=== PATIENT | male | born 1950 | race Caucasian/White ===

== ENCOUNTER 2020-08-23 09:02 | Emergency (ER) | payer OTHER, SELFPAY ==
--- NOTE | ~2020-08-23 | XR_ITS ---
EXAMINATION: XR shoulder RT min 2V EXAM DATE: 08/23/2020 09:39 INDICATION: Fell down steps 08/22/2020 with limited range of motion, persistent right shoulder pain. In itial encounter. TECHNIQUE: The following right shoulder projections obtained: frontal projection with internal rotati on, frontal projection with external rotation, Grashey, and scapular Y view (4+ views). There is no prior study for comparison. FINDINGS: No evidence of right shoulder rotator cuff calcific tendinosis. There is mild glenohumer al, moderate acromioclavicular joint primary osteoarthritis. There are no acute fractures or dislocat ions identified. There is no subcutaneous gas. The soft tissue is unremarkable. There are no radi opaque foreign bodies. IMPRESSION: No acute osseous findings. Reviewed, dictated and finalized at location B. IMPRESSION: No acute osseous findings.
[2020-08-23 09:16] VITALS: BP 107/66; PULSE 68; RESP 18; TEMP 36.7; O2SAT 100
--- NOTE | 2020-08-23 09:18 | ED.UPPEXIN ---
HPI - Extremity Injury (Upper) General Chief Complaint: Extremity Injury, Upper Stated Complaint: right shoulder injury Time Seen by Provider: 08/23/20 09:18 Source: patient and RN notes reviewed History of Present Illness HPI narrative: Patient is a 70-year-old male who presents the urgent care with complaints of right shoulder pain after fall yesterday. Patient states that he missed a step going down and fell onto his right shoulder. Patient states that he has been having a lot of difficulty in pain lifting the shoulder/arm. Patient denies hitting his head or any loss of consciousness. Patient states he has been taking Advil and Tylenol for the pain without much improvement. No other acute complaints. Some parts of this dictation were generated by voice recognition software and may contain typographical and/or grammatical inaccuracies. Related Data Home Medications Medication Instructions Recorded Confirmed atorvastatin 04/14/19 finasteride mg 04/14/19 lisinopril-hydrochlorothiazide tablet 04/14/19 omeprazole 04/14/19 terazosin mg 04/14/19 Allergies Allergy/AdvReac Type Severity Reaction Status Date / Time tramadol Allergy Mild ITCHING Verified 08/23/20 09:44 Review of Systems Review of Systems: Narrative: CONSTITUTIONAL: Denies fever, chills, or sweats. EYES: Denies visual changes, redness, or discharge. ENT: Denies rhinorrhea, congestion, sore throat, or otalgia. CARDIOVASCULAR: Denies chest pain, palpitations, or edema. RESPIRATORY: Denies cough or dyspnea. GASTROINTESTINAL: Denies abdominal pain, nausea, vomiting, or diarrhea. GENITOURINARY: Denies dysuria or hematuria. SKIN: Denies rash or itching. MUSCULOSKELETAL: Reports of right shoulder pain NEUROLOGIC: Denies headache, numbness, or weakness. All other systems reviewed are negative, except as documented in HPI. [facility] Past Medical History Medical History (Updated 08/23/20 @ 10:00 by BEBO Hoffmann) GERD (gastroesophageal reflux disease) Hyperlipidemia Hypertension Surgical History Surgical History (Updated 04/14/19 @ 10:20 by Mackenzie Dillon NP) History of total right knee replacement Previous back surgery Social History Social History (Updated 04/14/19 @ 10:21 by Mackenzie Dillon NP) Smoking packs per day: 0.5 Smoking cigarettes per day: 10.0 Years smoked: 25 Smoking pack-years: 12.50 Smoking status: Current every day smoker Comments At the time of my signature, I reviewed and agree with the nursing past medical, surgical, social, and family history. There is no relevant family history pertinent to the patient complaint. Exam Narrative: Exam Narrative: GENERAL: This is a well-nourished, well-developed patient, in no apparent distress. HEAD: normocephalic, atraumatic. EYES: PERRL. Sclera clear/white. Vision is grossly intact. EARS: External ears normal NOSE: External nose normal with no obvious nasal discharge, nares without redness, no rhinorrhea. THROAT: Mucous membranes moist NECK: Neck supple CARDIOVASCULAR: Regular rate and rhythm without murmurs, gallops, or rubs. RESPIRATORY: Clear to auscultation. Breath sounds equal bilaterally. No wheezes, rales, or rhonchi. SKIN: warm, intact with no suspicious lesions or rash, good texture and turgor. NEURO: awake, alert, and oriented to person, place and time. There were no obvious focal neurologic abnormalities. EXTREMITIES: No obvious deformity/dislocation/edema or ecchymosis noted to the right upper extremity/shoulder. Positive strong right radial pulse with capillary refill less than 2 seconds. Pain exacerbated with abduction/abduction of the right upper extremity. No clavicle crepitus. Range of motion limited due to pain. Course Vital Signs Vital signs: Vital Signs Temperature 98.1 F 08/23/20 09:16 Pulse Rate 68 08/23/20 09:16 Respiratory Rate 18 08/23/20 09:16 Blood Pressure 107/66 08/23/20 09:16 Pulse Oximetry 100 08/23/20 09
== END 2020-08-23 10:05 | disposition home or self-care (01) ==
PROVIDERS: Emergency Provider Nurse Practitioner Family
DX: M19.011 Primary osteoarthritis, right shoulder (principal); K21.9 Gastro-esophageal reflux disease without esophagitis; E78.5 Hyperlipidemia, unspecified; I10 Essential (primary) hypertension; Z96.651 Presence of right artificial knee joint; F17.210 Nicotine dependence, cigarettes, uncomplicated
CPT/HCPCS: 73030; 99213; G0463

== ENCOUNTER 2020-10-05 07:58 | Outpatient (CLI) | payer OTHER, SELFPAY ==
--- NOTE | ~2020-10-05 | XR_ITS ---
XR cervical spine 4-5V 10/05/2020 08:16 Indication: Neck pain and radiculopathy. Procedure: 4 view cervical spine Comparison: No prior studies for comparison. Findings: There is disc narrowing and marginal osteophytes at C4-5, C5-6 and C6-7. There is moderate multilevel uncinate and facet hypertrophy. Lung apices are normal. Odontoid process within normal steiner its. No fracture or traumatic malalignment. Impression: 1: Moderate-severe cervical spondylosis. Reviewed, dictated and finalized at location A. Impression: 1: Moderate-severe cervical spondylosis.
== END 2020-10-05 07:59 | disposition home or self-care (01) ==
LOC: ANHIMG 08:01
PROVIDERS: PCP Family Medicine; Visit Provider Family Medicine
DX: M47.22 Other spondylosis with radiculopathy, cervical region (principal); M48.02 Spinal stenosis, cervical region
CPT/HCPCS: 72050

== ENCOUNTER 2020-10-21 14:56 | Outpatient (CLI) | payer OTHER, SELFPAY ==
--- NOTE | ~2020-10-21 | US_ITS ---
EXAMINATION: US carotid duplex BI DATE: 10/21/2020 15:29 INDICATION: Carotid atherosclerosis and numbness on the left side of the neck TECHNIQUE: Grayscale, color Doppler, and pulsed Doppler images of the cervical carotid arteries were obtained. The degree of vessel stenosis is placed in one of the following categories: normal, <50%, 5 0-69%, >=70% but less than near-occlusion, near-occlusion, or total occlusion. Note that percent sten osis relative to normal distal artery lumen diameter is indirectly measured from velocity measurement s as described by Tigre, et al. Radiology 2003; [id number]. COMPARISON: None. FINDINGS: RIGHT: The right common carotid artery (CCA) peak systolic velocity (PSV) is 76 cm/s. The right internal car otid artery (ICA) PSV is 78 cm/s. The right ICA end-diastolic velocity (EDV) is 19 cm/s. The right IC A/CCA PSV ratio is 1.0. Grayscale and color Doppler images yield an estimate of <50% diameter reducti on from plaque in the ICA. The external carotid artery (ECA) PSV is 144 cm/s. There is antegrade flow in the right vertebral artery. LEFT: The left CCA PSV is 72 cm/s. The left ICA PSV is 95 cm/s. The left ICA EDV is 32 cm/s. The left ICA/C CA PSV ratio is 1.3. Grayscale and color Doppler images yield an estimate of <50% diameter reduction from plaque in the ICA. The ECA PSV is 334 cm/s. There is antegrade flow in the left vertebral artery . IMPRESSION: 1. <50% stenosis in the right internal carotid artery. 2. <50% stenosis in the left internal carotid artery. 3. Cardiac arrhythmia is present. Correlate with EKG. Reviewed, dictated and finalized at location A.
== END 2020-10-21 14:57 | disposition home or self-care (01) ==
PROVIDERS: PCP Family Medicine; Visit Provider Family Medicine
DX: I65.23 Occlusion and stenosis of bilateral carotid arteries (principal)
CPT/HCPCS: 93880

== ENCOUNTER 2021-01-16 10:51 | Emergency (ER) | payer OTHER, SELFPAY ==
--- NOTE | ~2021-01-16 | XR_ITS ---
EXAMINATION: XR hip LT min 2V EXAM DATE: 01/16/2021 12:01 INDICATION: No known recent injury provided at this time. Pain of the left hip. TECHNIQUE: Left hip frontal, 'frog leg' projections for interpretation. There is no prior study for comparison. FINDINGS: Smooth left hip femoral head contour, no radiographic evidence of avascular necrosis. Ther e is moderate left hip primary osteoarthritis. There are no acute fractures or dislocations identifie d. There is no subcutaneous gas. Mild superficial femoral arterial calcifications. There are no ra diopaque foreign bodies. IMPRESSION: Moderate left hip osteoarthritis. Reviewed, dictated and finalized at location A.
[2021-01-16 11:00] VITALS: BP 104/62; PULSE 72; RESP 18; TEMP 36.8; O2SAT 99
--- NOTE | 2021-01-16 11:44 | ED.GENADULT ---
HPI - General Adult General Chief complaint: Extremity Injury, Lower Stated complaint: lt hip pain Source: patient Mode of arrival: ambulatory Limitations: no limitations History of Present Illness HPI narrative: Patient presents for evaluation of left hip pain for the last week. He will identify any precipitating cause or injury. Pain is constant, sharp rated 10 out of 10 in severity, with radiation to left thigh. No paresthesias. He has alternated Tylenol and Aleve with some improvement. He also had some leftover Percocet which he took. He states the medication was effective for a short period of time. Weightbearing and walking cause worsening pain. As of late he has been ambulating with a cane 2/2 pain. No additional complaints or concerns. Related Data Home Medications Medication Instructions Recorded Confirmed famotidine 20 mg tablet 20 mg PO DAILY 08/24/20 01/16/21 montelukast 10 mg tablet 10 mg PO DAILY 08/24/20 01/16/21 zinc 50 mg tablet 50 mg PO DAILY 08/24/20 01/16/21 Allergies Allergy/AdvReac Type Severity Reaction Status Date / Time tramadol Allergy Mild ITCHING Verified 01/16/21 11:15 Review of Systems Review of Systems: CONSTITUTIONAL: Denies fever, chills, or sweats. EYES: Denies visual changes, redness, or discharge. ENT: Denies rhinorrhea, congestion, sore throat, or otalgia. CARDIOVASCULAR: Denies chest pain, palpitations, or edema. RESPIRATORY: Denies cough or dyspnea. GASTROINTESTINAL: Denies abdominal pain, nausea, vomiting, or diarrhea. GENITOURINARY: Denies dysuria or hematuria. SKIN: Denies rash or itching. MUSCULOSKELETAL: Reports left hip pain. Denies back pain or myalgia. NEUROLOGIC: Denies headache, numbness, dizziness, or weakness. PSYCHIATRIC: Denies anxiety or depression. [facility] Past Medical History Medical History Benign essential HTN BPH loc w urin obs/LUTS CAD (coronary artery disease) Drug abuse in remission JUAN DAVID (generalized anxiety disorder) GERD (gastroesophageal reflux disease) Hepatitis C Herniated lumbar intervertebral disc Hx of transfusion of packed red blood cells Hyperlipidemia Hyperlipidemia Hypertension Tinnitus Tobacco abuse Surgical History Surgical History History of total right knee replacement Hx laparoscopic cholecystectomy Previous back surgery Family History Family History Other Throat cancer Social History Social History Social History: Smoking packs per day: 0.5 Smoking cigarettes per day: 10.0 Years smoked: 25 Smoking pack-years: 12.50 Smoking status: Current every day smoker Tobacco type: cigarettes Second hand tobacco smoke exposure: Yes Alcohol intake: former Substance use: former Substance use type: unknown 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 HEAD: Normocephalic, atraumatic. EYES: PERRLA and EOMI. ENT: Nares clear, no rhinorrhea or epistaxis. Mucous membranes moist. Oropharynx without tonsillar hypertrophy exudate or other lesions. Bilateral TMs pearly goins nonbulging NECK: Supple. No adenopathy or masses. No carotid bruits or JVD CHEST: Clear to auscultation. No respiratory distress. No wheezes rales or rhonchi HEART: Regular rate and rhythm. No murmur heard. Normal peripheral pulses. ABDOMEN: Soft, nontender, nondistended, normal active bowel sounds. EXTREMITIES:Tenderness over left lateral hip and proximal left thigh. Normal range of motion. No edema. Pain is reproducible in left hip with
[2021-01-16] MEDS: KETOROLAC (*BKC) 60 MG/2 ML VIAL 30 MG IM (12:28)
== END 2021-01-16 12:50 | disposition home or self-care (01) ==
PROVIDERS: Emergency Provider Nurse Practitioner; PCP Family Medicine
DX: M16.12 Unilateral primary osteoarthritis, left hip (principal); F17.210 Nicotine dependence, cigarettes, uncomplicated; Z96.651 Presence of right artificial knee joint; I10 Essential (primary) hypertension; N40.1 Benign prostatic hyperplasia with lower urinary tract symptoms; I25.10 Atherosclerotic heart disease of native coronary artery without angina pectoris; K21.9 Gastro-esophageal reflux disease without esophagitis; Z86.19 Personal history of other infectious and parasitic diseases; E78.5 Hyperlipidemia, unspecified
CPT/HCPCS: 73502; 96372; 99213; G0463; J1885

== ENCOUNTER 2021-01-31 10:01 | Outpatient (CLI) | payer OTHER, SELFPAY ==
--- NOTE | ~2021-01-31 | CT_ITS ---
EXAMINATION:CT lung screening DATE: 01/31/2021 10:26 INDICATION: Personal history of tobacco dependence. Current smoker with 30 pack year history. TECHNIQUE: Computed tomography (CT) of the chest was performed without intravenous contrast. Automate d exposure control and iterative reconstruction technique were employed. The dose-length product (DLP ) was 110.22 mGy-cm. COMPARISON: None. FINDINGS: There is mild emphysema. There is mild atelectasis bilaterally. A calcified right lung nodu le and calcified subcarinal lymph nodes are consistent with old granulomatous disease. No pleural eff usion. The heart size is normal. There are coronary artery calcifications. Calcifications of aortic v alve. No pericardial effusion. There is severe cervical and thoracic spondylosis. There is mild chron ic anterior wedging of multiple vertebral bodies at thoracolumbar junction. IMPRESSION: 1. Lung-RADS category 1: Negative. Continue annual screening with noncontrast low-dose chest CT in 12 months. Reviewed, dictated and finalized at location A. IMPRESSION: 1. Lung-RADS category 1: Negative. Continue annual screening with noncontrast l ow-dose chest CT in 12 months.
== END 2021-01-31 10:02 | disposition home or self-care (01) ==
LOC: ANHIMG 10:11
PROVIDERS: PCP Family Medicine; Visit Provider Family Medicine
DX: Z12.2 Encounter for screening for malignant neoplasm of respiratory organs (principal); Z87.891 Personal history of nicotine dependence
CPT/HCPCS: 71271

== ENCOUNTER 2021-08-25 15:13 | Emergency (ER) | payer OTHER, SELFPAY ==
[2021-08-25 15:22] VITALS: BP 141/71; PULSE 53; RESP 16; TEMP 36.7; O2SAT 100
[2021-08-25 15:39] VITALS: BP 141/71; PULSE 53; RESP 16; TEMP 36.7; O2SAT 100
--- NOTE | 2021-08-25 15:44 | ED.URI ---
HPI - URI/Sore Throat General Chief Complaint: Ear Stated Complaint: Ear Pain Time Seen by Provider: 08/25/21 15:44 Source: patient Mode of arrival: ambulatory Limitations: no limitations History of Present Illness HPI Narrative: 71-year-old male presented for complaint of right ear feeling full. He states he has a history of earwax impaction and this feels similar. He denies associated sinus pressure congestion, runny nose, dizziness. He endorses a history of tinnitus which is unchanged at this time. Related Data Home Medications Medication Instructions Recorded Confirmed famotidine 20 mg tablet 20 mg PO DAILY 08/24/20 08/25/21 montelukast 10 mg tablet 10 mg PO DAILY 08/24/20 08/25/21 zinc 50 mg tablet 50 mg PO DAILY 08/24/20 08/25/21 Allergies Allergy/AdvReac Type Severity Reaction Status Date / Time tramadol Allergy Mild ITCHING Verified 08/25/21 15:34 Review of Systems Review of Systems: CONSTITUTIONAL: Denies malaise, chills, or fever. EYES: Denies visual changes, redness, or discharge. ENT: Denies rhinorrhea, congestion, sinus pain, and sore throat. Reports ear pressure CARDIOVASCULAR: Denies chest pain, palpitations, or edema. RESPIRATORY: Denies cough or dyspnea. GASTROINTESTINAL: Denies abdominal pain, nausea, vomiting, diarrhea SKIN: Denies rash or itching. MUSCULOSKELETAL: Denies myalgia. NEUROLOGIC: Denies headache. All systems reviewed & are unremarkable except as noted in HPI and below PMFSH Past Medical History Medical History Abnormality of gait Benign essential HTN Bilateral carotid bruits BPH loc w urin obs/LUTS Brachial (cervical) neuritis CAD (coronary artery disease) Cardiac murmur Carotid artery bruit Cervical spondylosis with radiculopathy Chronic pain Degenerative joint disease of left hip Drug abuse in remission JUAN DAVID (generalized anxiety disorder) GERD (gastroesophageal reflux disease) Hepatitis C Herniated lumbar intervertebral disc Hx of hepatitis C Hx of transfusion of packed red blood cells Hyperlipidemia Hyperlipidemia Hypertension Low vitamin D level Osteoarthritis of left hip Shoulder tendinitis Tinnitus Tobacco abuse Trochanteric bursitis Unsteady gait Surgical History Surgical History History of total right knee replacement Previous back surgery x2 Family History Family History Sibling Tuberculosis Father Tuberculosis Mother Hypertension Other Throat cancer Social History Social History Social History: Years smoked: 50 Smoking status: Current every day smoker Tobacco type: cigarettes Second hand tobacco smoke exposure: Yes Alcohol intake: former Substance use: former Substance use type: unknown Gender identity (if verbalized by the patient): Male Sexual Orientation (if Verbalized by the Patient): Straight or Heterosexual Spiritual care concerns: No Comments At time of signature, agree with nursing past medical, surgical, social and family history. There is no relevant family history pertinent to the presenting complaint Exam Narrative: GENERAL: Well-appearing HEAD: Normocephalic EYES: conjunctivae clear ENT: Nares clear. Mucous membranes moist. TM obstructed bilaterally due to cerumen impaction; no tragal tenderness. Oropharynx not erythematous without lesions. NECK: Supple. No lymphadenopathy CHEST: Clear to auscultation, breath sounds equal. HEART: Regular rate and rhythm. No murmur heard. SKIN: Warm, dry, no rash. NEURO: Alert and oriented x3. PSYCH: Normal mood and affect Course Course Emergency Course: Patient is aware of diagnosis, understands and agrees to treatment plan. Anticipatory guidance given. Patient agrees to follow-up as directed and is aware of reasons to seek ca
== END 2021-08-25 16:15 | disposition home or self-care (01) ==
PROVIDERS: Emergency Provider Nurse Practitioner Family; PCP Family Medicine
DX: H61.23 Impacted cerumen, bilateral (principal); I25.10 Atherosclerotic heart disease of native coronary artery without angina pectoris; I10 Essential (primary) hypertension; E78.5 Hyperlipidemia, unspecified; F17.210 Nicotine dependence, cigarettes, uncomplicated
CPT/HCPCS: 69210; 99212; G0463

== ENCOUNTER 2021-12-20 00:32 | Day surgery (SDC) | payer OTHER, SELFPAY ==
[2021-12-07 14:01] VITALS: BMI 26.2
[2021-12-20 07:15] VITALS: BP 131/70; PULSE 52; RESP 16; TEMP 36.1; O2SAT 99; BMI 25.8
[2021-12-20] MEDS: LACTATED RINGERS 1,000 ML 150 ML IV CONT (07:26)
--- NOTE | 2021-12-20 08:03 | WPDANESEPPF ---
Anes - Initial Pre Proc Eval Procedure: Operation Date: 12/20/21 08:30 Proposed Procedures p Screening Colonoscopy - Nick Varela MD Date/Time: 12/20/21 08:03 Surgeon: Nick Varela MD Pre Op Diagnosis: neoplasm screening Patient Data Age: 71 Gender: M Height: 1.85 m Weight: 88.8 kg Last Vital Signs Temp 97 F L 12/20/21 07:15 Pulse 52 L 12/20/21 07:15 Resp 16 12/20/21 07:15 BP 131/70 12/20/21 07:15 Pulse Ox 99 12/20/21 07:15 O2 Del Method Room Air 12/20/21 07:15 Allergies Allergy/AdvReac Type Severity Reaction Status Date / Time tramadol Allergy Mild ITCHING Verified 12/20/21 07:12 Home Medications Medication Instructions Recorded Confirmed Type montelukast 10 mg tablet 10 mg PO DAILY 08/24/20 12/20/21 History omeprazole 40 mg capsule,delayed 40 mg PO DAILY #90 caps 08/24/20 12/20/21 Rx release zinc 50 mg tablet 50 mg PO DAILY 08/24/20 12/20/21 History diclofenac sodium 1 % topical gel 4 g topical QID #100 grams 01/16/21 12/20/21 Rx (Voltaren Arthritis Pain) terazosin 5 mg capsule See Rx Instructions .Route 06/14/21 12/20/21 Rx .COMPLEX #90 caps atorvastatin 40 mg tablet See Rx Instructions .Route 07/04/21 12/20/21 Rx .COMPLEX #90 tabs isosorbide mononitrate 30 mg See Rx Instructions .Route 09/02/21 12/20/21 Rx tablet,extended release 24 hr .COMPLEX #90 tabs lisinopril 10 See Rx Instructions .Route 10/14/21 12/20/21 Rx mg-hydrochlorothiazide 12.5 mg .COMPLEX #90 tabs tablet celecoxib 200 mg capsule See Rx Instructions .Route 11/14/21 12/20/21 Rx .COMPLEX #60 caps finasteride 5 mg tablet See Rx Instructions .Route 11/14/21 12/20/21 Rx .COMPLEX #90 tabs escitalopram oxalate 5 mg tablet See Rx Instructions .Route 12/06/21 12/20/21 Rx .COMPLEX #90 tabs tizanidine 2 mg tablet See Rx Instructions .Route 12/06/21 12/20/21 Rx .COMPLEX #90 tabs Patient hx anesthesia problems: none Family hx anesthesia problems: none Results Review: All pre-operative results and documents have been reviewed as part of the pre-operative evaluation. [facility] Past Medical History Medical History Abnormality of gait Benign essential HTN Bilateral carotid bruits BPH loc w urin obs/LUTS Brachial (cervical) neuritis CAD (coronary artery disease) Cardiac murmur Carotid artery bruit Cervical spondylosis with radiculopathy Chronic pain Degenerative joint disease of left hip Drug abuse in remission JUAN DAVID (generalized anxiety disorder) GERD (gastroesophageal reflux disease) Hepatitis C Herniated lumbar intervertebral disc Hx of hepatitis C Hx of transfusion of packed red blood cells Hyperlipidemia Hyperlipidemia Hypertension Low vitamin D level Osteoarthritis of left hip Shoulder tendinitis Tinnitus Tobacco abuse Trochanteric bursitis Unsteady gait Surgical History Surgical History History of total right knee replacement Previous back surgery x2 Family History Family History Sibling Tuberculosis Father Tuberculosis Mother Hypertension Other Throat cancer Social History Social History (Updated 12/08/21 @ 14:40 by Dannielle Rehman) Social History: Smoking packs per day: 0.5 Smoking cigarettes per day: 10.0 Years smoked: 50 Smoking pack-years: 25.00 Smoking status: Current every day smoker Tobacco type: cigarettes Second hand tobacco smoke exposure: Yes Alcohol intake: never Substance use: former Substance use type: does not use Living arrangements: with family Gender identity (if verbalized by the patient): Male Sexual Orientation (if Verbalized by the Patient): Straight or Heterosexual Spiritual care concerns: No Anes - Eval Final PreProcedure Day of Procedure 12/20/21 08:03 Patient weight: normal Heart: re
--- NOTE | 2021-12-20 08:10 | PM.HPGS ---
History of Present Illness History of Present Illness Consent: Risks, benefits, and alternatives have been discussed and questions answered. Patient agrees to proceed with procedure. Chief complaint: neoplasm screening Narrative: David Castro is a 71 year old male here for screening colonoscopy, last one over 10 years ago Review of Systems Constitutional: Constitutional: Denies headache(s) and Denies weakness Eyes: Eyes: Denies blurry vision ENT: Reports Normal hearing present, Denies headache(s) and Denies neck pain Cardiovascular: Cardiovascular: Denies chest pain and Denies dyspnea Respiratory: Respiratory: Denies dyspnea Gastrointestinal: Gastrointestinal: Reports no additional gastrointestinal complaints Genitourinary: Genitourinary: Denies dysuria Musculoskeletal: Musculoskeletal: Denies neck pain Integumentary/Breasts: Skin/Breast: Denies dry skin Neurologic: Reports Normal hearing present, Denies headache(s) and Denies weakness Psychiatric: Psychiatric: Denies anxiety Endocrine: Endocrine: Denies change in body appearance Hematologic/Lymphatic: Hematologic/Lymphatic: Denies easy bleeding Allergic/Immunologic: Allergic/Immunologic: Denies urticaria PMFSH Past Medical History Medical History Abnormality of gait Benign essential HTN Bilateral carotid bruits BPH loc w urin obs/LUTS Brachial (cervical) neuritis CAD (coronary artery disease) Cardiac murmur Carotid artery bruit Cervical spondylosis with radiculopathy Chronic pain Degenerative joint disease of left hip Drug abuse in remission JUAN DAVID (generalized anxiety disorder) GERD (gastroesophageal reflux disease) Hepatitis C Herniated lumbar intervertebral disc Hx of hepatitis C Hx of transfusion of packed red blood cells Hyperlipidemia Hyperlipidemia Hypertension Low vitamin D level Osteoarthritis of left hip Shoulder tendinitis Tinnitus Tobacco abuse Trochanteric bursitis Unsteady gait Surgical History Surgical History History of total right knee replacement Previous back surgery x2 Family History Family History Sibling Tuberculosis Father Tuberculosis Mother Hypertension Other Throat cancer Social History Social History (Updated 12/08/21 @ 14:40 by Dannielle Rehman) Social History: Smoking packs per day: 0.5 Smoking cigarettes per day: 10.0 Years smoked: 50 Smoking pack-years: 25.00 Smoking status: Current every day smoker Tobacco type: cigarettes Second hand tobacco smoke exposure: Yes Alcohol intake: never Substance use: former Substance use type: does not use Living arrangements: with family Gender identity (if verbalized by the patient): Male Sexual Orientation (if Verbalized by the Patient): Straight or Heterosexual Spiritual care concerns: No Meds Home Medications and Allergies Home Medications Medication Instructions Recorded Confirmed Type montelukast 10 mg tablet 10 mg PO DAILY 08/24/20 12/20/21 History omeprazole 40 mg capsule,delayed 40 mg PO DAILY #90 caps 08/24/20 12/20/21 Rx release zinc 50 mg tablet 50 mg PO DAILY 08/24/20 12/20/21 History diclofenac sodium 1 % topical gel 4 g topical QID #100 grams 01/16/21 12/20/21 Rx (Voltaren Arthritis Pain) terazosin 5 mg capsule See Rx Instructions .Route 06/14/21 12/20/21 Rx .COMPLEX #90 caps atorvastatin 40 mg tablet See Rx Instructions .Route 07/04/21 12/20/21 Rx .COMPLEX #90 tabs isosorbide mononitrate 30 mg See Rx Instructions .Route 09/02/21 12/20/21 Rx tablet,extended release 24 hr .COMPLEX #90 tabs lisinopril 10 See Rx Instructions .Route 10/14/21 12/20/21 Rx mg-hydrochlorothiazide 12.5 mg .COMPLEX #90 tabs tablet celecoxib 200 mg capsule See Rx Instructions .Route 11/14/21 12/20/21 Rx .COMPLEX #60 caps finasteride 5
[2021-12-20 08:33] VITALS: BP 114/72; PULSE 53; RESP 21; O2SAT 97
[2021-12-20 08:43] VITALS: BP 144/80; PULSE 48; RESP 16; O2SAT 97
[2021-12-20 08:53] VITALS: BP 134/82; PULSE 55; RESP 16; O2SAT 98
== END 2021-12-20 09:03 | disposition home or self-care (01) ==
PROVIDERS: PCP Family Medicine; Visit Provider Internal Medicine Gastroenterology
PROC: 0DJD8ZZ Inspection of Lower Intestinal Tract, Via Natural or Artificial Opening Endoscopic (ICD-10-PCS; CPT 45378; principal; 2021-12-20 08:30)
DX: Z12.11 Encounter for screening for malignant neoplasm of colon (principal); N40.1 Benign prostatic hyperplasia with lower urinary tract symptoms; I10 Essential (primary) hypertension; I25.10 Atherosclerotic heart disease of native coronary artery without angina pectoris; M47.22 Other spondylosis with radiculopathy, cervical region; M16.12 Unilateral primary osteoarthritis, left hip; K21.9 Gastro-esophageal reflux disease without esophagitis; F41.1 Generalized anxiety disorder; B19.20 Unspecified viral hepatitis C without hepatic coma; E78.5 Hyperlipidemia, unspecified; E55.9 Vitamin D deficiency, unspecified; H93.19 Tinnitus, unspecified ear; F17.210 Nicotine dependence, cigarettes, uncomplicated
CPT/HCPCS: G0121; J2704; J7120

== ENCOUNTER 2021-12-28 09:38 | Emergency (ER) | payer OTHER, SELFPAY ==
--- NOTE | ~2021-12-28 | XR_ITS ---
EXAMINATION: XR knee LT min 4V DATE: 12/28/2021 10:13 INDICATION: Left knee lump. TECHNIQUE: 5 views of left knee were obtained. COMPARISON: None. FINDINGS: Bone alignment is normal. No fracture. There is moderate osteoarthritis of medial compartme nt and mild osteoarthritis of lateral and patellofemoral compartments. There is chondrocalcinosis of the menisci. No knee joint effusion. There is soft tissue swelling medial to the knee joint. IMPRESSION: 1. Moderate left knee osteoarthritis. 2. Soft tissue swelling medial to the knee joint. Reviewed, dictated and finalized at location A.
[2021-12-28 09:40] VITALS: BP 119/58; PULSE 52; RESP 14; TEMP 36.5; O2SAT 98
--- NOTE | 2021-12-28 09:43 | ED.EXTPRO ---
HPI - Extremity Problem General Chief complaint: Extremity Problem,Nontraumatic Stated complaint: lump on left knee Time Seen by Provider: 12/28/21 10:17 Source: patient and RN notes reviewed Mode of arrival: ambulatory Limitations: no limitations History of Present Illness HPI Narrative: 71-year-old male presents with concern for swelling and pain to the left knee, he also reports a nodule to the left knee. He reports symptoms have been present for approximately 1 month. He denies any injury or trauma. He reports using Tylenol without pain relief. He reports pain is worse at night. He denies warmth, redness, open skin MD Complaint: extremity pain and extremity swelling Related Data Home Medications Medication Instructions Recorded Confirmed montelukast 10 mg tablet 10 mg PO DAILY 08/24/20 12/20/21 zinc 50 mg tablet 50 mg PO DAILY 08/24/20 12/20/21 Allergies Allergy/AdvReac Type Severity Reaction Status Date / Time tramadol Allergy Mild ITCHING Verified 12/28/21 10:02 Review of Systems Review of Systems: CONSTITUTIONAL: Denies malaise, chills, sweats, or fever. CARDIOVASCULAR: Denies chest pain, palpitations, or edema. RESPIRATORY: Denies cough or dyspnea. SKIN: Denies rash or itching, bruising, redness, swelling. MUSCULOSKELETAL: Reports left knee pain, swelling, nodule NEUROLOGIC: Denies numbness, weakness All systems reviewed & are unremarkable except as noted in HPI and below PMFSH Past Medical History Medical History Abnormality of gait Benign essential HTN Bilateral carotid bruits BPH loc w urin obs/LUTS Brachial (cervical) neuritis CAD (coronary artery disease) Cardiac murmur Carotid artery bruit Cervical spondylosis with radiculopathy Chronic pain Degenerative joint disease of left hip Drug abuse in remission JUAN DAVID (generalized anxiety disorder) GERD (gastroesophageal reflux disease) Hepatitis C Herniated lumbar intervertebral disc Hx of hepatitis C Hx of transfusion of packed red blood cells Hyperlipidemia Hyperlipidemia Hypertension Low vitamin D level Osteoarthritis of left hip Shoulder tendinitis Tinnitus Tobacco abuse Trochanteric bursitis Unsteady gait Surgical History Surgical History History of total right knee replacement Previous back surgery x2 Family History Family History Sibling Tuberculosis Father Tuberculosis Mother Hypertension Other Throat cancer Social History Social History (Updated 12/08/21 @ 14:40 by Dannielle Rehman) Social History: Smoking packs per day: 0.5 Smoking cigarettes per day: 10.0 Years smoked: 50 Smoking pack-years: 25.00 Smoking status: Current every day smoker Tobacco type: cigarettes Second hand tobacco smoke exposure: Yes Alcohol intake: never Substance use: former Substance use type: does not use Gender identity (if verbalized by the patient): Male Sexual Orientation (if Verbalized by the Patient): Straight or Heterosexual Spiritual care concerns: No Comments At time of signature, agree with nursing past medical, surgical, social and family history. There is no relevant family history pertinent to the presenting complaint Exam Narrative: GENERAL: Well-appearing, well-nourished, and in no acute distress. HEAD: Normocephalic, atraumatic. EYES: PERRLA, conjunctivae clear NECK: Supple. CHEST: Speaks in full sentences. No respiratory distress. HEART: Regular rate and rhythm. Normal and equal peripheral pulses. EXTREMITIES: Left knee has normal grossly strength and sensation, grossly normal range of motion. Mild nonpitting edema without erythema, warmth or ecchymosis. Nontender. Firm nontender nodule approximately 3 cm in diameter noted to the left medial knee. No open wounds, no skin tenting, no devitalized tissue or atrophy, no trophic ch
== END 2021-12-28 10:30 | disposition home or self-care (01) ==
PROVIDERS: Emergency Provider Nurse Practitioner; PCP Family Medicine
DX: M25.562 Pain in left knee (principal); M25.462 Effusion, left knee; F17.210 Nicotine dependence, cigarettes, uncomplicated; I10 Essential (primary) hypertension; I25.10 Atherosclerotic heart disease of native coronary artery without angina pectoris; R01.1 Cardiac murmur, unspecified; M16.12 Unilateral primary osteoarthritis, left hip; E78.5 Hyperlipidemia, unspecified; Z96.651 Presence of right artificial knee joint; N40.1 Benign prostatic hyperplasia with lower urinary tract symptoms
CPT/HCPCS: 73564; 99213; G0463

== ENCOUNTER 2022-01-23 12:07 | Outpatient (CLI) | payer OTHER, SELFPAY ==
--- NOTE | ~2022-01-23 | MR_ITS ---
EXAMINATION: MR knee LT wo con DATE: 01/23/2022 13:28 INDICATION: Left knee pain TECHNIQUE: Magnetic resonance imaging (MRI) of the left knee was performed without intravenous contra st. Sequences included coronal PD-weighted FSE, coronal PD-weighted FS FSE, sagittal T2-weighted FSE , sagittal PD-weighted FS FSE and axial PD weighted fat saturated FSE. COMPARISON: Radiographs dated 01/07/2022 FINDINGS: Medial compartment: Complex tear of the body and posterior horn of the medial meniscus. There is a macerated appearance t o the body which appears thickened with large amount of central increased signal occupying a signific ant portion of the volume of the meniscal body. There is a large para meniscal cyst extending periphe rally from the medial meniscal body. The cyst which remains deep to the medial patellofemoral retinac ulum and medial collateral ligament measures 4.4 cm craniocaudally and 4.2 x 1.7 cm in maximal transa xial dimensions. Deep chondral ulceration with along the anterior to central weightbearing medial fem oral condyle and medial half of the medial tibial plateau, in places likely full/near full-thickness with a few scattered foci of subarticular edema-like signal change. Lateral compartment: Subtle small longitudinal horizontal tear at the junction of the body and posterior horn of the later al meniscus. Articular cartilage is normal. Patellofemoral compartment: Partial-thickness chondral fissuring without live extending transversely across the central aspect of the medial and lateral patellar facets and intervening apical ridge. Subtle chondral surface regular date at the inferior aspect of the trochlear groove and inferomedial aspect of the lateral trochlea. Ligaments and tendons: Anterior and posterior cruciate ligaments are normal. The medial collateral ligament and fibular mirta ateral ligament complex are normal. The extensor mechanism is normal. The visualized medial and later al hamstring tendons as well as the iliotibial band are normal. Fluid: Physiologic amount of fluid in the joint space. No loose osteochondral bodies identified. Osseous/other: Bone alignment is normal. No fracture or pathologic marrow replacing process. IMPRESSION: 1. Complex medial meniscal tear with large and medial sided 4.4 x 4.2 x 1.7 cm parameniscal cyst kaushal ing from the meniscal body. 2. Moderate osteoarthritis in the medial compartment with extensive moderate and high-grade chondroma lacia. 2. Mild patellofemoral osteoarthritis with smaller regions of moderate grade chondromalacia. Reviewed, dictated and finalized at location A. IMPRESSION: 1. Complex medial meniscal tear with large and medial sided 4.4 x 4.2 x 1.7 cm parameniscal cyst arising from the meniscal body. 2. Moderate osteoarthritis in the medial compartment with extensive moderate an d high-grade chondromalacia. 2. Mild patellofemoral osteoarthritis with smaller regions of moderate grade ch ondromalacia.
== END 2022-01-23 12:08 | disposition home or self-care (01) ==
PROVIDERS: PCP Family Medicine; Visit Provider Nurse Practitioner
DX: M17.12 Unilateral primary osteoarthritis, left knee (principal); S83.232D Complex tear of medial meniscus, current injury, left knee, subsequent encounter; X58.XXXD Exposure to other specified factors, subsequent encounter
CPT/HCPCS: 73721

== ENCOUNTER 2022-04-01 09:52 | Emergency (ER) | payer OTHER, SELFPAY ==
[2022-04-01 10:06] VITALS: BP 134/61; PULSE 68; RESP 16; TEMP 36.2; O2SAT 100
--- NOTE | 2022-04-01 11:04 | ED.SKABFB ---
HPI - Skin/Abscess/Foreign Bdy General Chief complaint: Burn/Smoke Inhalation Stated complaint: Finger Injury/Burn Time Seen by Provider: 04/01/22 11:04 Source: patient, RN notes reviewed and old records reviewed Mode of arrival: ambulatory Limitations: no limitations History of Present Illness HPI narrative: 72-year-old male who presents to [facility] with complaints of burn to his finger 5th finger right when he was making fudge yesterday. he states that the sugar and mild boiled over burning his 5th right finger with large blisters noted to ferreira aspect of finger, Patient is able to move finger well, denies any pain to area. Patient reports that he has been using Neosporin to his right 5th finger. MD complaint: other (Burn second-degree) Onset (ago): day(s) (1) Tetanus up to date: yes Treatments prior to arrival: other (Neosporin on right 5th finger) Related Data Home Medications Medication Instructions Recorded Confirmed montelukast 10 mg tablet 10 mg PO DAILY 08/24/20 04/04/22 zinc 50 mg tablet 50 mg PO DAILY 08/24/20 04/04/22 bupropion HCl 150 mg tablet,12 hr 150 mg PO DAILY 04/01/22 04/04/22 sustained-release celecoxib 200 mg capsule 200 mg PO DAILY 04/01/22 04/04/22 escitalopram oxalate 5 mg tablet 5 mg PO DAILY 04/01/22 04/04/22 finasteride 5 mg tablet 5 mg PO DAILY 04/01/22 04/04/22 isosorbide mononitrate 30 mg 30 mg PO DAILY 04/01/22 04/04/22 tablet,extended release 24 hr terazosin 5 mg capsule 5 mg PO DAILY 04/01/22 04/04/22 Allergies Allergy/AdvReac Type Severity Reaction Status Date / Time tramadol Allergy Mild ITCHING Verified 04/04/22 14:19 Review of Systems Review of Systems: CONSTITUTIONAL: Denies fever, chills, or sweats. CARDIOVASCULAR: Denies chest pain, palpitations, or edema. RESPIRATORY: Denies cough or dyspnea. GASTROINTESTINAL: Denies abdominal pain, nausea, vomiting SKIN: Reports redness and swelling with blister formation on ferreira aspect of right 5th finger with no acute pain verbalized or any drainage. MUSCULOSKELETAL: Denies myalgia. NEUROLOGIC: Denies headache, numbness All systems reviewed & are unremarkable except as noted in HPI and below PMFSH Past Medical History Medical History Abnormality of gait Aortic calcification Benign essential HTN Bilateral carotid bruits BPH loc w urin obs/LUTS Brachial (cervical) neuritis CAD (coronary artery disease) Cardiac murmur Carotid artery bruit Cervical spondylosis with radiculopathy Chronic pain Degenerative joint disease of left hip Drug abuse in remission Emphysema of lung JUAN DAVID (generalized anxiety disorder) GERD (gastroesophageal reflux disease) Hepatitis Hepatitis C Herniated lumbar intervertebral disc Hx of hepatitis C Hx of transfusion of packed red blood cells Hyperlipidemia Hyperlipidemia Hypertension Low vitamin D level Osteoarthritis of left hip Shoulder tendinitis Tinnitus Tobacco abuse Trochanteric bursitis Unsteady gait Surgical History Surgical History History of carpal tunnel release History of total right knee replacement Previous back surgery x2 Family History Family History Sibling Tuberculosis Hypertension Cancer Father Tuberculosis Cancer Mother Hypertension Cerebrovascular accident Other Throat cancer Social History Social History Social History: Smoking packs per day: 0.5 Smoking cigarettes per day: 10.0 Years smoked: 50 Smoking pack-years: 25.00 Smoking status: Current every day smoker Tobacco type: cigarettes Second hand tobacco smoke exposure: Yes Alcohol intake: never Substance use: former Substance use type: does not use Lack of Transportation: No Lack of Food: Never True Current Housing: I Have Housing Concerned
== END 2022-04-01 12:02 | disposition home or self-care (01) ==
PROVIDERS: Emergency Provider Registered Nurse; PCP Family Medicine
DX: T23.221A Burn of second degree of single right finger (nail) except thumb, initial encounter (principal); X08.8XXA Exposure to other specified smoke, fire and flames, initial encounter; Y93.G3 Activity, cooking and baking; I10 Essential (primary) hypertension; R09.89 Other specified symptoms and signs involving the circulatory and respiratory systems; N40.1 Benign prostatic hyperplasia with lower urinary tract symptoms; I25.10 Atherosclerotic heart disease of native coronary artery without angina pectoris; R01.1 Cardiac murmur, unspecified; M16.12 Unilateral primary osteoarthritis, left hip; K21.9 Gastro-esophageal reflux disease without esophagitis; E78.5 Hyperlipidemia, unspecified; J43.9 Emphysema, unspecified; Z96.651 Presence of right artificial knee joint; F17.210 Nicotine dependence, cigarettes, uncomplicated
CPT/HCPCS: 99213; G0463

== ENCOUNTER 2022-04-28 09:02 | Outpatient (CLI) | payer OTHER, SELFPAY ==
--- NOTE | ~2022-04-28 | NM_ITS ---
EXAMINATION: NM jona stress w perfusion DATE: 04/28/2022 11:51 INDICATION: Abnormal electrocardiogram. Other forms of dyspnea. TECHNIQUE: Rest images were obtained following intravenous administration of 10.5 mCi Tc99m tetrofosm in (Myoview). The patient was infused intravenously with Lexiscan (regadenoson). Then, 32.6 mCi Tc99m tetrofosmin (Myoview) was administered intravenously, and supine and prone stress images were obtain ed. Data was reconstructed into short axis and horizontal and vertical long axis SPECT images. Gated SPECT images were also obtained. COMPARISON: Chest CT 01/31/2021 FINDINGS: There is no definite reversible or fixed perfusion abnormality to suggest ischemia or infar ction. There is no segmental wall motion abnormality. Left ventricular ejection fraction measures 6 6%. IMPRESSION: 1. No definite ischemia or infarct. 2. Normal left ventricular ejection fraction measuring 66%. Reviewed, dictated and finalized at location A. ONNEL ARBITRATOR
--- NOTE | 2022-04-28 09:34 | EST_ITS ---
Patient Info Name: David Castro Age: 72 years : 1950 Gender: Male Ht: 73 in Wt: 20 lbs BSA: 0.63 m2 HR: 51 bpm BP: 138 / 84 mmHg Heart Rhythm: Sinus Rhythm Exam Date: 04/28/2022 10:33 AM Exam Location: [facility] Stress Patient Status: Outpatient Admit Date: 04/28/2022 Staff Ordering Physician: Palmer Calvin DO Attending Provider: DR. CALVIN Exercise Technologist: Hollie Lawler CT Exercise Physician: Palmer Calvin DO Exam Type: CA stress jona w NM Study Info Indications R06.09 - Other forms of dyspnea A regadenoson stress test was performed. Summary 1. 1. Negative lexiscan stress test for ischemic ST changes by ECG criteria. 2. 2. Stable hemodynamics throughout the test. 3. 3. Nuclear scan to follow and will be reported separately. Please correlate with it. 4. 4. Patient informed of the above results. Protocol: Lexiscan Stress ECG Details Stage: REST Duration (min): 0 min : 48 sec HR (bpm): 51 SBP (mmHg): 138 DBP (mmHg): 84 Stage: REST Duration (min): 4 min : 52 sec HR (bpm): 56 SBP (mmHg): 138 DBP (mmHg): 84 Stage: STAGE 1 Duration (min): 1 min : 0 sec HR (bpm): 61 SBP (mmHg): 149 DBP (mmHg): 88 Stage: RECOVERY Duration (min): 1 min : 0 sec HR (bpm): 67 SBP (mmHg): 149 DBP (mmHg): 88 Stage: RECOVERY Duration (min): 2 min : 0 sec HR (bpm): 65 SBP (mmHg): 149 DBP (mmHg): 88 Stage: RECOVERY Duration (min): 3 min : 0 sec HR (bpm): 64 SBP (mmHg): 144 DBP (mmHg): 79 Stage: RECOVERY Duration (min): 3 min : 4 sec HR (bpm): 64 SBP (mmHg): 144 DBP (mmHg): 79 Rest HR: 56 bpm Peak HR: 68 bpm Rest Sys BP: 138 mmHg Peak Sys BP: 149 mmHg Max Pred HR: 147 bpm % Max Pred HR: 46 % Target HR: 125 bpm Max RPP: 10,132 bpm*mmHg Termination Reason: Completed protocol Cardiac Symptoms: Shortness of breath Total Time: 1 min : 0 sec Rest Chan BP: 84 mmHg Peak Chan BP: 88 mmHg Total Dose: 0.4 mg Resting ECG Sinus rhythm, cannot r/o septal infarct, age indeterminate. Stress ECG No ST changes. Arrhythmias None. Report Signatures
== END 2022-04-28 09:03 | disposition home or self-care (01) ==
PROVIDERS: PCP Family Medicine; Visit Provider Internal Medicine Cardiovascular Disease
DX: R06.09 Other forms of dyspnea (principal)
CPT/HCPCS: 78452; 93017; A9502; J2785

== ENCOUNTER 2022-08-08 10:20 | Outpatient (CLI) | payer OTHER, SELFPAY ==
[2022-08-08 10:38] LABS: Basophils Percent Auto 0.3 % (0.2-1.2); Eosinophils Absolute Auto 0.2 K/mm3 (0-0.3); Eosinophils Percent Auto 3.3 % (0-4.4); Hemoglobin 12.4 g/dL (14.0-18.0); Immature Granulocyte Absolute 0.03 K/mm3 (0.00-0.031); Immature Granulocyte Percent A 0.4 % (0-0.5); Lymphocytes Percent Auto 19.2 % (18.3-44.2); Mean Corpuscular HGB Conc 31.8 g/dl (32-36); Mean Corpuscular Hemoglobin 32.5 pg (26-34); Mean Corpuscular Volume 102.1 fl (80-100); Monocytes Absolute Auto 0.5 K/mm3 (0.1-0.6); Monocytes Percent Auto 7.4 % (2.6-8.5); Neutrophils Absolute Auto 5.1 K/mm3 (1.3-6.7); Neutrophils Percent Auto 69.4 % (45.5-73.1); Platelet Count Result 151 k/mm3 (150-375); Red Blood Count 3.82 M/mm3 (4.6-6.20); White Blood Count 7.3 K/mm3 (4.5-10.0)
[2022-08-08 12:17] LABS: Iron 68 ug/dL (49-181)
[2022-08-08 12:21] LABS: Alanine Aminotransferase 17 U/L (6-50); Albumin Level 4.2 g/dL (3.5-5.1); Alkaline Phosphatase 92 U/L (38-126); Anion Gap 4 mmol/L (8-16); Aspartate Amino Transferase 23 U/L (17-59); Bilirubin,Total 0.8 mg/dL (0.2-1.3); Blood Urea Nitrogen 15 mg/dL (9-20); Calcium 9.6 mg/dL (8.4-10.2); Carbon Dioxide 30 mmol/L (22-30); Chloride 105 mmol/L (98-107); Estimated Glomerular Filt Rate > 60; Glucose 118 mg/dL (65-110); Potassium 4.5 mmol/L (3.4-5.0); Sodium 139 mmol/L (137-145)
[2022-08-08 12:28] LABS: Percent Iron Saturation 25 % (20-50)
[2022-08-08 13:26] LABS: Folic Acid > 20.0 ng/mL (2.76->20)
[2022-08-11 09:40] LABS: Methylmalonic Acid 291 nmol/L (87-318)
[2022-08-12 22:11] LABS: Platelet Antibody, Direct IgG NEGATIVE (NEGATIVE)
== END 2022-08-08 10:21 | disposition home or self-care (01) ==
LOC: ANHLAB 10:22
PROVIDERS: PCP Family Medicine; Visit Provider Internal Medicine Hematology & Oncology
DX: D75.838 Other thrombocytosis (principal); E78.5 Hyperlipidemia, unspecified; D64.9 Anemia, unspecified
CPT/HCPCS: 36415; 80053; 82607; 82728; 82746; 83540; 83550; 83921; 85025; 86023

== ENCOUNTER 2022-11-08 14:15 | Outpatient (CLI) | payer OTHER, SELFPAY ==
--- NOTE | 2022-11-08 14:26 | ECHO_ITS ---
Patient Info Name: aDvid Castro Age: 72 years : 1950 Gender: Male Ht: 73 in Wt: 195 lbs BSA: 2.14 m2 HR: 68 bpm BP: 126 / 72 mmHg Technical Quality: Fair Exam Date: 11/08/2022 2:49 PM Exam Location: [facility] Patient Status: Outpatient Admit Date: 11/08/2022 Staff Ordering Physician: Palmer Ochoa DO Radio Equipment Installer: Felipa Green RDCS Attending Provider: Palmer Ochoa DO Referring Physician: Don DE JESUS; Exam Type: CA echo doppler color flow Study Info Indications I35.0 - Nonrheumatic aortic (valve) stenosis Complete two-dimensional, color flow and Doppler transthoracic echocardiogram is performed. Summary 1. Complete two-dimensional, color flow and Doppler transthoracic echocardiogram is performed. 2. Left ventricular chamber dimension is normal. 3. Left ventricular systolic function is normal, estimated at 60-65%. 4. There is mild concentric increased left ventricular wall thickness. 5. The left ventricular diastolic function is grade II diastolic dysfunction. 6. E/e' 10 is mildly elevated. 7. Right atrial chamber dimension is mildly enlarged. 8. There is moderate aortic valve sclerosis. 9. There is mild aortic valve stenosis with a peak velocity of 227 cm/s, mean gradient of 11 mmHg, and aortic valve area of 1.6 cm2. 10. The mitral valve has mildly calcified annulus. 11. There is trace tricuspid valve regurgitation. 12. Mild pulmonary hypertension, estimated pulmonary arterial systolic pressure is 41 mmHg. Left Ventricle E/e' 10 is mildly elevated. Left ventricular chamber dimension is normal. Left ventricular systolic function is normal, estimated at 60-65%. There is mild concentric increased left ventricular wall thickness. The left ventricular diastolic function is grade II diastolic dysfunction. Right Ventricle Right ventricular chamber dimension is normal. Right ventricular systolic function is normal. Left Atria Left atrial chamber dimension is normal. Right Atria Right atrial chamber dimension is mildly enlarged. Aortic Valve The aortic valve is trileaflet. There is moderate aortic valve sclerosis. There is mild aortic valve stenosis with a peak velocity of 227 cm/s, mean gradient of 11 mmHg, and aortic valve area of 1.6 cm2. There is no aortic valve regurgitation. Pulmonic Valve There is no pulmonic regurgitation. Mitral Valve The mitral valve has mildly calcified annulus. There is no mitral valve stenosis. There is no mitral valve regurgitation. Tricuspid Valve There is trace tricuspid valve regurgitation. Mild pulmonary hypertension, estimated pulmonary arterial systolic pressure is 41 mmHg. Pericardium/Pleural There is no pericardial effusion. Inferior Vena Cava Normal inferior vena cava with >50% collapse upon inspiration consistent with normal right atrial pressure, 5 mmHg. Aorta The aortic root size at the sinus of Valsalva is normal. Left Ventricular Outflow Tract Name Value Normal LVOT 2D LVOT Diameter 2.1 cm LVOT Doppler LVOT Peak Gradient 5 mmHg LVOT Mean Gradient 3 mmHg LVOT VTI 27 cm LVOT VTI/AV VTI Ratio 0.5
== END 2022-11-08 14:16 | disposition home or self-care (01) ==
PROVIDERS: PCP Family Medicine; Visit Provider Internal Medicine Cardiovascular Disease
DX: I35.0 Nonrheumatic aortic (valve) stenosis (principal); I27.20 Pulmonary hypertension, unspecified
CPT/HCPCS: 93306

== ENCOUNTER 2022-12-07 18:38 | Emergency (ER) | payer OTHER, SELFPAY ==
[2022-12-07 18:52] VITALS: BP 139/67; PULSE 69; RESP 16; TEMP 36.8; O2SAT 100
--- NOTE | 2022-12-07 19:01 | ED.URI ---
HPI - URI/Sore Throat General Chief Complaint: Upper Respiratory Infection Stated Complaint: COVID Test Time Seen by Provider: 12/07/22 19:00 Source: patient Mode of arrival: ambulatory Limitations: no limitations History of Present Illness HPI Narrative: 72 year old male presents to [facility] with complaints of cough and runny nose for the past 4-5 days. Patient reports after watching the TV tonight he has come to clinic to get COVID test. Patient reports that he has been FLU and COVID vaccinated. Patient reports that he has not taken any medications for his symptoms. Reports the highest temp he has noted is 99.2F. Patient denies any know exposure to anyone ill. Patient reports that he takes medication and nasal spray daily for sinus allergies MD elicited complaint: cough, rhinorrhea and nasal congestion Pertinent past history: other (tobacco abuse, sinus allergies) Onset (ago): day(s) (4-5 days) Able to tolerate fluids by mouth: Yes Treatments prior to arrival: other (takes Claritin Montelukast and nasal spray daily) Related Data Home Medications Medication Instructions Recorded Confirmed zinc 50 mg tablet 50 mg PO DAILY 08/24/20 11/06/22 Allergies Allergy/AdvReac Type Severity Reaction Status Date / Time tramadol Allergy Mild ITCHING Verified 11/06/22 09:57 Review of Systems Review of Systems: CONSTITUTIONAL: Denies malaise, chills, sweats, or fever. EYES: Denies visual changes, redness, or discharge. ENT: Reports rhinorrhea, congestion, sinus pain, no otalgia and no sore throat. CARDIOVASCULAR: Denies chest pain, palpitations, or edema. RESPIRATORY: Reports cough.? Denies dyspnea. GASTROINTESTINAL: Denies abdominal pain, nausea, vomiting, diarrhea SKIN: Denies rash or itching. MUSCULOSKELETAL: Denies myalgia. NEUROLOGIC: Denies headache. All systems reviewed & are unremarkable except as noted in HPI and below [facility] Past Medical History Medical History (Updated 12/07/22 @ 19:08 by Mackenzie Dillon NP) Abnormality of gait Aortic calcification Bilateral carotid bruits BPH loc w urin obs/LUTS Brachial (cervical) neuritis CAD (coronary artery disease) Cardiac murmur Carotid artery bruit Cervical spondylosis with radiculopathy Chronic pain Degenerative joint disease of left hip Drug abuse in remission Emphysema of lung JUAN DAVID (generalized anxiety disorder) GERD (gastroesophageal reflux disease) Hepatitis Hepatitis C Herniated lumbar intervertebral disc Hx of hepatitis C Hx of transfusion of packed red blood cells Hyperlipidemia Hyperlipidemia Hypertension Low vitamin D level Osteoarthritis of left hip Shoulder tendinitis Tinnitus Tobacco abuse Trochanteric bursitis Unsteady gait Surgical History Surgical History History of carpal tunnel release History of total right knee replacement Previous back surgery x2 Family History Family History Sibling Tuberculosis Hypertension Cancer Father Tuberculosis Cancer Mother Hypertension Cerebrovascular accident Other Throat cancer Social History Social History Social History: Smoking packs per day: 0.5 Smoking cigarettes per day: 10.0 Years smoked: 50 Smoking pack-years: 25.00 Smoking status: Current every day smoker Tobacco type: cigarettes Second hand tobacco smoke exposure: Yes Alcohol intake: never Substance use: former Substance use type: does not use Lack of Transportation: No Lack of Food: Never True Current Housing: I Have Housing Concerned About Future Housing: No Difficulty Paying Gas/Electric Bills: No Difficulty Paying for Meds: No Currently Unemployed: No Education: Master's Degree or Higher Difficulty w/ Childcare or Family Care: No Living arrangements: with family Occupation/Education:
== END 2022-12-07 19:14 | disposition home or self-care (01) ==
PROVIDERS: Emergency Provider Registered Nurse; PCP Family Medicine
DX: U07.1 COVID-19 (principal); I25.10 Atherosclerotic heart disease of native coronary artery without angina pectoris; M16.12 Unilateral primary osteoarthritis, left hip; K21.9 Gastro-esophageal reflux disease without esophagitis; E78.5 Hyperlipidemia, unspecified; I10 Essential (primary) hypertension; N40.1 Benign prostatic hyperplasia with lower urinary tract symptoms
CPT/HCPCS: 87426; 99213; C9803; G0463

== ENCOUNTER 2023-10-27 15:04 | Emergency (ER) | payer OTHER, SELFPAY ==
--- NOTE | ~2023-10-27 | CT_ITS ---
EXAMINATION: CT thoracic spine wo con DATE: 10/27/2023 16:53 INDICATION: T11 compression fracture . TECHNIQUE: Computed tomography (CT) of the thoracic spine was performed without intravenous contrast. Automated exposure control and iterative reconstruction technique were employed. The dose-length pro duct was 700.91 mGy-cm. COMPARISON: X-ray chest, same date; CT lung screening 01/31/2021 FINDINGS: Decreased mineralization. Multilevel mild-moderate degenerative disc disease. Multilevel mi ld facet arthropathy. No severe central canal or neural foraminal narrowing. Mild scoliosis. Vertebra l bodies are aligned. Mild anterior wedge deformity at T10-T12, stable. IMPRESSION: No acute fracture or traumatic malalignment in the thoracic spine. The prior chest radiograph findin gs are likely related to artifact. Reviewed, dictated and finalized at location K. IMPRESSION: No acute fracture or traumatic malalignment in the thoracic spine. The prior c hest radiograph findings are likely related to artifact.
--- NOTE | ~2023-10-27 | XR_ITS ---
EXAMINATION: XR chest 2V Exam Date/Time: 10/27/2023 15:23 CDT HISTORY: cp, pt states he has COPD, smoker Comparison: 06/07/2010; CT lung screening 01/31/2021. RESULT: Lines, tubes, and devices: None. Lungs and pleura: Senescent/uncinate change, otherwise clear. Cardiomediastinal silhouette: Stable. Other: No acute upper abdominal finding. Moderate anterior wedge deformity at T11. Mild stable anter ior wedge deformity at T12 IMPRESSION: No acute cardiopulmonary process. Acute versus chronic moderate wedge compression fracture at T11, ne w since the most recent comparison from 2020. Correlate for history of trauma, pain/tenderness. Reviewed, dictated and finalized at location K. IMPRESSION: No acute cardiopulmonary process. Acute versus chronic moderate wedge compressi on fracture at T11, new since the most recent comparison from 2020. Correlate f or history of trauma, pain/tenderness.
[2023-10-27 15:08] VITALS: BP 150/74; PULSE 74; RESP 19; TEMP 36.5; O2SAT 98
--- NOTE | 2023-10-27 15:08 | ECG_ITS ---
Test Date: 2023-10-27 15:16:04 Measurements Intervals [facility] Rate: 60 P: 65 GA: 185 QRS: -4 QRSD: 97 T: 52 QT: 407 QTc: 409 Interpretive Statements SINUS RHYTHM CANNOT R/O SEPTAL INFARCT, AGE INDETERMINATE BORDERLINE ST-T WAVE ABNORMALITY- LAT/HIGH LAT LEADS BASELINE ARTIFACT- I, II, III, AVR, AVL, AVF ABNORMAL ECG No previous ECG available for comparison Electronically Signed On 10-27-2023 18:17:18 CDT by Palmer Ochoa D.O.
[2023-10-27 15:13] VITALS: PULSE 60; O2SAT 98
--- NOTE | 2023-10-27 15:24 | ED.GENADULT ---
HPI - General Adult General Chief complaint: Chest Pain Stated complaint: chest pain Time Seen by Provider: 10/27/23 15:11 History of Present Illness HPI narrative: Patient 73-year-old gentleman who presents emergency department with chief complaint of chest pain patient reports that since this morning he has been having discomfort in his chest the patient describes it as heaviness feeling patient denies shortness of breath denies diaphoresis reports that he does have history of aortic stenosis but no poke her history of cardiac disease. The patient reports he has had stress test in the past and has had a recent echo Related Data Home Medications Medication Instructions Recorded Confirmed zinc 50 mg tablet 50 mg PO DAILY 08/24/20 08/26/23 Allergies Allergy/AdvReac Type Severity Reaction Status Date / Time tramadol Allergy Mild ITCHING Verified 10/27/23 16:03 Review of Systems Review of Systems: A 10 system review of systems was completed on the patient and is negative except for what is stated in the HPI. Nursing and ancillary documentation was reviewed. [facility] Past Medical History Medical History Abnormality of gait Aortic calcification Bilateral carotid bruits BPH loc w urin obs/LUTS Brachial (cervical) neuritis CAD (coronary artery disease) Cardiac murmur Carotid artery bruit Cervical spondylosis with radiculopathy Chronic pain Degenerative joint disease of left hip Drug abuse in remission Emphysema of lung JUAN DAVID (generalized anxiety disorder) GERD (gastroesophageal reflux disease) Hepatitis Hepatitis C Herniated lumbar intervertebral disc Hx of hepatitis C Hx of transfusion of packed red blood cells Hyperlipidemia Hyperlipidemia Hypertension Low vitamin D level Osteoarthritis of left hip Shoulder tendinitis Tinnitus Tobacco abuse Trochanteric bursitis Unsteady gait Surgical History Surgical History History of carpal tunnel release History of total right knee replacement Previous back surgery x2 Family History Family History Sibling Tuberculosis Hypertension Cancer Father Tuberculosis Cancer Mother Hypertension Cerebrovascular accident Other Throat cancer Social History Social History Social History: Smoking packs per day: 0.5 Smoking cigarettes per day: 10.0 Years smoked: 50 Smoking pack-years: 25.00 Smoking status: Current every day smoker Tobacco type: cigarettes Second hand tobacco smoke exposure: Yes Alcohol intake: never Substance use: former Substance use type: does not use Lack of Transportation: No Lack of Food: Never True Current Housing: I Have Housing Concerned About Future Housing: No Difficulty Paying Gas/Electric Bills: No Difficulty Paying for Meds: No Currently Unemployed: No Education: Master's Degree or Higher Difficulty w/ Childcare or Family Care: No Living arrangements: with family Occupation/Education: retired Gender identity (if verbalized by the patient): Male Sexual Orientation (if Verbalized by the Patient): Straight or Heterosexual Spiritual care concerns: No Exam Narrative: GENERAL: Well-appearing, well-nourished, and in no acute distress. HEAD: Normocephalic, atraumatic. EYES: PERRLA and EOMI. ENT: Nares clear, no rhinorrhea or epistaxis. Mucous membranes moist. NECK: Supple. CHEST: Clear to auscultation. No respiratory distress. HEART: Regular rate and rhythm. No murmur heard. Normal peripheral pulses. ABDOMEN: Soft, nontender, nondistended, normal active bowel sounds. EXTREMITIES: Normal range of motion. No edema. SKIN: Warm, dry, no rash. NEURO: No focal deficits. Alert and oriented x3. PSYCH: Normal mood and affect.
[2023-10-27 15:25] LABS: Basophils Percent Auto 0.5 % (0.2-1.2); Eosinophils Absolute Auto 0.3 K/mm3 (0-0.3); Eosinophils Percent Auto 3.7 % (0-4.4); Hemoglobin 12.8 g/dL (14.0-18.0); Immature Granulocyte Absolute 0.02 K/mm3 (0.00-0.031); Immature Granulocyte Percent A 0.3 % (0-0.5); Immature Platelet Fraction Pct 7.7 % (0.9-11.2); Lymphocytes Absolute Auto 1.62 K/mm3 (0.9-3.2); Lymphocytes Percent Auto 22.1 % (18.3-44.2); Mean Corpuscular HGB Conc 33.7 g/dl (32-36); Mean Corpuscular Hemoglobin 33.7 pg (26-34); Monocytes Absolute Auto 0.6 K/mm3 (0.1-0.6); Monocytes Percent Auto 7.5 % (2.6-8.5); Neutrophils Absolute Auto 4.8 K/mm3 (1.3-6.7); Neutrophils Percent Auto 65.9 % (45.5-73.1); Platelet Count Result 111 k/mm3 (150-375); Red Cell Distribution Width 11.7 % (11.5-14.5); White Blood Count 7.3 K/mm3 (4.5-10.0)
[2023-10-27 15:34] LABS: Prothrombin Time 13.3 Seconds (11.1-14.7)
[2023-10-27 15:35] LABS: Partial Thromboplastin Time 36.9 Seconds (22.3-36.8)
[2023-10-27 15:42] LABS: Alanine Aminotransferase 19 U/L (6-50); Albumin Level 4.3 g/dL (3.5-5.1); Alkaline Phosphatase 82 U/L (38-126); Anion Gap 5 mmol/L (4-12); Aspartate Amino Transferase 27 U/L (17-59); Bilirubin,Total 0.7 mg/dL (0.2-1.3); Blood Urea Nitrogen 15 mg/dL (9-20); Calcium 9.6 mg/dL (8.4-10.2); Carbon Dioxide 29 mmol/L (22-30); Chloride 106 mmol/L (98-107); Estimated CRCL calculation 53 ml/min; Estimated Glomerular Filt Rate 59; Glucose 86 mg/dL (65-110); Lipase 51 U/L (23-300); Potassium 4.1 mmol/L (3.4-5.0); Sodium 140 mmol/L (137-145)
[2023-10-27 15:54] LABS: Troponin I < 0.012 ng/mL (0.000-0.034)
[2023-10-27] MEDS: NITROGLYCERIN SL 0.4 MG TABLET SUBLINGUAL (16:00)
[2023-10-27] MEDS: ASPIRIN 81 MG CHEWABLE TABLET 324 MG PO (16:01)
[2023-10-27 16:04] VITALS: BP 126/70; PULSE 61; RESP 14; O2SAT 99
[2023-10-27 17:11] VITALS: BP 125/89; PULSE 56; RESP 14; O2SAT 97
--- NOTE | 2023-10-27 18:05 | ECG_ITS ---
Test Date: 2023-10-27 18:05:21 Measurements Intervals [place] Rate: 52 P: 62 MO: 186 QRS: -1 QRSD: 104 T: 51 QT: 431 QTc: 402 Interpretive Statements SINUS BRADYCARDIA CANNOT R/O SEPTAL INFARCT, AGE INDETERMINATE ABNORMAL ECG Compared to ECG 10/27/2023 15:16:04 HEART RATE HAS DECREASED Electronically Signed On 10-28-2023 07:32:15 CDT by Palmer Ochoa D.O.
[2023-10-27 18:39] LABS: Troponin I < 0.012 ng/mL (0.000-0.034)
[2023-10-27 18:48] VITALS: BP 142/76; PULSE 52; RESP 15; O2SAT 100
[2023-10-27 19:03] VITALS: BP 130/87; PULSE 80; RESP 19; O2SAT 97
== END 2023-10-27 19:03 | disposition home or self-care (01) ==
PROVIDERS: Emergency Medicine; Emergency Provider Emergency Medicine; PCP Family Medicine
DX: R07.89 Other chest pain (principal); I70.0 Atherosclerosis of aorta; I25.10 Atherosclerotic heart disease of native coronary artery without angina pectoris; I10 Essential (primary) hypertension; J43.9 Emphysema, unspecified; E78.5 Hyperlipidemia, unspecified; N40.1 Benign prostatic hyperplasia with lower urinary tract symptoms; N13.8 Other obstructive and reflux uropathy; K21.9 Gastro-esophageal reflux disease without esophagitis; M16.12 Unilateral primary osteoarthritis, left hip; F41.1 Generalized anxiety disorder; F17.210 Nicotine dependence, cigarettes, uncomplicated; Z96.651 Presence of right artificial knee joint; Z86.19 Personal history of other infectious and parasitic diseases; Z79.899 Other long term (current) drug therapy; R00.1 Bradycardia, unspecified; R94.31 Abnormal electrocardiogram [ECG] [EKG]
CPT/HCPCS: 36415; 71046; 72128; 80053; 83690; 84484; 85025; 85055; 85610; 85730; 93005; 99284; A9270

== ENCOUNTER 2024-07-17 13:10 | Emergency (ER) | payer OTHER, SELFPAY ==
[2024-07-17 13:16] VITALS: BP 107/66; PULSE 62; RESP 20; TEMP 36.4; O2SAT 97
--- OUTSIDE RECORDS SUMMARY | 2024-07-17 14:03 | XMS_ITS | Clinical Summary ---
Author Organization [facility] Address [address] [place] [address] Care Team Providers Care Pr Intern Name Role Phone Hetal Melgoza MD Primary Care Provider [phone] Allergies Active Allergy Reactions Criticality Noted Date Comments Tramadol Itching Low 08/07/2022 Medications atorvastatin (LIPITOR) 40 mg tablet Take 40 mg by mouth daily at bedtime. 0 Active celecoxib (CeleBREX) 200 mg capsule TAKE 1 CAPSULE BY MOUTH TWICE A DAY NEEDED FOR PAIN 2 Active escitalopram oxalate (LEXAPRO) 5 mg tablet Take 5 mg by mouth daily. 1 Active finasteride (PROSCAR) 5 mg tablet Take 5 mg by mouth daily. 1 Active isosorbide mononitrate (IMDUR) 30 mg Extended Release 24 hour tablet Take 30 mg by mouth daily. 1 Active montelukast (SINGULAIR) 10 mg tablet Take 1 Tablet by mouth daily. 1 Active omeprazole (PriLOSEC) 40 mg Capsule, Delayed Release(E.C.) Take 40 mg by mouth. 1 Active terazosin (HYTRIN) 5 mg capsule TAKE 1 CAPSULE BY MOUTH EVERYDAY AT BEDTIME 1 Active tiZANidine (ZANAFLEX) 2 mg Tablet TAKE 1 TABLET BY MOUTH THREE TIMES A DAY NEEDED FOR MUSCLE SPASTICITY 2 Active buPROPion HCL (WELLBUTRIN SR) 150 mg Sustained Release 12 hour tablet Take 150 mg by mouth 2 times daily. Active zinc gluconate 50 mg Tablet Take by mouth. 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 Gender Identity Not on file Sexual Orientation Not on file Last Filed Vital Signs Vital Sign Reading Time Taken Comments Blood Pressure 143/76 08/07/2022 2:55 PM CDT Pulse 62 08/07/2022 2:52 PM CDT Temperature 36.1 C (97 F) 08/07/2022 2:52 PM CDT Respiratory Rate 10 08/07/2022 2:52 PM CDT Oxygen Saturation 100% 08/07/2022 2:52 PM CDT Inhaled Oxygen Concentration - - Weight 88.3 kg (194 lb 9.6 oz) 08/07/2022 2:52 P M CDT Height 185.4 cm (6' 1 ) 08/07/2022 2:52 PM CDT Body Mass Index 25.67 08/07/2022 2:52 PM CDT Plan of Treatment Health Maintenance Due Date Last Done Comments COLORECTAL SCREENING 1994 Colorectal Cancer Screening 1994 FIT-DNA Q 3 years 1994 FIT/FOBT Q 1 year 1994 Flex Sig/CT Colonography Q 5 years 1994 ZOSTER VACCINE (2 of 3) 07/27/2014 06/01/2014 INFLUENZA VACCINE (#1) 2023 0, 01/28/2019, 01/14/2015, Additional history exists RSV VACCINE (60+ or ) (1 - 1-dose 75+ series) 02/17/2024 DTAP/TDAP/TD VACCINES (2 - T d or Tdap) 02/22/2030 02/23/2020 PNEUMOCOCCAL VACCINE 50+ YEARS Completed 1 06/21/2015, 03/22/2015, 04/23/1997 Insurance [facility] Care Teams Pr Intern Relationship Specialty Start Date End Date Hetal Melgoza MD PCP - General Family Practice 08/07/22
--- OUTSIDE RECORDS SUMMARY | 2024-07-17 14:03 | XMS_ITS | Encounter Summary ---
Author Organization [facility] Address [facility] [place] [address] Care Team Providers Care Paver Installer Name Role Phone Ana Luisa Lewis MD Primary Care Provider Unavailabl e Encounter Details Date Type Department Care Team (Late st Contact Info) Description 11/12/2019 Prep for Procedure [facility] [address] [place], [place] [id number] Theo Del Angel MD [address] [facility] [place] [address] [place] [address] Social History Tobacco Use Types Packs/Day Years Used Date Smoking Tobacco: Every Day Cigarettes Smokeless Tobacco: Never Alcohol Use Standard Drinks/Week Comments Not Currently 0 (1 standard drink = 0.6 oz pur e alcohol) Sex and Gender Information Value Date Recorded Sex Assigned at Not on file 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 Comment: A Not Detected (negative) test result for this test means that SARS- CoV-2 RNA was not present in the specimen above the limit of detection. A negative result does not rule out the possibility of COVID-19 and should not be used as the sole basis for treatment or patient management decisions. If COVID-19 is still suspected, based on exposure history together with other clinical findings, re-testing should be considered in consultation with public health authorities. Laboratory test results should always be considered in the context of clinical observations and epidemiological data in making a final diagnosis and patient management decisions. Please review the Fact Sheets and FDA authorized labeling available for health care providers and patients using the following websites: [email or web address]://[email or web address]/home/Covid-19/HCP/NAAT/fact-sheet2 https://www.[employer]/home/Covid-19/Patients/NAAT/ fact-sheet2 This test has been authorized by the FDA under an Emergency Use Authorization (EUA) for use by authorized laboratories. Due to the current public health emergency, [facility] is receiving a high volume of samples from a wide variety of swabs and media for COVID-19 testing. In order to serve patients during this public health crisis, samples from appropriate clinical sources are being tested. Negative test results derived from specimens received in non-commercially manufactured viral collection and transport media, or in media and sample collection kits not yet authorized by FDA for COVID-19 testing should be cautiously evaluated and the patient potentially subjected to extra precautions such as additional clinical monitoring, including collection of an additional specimen. Methodology: Nucleic Acid Amplification Test (NAAT) includes PCR or TMA Additional information about COVID-19 can be found at the [facility] website: www.[employer]/Covid19. Test performed at [facility] [place] [address] [place] [address] Director: ZAHRAA PEREA DO,MPH NASOPHARYNGEAL SWAB / Unknown 11/14/2019 7:13 AM CDT us Theo Del Angel MD MICROBIOLOGY - GENERAL ORDERA BLES Final Result [facility] [id number] [place] [id number] [place] [address] documented in this encounter Visit Diagnoses Diagnosis Preop testing- Primary Preoperative examination, unspecified documented in this encounter Additional Health Concerns Infection Onset Date Last Indicated Resolved Time COVID-19 Rule Out 11/14/2019 11/14/2019 11/16/2019 5:48 AM CDT documented as of this encounter Care Teams Paver Installer Relationship Specialty Start Date End Date Ana Luisa Lewis MD PCP - General FAMILY PRACTICE 08/09/18 documented as of this encounter
--- OUTSIDE RECORDS SUMMARY | 2024-07-17 14:03 | XMS_ITS | Clinical Summary ---
Author Organization [facility] Address [address] [place] [address] Care Team Providers Care Enterprise Account Executive Name Role Phone Hetal Melgoza MD Primary Care Provider Allergies Active Allergy Reactions Criticality Noted Date Comments Tramadol Itching Low 11/10/2020 Medications atorvastatin (LIPITOR) 40 mg tablet Take 40 mg by mouth nightly 0 Active celecoxib (CeleBREX) 200 mg capsule TAKE 1 CAPSULE BY MOUTH TWICE A DAY NEEDED FOR PAIN 2 Active cholecalciferol (VITAMIN D-3) 2000 unit tablet Take 2,000 Units by mouth daily 4 Active escitalopram (LEXAPRO) 5 mg tablet Take 5 mg by mouth daily 1 Active finasteride (PROSCAR) 5 mg tablet Take 5 mg by mouth daily 2 Active isosorbide mononitrate ER (IMDUR) 30 mg 24 hr tablet Take 30 mg by mouth daily 2 Active lisinopril-hydro CHLOROthiazide (ZESTORETIC) 10-12.5 mg per tablet Take 1 tablet by mouth daily 8 Active Sutab 1.479-0.188- 0.225 gram tablet TAKE 12 TABLETS BY MOUTH TWICE A DAY DIRECTED 2 Active tiZANidine (ZANAFLEX) 2 mg tablet TAKE 1 TABLET BY MOUTH THREE TIMES A DAY NEEDED FOR MUSCLE SPASTICITY 2 Active Active Problems No known active problems Social History Tobacco Use Types Packs/Day Years Used Date Smoking Tobacco: Never Assessed Sex and Gender Information Value Date Recorded Sex Assigned at Not on file 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 Gender Identity Not on file Sexual Orientation Not on file Obstetrics History Last Filed Vital Signs Vital Sign Reading Time Taken Comments Blood Pressure 116/74 02/21/2022 10:16 AM CDT Pulse 61 02/21/2022 10:16 AM CDT Temperature 37 C (98.6 F) 02/21/2022 10:16 AM CDT Respiratory Rate 16 02/21/2022 10:16 AM CDT Oxygen Saturation 99% 02/21/2022 10:16 AM CDT Inhaled Oxygen Concentration - - Weight 92.5 kg (204 lb) 02/21/2022 10:16 AM CDT Height 185.4 cm (6' 1 ) 02/21/2022 10:16 AM CDT Body Mass Index 26.91 02/21/2022 10:16 AM CDT Plan of Treatment Health Maintenance Due Date Last Done Comments Colon Cancer Screening-Colonoscopy 1949 Depression Screening 1949 Fall Risk Assessment 1950 Hepatitis C Screening 1949 Hepatitis B Screening 1967 Abdominal Aortic Aneurysm (A AA) Screen 2014 Well Visit 65+ 2014 Zoster Vaccine (2 of 3) 07/26/2014 05/31/2014 Influenza Vaccine (#1) 2023 0, 01/28/2019, 02/04/2018, Additional history exists DTaP/Tdap/Td Vaccine (3 - Td or Tdap) 02/22/2030 02/23/2020, 04/23/2007 Pneumococcal vaccine 65+ Completed 016, 03/22/2015, 02/22/2015, Additional history exists Insurance [facility] Care Teams Enterprise Account Executive Relationship Specialty Start Date End Date Hetal Melgoza MD [address] [place] [address] PCP - General Family Medicine 10/19/20
--- OUTSIDE RECORDS SUMMARY | 2024-07-17 14:03 | XMS_ITS | Clinical Summary ---
Author Organization [facility] Address [address] [place] [address] Care Team Providers Care Kiln Loader Name Role Phone Paul Wisdom MD Unavailable Scotty Tellez MD Unavailable [phone] [facility],non-owned Affiliates and Associated Physician Practices is amultiple site organization consisting of ambulatory clinics and hospital sitesin [place], [place], [place] and [place]. This disclosure is being madepursuant to the Care Everywhere program and may not contain all information available regarding this patient. Last updated 18.[facility] Allergies Active Allergy Reactions Criticality Noted Date Comments Tramadol Hcl Itching 05/29/2008 Medications * Be aware that medications may not be up to date on this document. Alwaysverify current medications with the patient. Medication Sig Dispensed Refills Start Date End Date Status vitamin D, cholecalciferol, 2000 UNITS tablet Take 1 Tab by mouth once daily. 05/02/2013 Active multivitamin daily (THERAGRAN) tablet Take 1 Tab by mouth daily with food. Active aspirin 81 MG chew tablet Take 1 Tab by mouth once daily. 07/07/2013 Active valACYclovir (VALTREX) 500 MG tablet Take 1 tablet by mouth 2 times daily 6 tablet 3 11/28/2017 Active Zinc 50 MG tablet Take 50 mg by mouth once daily Active terbinafine (LAMISIL) 250 MG tablet Take 1 tablet by mouth once daily 14 tablet 12/11/2019 Active atorvastatin (LIPITOR) 40 MG tablet Take 1 tablet by mouth at bedtime 90 tablet 3 12/12/2019 Active lisinopril-hydroCHL OROthiazide (PRINZIDE; ZESTORETIC) 10-12.5 MG tablet Take 1 tablet by mouth once daily 90 tablet 3 02/12/2020 Active escitalopram (LEXAPRO) 5 MG tablet Take 1 tablet by mouth once daily 90 tablet 4 04/30/2020 Active finasteride (PROSCAR) 5 MG tablet Take 1 (one) tablet by mouth once daily 90 tablet 1 06/22/2020 Active isosorbide mononitrate CR 24hr (IMDUR) 30 MG tablet TAKE 1 TABLET BY MOUTH EVERY DAY 90 tablet 1 07/05/2020 Active terazosin (HYTRIN) 5 MG capsule TAKE 1 CAPSULE BY MOUTH EVERYDAY AT BEDTIME 90 capsule 4 07/06/2020 Active famotidine (PEPCID) 20 MG tablet TAKE 1 TABLET BY MOUTH 2 TIMES DAILY NEEDED WITH FOOD FOR HEARTBURN 180 tablet 4 07/16/2020 Active montelukast (SINGULAIR) 10 MG tablet TAKE 1 TABLET BY MOUTH EVERY DAY 90 tablet 3 12/07/2020 Active omeprazole (PRILOSEC) 40 MG capsule TAKE 1 CAPSULE BY MOUTH 2 TIMES DAILY, BEFORE BREAKFAST AND SUPPER 180 capsule 3 03/07/2021 Active Active Problems Problem Noted Date Diagnosed Date Stress and adjustment reaction 05/11/2020 Flow murmur 05/11/2020 Other emphysema 11/01/2018 Overview (11/01/2018): 10/09 PFT Tortuosity of artery 10/11/2016 Overview (10/11/2016): The right external iliac artery was severely significantly tortuous-cardiac cath 06/27/13 Benign non-nodular prostatic hyperplasia with lower urinary tract symptoms 04/20/2016 Gastroesophageal reflux disease without esophagi tis 11/04/2014 Overview (11/04/2014): Rare. Probable LPR based on erythema on laryngoscope at ENT 06/2014. Tinnitus, bilateral 05/02/2013 PAD (peripheral artery disease) 01/30/2013 Overview (03/22/2015): SFA revascularization 06/2013- Dr. Sarmiento Knee pain 01/31/2012 Overview (02/05/2014): Meniscus, s/p arthoscopy Hypertension 09/12/2011 Overview (07/31/2012): EKG and stress 2010 Coronary artery disease, non-occlusive 2 Overview (01/31/2012): Cath 06/2010 Routine general medical exam ination at a health care facility 02/23/2020 05/20/2010 Vitamin D deficiency 05/20/2010 Nicotine dependence 05/27/2008 Overview (11/04/2014): Quit while on Chantix for few months. Currently 1/4 ppd. Quit x 1 month and then resumed with stress and varenicline not as effective after 2 months. Past wellbutrin ineffective History of hepatitis C-treat ed with ribavarin and interferon 199905/27/2008 Overview (07/31/2012): No viral load 2011 Resolved Problems Problem Noted Date Diagnosed Date Resolved Date Macrocytosis without anemia 10/2019- resolved 0 02/23/2020 DNR (do not resuscitate) 10/05/201705/2019 Cough resolves with singulair 04/20/2016 05/18/2016 Chest pain 06/13/2010 01/31/2012 Advance directives, has 05/20/201012/23 GERD (gastroesophageal reflux disease) 05/27/2008 02/05/2014 Immunizations Name Administration Dates Next Due [employer] primary monoval ent 12+ yr 0.3mL Purple cap 04/21/2020 DT 04/23/2007 INFLUENZA VACCINE 02/04/2018,01/23/2017,01/22/20 16 INFLUENZA VACCINE, CELL CULT URE, QUADR. (FLUCELVAX QUADRIVALENT; 6MO+) (CCIIV4) 02/02/2020 INFLUENZA VACCINE, QUADR. (A FLURIA, FLUZONE QUADRIVALENT; 6MO+) (IIV4) 02/05/2014 INFLUENZA VACCINE, QUADR. (F LUZONE; FLULAVAL; FLUARIX; AFLURIA QUADRIVALENT; 6MO+), 0.5 ML (IIV4) 01/14/2015 PNEUMOCOCCAL PPSV23 04/20/2016,04/23/1997 Pneumococcal Pcv13 Conj 03/22/2015 TDAP (7yrs+) 02/23/2020 ZOSTER VACCINE, LIVE 06/01/2014 iNFLUENZA VACCINE, RECOM-OVIEDO, QUADR. (FLUBLOCK QUADRIVALENT; 18Y+) (RIV4) 01/28/2019 Family History Medical History Relation Name Comments Hypertension Brother 1 Cancer - Other Brother 2 Aurelia throat Hypertension Brother 2 Aurelia COPD - Chronic Obstructive Pulmonary Disease Father Hypertension Mother Stroke Mother Brain Tumor Sister 3 Felipa Relation Name Status Comments Brother 1 Brother 2 Aurelia Father (Age 76) COPD, hx T B Mother (Age 85) aneurysm, brain Sister 1 (Age 85) Sister 2 Gena Alive Sister 3 Felipa Alive Social History Tobacco Use Types Packs/Day Years Used Date Smoking Tobacco: Every Day Cigarettes 0.5 62.2 Started: [birth year]/23/1962 Smokeless Tobacco: Never Tobacco Cessation:Ready to Q uit: No; Counseling Given: Yes Alcohol Use Standard Drinks/Week Comments No 0 (1 standard drink = 0.6 oz pur e alcohol) Sex and Gender Information Value Date Recorded Sex Assigned at Male 05/11/2020 11:42 AM POWERHOUSE MECHANIC APPRENTICE Gender Identity Male 05/11/2020 11:42 AM POWERHOUSE MECHANIC APPRENTICE Sexual Orientation Straight 05/11/2020 11 :42 AM POWERHOUSE MECHANIC APPRENTICE Last Filed Vital Signs Vital Sign Reading Time Taken Comments Blood Pressure 120/72 04/14/2020 3:52 PM POWERHOUSE MECHANIC APPRENTICE Pulse 50 04/14/2020 3:52 PM POWERHOUSE MECHANIC APPRENTICE Temperature 36.7 C (98.1 F) 04/14/2020 3:52 PM POWERHOUSE MECHANIC APPRENTICE Respiratory Rate 22 07/07/2013 5:15 PM CDT Oxygen Saturation 98% 04/08/2020 1:04 PM POWERHOUSE MECHANIC APPRENTICE Inhaled Oxygen Concentration - - Weight 100 kg (220 lb 6.4 oz) 04/14/2020 3:52 PM POWERHOUSE MECHANIC APPRENTICE Height 185.4 cm (6' 1 ) 04/08/2020 1:04 PM POWERHOUSE MECHANIC APPRENTICE Body Mass Index 29.08 04/08/2020 1:04 PM POWERHOUSE MECHANIC APPRENTICE Plan of Treatment Health Maintenance Due Date Last Done Comments COLON MONITORING 1950 CT COLONOGRAPHY - COLON CA SCREENING 1950 FIT - COLON CA SCREENING 1950 FLEX SIG - COLON CA SCREENING 1950 ZOSTER VACCINE (2 of 3) 07/27/2014 06/01/2014 MEDICARE AWV 12 MONTHS 07/24/2019 07/23/2018, 10/05/2017 COLOGUARD (AGES 45-75) - COLON CA SCREENING 12/18/2020 12/18/2017 SCREENING FOR DIABETES 11/03/2022 0, 07/23/2018, 09/28/2017, Additional history exists COVID-19 VACCINE (2 - season) 2023 04/21/2020 INFLUENZA VACCINE (#1) 2023 0, 01/28/2019, 02/04/2018, Additional history exists Respiratory Syncytial Virus (RSV) Vaccine Pt: or over 60 yrs (1 - 1-dose 75+ series) 02/17/2024 DEPRESSION SCREENING 04/23/2024 MEDICARE AWV CALENDAR YEAR 2024 COLONOSCOPY - COLON CA SCREENING 12/19/2027 12/18/2017 (Done Outside Per Report), 05/20/2005 (Previously completed) Colorectal Cancer Screening 12/19/2027 DTAP/TDAP/TD VACCINES (3 - Td or Tdap) 02/22/2030 02/23/2020, 04/23/2007 PNEUMOCOCCAL VACCINE 50+ Completed 016, 03/22/2015, 04/23/1997 HEPATITIS C SCREENING Completed 07/23/2018 , 07/23/2018, 01/31/2012, Additional history exists HEPATITIS B VACCINE Aged Out No longe r eligible based on patient's age to complete this topic HIB VACCINE Aged Out No longer eligi ble based on patient's age to complete this topic HPV VACCINE Aged Out No longer eligi ble based on patient's age to complete this topic MENINGOCOCCAL (Group B) VACCINE SHARED DECISION-MAKING Aged Out No longer eligible based on patient's age to complete this topic MENINGOCOCCAL GROUPS A/C/Y/W VACCINE Aged Out No longer eligible based on patient's age to complete this topic Goals Goal Patient Goal Type Associated Problems Recent Progress Patient-Stated? Author Blood Pressure < 140/90 Blood Pressure 120/72( 020 3:52 PM POWERHOUSE MECHANIC APPRENTICE) aKtelynn Irene MA Procedures Procedure Name Priority Date/Time Associated Diagnosis Comments COMPREHENSIVE METABOLIC PANEL Routine 11/04/2019 1:37 PM CDT Essential hypertension HEPATITIS C RNA QUANTITATIVE Routine 07/23/2018 9:32 AM CDT History of hepatitis C-treated with ribavarin and interferon 2000 COLOGUARD (EXTERNAL RESULT ENTRY) Routine 12/18/2017 from Last 3 Months or Most Recently Relevant to Health Maintenance Results * COMPREHENSIVE METABOLIC PANEL (11/04/2019 1:37 PM CDT) Pathologist [facility] Glucose 93 70 - 105 mg/dL [facility] ACCOUNT BILL BUN 16 8.4 - 25.7 mg/dL [facility] ACCOUNT BILL Creatinine 1.15 0.72 - 1.25 mg/dL [facility] ACCOUNT BILL eGFR by MDRD >60 mL/min/1.7 3m2 [facility] ACCOUNT BILL eGFR by MDRD >60 mL/min/1.7 3m2 [facility] ACCOUNT BILL Sodium 139 136 - 145 mmol/L [facility] ACCOUNT BILL Potassium 4.4 3.5 - 5.1 mmol/L [facility] ACCOUNT BILL Chloride 104 98 - 107 mmol/L [facility] ACCOUNT BILL CO2 28 23 - 31 mmol/L [facility] ACCOUNT BILL Calcium 9.8 8.4 - 10.4 mg/dL [facility] ACCOUNT BILL Protein Total 7.2 6.4 - 8.3 gm/dL [facility] ACCOUNT BILL Albumin 4.4 3.2 - 4.6 gm/dL [facility] ACCOUNT BILL Bilirubin Total 0.8 0.2 - 1.2 mg/dL [facility] ACCOUNT BILL Alkaline Phosphatase 86 40 - 150 U/L [facility] ACCOUNT BILL AST 19 5 - 34 U/L [facility] ACCOUNT BILL ALT 17 0 - 61 U/L [facility] ACCOUNT BILL Blood BLOOD SPECIMEN / Unknown 11/04/2019 1:37 PM CDT 11/04/2019 Narrative Resulting Agency Comment Lab Testing performed at: [facility] [address] [id number] Ana Luisa Lewis MD LAB - CHEMISTRY [facility] ACCOUNT BILL [address] [place] [address] * HEPATITIS C RNA QUANTITATIVE (07/23/2018 9:32 AM CDT) Hepatitis C Virus Quantitation HCV Not Detected IU/mL [facility] INSURANCE BILL Hepatitis C Virus Log 10 NOT NEEDED [facility] INSURANCE BILL Comment:Ancillary determined the test is not needed Test Information [facility] INSURANCE BILL Comment:The quantitative ran ge of this assay is 15 IU/mL to 100 million IU/mL. Blood BLOOD SPECIMEN / Unknown 07/23/2018 9:32 AM CDT 07/23/2018 Narrative Resulting Agency Comment [facility] [address] [id number] Ana Luisa Lewis MD LAB - CHEMISTRY [place] INSURANCE BILL [address] [place] [address] * COLOGUARD (EXTERNAL RESULT ENTRY) (12/18/2017) Stool STOOL SPECIMEN / Unknown Scanned Document LAB - CHEMISTRY [facility] from Last 3 Months or Most Recently Relevant to Health Maintenance Advance Directives * DNR (Latest Code Status on File) Date Activated Date Inactivated Comments 02/23/2020 8:40 AM * Full Code Date Activated Date Inactivated Comments 06/23/2010 4:16 PM 06/24/2010 12:12 PM * Full Code Date Activated Date Inactivated Comments 06/13/2010 1:14 PM 06/14/2010 2:44 PM Care Teams Kiln Loader Relationship Specialty Start Date End Date Paul Wisdom MD [address] [address] Orthopedic Surgery 05/20/10 Scotty Tellez MD [address] [address] Community Health Nursing Director Cardiology 04/14/20
--- OUTSIDE RECORDS SUMMARY | 2024-07-17 14:03 | XMS_ITS | Clinical Summary ---
Author Organization [facility] Address [address] [place] [address] Care Team Providers Care Jacker Feeder Name Role Phone Ana Luisa Lewis MD Primary Care Provider Unavailabl e Allergies Active Allergy Reactions Criticality Noted Date Comments Tramadol Itching 11/12/2019 Medications lisinopril-hydr oCHLOROthiazide 10-12.5 MG tablet Take 1 tablet by mouth daily. 02/25/2018 Active aspirin 81 MG chewable tablet Chew 81 mg by mouth daily. 07/07/2013 Active atorvastatin 40 MG tablet Take 1 tablet by mouth daily. 12/20/2017 Active Cholecalciferol (VITAMIN D) 50 MCG (2000 UT) Tab Take 2,000 Units by mouth daily. 05/02/2013 Active finasteride 5 MG tablet Take 5 mg by mouth daily. 07/23/2018 Active montelukast 10 MG tablet Take 1 tablet by mouth daily. 12/20/2017 Active multi vitamin/mineral s (VITAMINS/DISTRIBUTION COLLECTION OPERATOR ALS) tablet Take 1 tablet by mouth daily. Active omeprazole 40 MG capsule Take 1 capsule by mouth daily. 12/20/2017 Active terazosin 5 MG capsule Take 1 capsule by mouth daily. 08/21/2018 Active Social History Tobacco Use Types Packs/Day Years Used Date Smoking Tobacco: Every Day Cigarettes Smokeless Tobacco: Never Alcohol Use Standard Drinks/Week Comments Not Currently 0 (1 standard drink = 0.6 oz pur e alcohol) Sex and Gender Information Value Date Recorded Sex Assigned at Not on file Legal Sex Male 10:23 PM STABLE HAND Gender Identity Not on file Sexual Orientation Not on file Last Filed Vital Signs Vital Sign Reading Time Taken Comments Blood Pressure 115/51 11/17/2019 9:16 AM CDT Pulse 57 11/17/2019 6:53 AM CDT Temperature 36.6 C (97.8 F) 11/17/2019 9:19 AM CDT Respiratory Rate 18 11/17/2019 6:53 AM CDT Oxygen Saturation 96% 11/17/2019 9:16 AM CDT Inhaled Oxygen Concentration - - Weight 93 kg (205 lb) 11/12/2019 10:19 AM CDT Height 185.4 cm (6' 1 ) 11/12/2019 10:19 AM CDT Body Mass Index 27.05 11/12/2019 10:19 AM CDT Plan of Treatment Health Maintenance Due Date Last Done Comments Colorectal Cancer Screening Colonoscopy (10 Years) 1950 Hepatitis C 1967 DTaP, Tdap and Td Vaccines (1 - Tdap) 02/17/1968 Annual Medicare Wellness Visit 2014 Zoster Vaccines (2 of 3) 07/26/2014 05/31/2014 COVID-19 Vaccine (1 - season) 2023 Influenza Adult (#1) 2024 01/28/2019, 02/04/2018, 01/23/2017, Additional history exists RSV Immunization or 60+ Years (1 - 1-dose 75+ series) 02/17/2024 Pneumococcal Vaccine: 65+ Years Completed 04/20/2016, 03/22/2015, 04/23/1997 Meningococcal B Vaccine Aged Out No l onger eligible based on patient's age to complete this topic Meningococcal Vaccine Aged Out No rob latrice eligible based on patient's age to complete this topic RSV Immunizations Under 20 Months Aged Out No longer eligible based on patient's age to complete this topic Medical Devices Implanted Type Area Release And Technical Records Clerk Device Identifier Shelf Expiration Date Model / Serial / Lot Knee Components Knee Components Iol [employer] - [id number] Implanted:Qty: 1 on 11/17/2019 by Theo Del Angel MD at [facility] Lens Left: Eye [employer] 11/27/2022 [id number] / [id number] / Insurance [facility] Member Subscriber Plan / Payer (Ef fective 2016-Present) Name:David Castro Relation to Subscriber:Self Name:David Castro Payer ID:Not on file Group ID:[id number] Type:Not on file Address: [address] [place] [id number] MEDICARE MEDICARE [facility] Care Teams Jacker Feeder Relationship Specialty Start Date End Date Ana Luisa Lewis MD PCP - General FAMILY PRACTICE 08/09/18
--- OUTSIDE RECORDS SUMMARY | 2024-07-17 14:03 | XMS_ITS | Encounter Summary ---
Author Organization [facility] Address [address] [place] [address] Care Team Providers Care Station Repairer Name Role Phone Paul Wisdom MD Unavailable [phone] Ana Luisa Lewis MD Primary Care Provider UnavailZay Ayon MD Unavailable [phone] Ana Luisa Lewis MD Unavailable Unavailable Scotty Tellez MD Unavailable [phone] Chel[address] Thompson RETAIL PERSONAL BANKER-[facility] Unavailable Encounter Details Date Type Department Care Team (Late st Contact Info) Description 02/05/2014 [facility] [place] [address] [facility] [address] [place] [address] Social History Tobacco Use Types Packs/Day Years Used Date Smoking Tobacco: Former Cigarettes Smokeless Tobacco: Never Alcohol Use Standard Drinks/Week Comments No 0 (1 standard drink = 0.6 oz pur e alcohol) Sex and Gender Information Value Date Recorded Sex Assigned at Male 05/11/2020 11:42 AM SCIENTIST IMMUNOLOGY Gender Identity Male 05/11/2020 11:42 AM SCIENTIST IMMUNOLOGY Sexual Orientation Straight 05/11/2020 11 :42 AM SCIENTIST IMMUNOLOGY documented as of this encounter Plan of Treatment Not on file documented as of this encounter Goals Goal Patient Goal Type Associated Problems Recent Progress Patient-Stated? Author Blood Pressure < 140/90 Blood Pressure 120/72( 020 3:52 PM SCIENTIST IMMUNOLOGY) No Katelynn Guy MA documented as of this encounter Visit Diagnoses Not on filedocumented in this encounter Care Teams Station Repairer Relationship Specialty Start Date End Date Ana Luisa Lewis MD [address] [address] PCP - General Family Medicine 10/03/12 08/30/21 Ana Luisa Lewis MD Need updated address PCP - Attributed-MSSP 06/21/1804/22 Chelly Thompson, RETAIL PERSONAL BANKER-BEAD WORKER [employer]WING [address] [facility] [place] [place] [id number] PCP - Attributed-MSSP 04/23/20 01/09/21 Paul Wisdom MD [address] [place] [address] Orthopedic Surgery 05/20/10 Zay Sarmiento MD [address] [place] [address] Cardiology 02/24/14 02/22/20 Scotty Tellez MD [address] [place] [address] [address] [place] [address] Post Doc Fellowship Cardiology 04/14/20 documented as of this encounter
--- OUTSIDE RECORDS SUMMARY | 2024-07-17 14:03 | XMS_ITS | Referral Summary ---
Author Organization [facility] Address [address] [place] [id number] Care Team Providers Care Health And Wellness Director Name Role Phone Hetal Melgoza MD Primary [...] on file Legal Sex Male 2:38 AM REPAIR COIL WINDER Gender Identity Not on file Sexual Orientation [...] 02/21/2022 10:16 AM CDT Plan of Treatment Not on file Insurance [facility] Care Teams Health And Wellness Director Relationship Specialty Start Date End Date Hetal Melgoza MD [address] [place] [address] PCP - General Family Medicine 10/19/20
--- OUTSIDE RECORDS SUMMARY | 2024-07-17 14:03 | XMS_ITS | Encounter Summary ---
Author Organization [facility] Address [address] [place] [address] Care Team Providers Care Nailhead Puncher Name Role Phone Paul Wisdom MD Unavailable [phone] Ana Luisa Lewis MD Primary Care Provider UnavailZay Ayon MD Unavailable [phone] Ana Luisa Lewis MD Unavailable Unavailable Scotty Tellez MD Unavailable [phone] Chelly Thompson PATHOLOGY TECHNOLOGIST-[facility] Unavailable [phone] Encounter Details Date Type Department Care Team (Late st Contact Info) Description 02/12/2015 Therapy Visit EXTERNAL NON-[facility] DEPT Ana Luisa Lewis MD Need updated address Social History Tobacco Use Types Packs/Day Years Used Date Smoking Tobacco: Former Cigarettes Smokeless Tobacco: Never Alcohol Use Standard Drinks/Week Comments No 0 (1 standard drink = 0.6 oz pur e alcohol) Sex and Gender Information Value Date Recorded Sex Assigned at Male 05/11/2020 11:42 AM TAPE RECORDING MACHINE OPERATOR Gender Identity Male 05/11/2020 11:42 AM TAPE RECORDING MACHINE OPERATOR Sexual Orientation Straight 05/11/2020 11 :42 AM TAPE RECORDING MACHINE OPERATOR documented as of this encounter Plan of Treatment Not on file documented as of this encounter Goals Goal Patient Goal Type Associated Problems Recent Progress Patient-Stated? Author Blood Pressure < 140/90 Blood Pressure 120/72( 020 3:52 PM TAPE RECORDING MACHINE OPERATOR) No Katelynn Guy MA documented as of this encounter Visit Diagnoses Not on filedocumented in this encounter Care Teams Nailhead Puncher Relationship Specialty Start Date End Date Ana Luisa Lewis MD [address] [address] PCP - General Family Medicine 10/03/12 08/30/21 Ana Luisa Lewis MD Need updated address PCP - Attributed-MSSP 06/21/1804/22 Chelly Thompson, PATHOLOGY TECHNOLOGIST-ALL AROUND PATTERNMAKER [address] [facility] [place] [address] PCP - Attributed-MSSP 04/23/20 01/09/21 Paul Wisdom MD [address] [place] [address] Orthopedic Surgery 05/20/10 Zay Sarmiento MD [address] [place] [address] Cardiology 02/24/14 02/22/20 Scotty Tellez MD [address] [place] [address] [address] [place] [address] Tube Cleaning Operator Cardiology 04/14/20 documented as of this encounter
--- NOTE | 2024-07-17 14:06 | ED.DENTAL ---
HPI - Dental/Oral General Chief complaint: Dental/Oral Stated complaint: something on lip inside Time Seen by Provider: 07/17/24 14:07 Source: patient, RN notes reviewed and old records reviewed Mode of arrival: ambulatory Limitations: no limitations History of Present Illness HPI Narrative: 74 year old male who presents to [facility] care with complaints of sore on lower outer gum line for the past few days. Patient reports pain to area and increased discomfort with eating. Patient has small ulcerated area to the lower outer anterior gum, no drainage noted. Patient is daily tobacco smoker. MD Complaint: tooth pain (sore to lower outer gum line) Onset (ago): day(s) (few days) Severity scale (1-10): 2 Treatment prior to arrival: none Related Data Home Medications ?Medication ?Instructions ?Recorded ?Confirmed ?Last Taken ?Type zinc 50 mg tablet 50 mg PO DAILY 08/24/20 07/18/24 12/19/21 History aspirin 81 mg tablet,delayed 81 mg PO DAILY 12/21/23 07/18/24 Unknown History release venlafaxine 75 mg capsule,extended 75 mg PO DAILY 05/28/24 07/18/24 Unknown History release 24 hr Allergies Allergy/AdvReac Type Severity Reaction Status Date / Time tramadol Allergy Mild ITCHING Verified 07/18/24 14:01 Review of Systems Review of Systems: CONSTITUTIONAL: Denies fever, chills, or sweats. ENT: Denies rhinorrhea, congestion, sore throat, or otalgia. reports soreness to the outer lower gum line with small ulceration noted CARDIOVASCULAR: Denies chest pain, palpitations, or edema. RESPIRATORY: Denies cough or dyspnea. SKIN: Denies rash or itching. MUSCULOSKELETAL: Denies myalgia. NEUROLOGIC: Denies headache All systems reviewed & are unremarkable except as noted in HPI and below PMFSH Past Medical History Medical History COVID-19 Carotid artery disease Second degree burn of finger of right hand Burn of finger of right hand, second degree Left knee pain Hepatitis Emphysema of lung Swelling of knee joint, left Colon cancer screening Pulmonary HTN Coronary atherosclerosis due to calcified coronary lesion of [place] artery Lesion of nose Degenerative joint disease of left hip Chronic pain Cervical spondylosis with radiculopathy Brachial (cervical) neuritis Abnormality of gait Trochanteric bursitis Shoulder tendinitis Hx of hepatitis C Hyperlipidemia CAD (coronary artery disease) Tinnitus JUAN DAVID (generalized anxiety disorder) Tobacco abuse BPH loc w urin obs/LUTS Hx of transfusion of packed red blood cells Drug abuse in remission Hepatitis C Herniated lumbar intervertebral disc GERD (gastroesophageal reflux disease) Hyperlipidemia Hypertension Surgical History Surgical History History of carpal tunnel release Previous back surgery x2 History of total right knee replacement Family History Family History Sibling Tuberculosis Hypertension Cancer Father Tuberculosis Cancer Mother Hypertension Cerebrovascular accident Other Throat cancer Social History Social History Social History: Smoking packs per day: 0.5 Smoking cigarettes per day: 10.0 Years smoked: 50 Smoking pack-years: 25.00 Smoking status: Current every day smoker Tobacco type: cigarettes Second hand tobacco smoke exposure: Yes Alcohol intake: never Substance use: former Substance use type: does not use Do You Feel Safe in your Home?: Yes Lack of Transportation: No Lack of Food: Never True Current Housing: I Have Housing Concerned About Future Housing: No Difficulty Paying Gas/Electric Bills: No Difficulty Paying for Meds: No Currently Unemployed: No Education: Master's Degree or Higher Difficulty w/ Childcare or Family Care: No Living arrangements: with family Occupation/Education: retired Gender identity (if verbalized by the patient): Male Sexual Orientation (if Verbalized by the Patient): Straight or Heterosexual Spiritual care concerns: No Comments At time of signature, agree with nursing past medical, surgical, social and family history. There is no relevant family history pertinent to the presenting complaint Exam Narrative: GENERAL: Well-appearing, well-nourished, and in no acute distress. HEAD: Normocephalic, atraumatic. EYES: PERRLA and EOMI. ENT: Nares clear, no rhinorrhea or epistaxis. Mucous membranes moist. No missing teeth, broken teeth, caries noted small ulceration to the outer lower front gum line with no drainage noted. NECK: Supple.no lymphadenopathy CHEST: Clear to auscultation. No respiratory distress. HEART: Regular rate and rhythm. No murmur heard. Normal peripheral pulses. SKIN: Warm, dry, no rash. NEURO: No focal deficits. Alert and oriented x3. Course Course Emergency Course: Patient is aware of diagnosis, understands and agrees to treatment plan. Anticipatory guidance given. Patient agrees to follow-up as directed and is aware of reasons to seek care at the emergency department. Portions of this record may have been created with voice recognition software Level of Care: Express Care Visit Vital Signs Vital signs: Vital Signs Temperature 36.4 C L 07/17/24 13:16 Pulse Rate 62 07/17/24 13:16 Respiratory Rate 20 07/17/24 13:16 Blood Pressure 107/66 07/17/24 13:16 Pulse Oximetry 97 07/17/24 13:16 Oxygen Delivery Room Air 07/17/24 13:16 Temperature 36.4 C L 07/17/24 13:16 Pulse Rate 62 07/17/24 13:16 Respiratory Rate 20 07/17/24 13:16 Blood Pressure 107/66 07/17/24 13:16 Pulse Oximetry 97 07/17/24 13:16 Oxygen Delivery Room Air 07/17/24 13:16 Reviewed MDM - Dental/Oral MDM Narrative Medical decision making narrative: Patients pain and complaint coupled with physical findings are consistent with dentalgia. There are no focal signs of space occupying lesions that are compromising to the airway; no dysphagia, odynophagia, dysphonia, or dyspnea. No uvular deviation or soft palate edema. Patient is non-toxic appearing. The floor of the mouth is soft with no signs of Bud's Angina; no induration below mandible, no neck pain.? Patient is without trismus or drooling and able to swallow secretions.? Patient is felt appropriate for discharge home with dental follow up. Differential Diagnosis Differential diagnosis: Likely gingival abscess and other (ginival ulceration, dentalgia) Medical Records Attestation: I reviewed the patient's medical records. Critical Care Time Critical Care Time Critical Care Time: No Discharge Plan Discharge Clinical Impression: Gingival ulcer Patient Disposition: Home, Self-Care Condition: Stable Instructions: Antibiotic Form, Dental Abscess (ED) Additional Instructions: Penicillin VK 2 times daily as prescribed watch for increasing infection--redness, swelling, drainage Tylenol or ibuprofen for any fever pain follow up with PCP in 7-10 days for a wound check recheck if develop fever, chills, increasing symptom Go to the ER if your symptoms become worse of if ANY new symptoms develop Peridex mouthwash If your symptoms persist, change or worsen significantly before you can contact your personal physician then please, without delay, go to the emergency department for further evaluation. Follow-up with PCP in 7-10 days or sooner if needed Patient Language: Azeri Prescriptions: New chlorhexidine gluconate [Peridex] 0.12 % mouthwash 15 ml mucous membrane BID Qty: 473 0RF penicillin V potassium 500 mg tablet 500 mg PO Q12H 10 Days Qty: 20 0RF No Action zinc 50 mg tablet 50 mg PO DAILY aspirin 81 mg tablet,delayed release (DR/EC) 81 mg PO DAILY lisinopril-hydrochlorothiazide 10-12.5 mg tablet See Rx Instructions .ROUTE .COMPLEX Qty: 90 2RF Dose Instruction: TAKE 1 TABLET BY MOUTH EVERY DAY Rx Instructions: TAKE 1 TABLET BY MOUTH EVERY DAY venlafaxine 75 mg capsule,extended release 24hr 75 mg PO DAILY fluticasone propionate 50 mcg/actuation spray,suspension See Rx Instructions .ROUTE .COMPLEX Qty: 16 0RF Dose Instruction: USE 1 SPRAY INTRANASALLY DAILY ADMINISTER INTO EACH NOSTRIL Rx Instructions: USE 1 SPRAY INTRANASALLY DAILY ADMINISTER INTO EACH NOSTRIL azelastine 137 mcg (0.1 %) aerosol,spray See Rx Instructions .ROUTE .COMPLEX Qty: 30 0RF Dose Instruction: SPARY ONCE INTRANASALLY EVERY 12 HOURS ADMINISTER INTO EACH NOSTRIL Rx Instructions: SPARY ONCE INTRANASALLY EVERY 12 HOURS ADMINISTER INTO EACH NOSTRIL montelukast 10 mg tablet See Rx Instructions .ROUTE .COMPLEX Qty: 90 3RF Dose Instruction: TAKE 1 TABLET BY MOUTH EVERY DAY Rx Instructions: TAKE 1 TABLET BY MOUTH EVERY DAY terazosin 5 mg capsule See Rx Instructions .ROUTE .COMPLEX Qty: 90 2RF Dose Instruction: TAKE 1 CAPSULE BY MOUTH EVERY DAY Rx Instructions: TAKE 1 CAPSULE BY MOUTH EVERY DAY finasteride 5 mg tablet See Rx Instructions .ROUTE .COMPLEX Qty: 90 1RF Dose Instruction: TAKE 1 TABLET BY MOUTH EVERY DAY Rx Instructions: TAKE 1 TABLET BY MOUTH EVERY DAY tizanidine 2 mg tablet See Rx Instructions .ROUTE .COMPLEX Qty: 270 0RF Dose Instruction: TAKE 1 TABLET BY MOUTH THREE TIMES A DAY NEEDED FOR MUSCLE SPASTICITY Rx Instructions: TAKE 1 TABLET BY MOUTH THREE TIMES A DAY NEEDED FOR MUSCLE SPASTICITY omeprazole 40 mg capsule,delayed release(DR/EC) See Rx Instructions .ROUTE .COMPLEX Qty: 90 2RF Dose Instruction: TAKE 1 CAPSULE BY MOUTH EVERY DAY Rx Instructions: TAKE 1 CAPSULE BY MOUTH EVERY DAY isosorbide mononitrate 30 mg tablet extended release 24 hr See Rx Instructions .ROUTE .COMPLEX Qty: 90 1RF Dose Instruction: TAKE 1 TABLET BY MOUTH EVERY DAY Rx Instructions: TAKE 1 TABLET BY MOUTH EVERY DAY atorvastatin 40 mg tablet See Rx Instructions .ROUTE .COMPLEX Qty: 90 2RF Dose Instruction: TAKE 1 TABLET BY MOUTH EVERY DAY Rx Instructions: TAKE 1 TABLET BY MOUTH EVERY DAY bupropion HCl 150 mg tablet sustained-release 12 hr See Rx Instructions .ROUTE .COMPLEX Qty: 180 1RF Dose Instruction: TAKE 1 TABLET BY MOUTH TWICE A DAY Rx Instructions: TAKE 1 TABLET BY MOUTH TWICE A DAY celecoxib 200 mg capsule See Rx Instructions .ROUTE .COMPLEX Qty: 60 1RF Dose Instruction: TAKE 1 CAPSULE TWICE A DAY NEEDED FOR PAIN Rx Instructions: TAKE 1 CAPSULE TWICE A DAY NEEDED FOR PAIN Follow-up/Referrals: PHYSICIAN NOT ON STAFF,NONSTAFF [Primary Care Provider] - Stand Alone Forms: Work/School Release IP Time of Disposition: 14:19 Quality [place] Coma Scale Eyes: Open Verbal: Oriented and Alert Motor: Follows Commands Jana Coma Total Score: 15
== END 2024-07-17 14:20 | disposition home or self-care (01) ==
PROVIDERS: Emergency Provider Registered Nurse
DX: K06.8 Other specified disorders of gingiva and edentulous alveolar ridge (principal); F17.210 Nicotine dependence, cigarettes, uncomplicated; I27.20 Pulmonary hypertension, unspecified; I25.10 Atherosclerotic heart disease of native coronary artery without angina pectoris; I25.84 Coronary atherosclerosis due to calcified coronary lesion; I10 Essential (primary) hypertension; N40.1 Benign prostatic hyperplasia with lower urinary tract symptoms; I77.9 Disorder of arteries and arterioles, unspecified; J43.9 Emphysema, unspecified; K21.9 Gastro-esophageal reflux disease without esophagitis; M17.12 Unilateral primary osteoarthritis, left knee; M47.22 Other spondylosis with radiculopathy, cervical region; E78.5 Hyperlipidemia, unspecified; Z86.16 Personal history of COVID-19; F41.1 Generalized anxiety disorder; Z96.651 Presence of right artificial knee joint
CPT/HCPCS: 99213; G0463

== ENCOUNTER 2024-09-03 16:53 | Emergency (ER) | payer OTHER, SELFPAY ==
--- NOTE | 2024-09-03 16:55 | ED_ITS ---
HPI - Extremity Problem General Chief complaint: Extremity Problem,Nontraumatic Stated complaint: swollen toe Time Seen by Provider: 09/03/24 17:03 Source: patient and RN notes reviewed Mode of arrival: ambulatory Limitations: dementia History of Present Illness HPI Narrative: 74-year-old male presents concern for swollen, painful, red 1st digit of his left foot. He reports he noticed it when he accidentally bumped it and noticed it was tender. He denies any injury. He denies drainage or fluctuation. Denies history of gout. Denies joint pain MD Complaint: extremity swelling Related Data Home Medications Medication Instructions Recorded Confirmed Last Taken Type zinc 50 mg tablet 50 mg PO DAILY 08/24/20 07/18/24 12/19/21 History aspirin 81 mg tablet,delayed 81 mg PO DAILY 12/21/23 07/18/24 Unknown History release venlafaxine 75 mg capsule,extended 75 mg PO DAILY 05/28/24 07/18/24 Unknown Hi story release 24 hr escitalopram oxalate 10 mg tablet mg 09/03/24 Unknown History Allergies Allergy/AdvReac Type Severity Reaction Status Date / Time tramadol Allergy Mild ITCHING Verified 09/03/24 16:56 Review of Systems Review of Systems: CONSTITUTIONAL: Denies malaise, chills, sweats, or fever. EYES: Denies redness, or discharge. ENT: Denies rhinorrhea, congestion, swollen lips, swollen tongue CARDIOVASCULAR: Denies chest pain, palpitations, or edema. RESPIRATORY: Denies cough or dyspnea. GASTROINTESTINAL: Denies abdominal pain, nausea, vomiting SKIN: Reports redness, swelling, tenderness to the distal 1st digit of the left foot. Denies purulent drainage, vesicles, bullae, numbness, pain beyond proportion MUSCULOSKELETAL: Denies joint pain or myalgia. NEUROLOGIC: Denies headache. All systems reviewed & are unremarkable except as noted in HPI and below PMFSH Past Medical History Medical History COVID-19 Carotid artery disease Second degree burn of finger of right hand Burn of finger of right hand, second degree Left knee pain Hepatitis Emphysema of lung Swelling of knee joint, left Colon cancer screening Pulmonary HTN Coronary atherosclerosis due to calcified coronary lesion of [place] artery Lesion of nose Degenerative joint disease of left hip Chronic pain Cervical spondylosis with radiculopathy Brachial (cervical) neuritis Abnormality of gait Trochanteric bursitis Shoulder tendinitis Hx of hepatitis C Hyperlipidemia CAD (coronary artery disease) Tinnitus JUAN DAVID (generalized anxiety disorder) Tobacco abuse BPH loc w urin obs/LUTS Hx of transfusion of packed red blood cells Drug abuse in remission Hepatitis C Herniated lumbar intervertebral disc GERD (gastroesophageal reflux disease) Hyperlipidemia Hypertension Surgical History Surgical History History of carpal tunnel release Previous back surgery x2 History of total right knee replacement Family History Family History Sibling Tuberculosis Hypertension Cancer Father Tuberculosis Cancer Mother Hypertension Cerebrovascular accident Other Throat cancer Social History Social History Social History: Smoking packs per day: 0.5 Smoking cigarettes per day: 10.0 Years smoked: 50 Smoking pack-years: 25.00 Smoking status: Current every day smoker Tobacco type: cigarettes Second hand tobacco smoke exposure: Yes Alcohol intake: never Substance use: former Substance use type: does not use Do You Feel Safe in your Home?: Yes Lack of Transportation: No Lack of Food: Never True Current Housing: I Have Housing Concerned About Future Housing: No Difficulty Paying Gas/Electric Bills: No Difficulty Paying for Meds: No Currently Unemployed: No Education: Master's Degree or Higher Difficulty w/ Childcare or Family Care: No Living arrangements: with family Occupation/Education: retired Gender identity (if verbalized by the patient): Male Sexual Orientation (if Verbalized by the Patient): Straight or Heterosexual Spiritual care concerns: No Comments At time of signature, agree with nursing past medical, surgical, social and family history. There is no relevant family history pertinent to the presenting complaint Exam Narrative: GENERAL: Well-appearing, well-nourished, and in no acute distress. HEAD: Normocephalic, atraumatic. EYES: PERRLA, conjunctivae clear ENT: Mucous membranes moist. NECK: Supple. No lymphadenopathy CHEST: Clear to auscultation. No respiratory distress. HEART: Regular rate and rhythm. SKIN: Warm, dry. Erythema, induration, tenderness, warmth with sharp margins noted distal 1st digit of the left foot. No vesicles, bullae, necrosis, ecchymosis, crepitus noted. NEURO: Alert and oriented x3. PSYCH: Normal mood and affect Course Course Emergency Course: Patient is aware of diagnosis, understands and agrees to treatment plan. Anticipatory guidance given. Patient agrees to follow-up as directed and is aware of reasons to seek care at the emergency department. Portions of this record may have been created with voice recognition software Level of Care: Express Care Visit Vital Signs Vital signs: Reviewed. Critical Care Time Critical Care Time Critical Care Time: No Discharge Plan Discharge Clinical Impression: Cellulitis Patient Disposition: Home Condition: Stable Instructions: Antibiotic Form, Cellulitis (ED) Additional Instructions: Soak your toe: Soak your total in a mixture of equal parts vinegar and water 3 or 4 times each day. This will help decrease inflammation. Apply a warm compress: Soak a washcloth in warm water and place it on your toe. This will help decrease inflammation. Elevate: Raise your toe above the level of your heart as often as you can. This will help decrease swelling and pain. Prop your toe on pillows or blankets to keep it elevated comfortably. Use lotion: Apply lotion after you wash your feet. This will prevent your skin from becoming too dry. Please follow-up with your primary care doctor in the next 1-2 days. If you cannot follow-up with your primary care doctor please go to the ED for any urgent issues. 2) If you have any worsening of symptoms or any other concerns please go to the ED immediately. 3) Please take medications as prescribed andcontinue taking your home medications as usual. Patient Language: Ukrainian Prescriptions: New doxycycline monohydrate 100 mg tablet 100 mg PO BID 7 Days Qty: 14 0RF No Action escitalopram oxalate 10 mg tablet zinc 50 mg tablet 50 mg PO DAILY aspirin 81 mg tablet,delayed release (DR/EC) 81 mg PO DAILY lisinopril-hydrochlorothiazide 10-12.5 mg tablet See Rx Instructions .ROUTE .COMPLEX Qty: 90 2RF Dose Instruction: TAKE 1 TABLET BY MOUTH EVERY DAY Rx Instructions: TAKE 1 TABLET BY MOUTH EVERY DAY venlafaxine 75 mg capsule,extended release 24hr 75 mg PO DAILY fluticasone propionate 50 mcg/actuation spray,suspension See Rx Instructions .ROUTE .COMPLEX Qty: 16 0RF Dose Instruction: USE 1 SPRAY INTRANASALLY DAILY ADMINISTER INTO EACH NOSTRIL Rx Instructions: USE 1 SPRAY INTRANASALLY DAILY ADMINISTER INTO EACH NOSTRIL azelastine 137 mcg (0.1 %) aerosol,spray See Rx Instructions .ROUTE .COMPLEX Qty: 30 0RF Dose Instruction: SPARY ONCE INTRANASALLY EVERY 12 HOURS ADMINISTER INTO EACH NOSTRIL Rx Instructions: SPARY ONCE INTRANASALLY EVERY 12 HOURS ADMINISTER INTO EACH NOSTRIL montelukast 10 mg tablet See Rx Instructions .ROUTE .COMPLEX Qty: 90 3RF Dose Instruction: TAKE 1 TABLET BY MOUTH EVERY DAY Rx Instructions: TAKE 1 TABLET BY MOUTH EVERY DAY finasteride 5 mg tablet See Rx Instructions .ROUTE .COMPLEX Qty: 90 1RF Dose Instruction: TAKE 1 TABLET BY MOUTH EVERY DAY Rx Instructions: TAKE 1 TABLET BY MOUTH EVERY DAY omeprazole 40 mg capsule,delayed release(DR/EC) See Rx Instructions .ROUTE .COMPLEX Qty: 90 2RF Dose Instruction: TAKE 1 CAPSULE BY MOUTH EVERY DAY Rx Instructions: TAKE 1 CAPSULE BY MOUTH EVERY DAY isosorbide mononitrate 30 mg tablet extended release 24 hr See Rx Instructions .ROUTE .COMPLEX Qty: 90 1RF Dose Instruction: TAKE 1 TABLET BY MOUTH EVERY DAY Rx Instructions: TAKE 1 TABLET BY MOUTH EVERY DAY atorvastatin 40 mg tablet See Rx Instructions .ROUTE .COMPLEX Qty: 90 2RF Dose Instruction: TAKE 1 TABLET BY MOUTH EVERY DAY Rx Instructions: TAKE 1 TABLET BY MOUTH EVERY DAY bupropion HCl 150 mg tablet sustained-release 12 hr See Rx Instructions .ROUTE .COMPLEX Qty: 180 1RF Dose Instruction: TAKE 1 TABLET BY MOUTH TWICE A DAY Rx Instructions: TAKE 1 TABLET BY MOUTH TWICE A DAY celecoxib 200 mg capsule See Rx Instructions .ROUTE .COMPLEX Qty: 60 5RF Dose Instruction: TAKE 1 CAPSULE TWICE A DAY NEEDED FOR PAIN Rx Instructions: TAKE 1 CAPSULE TWICE A DAY NEEDED FOR PAIN tizanidine 2 mg tablet See Rx Instructions .ROUTE .COMPLEX Qty: 270 0RF Dose Instruction: TAKE 1 TABLET BY MOUTH THREE TIMES A DAY NEEDED FOR MUSCLE SPASTICITY Rx Instructions: TAKE 1 TABLET BY MOUTH THREE TIMES A DAY NEEDED FOR MUSCLE SPASTICITY terazosin 5 mg capsule See Rx Instructions .ROUTE .COMPLEX Qty: 90 2RF Dose Instruction: TAKE 1 CAPSULE BY MOUTH EVERY DAY Rx Instructions: TAKE 1 CAPSULE BY MOUTH EVERY DAY Follow-up/Referrals: UNKNOWN,DOCTOR [Primary Care Provider] - Time of Disposition: 17:10
--- OUTSIDE RECORDS SUMMARY | 2024-09-03 16:55 | XMS_ITS | Encounter Summary ---
Author Name [facility] [facility] [place] [facility] [place] [facility] [place] Address [address] [place] [address] Care Team Providers Care Accounting System Expert Name Role Phone FLORENCE CLEMENTS Primary Care Provider Unavailabl e Insurance Providers: All historical and current Section Date Range: From patient's date of to the date document was created. This section includes the names of all active insurance providers for the patient. Insurance Provider Type of Coverage Plan Name Start of Policy Coverage End of Policy Coverage Group Number Member ID Insurance Provider's Telephone Number Policy Caban's Name Patient's Relationship to Policy Caban ActX [facility] (WNR) MEDICARE ADVANTAGE [facility] ([facility]) August 21, 2020 [id number] [phone] SCHAFER,KODI HARD PATIENT MEDICARE (WNR) MEDICARE (M) PART A Jan 21, 2014 PART A [id number] SCHAFER,KODI HARD PATIENT MEDICARE (WNR) MEDICARE (M) PART B Jan 21, 2014 PART B [id number] SCHAFER,KODI HARD PATIENT Selected Encounter This section includes the information on record at [place] for the Encounter. Date/Time Encounter Type Encounter Description Reason Provider Source Apr 01, 2024 09:00 AM OFFICE O/P EST MOD 30 MIN PRIMARY CARE/MEDICINE ICD-10-CM F43.12 Post-traumatic stress disorder, chronic CLEMENTS,FLORENCE A [facility] Encounter Template Text not used by [place] Assessments - Encounter Diagnoses This section includes the primary and secondary diagnoses documented for the Encounter. Date/Time Primary/Secondary Diagnosis Diagnosis Name Provider Source Apr 01, 2024 04:26 PM PRIMARY Post-traumatic stress disorder, chronic CLEMENTS,FLORENCE A [facility] Plan of Treatment: Future Appointments (+ 6 months) and Future Tests (+/- 45 days) The Plan of Treatment section includes future care activities for the patient from all [place] treatmentfacilities. This section includes future appointments and future orders which are active, pending or scheduled. Future Appointments This section includes appointments that were scheduled to occur 6 months from the date of the Encounter, up to a maximum of 20 appointments. The data comes from all [place] treatment facilities. Appointment Date/Time Appointment Type Appointme nt Facility Name May 19, 2024 11:00 AM AMBULATORY - NONE [facility] May 21, 2024 10:00 AM AMBULATORY - PSYCHIATRY [facility] Jun 18, 2024 12:30 PM AMBULATORY - NONE . [facility] Jul 09, 2024 02:30 PM AMBULATORY - PSYCHIATRY [facility] Jul 30, 2024 02:00 PM AMBULATORY - MEDICINE [facility] Aug 13, 2024 08:00 AM AMBULATORY - NONE [facility] Aug 13, 2024 11:00 AM AMBULATORY - NONE . [facility] R [facility] August 21, 2024 10:00 AM AMBULATORY - MEDICINE [facility] Sep 24, 2024 01:00 PM AMBULATORY - PSYCHIATRY [facility] Social History: Smoking Status (Most current) and Tobacco Use (All prior to encounter date) This section includes the most current, and the historical, smoking and tobacco- related health factors from the [place] facility where the Encounter took place. Current Smoking Status This section includes the most current smoking, or tobacco-related health factor, from the [place] facility where the Encounter took place. Date/Time Current Smoking Status Comment Facil ity Apr 01, 2024 09:00 AM VA-TOBACCO NEVER U SED OTHER TYPE [facility] Tobacco Use History This section includes a history of the smoking, or tobacco-related health factors, that were collected on or before the date of the Encounter. The data comes from the [place] facility where the Encounter took place. Date/Time Smoking Status/Tobacco Use Comment F acility Apr 01, 2024 09:00 AM VA-TOBACCO USE LINDSAY E DAYS CIGARETTES [facility] Apr 04, 2023 01:30 PM VA-TOBACCO DOESNT USE WI 30 MIN WAKEUP [facility] Apr 04, 2023 01:30 PM VA-TOBACCO USE 5 TO 15 YEARS [facility] Apr 04, 2023 01:30 PM VA-TOBACCO USE ADVICE [facility] Apr 04, 2023 01:30 PM VA-TOBACCO USE COMMUNITY SERVICE DIRECTOR NO [facility] Apr 04, 2023 01:30 PM VA-TOBACCO USE MED NO [facility] Apr 04, 2023 01:30 PM VA-TOBACCO USER SOME DAYS [facility] Feb 23, 2021 11:30 AM VA-TOBACCO USE 30 YEARS OR MORE [facility] Feb 23, 2021 11:30 AM VA-TOBACCO USE ADVICE [facility] Feb 23, 2021 11:30 AM VA-TOBACCO USE COMMUNITY SERVICE DIRECTOR NO [facility] Feb 23, 2021 11:30 AM VA-TOBACCO USE MED NO [facility] Feb 23, 2021 11:30 AM VA-TOBACCO USE WI 30 MIN OF WAKEUP [facility] Feb 23, 2021 11:30 AM VA-TOBACCO USER EVERY DAY [facility] Radiology Reports: +/- 30 days of the encounter Radiology Reports For cases when an order for radiology services may have been completed prior to the date of the Encounter, the report list includes the Radiology Reports that were completed up to 30 days before dateof the Encounter. For cases when an order for radiology services may have been completed after the date of the Encounter, the report list also includes the Radiology Reports that were completed up to30 days after date of the Encounter. The data comes from all [place] treatment facilities. Date/Time Radiology Report Provider Source Mar 05, 2024 09:02 AM LDCT LUNG CANCER SCREENING: CRISTOPHER SCHAFER AMANUEL [id number] -[id number] M Exm Date: MAR 05, 2024@09:02 Req Phys: KEN PEREZ Pat Loc: [facility] DELBERT BOTTLE PACKER (Req'g L Img Loc: -CT IMAGING Service: Unknown [facility], [address] [place] [address] (Case [id number] COMPLETE) LDCT LUNG CANCER SCREENING (CT Detailed) CPT:78192 Reason for Study: Initial LDCT for LCS Clinical History: Responsible Attending: Latasha Perez NP Attending Contact Number: [phone] Resident Contact Number: [place] has another appt scheduled at 02/19. Please try and schedule same day, as he has far drive. TY. Patient is age 50-80? True Patient has 20+ pack-year smoking history? True Patient is current smoker? True Patient has quit within the past 15 years. False Patient does not have a health problem the substantially limits life expectancy, or the ability or willingness to have curative treatment. True Shared decision-making has occurred regarding the benefits and risks of a screening program. True Report Status: Verified Date Reported: MAR 05, 2024 Date Verified: MAR 05, 2024 Dam Operator E-Sig:/ES/GERDA MCCLELLAN MD Report: EXAM: LDCT LUNG CANCER SCREENING COMPARISON: None PROTOCOL: Screening protocol, low dose, non-contrast CT chest was performed at the local [place] facility in accordance with Lung-Rads 2021. Additional coronal and sagittal reconstructions. MIP reconstructions were reviewed. Secondary computer-aided detection post-processing used. INDEX NODULE: OTHER NODULES: None. LUNG/AIRWAY/PLEURA FINDINGS: Minor lingular atelectasis/scarring MEDIASTINUM: No significant mediastinal adenopathy VISUAL CORONARY ARTERY CALCIFICATIONS: No UPPER ABDOMEN: No significant pathology requiring further workup or follow-up. This examination has been performed using a low-dose technique which limits the ability to detect nonpulmonary pathology BONES, SOFT TISSUES, AND ADDITIONAL FINDINGS: Unremarkable. (The term unremarkable may include spondylotic changes typical for patient age) Impression: LUNG-RADS: 1: Negative. RECOMMENDATION: One year Low-dose lung cancer screening CT recommended if patient meets criteria LUNG-RADS MODIFIER: N/A. Primary Interpreting Staff: GERDA MCCLELLAN MD, Radiologist (Dam Operator) /GERDA MARCUM [facility] Encounter Notes: All associated encounter notes This section contains the clinical notes associated to the Encounter. Date/Time Encounter Note(s) Provider Source Apr 01, 2024 04:25 PM TELEHEALTH NOTE: LOCAL TITLE: PRIMARY CARE VIDEO CONNECT STL STANDARD TITLE: TELEHEALTH NOTE DATE OF NOTE: APR 01, 2024@16:25 ENTRY DATE: APR 01, 2024@16:25:56 AUTHOR: FLORENCE CLEMENTS COSIGNER: URGENCY: STATUS: COMPLETED Medicine Provider Note Modality of Care: Clinical Video Telehealth Visit conducted by Clinical Video Telehealth. Patient/surrogate provided verbal consent for video telehealth. Patient location confirmed. Emergency number confirmed. Patient Contact Details: Best contact number for backup communication with patient: Patient ESTABLISHED PATIENT IBWS-RO-KOSA: REASON FOR VISIT/CHIEF COMPLAINT: depressed mood HPI:pt with [place] PTSD , reports depression mainly due to sadness as his older sis has worsening ALzhemier's and is having a tough time transitioning into memory care living facility.he is already on on bupropion and lexapro ordered by his NON [place] PCP , taking for at least 2 month, vet feels it is not really helping his mood. I recommend cousneling with [facility] . he declines. he would liek to seek eval aofr medications. NonVA Providers: Dr Tavares SOURCE(S) OF HISTORY: Patient PAST MEDICAL HISTORY: 1) Essential hypertension 2) Mixed hyperlipidemia 3) Peripheral vascular disease 4) Benign prostatic hyperplasia 5) CAD - Coronary Artery Disease ([facility] [id number]) 6) Hepatitis C comment: treated in 1999, NEG since 7) Anxiety ([facility] [id number]) 8) Osteoarthritis of left knee joint 9) History of arthroplasty of right knee 10) History of arthroplasty of left knee 11) Chronic Post-Traumatic Stress Disorder ([facility] [id number]) 12) Exposure to potentially hazardous substance ([facility] [id number]) comment: Entered automatically through RAE Problem List documentation prog 13) Carotid Artery Stenosis ([facility] [id number]) 14) Aortic Stenosis, Non-Rheumatic ([facility] [id number]) 15) COPD - Chronic Obstructive Pulmonary Disease ([facility] [id number]) FAMILY HISTORY: No new updates. SOCIAL HISTORY: NICOTINE: Nicotine User: Yes ILLICIT DRUGS: No ETOH: 1-2 drinks per wk ALLERGIES: TRAMADOL ALLERGY REVIEW: Allergy list reviewed and remains current. MEDICATION RECONCILIATION: I have reviewed the patient's medication list with the patient and/or his/her care-home health caregiver. Handwritten corrections, additions and/or deletions were made to the list. Corrected Outpatient Medication List was provided to the patient/caregiver. Active Outpatient Medications (including Supplies): Active Outpatient Medications Status 1) ALBUTEROL 90MCG (CFC-F) 200D ORAL INHL INHALE 2 PUFFS ACTIVE BY ORAL INHALATION FOUR TIMES A DAY NEEDED SHAKE WELL. RINSE MOUTHPIECE FREQUENTLY TO PREVENT CLOGGING. 2) NICOTINE 2MG GUM CHEW 1 PIECE OF GUM BY MOUTH EVERY 4 ACTIVE (S) HOURS NEEDED CHEW GUM UNTIL TINGLING SENSATION, THEN PARK THE GUM BETWEEN CHEEK AND GUM AREA. REPEAT (RE-CHEW) WHEN TINGLING STOPS. 3) NORTRIPTYLINE HCL 10MG CAP TAKE ONE CAPSULE BY MOUTH ACTIVE AT BEDTIME INSOMNIA 4) OLODATEROL 2.5MCG/ACTUAT 60D ORAL INHL INHALE 2 ACTIVE INHALATIONS BY ORAL INHALATION ONCE A DAY FOR COPD (ADMINISTER AT THE SAME TIME EVERY DAY) Active Non-VA Medications Status 1) Non-VA ASPIRIN 81MG EC TAB 81MG BY MOUTH ONCE A DAY ACTIVE 2) Non-VA ATORVASTATIN CALCIUM 80MG TAB 40MG BY MOUTH ACTIVE EVERY EVENING 3) Non-VA BUPROPION HCL 150MG 12HR SA TAB 150MG BY MOUTH ACTIVE TWICE A DAY 4) Non-VA CELECOXIB 200MG CAP 200MG BY MOUTH TWICE A DAY ACTIVE 5) Non-VA CHOLECALCIF 50MCG (D3-2,000UNIT) TAB 2000UNIT ACTIVE BY MOUTH ONCE A DAY 6) Non-VA ESCITALOPRAM OXALATE 10MG TAB 5MG BY MOUTH ACTIVE ONCE A DAY 7) Non-VA ESCITALOPRAM OXALATE 20MG TAB 10MG BY MOUTH ACTIVE ONCE A DAY 8) Non-VA FAMOTIDINE 20MG TAB 20MG BY MOUTH TWICE A DAY ACTIVE 9) Non-VA FINASTERIDE 5MG TAB 5MG BY MOUTH ONCE A DAY ACTIVE 10) Non-VA HCTZ 12.5/LISINOPRIL 10MG TAB 1 TABLET BY ACTIVE MOUTH EVERY MORNING 11) Non-VA MONTELUKAST NA (SINGULAIR) 10MG TAB 10MG BY ACTIVE MOUTH ONCE A DAY 12) Non-VA MULTIVITAMIN/MINERALS CAP/TAB 1 CAP/TAB BY ACTIVE MOUTH ONCE A DAY 13) Non-VA OMEPRAZOLE 40MG EC CAP 40MG BY MOUTH EVERY ACTIVE MORNING BEFORE A MEAL 14) Non-VA TERAZOSIN HCL 10MG CAP 10MG BY MOUTH AT ACTIVE BEDTIME 15) Non-VA TIZANIDINE HCL 4MG TAB 2MG BY MOUTH THREE ACTIVE TIMES A DAY NEEDED 16) Non-VA VALACYCLOVIR HCL 500MG TAB 500MG BY MOUTH ACTIVE TWICE DAILY NEEDED 20 Total Medications REVIEW OF SYSTEMS: General: Normal No Fevers, Chills, Weight Loss, Weight Gain, Recent Illness. Ears, Nose, Mouth, Throat: Normal No new loss of hearing or tinnitus, no Dental issue, Difficulty swallowing, Vertigo. Eye: Normal No Trauma, Cataracts, Glaucoma, Blurred vision Cardiovascular: Normal No Chest pain, Dizziness, Palpitations. Respiratory: Normal No Cough, SOB, Hemoptysis, Epistaxis, Influenza symptoms, +PDD. PHYSICAL EXAMINATION: General: pleasant, cooperative, well-developed, well-nourished, appropriately dressed and groomed [place]; in no acute distress. Respirations even and non-labored Psych:Affect appropriate. Neuro: Oriented x3. . DATA REVIEW: ==== = TRIGLYCERIDE 48 mg/dL 09/27/2023 09:35 CHOLESTEROL 129 mg/dL 09/27/2023 09:35 HDL(New) 50 mg/dL 09/27/2023 09:35 CALCULATED LDL 69 mg/dL 09/27/2023 09:35 = SODIUM 137 mEq/L 09/27/2023 09:35 POTASSIUM 4.3 mEq/L 09/27/2023 09:35 CHLORIDE 104 mEq/L 09/27/2023 09:35 UREA NITROGEN 20.5 mg/dL 09/27/2023 09:35 CREATININE 1.32 H mg/dL 09/27/2023 09:35 CALCIUM 9.9 mg/dL 09/27/2023 09:35 PROTEIN 7.1 g/dL 09/27/2023 09:35 ALBUMIN 4.2 g/dL 09/27/2023 09:35 ALKALINE PHOSPHATASE 72 U/L 09/27/2023 09:35 ALT/SGPT 15 U/L 09/27/2023 09:35 AST/SGOT 21 U/L 09/27/2023 09:35 TOTAL BILIRUBIN 0.9 mg/dL 09/27/2023 09:35 CARBON DIOXIDE 26 mEq/L 09/27/2023 09:35 GLUCOSE 116 H mg/dL 09/27/2023 09:35 EGFR (CKD-EPI 2020) 56.6 09/27/2023 09:35 = WBC 6.8 10*3/uL 09/27/2023 09:35 RBC 4.16 10*6/uL 09/27/2023 09:35 HGB 13.7 g/dL 09/27/2023 09:35 HCT 41.5 % 09/27/2023 09:35 MCV 99.8 fL 09/27/2023 09:35 MCH 32.9 pg 09/27/2023 09:35 MCHC 33.0 g/dL 09/27/2023 09:35 RDW 11.5 L % 09/27/2023 09:35 PLT 118 L 10*3/uL 09/27/2023 09:35 MPV 12.2 H fL 09/27/2023 09:35 NEUTROPHILS, AUTO % 67 % 09/27/2023 09:35 LYMPHOCYTES, AUTO % 22 % 09/27/2023 09:35 MONOCYTES, AUTO % 8 % 09/27/2023 09:35 EOSINOPHILS, AUTO % 3 % 09/27/2023 09:35 BASOPHILS, AUTO % 0 % 09/27/2023 09:35 NEUTROPHILS, ABSOLUTE 4.52 10*3/uL 09/27/2023 09:35 LYMPHOCYTES, ABSOLUTE 1.47 10*3/uL 09/27/2023 09:35 MONOCYTES, ABSOLUTE 0.53 10*3/uL 09/27/2023 09:35 EOSINOPHILS, ABSOLUTE 0.20 10*3/uL 09/27/2023 09:35 BASOPHILS, ABSOLUTE 0.03 10*3/uL 09/27/2023 09:35 IMM[address]T FRACTION 7.1 H % 09/27/2023 09:35 = PROST. SPECIFIC AG.(PB-STL) 0.195 ng/mL 09/27/2023 09:35 PROST. SPECIFIC AG.(PB-STL) 0.588 ng/mL 09/16/2020 08:28 = TSH 1.722 uIU/mL 09/27/2023 09:35 EK09/27/2023 15:46 Local Title: EKG CONSULT STL Standard Title: CARDIOLOGY DIAGNOSTIC STUDY CONSULT AUTHOR: CLINICAL,DEVICE PROXY SERVICE DOCUMENT IN VISTA IMAGING SEE FULL REPORT IN VISTA IMAGING SIGNATURE NOT REQUIRED SEE SIGNATURE IN VISTA IMAGING ([place] EKG) AUTO-INSTRUMENT DIAGNOSIS Procedure: 77351 12 Lead ECG Release Status: Released Off-Line Verified Date Verified: Sep 27, 2023@15:45:59 14922.2 Ventricular Rate: 57 BPM 22609.3 Atrial Rate: 57 BPM 86185.4 P-R Interval: 180 ms 60135.5 QRS Duration: 86 ms 23248.6 Q-T Interval: 416 ms 50107 QTC Calculation(Bazett)404 ms 76661.12 Calculated P [place]: 69 degrees 21262.13 Calculated R [place]: 71 degrees 52526.14 Calculated T [place]: 36 degrees Sinus bradycardia with occasional Premature ventricular complexes Anteroseptal infarct (cited on or before 23-NOV-2020) Abnormal ECG When compared with ECG of 26-APR-2022 11:13, Premature ventricular complexes are now Present Questionable change in The axis Administrative Closure: 09/27/2023 by: CLINICAL,DEVICE PROXY SERVICE < THE ABOVE NOTE IS UNSIGNED > - DRAFT COPY * DRAFT COPY * DRAFT COPY * DRAFT COPY * DRAFT COPY * DRAFT COPY - Result: Acceptable Follow-up Action: Data results reviewed with patient ASSESSMENT/PLAN: PTSD with depression, situational. recommend counseling. declined by pt.denies SI/HI. already on ssri and bupropion ordered by NON [place] PCP, no improvement with mood. will request MH eval for med management. RETURN TO CLINIC:as previously scheduled Return to Clinic order placed SUMMARY STATEMENT: Plan of care has been discussed with including expected therapeutic benefits and potential side effects of prescribed medication and treatments. verbalizes understanding and is in agreement with the plan of care. Patient was instructed to keep all scheduled appointments and contact property utilization manager for any additional problems. PREVENTION & SCREENING: ALCOHOL: Clinical Reminder not due now or within a month BLOOD PRESSURE: Clinical Reminder not due now or within a month HEMOGLOBIN A1C: Clinical Reminder not due now or within a month /es/ FLORENCE CLEMENTS MD Signed: 04/09/2024 13:03 FLORENCE CLEMENTS [facility] Apr 01, 2024 09:22 AM TELEHEALTH NOTE: LOCAL TITLE: PCS PACT [place] VIDEO CONNECT STL STANDARD TITLE: TELEHEALTH NOTE DATE OF NOTE: APR 01, 2024@09:22 ENTRY DATE: APR 01, 2024@09:22:47 AUTHOR: TERRENCE MONTAGUE COSIGNER: URGENCY: STATUS: COMPLETED Patient Identifiers : Full Name Date of Visit conducted by Clinical Video Telehealth. V15 [facility] Video Connect/Video to Home [facility] Video Connect (VVC)/Video to home template v1.5 Visit conducted by synchronous telehealth. [place] Location/emergency number confirmed. Environment surveyed and all participants identified. Virtual conference room locked. VVC/Video to home appointment information: The following items were reviewed: - The nature of telehealth, its benefits, and risks. - Confidentiality and its limits. - The importance of having a confidential location for the service. - The emergency plan. - The appointment should be treated like an in person appointment (no smoking or driving during session, showing up fully dressed, etc.) *The Virtual Medical Room was locked for this encounter. *A survey of the environment was conducted and it is appropriate to conduct a VVC appointment. *Confirmed [place]'s Non-VA location for this appointment: 's Home [address] [place] [id number] Address and phone number verified with [place]. Address: Phone: does not have an emergency contact. * was notified of right to decline Telehealth services and eligibility for other options. consented to be seen via VVC. EMERGENCY PLAN In the event of an emergency, the or family will call emergency services, if capable. The Teleprovider will remain in the virtual medical room until emergency response arrives and handoff to emergency services is complete. If is unable to make emergency call, the Teleprovider is to call the national E911 service at [phone] and ask to be connected to emergency services for the 's location. [facility] Crisis Line: Dial 988 then press 1, or text [phone] Office of Connected Care Helpdesk ([facility]): [phone] or [phone] Verified Provider's location and contact information for this appointment: [address] [phone] Provider Visit: Reason for Visit: Established Follow-Up: Allergy Review: TRAMADOL Allergy list reviewed and remains current. Recent Vital Signs: Temperature: 98.1 F [36.7 C] (03/31/2024 09:48) Pulse: 63 (03/31/2024 09:48) Respiration: 16 (03/31/2024 09:48) B/P: 110/65 (03/31/2024 09:48) Pain: 0 (03/31/2024 09:48) Wt: 217.7 lb [98.75 kg] (03/31/2024 09:48) Ht: 73 in [185.4 cm] (01/04/2024 10:35) BMI: 28.8 POX: 98% (03/31/2024 09:48) Would you like to discuss any personal problem, family problem, alcohol use, drug use, or a mental or emotional illness? No [facility]), please select appointment type: [place] Video Connect (VVC) - Are you registered for [facility]? Yes - done Sexual Orientation - CP,L,N,P,PH,PS,S,U: The patient thinks of their sexual orientation as: Straight or Heterosexual Tobacco Use Screening - AT,DE,L,M,N,P,PH,PS,RT,S,U: The patient smokes cigarettes some days. The patient has never used other types of tobacco. Alcohol Use Screen (AUDIT-C) - V: Alcohol Screen: SCREEN FOR ALCOHOL (AUDIT-C) An alcohol screening test (AUDIT-C) was negative (score=1). 1. How often did you have a drink containing alcohol in the past year? Consider a drink to be a 12 ounce can or bottle of regular beer, 8 ounces of malt liquor, a 5 ounce glass of table wine, or a 1.5 ounce shot of liquor (like scotch, gin, or vodka). Monthly or less 2. How many drinks containing alcohol did you have on a typical day when you were drinking in the past year? One or two drinks 3. How often did you have six or more drinks on one occasion in the past year? Never Depression Screening - V: Perform PHQ-2 A PHQ-2 screen was performed. The score was 2 which is a negative screen for depression. Over the past two weeks, how often have you been bothered by the following problems? 1. Little interest or pleasure in doing things Several days 2. Feeling down, depressed, or hopeless Several days /es/ TERRENCE MONTAGUE LPN LICENSED PRACTICAL NURSE Signed: 04/01/2024 09:30 TERRENCE MONTAGUE [facility]
--- OUTSIDE RECORDS SUMMARY | 2024-09-03 16:55 | XMS_ITS | Encounter Summary ---
Author Name [facility] [place] Organization [facility] ([place] Address [address] [place] [address] Care Team Providers Care Cemetery Vault Installer Name Role Phone FLORENCE CLEMENTS Primary Care [...] Caban's Name Patient's Relationship to Policy Caban [facility] (WNR) MEDICARE ADVANTAGE [facility] ([place]) August 21, 2020 [id number] [phone] SCHAFER,KODI HARD PATIENT MEDICARE (WNR) MEDICARE (M) PART A Jan 21, 2014 PART A [id number] SCHAFER,KODI HARD PATIENT MEDICARE (WNR) MEDICARE (M) PART B Jan 21, 2014 PART B [id number] SCHAFER,KODI HARD PATIENT Selected Encounter This section includes the information on record at [place] for the Encounter. Date/Time Encounter Type Encounter Description Reason Provider Source Feb 20, 2024 11:00 AM OFFICE O/P EST LOW 20 MIN DERMATOLOGY ICD-10-CM L57.0 Actinic keratosis ROBIN MONTAGUE IHE Encounter Template Text not used by [facility] Assessments - Encounter Diagnoses This section includes the primary and secondary diagnoses documented for the Encounter. Date/Time Primary/Secondary Diagnosis Diagnosis Name Provider Source Feb 20, 2024 11:19 AM PRIMARY Actinic keratosis ZAHRAA HERBERT [facility] Feb 20, 2024 11:19 AM SECONDARY Melanocytic nevi of trunk ZAHRAA HERBERT [facility] Feb 20, 2024 11:19 AM SECONDARY Other seborrheic keratosis ZAHRAA HERBERT [facility] Feb 20, 2024 11:19 AM SECONDARY Personal history of other malignant neoplasm of skin [facility] Plan of Treatment: Future Appointments (+ 6 months) and Future Tests (+/- 45 days) The Plan of Treatment section includes future care activities for the patient from all [place] [facility]. This section includes future appointments and future orders which are active, pending or scheduled. Future Appointments This section includes appointments that were scheduled to occur 6 months from the date of the Encounter, up to a maximum of 20 appointments. The data comes from all [facility]. Appointment Date/Time Appointment Type Appointme nt Facility Name Mar 05, 2024 09:30 AM AMBULATORY - NONE [facility] Mar 31, 2024 10:00 AM AMBULATORY - MEDICINE [facility] Apr 01, 2024 09:00 AM AMBULATORY - MEDICINE [facility] May 19, 2024 11:00 AM AMBULATORY - NONE [facility] May 21, 2024 10:00 AM AMBULATORY - PSYCHIATRY [facility] Jun 18, 2024 12:30 PM AMBULATORY - NONE [facility] Jul 09, 2024 02:30 PM AMBULATORY - PSYCHIATRY [facility] Jul 30, 2024 02:00 PM AMBULATORY - MEDICINE [facility] Aug 13, 2024 08:00 AM AMBULATORY - NONE [facility] Aug 13, 2024 11:00 AM AMBULATORY - NONE [facility] Active, Pending, and Scheduled Orders This section includes a listing of several types of active, pending, and scheduled orders, including clinic medications orders, diagnostic test orders, procedure orders and consult orders; where the start date of the order is 45 days before the date of the Encounter or 45 days after the date of theEncounter. The data comes from all [facility]. Test Date/Time Test Type Test Details Facility Name Jan 14, 2024 12:00 AM Laboratory - Chemi stry Order OCCULT BLOOD FIT X1 SCREEN (MFP ONLY) STOOL FECES SP [facility] Radiology Reports: +/- 30 days of the [...] the Encounter. The data comes from all [facility]. Date/Time Radiology Report Provider Source Mar 05, 2024 09:02 AM LDCT LUNG CANCER SCREENING: CRISTOPHER SCHAFER AMANUEL [id number] -[id number] M Exm Date: MAR 05, 2024@09:02 Req Phys: KEN PEREZ Pat Loc: [facility] DELBERT COMMUNICATIONS CONSULTANT (Req'g L Img Loc: [facility] IMAGING Service: Unknown [address] [address] (Case [id number] COMPLETE) LDCT LUNG CANCER SCREENING (CT Detailed) CPT:29228 Reason for Study: Initial LDCT for LCS Clinical History: Responsible Attending: Latasha Perez NP Attending Contact Number: [phone] Resident Contact Number: has another appt scheduled at 02/19. Please [...] 05, 2024 Date Verified: MAR 05, 2024 Craft Center Director E-Sig:/ES/GERDA MCCLELLAN MD Report: EXAM: LDCT LUNG CANCER SCREENING COMPARISON: None PROTOCOL: Screening protocol, low dose, non-contrast CT chest was performed at the local [place] facility in accordance with Lung-Rads 2021. Additional [...] Primary Interpreting Staff: GERDA MCCLELLAN MD, Radiologist (Craft Center Director) /CPG GERDA MCCLELLAN [facility] Encounter Notes: All associated encounter notes This section contains the clinical notes associated to the Encounter. Date/Time Encounter Note(s) Provider Source Feb 20, 2024 11:13 AM DERMATOLOGY NOTE: LOCAL TITLE: DERMATOLOGY NOTE STANDARD TITLE: DERMATOLOGY NOTE DATE OF NOTE: FEB 20, 2024@11:13 ENTRY DATE: FEB 20, 2024@11:13:35 AUTHOR: ZAHRAA HERBERT EXP COSIGNER: ROBIN MONTAGUE URGENCY: STATUS: COMPLETED DERMATOLOGY NOTE Has ADDENDA CRISTOPHER SCHAFER is a 73 year old WHITE MALE w/ h/o SCC R cheek s/p Efudex x 6 weeks, presenting for TBSE NELIDA 11/20/23:Patient here after using 5fu cream on a spot on his upper right cheek. several AKs frozen TOday: No new or concerning spots. Area on right cheek has resolved. Allergies: TRAMADOL ROS: per hpi PE: [place] rough scaly papules on right voodoo, left cheek x 4 Stuck on appearing brown papules on trunk and extremities Regular brown macules and papules across trunk and extremities Remainder of exam not clinically significant General Appearance: Well-appearing, NAD Face: ncs Ears: ncs Scalp, Hair: ncs Neck: ncs Chest: ncs Abd: ncs Back: ncs Upper Extremities: ncs Lower Extremities: ncs Nails: ncs Mood/Affect: ncs A/P: #Actinic keratoses - Reviewed diagnosis, risk factors (sun exposure), premalignant nature, and treatment - PROCEDURE: With verbal informed consent, 4 lesion(s) on bilateral cheeks treated with LN2 x6-8 seconds today; blister care instructions provided #History of non-melanoma skin cancer - lesion on right malar cheek without recurrence (SCC s/p Efudex x 6 weeks, 2023) - as per HPI - No evidence of recurrence or new primaries today - Reviewed sun protection strategies and skin cancer warning signs - Continue regular self-skin exams and dermatology follow-up #Seborrheic Keratosis - Benign, Reassured Multiple benign nevi - Patient reassured. Photoprotection was reviewed. Recommend monthly self-skin checks and regular MD skin checks. RTC 6 months /ivy/ ZAHRAA HERBERT DERMATOLOGY RESIDENT Signed: 02/20/2024 11:20 /ivy/ ROBIN MONTAGUE MD Dermatology Attending Physician Cosigned: 02/20/2024 11:23 02/20/2024 ADDENDUM STATUS: COMPLETED Reviewed documented history and physical examination and agree with assessment and plan. I was immediately available during entire visit and procedures. /ivy/ ROBIN MONTAGUE MD Dermatology Attending Physician Signed: 02/20/2024 11:[address] [facility]
--- OUTSIDE RECORDS SUMMARY | 2024-09-03 16:55 | XMS_ITS | Encounter Summary ---
Author Organization [facility] Address [address] [place] [address] Care Team Providers Care Sheet Finisher Name Role Phone Paul Wisdom MD Unavailable Ana Luisa Lewis MD Primary Care Provider UnavailZay Ayon MD Unavailable [phone] Ana Luisa Lewis MD Unavailable Unavailable Scotty Tellez MD Unavailable [phone] Chelly Thompson TRUCK RENTAL CLERK-FACE WORKER Unavailable [phone] Marcia Pace Unavailable Unavailable Marcia Pace Unavailable Unavailable Marcia Pace Unavailable Unavailable Encounter Details Date Type Department Care Team (Late st Contact Info) Description 02/05/2014 [facility] [place] [place] [address] [facility] [address] [place] [phone] Social History Tobacco Use Types Packs/Day Years Used Date Smoking Tobacco: Former Cigarettes Smokeless Tobacco: Never Alcohol Use Standard Drinks/Week Comments No 0 (1 standard drink = 0.6 oz pur e alcohol) Sex and Gender Information Value Date Recorded Sex Assigned at Male 05/11/2020 11:42 AM ARCHEOLOGIST Legal Sex Male 6:12 AM ARCHEOLOGIST Gender Identity Male 05/11/2020 11:42 AM ARCHEOLOGIST Sexual Orientation Straight 05/11/2020 11 :42 AM ARCHEOLOGIST 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 Author Blood Pressure < 140/90 Blood Pressure 120/72( 020 3:52 PM ARCHEOLOGIST) No Katelynn Guy MA documented as of this encounter Visit Diagnoses Not on filedocumented in this encounter Care Teams Sheet Finisher Relationship Specialty Start Date End Date Ana Luisa Lewis MD [address] [place] [id number] PCP - General Family Medicine 10/03/12 08/30/21 Ana Luisa Lewis MD Need updated address PCP - Attributed-MSSP 06/21/1804/22 Chelly Thompson APRN-FACE WORKER [address] [facility] [place] [phone] PCP - Attributed-MSSP 04/23/20 01/09/21 Paul Wisdom MD [address] [place] [id number] Orthopedic Surgery 05/20/10 Zay Sarmiento MD [address] [place] [phone] Cardiology 02/24/14 02/22/20 Scotty Tellez MD [address] [facility] [address] [place] [address] Foreign Exchange Services Manager Cardiology 04/14/20 Marcia Pace Care Coordination Specialist Care Management 08/21/24 08/21/24 Marcia Pace Care Coordination Specialist Care Management 08/25/24 08/25/24 Marcia Pace Care Coordination Specialist Care Management 08/26/24 08/26/24 documented as of this encounter
--- OUTSIDE RECORDS SUMMARY | 2024-09-03 16:55 | XMS_ITS | Encounter Summary ---
Author Name [facility] Organization [facility] [place] Address [address] [place] [address] Care Team Providers Care Photovoltaic Technician Name Role Phone FLORENCE CLEMENTS Primary Care [...] Caban's Name Patient's Relationship to Policy Caban [employer] [facility] (WNR) MEDICARE ADVANTAGE [facility] (WNR) August 21, 2020 [id number] [phone] SCHAFER,KODI HARD PATIENT MEDICARE (WNR) MEDICARE (M) PART A Jan 21, 2014 PART A [id number] [phone] SCHAFER,KODI HARD PATIENT MEDICARE (WNR) MEDICARE (M) PART B Jan 21, 2014 PART B [id number] SCHAFER,KODI HARD PATIENT Selected Encounter This section includes the information on record at [place] for the Encounter. Date/Time Encounter Type Encounter Description Reason Provider Source August 21, 2024 10:00 AM OFFICE O/P [place] 60 MIN NEUROLOGY ICD-10-CM R90.89 Oth abnormal findings on diagnostic imaging of cnsl MIKKI SANDOVAL Encounter Template Text not used by [place] Assessments - Encounter Diagnoses This section includes the primary and secondary diagnoses documented for the Encounter. Date/Time Primary/Secondary Diagnosis Diagnosis Name Provider Source August 21, 2024 01:57 PM PRIMARY Oth abnormal findings on diagnostic imaging of cnsl MIKKI SANDOVAL [facility] August 21, 2024 01:57 PM SECONDARY Anxiety disorder, unspecified MIKKI SANDOVAL [facility] Plan of Treatment: Future Appointments (+ 6 months) and Future Tests (+/- 45 days) The Plan of Treatment section includes future care activities for the patient [facility] [place] [facility] This section includes future appointments and future orders which are active, pending or scheduled. Future Appointments This section includes appointments that were scheduled to occur 6 months from the date of the Encounter, up to a maximum of 20 appointments. The data comes from all [facility]. Appointment Date/Time Appointment Type Appointme nt Facility Name Sep 24, 2024 01:00 PM AMBULATORY - PSYCHIATRY [facility] Oct 08, 2024 08:30 AM AMBULATORY - PSYCHIATRY [facility] Oct 10, 2024 03:30 PM [facility] Nov 12, 2024 11:00 AM AMBULATORY - MEDICINE [facility] Dec 03, 2024 11:00 AM AM[facility]ULATORY - NONE [facility] Feb 11, 2025 11:00 AM AMBULATORY - NONE [facility] Active, Pending, and Scheduled Orders This section includes a listing of several types of active, pending, and scheduled orders, including clinic medications orders, diagnostic test orders, procedure orders and consult orders; where the start date of the order is 45 days before the date of the Encounter or 45 days after the date of theEncounter. The data comes from all [facility]. Test Date/Time Test Type Test Details Facility Name Jul 09, 2024 12:00 AM Laboratory - Chemi stry Order TSH W/ REFLEX FT4 (STL) GREEN LI-HEP PLASMA SP [facility] Jul 09, 2024 12:00 AM Laboratory - Chemi stry Order B12 GOLD/RED SST SERUM SP [facility] Jul 09, 2024 12:00 AM Laboratory - Chemi stry Order FOLATE (STL-MA) GOLD/RED SST SERUM SP [facility] Jul 09, 2024 12:00 AM Laboratory - Chemi stry Order RAPID PLASMA REAGIN (RPR) GOLD/RED SST SERUM SP [facility] Jul 09, 2024 12:00 AM Laboratory - Chemi stry Order VITAMIN D, 25-HYDROXY GOLD/RED SST SERUM SP [facility] Jul 30, 2024 12:00 AM Laboratory - Chemi stry Order HEPATIC FUNTION PANEL (STL) GREEN LI/HEP BLD/PLAS PLASMA SP [facility] Jul 30, 2024 12:00 AM Laboratory - Chemi stry Order LIPID PANEL (STL) GREEN LI/HEP BLD/PLAS PLASMA SP ONCE [facility] Jul 30, 2024 12:00 AM Laboratory - Chemi stry Order HGA1C BLOOD SP [facility] Jul 30, 2024 12:00 AM Laboratory - Chemi stry Order BASIC METABOLIC PANEL GREEN LI/HEP BLD/PLAS PLASMA SP [facility] August 21, 2024 01:37 PM Consult Order POLYTRAUMA TBI NEUROPSYCHOL OUTPT STL Cons Accounts Officer's Choice [facility] Social History: Smoking Status (Most current) and Tobacco Use (All prior to encounter date) This section includes the most current, and the historical, smoking and tobacco- related health factors from the [place] facility where the Encounter took place. Current Smoking Status This section includes the most current smoking, or tobacco-related health factor, from the [place] facility where the Encounter took place. Date/Time Current Smoking Status Comment Facil ity Jun 23, 2022 07:12 PM [place]-VAAES TOBACCO U SE CURRENT NRT DECLINE [facility] Tobacco Use History This section includes a history of the smoking, or tobacco-related health factors, that were collected on or before the date of the Encounter. The data comes from the [place] facility where the Encounter took place. Date/Time Smoking Status/Tobacco Use Comment F acility Mar 30, 2022 03:42 PM VA-TOBACCO DOESNT USE WI 30 MIN WAKEUP [facility] Mar 30, 2022 03:42 PM VA-TOBACCO USE 30 YEARS OR MORE [facility] Mar 30, 2022 03:42 PM VA-TOBACCO USE ADVICE [facility] Mar 30, 2022 03:42 PM VA-TOBACCO USE COMMUTER PILOT NO [facility] Mar 30, 2022 03:42 PM VA-TOBACCO USE MED NO [facility] Mar 30, 2022 03:42 PM VA-TOBACCO USER EVERY DAY [facility] Mar 05, 2019 02:55 PM VA-TOBACCO USE 30 YEARS OR MORE [facility] Mar 05, 2019 02:55 PM VA-TOBACCO USE ADVICE [facility] Mar 05, 2019 02:55 PM VA-TOBACCO USE COMMUTER PILOT NO [facility] Mar 05, 2019 02:55 PM VA-TOBACCO USE MED NO [facility] Mar 05, 2019 02:55 PM VA-TOBACCO USE WI 30 MIN OF WAKEUP [facility] Mar 05, 2019 02:55 PM VA-TOBACCO USER EVERY DAY [facility] Mar 26, 2015 11:28 AM CURRENT TOBACCO USER [facility] Mar 26, 2015 11:28 AM TOBACCO MEDS OFFER ED BUT DECLINED [facility] Radiology Reports: +/- 30 days of [...] the Encounter. The data comes from all [place] treatment facilities. Date/Time Radiology Report Provider Source Aug 13, 2024 07:49 AM US ABDOMEN LIMITED W/BLOOD FLOW DOPPLER: CRISTOPHER SCHAFER [id number] M Exm Date: AUG 13, 2024@07:49 Req Phys: FLORENCE CLEMENTS Pat Loc: [facility] PACT 6 PCP (Req'g Lo Img Loc: [facility] Service: Unknown [facility] [address] [place] [address] (Case [id number] COMPLETE) US ABDOMEN LTD, SINGLE ORG OR ISIS(US Detailed) CPT:85365 Reason for Study: surveillance liver cirrhosis (Case [id number] COMPLETE) US BLOOD FLOW ABD/RENAL (LTD) (US Detailed) CPT:31436 Clinical History: Organ to Image: Liver Reason for exam: surveillance of liver cirrhosis. h/o Hep C SVR Report Status: Verified Date Reported: AUG 13, 2024 Date Verified: AUG 13, 2024 Viscose Cellar Charge Hand E-Sig:/ES/LIA HERNANDEZ Report: Report number: [id number], [id number] EXAMINATION:US ABDOMEN LTD, SINGLE ORG OR QUADRANT, US BLOOD FLOW ABD/RENAL (LTD) HISTORY: surveillance liver cirrhosis COMPARISON: 05/01/2023 LI-RADS FINDINGS: The echogenicity of the liver is normal. The echotexture is is coarsened with anterior hepatic surface nodularity. No focal solid hepatic lesions are seen. No intrahepatic bile duct dilatation is seen. The common duct is normal, measuring 4.8 mm. The liver length measures 18 cm. The gallbladder is normal in size. There are gallstones. Limited views of the body of the pancreas demonstrate echotexture within normal limits. Limited views of the right kidney demonstrate normal echogenicity without evidence of hydronephrosis. Impression: 1. Hepatic cirrhosis with hepatomegaly. No suspicious hepatic observations. 2. Cholelithiasis without evidence of cholecystitis. Ultrasound visualization score: A Ultrasound category: 1 US-1 negative: No evidence of HCC US-2 subthreshold: Observation(s) detected that may warrant short-interval US surveillance; observation <10 mm in diameter, not definitely benign. US-3 positive: Observation(s) detected that may warrant multiphase contrast-enhanced imaging; observation ? 10 mm in diameter or new thrombus in vein. Visualization Score: A: No or minimal limitations; limitations, if any, are unlikely to meaningfully affect sensitivity B: Moderate limitations; limitations my obscure small masses C: Severe limitations; limitations significantly lower sensitivity for focal liver lesions Dictated by KELSIE DUEÑAS M.D. I, Kevin Shady, have reviewed the images and report and concur with these findings. Primary Interpreting Staff: LIA HERNANDEZ, RADIOLOGIST (Viscose Cellar Charge Hand) Primary Interpreting Resident: KELSIE DUEÑAS, Vascular & Interventional Motor Vehicle Light Assembler /LIA COTTRELL [facility] Encounter Notes: All associated encounter notes This section contains the clinical notes associated to the Encounter. Date/Time Encounter Note(s) Provider Source August 21, 2024 09:49 AM NEUROLOGY CONSULT: LOCAL TITLE: NEUROLOGY OUTPATIENT CONSULT STL STANDARD TITLE: NEUROLOGY CONSULT DATE OF NOTE: AUGUST 21, 2024@09:49 ENTRY DATE: AUGUST 21, 2024@09:49:27 AUTHOR: MICKY TSE COSIGNER: MIKKI SANDOVAL URGENCY: STATUS: COMPLETED NEUROLOGY OUTPATIENT CONSULT STL Has ADDENDA NEUROLOGY CLINIC NOTE: > (FIRST VISIT) > For: Abnormal movement, speech changes. > CHIEF COMPLAIN: stuttering speech and abnormal brain imaging my brain is shrinking > HPI: Mr. Schafer is a 74 year old gentleman who has medical history of HTN who is presenting to the neurology clinic as referral due to abnormal CT head findings of frontal lobes atrophy. Patient also was having Stuttering speech and anormal repetitive movements (blinking and hand movements). He presented to the clinic with his , his main concern was the imaging findings, he did not voluntarily report any complains initially, however with taking more history his mentioned that blinking, patient aggress mention increase blinking since almost a year, this never happened before, he was told its dry eye and was using eye drops but did not seem to improve, he is unable to suppress this, no clear premonitory symptoms or urge to blink, if he tries to suppress this he will blink more, no relief sensation and no frustration if he stope blinking. this started at time where he was going through stress caring for his sister who was in fpc. He was feeling guilty if he did not go daily and this caused him stress, his sister 06/17. Other reported movement are stereotype movements in his thumbs, started around the same time (one year earlier). His described this movement as being disturbing while taking to him. Of note, none of these movements were pointed out by someone else, no impact on his life. Does not report any other abnormal movements, such as tremor. Other complain is stuttering speech, from talking to him in the clinic he had some times where there is word finding difficulty, not stuttering. He thinks this started also year ago and remain the same, reports improvements. 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 Memory intact, he does not forget important events/appointments/birthdays. Mood is intact. No Autonomic dysfunction, no anosmia, no dizziness, one mechanical fall recently , no abnormal bowel habits. Sleep about 7-8 hours daily, interrupted due to urinary frequency (no incontinent), no nightmare or vivid dream, no snoring. No reported behavioral changes or impulsive behavioral. > PATIENT PAST HISTORY: O Social: Lives with . O Medical: As above HTN O Surgical: not asked. O Family: history of dementia in sister (diagnosed as AD). O Allergies: not asked. O Medications: Active Outpatient Medications (including Supplies): Active Outpatient Medications Status 1) ALBUTEROL 90MCG (CFC-F) 200D ORAL INHL INHALE 2 PUFFS BY ACTIVE ORAL INHALATION FOUR TIMES A DAY NEEDED SHAKE WELL. RINSE MOUTHPIECE FREQUENTLY TO PREVENT CLOGGING. Indication: FOR DYSPNEA 2) OLODATEROL 2.5MCG/ACTUAT 60D ORAL INHL INHALE 2 INHALATIONS ACTIVE BY ORAL INHALATION ONCE A DAY (ADMINISTER AT THE SAME TIME EVERY DAY) Indication: FOR COPD 3) VARENICLINE TAB STARTER PACK,53 TAKE 1 TABLET BY MOUTH ACTIVE DIRECTED START TAKING 1 WEEK BEFORE YOUR QUIT DATE. YOU MAY CONTACT FOR ADDITIONAL SUPPORT. CALL YOUR PROVIDER 14 DAYS AFTER BEGINNING THERAPY TO REPORT PROGRESS AND TO REQUEST YOUR NEXT FILL. Indication: FOR TOBACCO CESSATION 4) VENLAFAXINE HCL 75MG 24HR SA CAP TAKE THREE CAPSULES BY ACTIVE MOUTH ONCE A DAY WITH FOOD. DO NOT ABRUPTLY DISCONTINUE MEDICATION. Indication: FOR DEPRESSION Active Non-VA Medications Status 1) Non-VA ASPIRIN 81MG EC TAB 81MG BY MOUTH ONCE A DAY ACTIVE 2) Non-VA ATORVASTATIN CALCIUM 80MG TAB 40MG BY MOUTH EVERY ACTIVE EVENING 3) Non-VA BUPROPION HCL 150MG 12HR SA TAB 150MG BY MOUTH TWICE ACTIVE A DAY 4) Non-VA BUPROPION HCL 150MG 12HR SA TAB 150MG BY MOUTH TWICE ACTIVE A DAY 5) Non-VA CELECOXIB 200MG CAP 200MG BY MOUTH TWICE A DAY ACTIVE 6) Non-VA CHOLECALCIF 50MCG (D3-2,000UNIT) TAB 2000UNIT BY ACTIVE MOUTH ONCE A DAY 7) Non-VA FAMOTIDINE 20MG TAB 20MG BY MOUTH TWICE A DAY ACTIVE 8) Non-VA FINASTERIDE 5MG TAB 5MG BY MOUTH ONCE A DAY ACTIVE 9) Non-VA HCTZ 12.5/LISINOPRIL 10MG TAB 1 TABLET BY MOUTH EVERY ACTIVE MORNING 10) Non-VA MONTELUKAST NA (SINGULAIR) 10MG TAB 10MG BY MOUTH ACTIVE ONCE A DAY 11) Non-VA MULTIVITAMIN/MINERALS CAP/TAB 1 CAP/TAB BY MOUTH ONCE ACTIVE A DAY 12) Non-VA OMEPRAZOLE 40MG EC CAP 40MG BY MOUTH EVERY MORNING ACTIVE BEFORE A MEAL 13) Non-VA TERAZOSIN HCL 10MG CAP 10MG BY MOUTH AT BEDTIME ACTIVE 14) Non-VA TIZANIDINE HCL 4MG TAB 2MG BY MOUTH THREE TIMES A DAY ACTIVE NEEDED 15) Non-VA VALACYCLOVIR HCL 500MG TAB 500MG BY MOUTH TWICE DAILY ACTIVE NEEDED 19 Total Medications O Objectives: Vitals: Pulse: 54 (07/30/2024 14:09) BP: 134/76 (07/30/2024 14:13) RESP: 20 (07/30/2024 14:09) TEMP: 97.6 F [36.4 C] (07/30/2024 14:09) SaO2: 94% (07/30/2024 14:09) Weight: 209 lb [94.80 kg] (07/30/2024 14:09) Height: 73 in [185.4 cm] (07/30/2024 14:09) PHYSICAL EXAM: General: No acute distress HEENT: normocephalic, atraumatic Neck: supple, trachea midline CV: regular rate rhythm, no murmurs Lung: clear to auscultation bilaterally, no crackles, no wheezes Abdomen: soft, non-tender, non-distended bowel sounds present Ext: No deformity, no edema Psych: Appropriate mood and affect NEUROLOGICAL EXAM: Mental Status: Alert and oriented x 3, answers questions appropriately Speech clear, fluent and coherent, follows complex commands Cranial Nerves: VFFTC, no RAPD Pupils 4 mm -> 2 mm ERL, EOMI, no ptosis, nystagmus or diplopia Facial sensation intact in all three divisions bilaterally Face symmetric, hearing intact bilaterally, palate symmetric Uvula and tongue midline, shoulder shrug intact bilaterally Motor: Abnormal movements: frequent eyes blinking, able to suppress for < 10 seconds. Abnormal bilateral thumbs rolling movements (repetitive). Noticed some enhance physiological tremor L>R when he is doing math. Tone: normal Bulk: normal Power: Delt Tri Bi FDS/FDP Interossei APB RUE 5/5 5/5 5/5 5/5 5/5 5/5 LUE 5/5 5/5 5/5 5/5 5/5 5/5 IP Hip Abd/Add Quad TA Ham EHL RLE 5/5 5/5; 5/5 5/5 5/5 5/5 5/5 LLE 5/5 5/5; 5/5 5/5 5/5 5/5 5/5 DTR: Bi Tri BR Pat Ach Toes R 2 2 2 2 2 Down L 2 2 2 2 2 Down Sensory: Intact LT, PP, temperature, vibration, and proprioception Coordination: FNF, HKS, CAL intact bilaterally Gait/Balance: Romberg negative, normal gait, tandem walk stable MOCA: 25/30, scored 0 in [place] making test, Language test : was only able to mention 7 words starts with letter F. Intact delayed recall, short recall 4/5, counting backward from seven 1/3. O INVESTIGATION: > RECENT LABS: No recent Labs September 2023, Cr 1.3, EGFR 56.6, normal ALT/AST. > NEUROIMAGING: CT head: 06/18/24 FINDINGS: No intracranial hemorrhage, mass, acute regional cortical infarction nor obstructive hydrocephalus are observed. The brain density remains appropriate for the patient's age. Predominant frontal central volume loss exists. O ASSESSMENT/IMPRESSION: Mr. Schafer is a 74 year old gentleman with medical history of HTN who is referred for neurology clinic due to abnormal CT head findings of frontal lobes atrophy. Patient is having repetitive stereotype movements characterized as blinking, hand movements since 1 year. No reported memory impairment, no impact of ADLs, no underlying psychiatric issue. On Exam, other than the stereotypes movements in eyes and hands, he has word findings difficulty rarely and does not impact his conversational skills. His MOCA 25/30, with main deficit in language component and trail making test, counting. 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 O PLAN: - MRI brain wo. - Neuropsychiatric evaluation. - No medications prescribed for the repetitive movements now, until further workup is made and considering it is not bothersome for the patient and no impact of ADLs. - Will cc PCP and referring physician for reference. - Follow up in clinic (please ensure he is returned to resident A clinic Micky Tse) if his follow up falls under different clinic. Patient seen and plan discussed with attending physician Dr. Delilah Tse MD. Neurology resident PGY2. [facility] /ivy/ Micky Tse M.D. Neurology Resident [facility] Signed: 08/21/2024 13:42 /ivy/ MIKKI SANDOVAL MD NEUROLOGY STAFF PHYSICIAN Cosigned: 08/21/2024 13:57 Receipt Acknowledged By: 08/21/2024 15:14 /ivy/ KIM GUZMAN MD Staff Physician, Psychiatry * AWAITING SIGNATURE * FLORENCE CLEMENTS 08/21/2024 ADDENDUM STATUS: COMPLETED Patient seen and examined with resident physician Dr. Tse. Case discussed and chart reviewed. I agree with the assessment and recommendations as noted. Summary: Briefly, patient is a 74 y.o. gentleman with history noted. 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 Will process with evaluation of possible fronto-temporal dementia. Treatment plan: As outlined by Dr. Tse Follow-up care: 3 months Patient to go to ER if new symptoms develop. Patient call if any questions arise or if patient experiences side effects to any prescribed medication. Total time spent: 70 min /es/ MIKKI SANDOVAL MD NEUROLOGY STAFF PHYSICIAN Signed: 08/21/2024 14:01 MICKY TSE [facility]
--- OUTSIDE RECORDS SUMMARY | 2024-09-03 16:55 | XMS_ITS | Encounter Summary ---
Author Name [facility] [place] Organization [facility] [place] Address [address] [place] [address] Care Team Providers Care Assistant Professor Of Biology Name Role Phone FLORENCE CLEMENTS Primary Care [...] Caban's Name Patient's Relationship to Policy Caban [employer] [facility] (WNR) MEDICARE ADVANTAGE [facility] (R) August 21, 2020 [id number] [phone] SCHAFER,KODI HARD PATIENT MEDICARE (WNR) MEDICARE (M) PART B Jan 21, 2014 PART B [id number] [phone] SCHAFER,KODI HARD PATIENT MEDICARE (WNR) MEDICARE (M) PART A Jan 21, 2014 PART A [id number] SCHAFER,KODI HARD PATIENT Selected Encounter This section includes the information on record at [place] for the Encounter. Date/Time Encounter Type Encounter Description Reason Provider Source Feb 15, 2024 11:00 AM OFFICE O/P EST LOW 20 MIN ORTHO/JOINT SURG ICD-10-CM Z96.652 Presence of left artificial knee joint ALEXANDER MCCRACKEN Encounter Template Text not used by [facility] Assessments - Encounter Diagnoses This section includes the primary and secondary diagnoses documented for the Encounter. Date/Time Primary/Secondary Diagnosis Diagnosis Name Provider Source Feb 15, 2024 12:18 PM PRIMARY Presence of left artificial knee joint ALEXANDER MCCRACKEN [facility] Feb 15, 2024 12:18 PM SECONDARY Presence of right artificial knee joint ALEXANDER MCCRACKEN [facility] Plan of Treatment: Future Appointments (+ 6 months) and Future Tests (+/- 45 days) The Plan of Treatment section includes future care activities for the patient from all [place] [facility]. This section includes future appointments and future orders which are active, pending or scheduled. Future Appointments This section includes appointments that were scheduled to occur 6 months from the date of the Encounter, up to a maximum of 20 appointments. The data comes from all [facility]. Appointment Date/Time Appointment Type Appointme nt Facility Name Feb 20, 2024 11:00 AM AMBULATORY - MEDICINE [facility] Mar 05, 2024 09:30 AM AMBULATORY - NONE [facility] Mar 31, 2024 10:00 AM AMBULATORY - MEDICINE [facility] Apr 01, 2024 09:00 AM AMBULATORY - MEDICINE [facility] May 19, 2024 11:00 AM AMBULATORY - NONE [facility] May 21, 2024 10:00 AM AMBULATORY - PSYCHIATRY [facility] Jun 18, 2024 12:30 PM AMBULATORY - NONE [facility] Jul 09, 2024 02:30 PM AMBULATORY - PSYCHIATRY [facility] Jul 30, 2024 02:00 PM AMBULATORY - MEDICINE [facility] Aug 13, 2024 08:00 AM AMBULATORY - NONE [facility] Aug 13, 2024 11:00 AM AMBULATORY - NONE [facility] [address] Active, Pending, and Scheduled Orders This section [...] comes from all [facility]. Test Date/Time Test Type Test Details Facility Name Jan 14, 2024 12:00 AM Laboratory - Chemi stry Order OCCULT BLOOD FIT X1 SCREEN (MFP ONLY) STOOL FECES SP [facility] Radiology Reports: +/- 30 days of the [...] comes from all [facility]. Date/Time Radiology Report Provider Source Mar 05, 2024 09:02 AM LDCT LUNG CANCER SCREENING: CRISTOPHER SCHAFER [id number] -1950 M Exm Date: MAR 05, 2024@09:02 Req Phys: KEN PEREZ Pat Loc: [facility] DELBERT FOUNDRY SUPERINTENDANT (Req'g L Img Loc: -CT IMAGING Service: Unknown [address] [address] (Case [id number] COMPLETE) LDCT LUNG CANCER SCREENING (CT Detailed) CPT:15166 Reason for Study: Initial LDCT for LCS Clinical History: Responsible Attending: Latasha Perez NP Attending Contact Number: [phone] Resident Contact Number: [place] has another appt scheduled at 02/19. Please [...] 05, 2024 Date Verified: MAR 05, 2024 Photographic Equipment Mechanic E-Sig:/ES/GERDA MCCLELLAN MD Report: EXAM: LDCT LUNG CANCER SCREENING COMPARISON: None PROTOCOL: Screening protocol, low dose, non-contrast CT chest was performed at the local [place] facility in accordance with Lung-[facility] 2021. Additional [...] Primary Interpreting Staff: GERDA MCCLELLAN MD, Radiologist (Photographic Equipment Mechanic) /GERDA MARCUM [facility] Encounter Notes: All associated encounter notes This section contains the clinical notes associated to the Encounter. Date/Time Encounter Note(s) Provider Source Feb 15, 2024 11:22 AM ORTHOPEDIC SURGERY NOTE: LOCAL TITLE: ORTHOPEDIC ST STANDARD TITLE: ORTHOPEDIC SURGERY NOTE DATE OF NOTE: FEB 15, 2024@11:22 ENTRY DATE: FEB 15, 2024@11:22:29 AUTHOR: ALEXANDER MCCRACKEN EXP COSIGNER: URGENCY: STATUS: COMPLETED INTERIM HISTORY: CRISTOPHER SCHAFER is 1.5 years s/p L TKA. He continues to have some difficulty with stairs related to a defect in the arthrotomy repair but otherwise isn't held back by it. He is able to preform activities of daily living with minimal pain and is not taking any pain medications. ==== VITAL SIGNS: Temp: 98.4 F [36.9 C] (01/29/2024 07:39) Pulse: 66 (01/29/2024 07:39) BP: 100/58 (01/29/2024 07:39) RESP: 16 (01/29/2024 07:39) Pain: 0 (01/29/2024 07:39) Height: 73 in [185.4 cm] (01/04/2024 10:35) Weight: 215.2 lb [97.61 kg] (01/29/2024 07:39) BMI:28.5 ==== CONSTITUTIONAL: A&O X 3, well-developed, well-nourished and in no acute distress. mood is pleasant and appropriate ambulation: smooth gait without assistive device respirations: even and unlabored hearing: intact skin intact MUSCULOSKELETAL EXAMINATION: Left knee with well healed surgical incision. No effusion. No warmth or erythema. There is a 3-4 cm palpable defect of his arthrotomy proximally. Range of motion is 0-120 with no instability. No extensor lag. No focal motor deficits. Sensation intact to light touch. ==== RADIOGRAPH: None new. ==== ASSESSMENT: 1.5 years s/p L TKA ==== PLAN: He is doing well with his bilateral TKAs. His function is adequate enough to defer surgical intervention of the arthrotomy defect on the left. Continue with activities as tolerated and HEP. He knows to take antibiotics prior to any dental cleaning/procedure. Follow-up as needed. ==== /es/ ALEXANDER MCCRACKEN MD Staff Physician, Orthopedics Signed: 02/15/2024 12:18 ALEXANDER MCCRACKEN [facility]
--- OUTSIDE RECORDS SUMMARY | 2024-09-03 16:56 | XMS_ITS | Clinical Summary ---
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 Care Teams Driving Teacher Relationship Specialty Start Date End Date Hetal Melgoza MD PCP - General Family Practice 08/07/22
--- OUTSIDE RECORDS SUMMARY | 2024-09-03 16:56 | XMS_ITS | Clinical Summary ---
Author Organization [facility] Address [address] [place] [address] Care Team Providers Care Objects Conservator Name Role Phone Paul Wisdom MD Unavailable [phone] Scotty Tellez MD Unavailable [phone] Source Comments [facility],non-owned Affiliates and Associated Physician Practices is amultiple site organization consisting of ambulatory clinics and hospital sitesin [place], [place], [place] and [place]. This disclosure is being madepursuant to the Care Everywhere program and may not contain all information available regarding this patient. Last updated 18.[facility] Allergies Active Allergy Reactions Criticality Noted Date Comments Tramadol Hcl Itching 05/29/2008 Medications * Be aware that medications may not be up to date on this document. Alwaysverify current medications with the patient. vitamin D, cholecalciferol, 2000 UNITS tablet Take 1 Tab by mouth once daily. 4 Active multivitamin daily (THERAGRAN) tablet Take 1 Tab by mouth daily with food. Active aspirin 81 MG chew tablet Take 1 Tab by mouth once daily. 4 Active valACYclovir (VALTREX) 500 MG tablet Take 1 tablet by mouth 2 times daily 6 tablet 3 8 Active Zinc 50 MG tablet Take 50 mg by mouth once daily Active terbinafine (LAMISIL) 250 MG tablet Take 1 tablet by mouth once daily 14 tablet 0 Active atorvastatin (LIPITOR) 40 MG tablet Take 1 tablet by mouth at bedtime 90 tablet 3 0 Active lisinopril-hydro CHLOROthiazide (PRINZIDE; ZESTORETIC) 10-12.5 MG tablet Take 1 tablet by mouth once daily 90 tablet 3 0 Active escitalopram (LEXAPRO) 5 MG tablet Take 1 tablet by mouth once daily 90 tablet 4 1 Active finasteride (PROSCAR) 5 MG tablet Take 1 (one) tablet by mouth once daily 90 tablet 1 1 Active isosorbide mononitrate CR 24hr (IMDUR) 30 MG tablet TAKE 1 TABLET BY MOUTH EVERY DAY 90 tablet 1 1 Active terazosin (HYTRIN) 5 MG capsule TAKE 1 CAPSULE BY MOUTH EVERYDAY AT BEDTIME 90 capsule 4 1 Active famotidine (PEPCID) 20 MG tablet TAKE 1 TABLET BY MOUTH 2 TIMES DAILY NEEDED WITH FOOD FOR HEARTBURN 180 tablet 4 1 Active montelukast (SINGULAIR) 10 MG tablet TAKE 1 TABLET BY MOUTH EVERY DAY 90 tablet 3 1 Active omeprazole (PRILOSEC) 40 MG capsule TAKE 1 CAPSULE BY MOUTH 2 TIMES DAILY, BEFORE BREAKFAST AND SUPPER 180 capsule 3 1 Active Active Problems Problem Noted Date Diagnosed [...] 05/20/201012/23 GERD (gastroesophageal reflux disease) 05/27/2008 02/05/2014 Encounters Date Type Department Care Team Description 08/26/2024 Patient Outreach [facility] - Care Coordination [address] [place] [address] Marcia Pace Outreach Preventive Care 08/25/2024 Patient Outreach [facility] - Care Coordination [address] [place] [address] Marcia Pace Opened In Error 08/21/2024 Patient Outreach [facility] - Care Coordination [address] [place] [address] Marcia Pace Outreach Preventive Care from Last 3 Months Immunizations Immunization Administration Dates Next Due INFLUENZA VACCINE, TRIV. (AF LURIA, FLUZONE TRIVALENT; 6MO+) (IIV3) 11/23/2014 BCG VACCINE CUSTODIAL 02/04/2018 COVID - 19, HISTORIC VACCINE 01/02/2024,02/09/20 23 COVID PFIZER BIVALENT 12Y+ 30mcg/0.3ML 01/02/2024,01/24/2022 Covid Pfizer primary Monoval ent 12+ yr 0.3ml 09/20/2021 Covid Pfizer primary monoval ent 12+ yr 0.3mL Purple cap 02/05/2021,05/22/2020,05/13/2020,2019 DT 04/23/2007 INFLUENZA VACCINE 01/02/2024,,01/24/2022,2020,02/02/2020,02/04/2018,01/23/2017,1 04/23/2015,01/22/2016 INFLUENZA VACCINE, CELL CULT URE, QUADR. (FLUCELVAX QUADRIVALENT; 6MO+) (CCIIV4) 02/02/2020 INFLUENZA VACCINE, HIGH-DOSE , QUADR. (FLUZONE HIGH-DOSE QUADRIVALENT; 65Y+), 0.7 ML (HD-IIV4) 01/02/2024 INFLUENZA VACCINE, QUADR. (A FLURIA, FLUZONE QUADRIVALENT; 6MO+) (IIV4) 02/05/2014 INFLUENZA VACCINE, QUADR. (F LUZONE; FLULAVAL; FLUARIX; AFLURIA QUADRIVALENT; 6MO+), 0.5 ML (IIV4) 02/26/2018,01/24/2017,01/14/2015 PNEUMOCOCCAL PPSV23 04/20/2016,02/22/2015,1997 Pneumococcal Pcv13 Conj 03/22/2015 RSV AREXVY 60YR+ 0.5ML 02/15/2023 TDAP (7yrs+) 02/23/2020,04/23/2014 ZOSTER VACCINE, LIVE 06/01/2014,05/31/2014 Zoster Hzv Vacc Recombinant Inj Im 06/23/2021, iNFLUENZA VACCINE, RECOM-OVIEDO, QUADR. (FLUBLOCK QUADRIVALENT; 18Y+) [...] Date Smoking Tobacco: Every Day Cigarettes 0.5 62.4 Started: 04/23/1962 Smokeless Tobacco: Never Tobacco Cessation:Ready to Q uit: No; Counseling Given: Yes Alcohol Use Standard Drinks/Week Comments No 0 (1 standard drink = 0.6 oz pur e alcohol) Sex and Gender Information Value Date Recorded Sex Assigned at Male 05/11/2020 11:42 AM REGISTERED RESPIRATORY THERAPIST Legal Sex Male 6:12 AM REGISTERED RESPIRATORY THERAPIST Gender Identity Male 05/11/2020 11:42 AM REGISTERED RESPIRATORY THERAPIST Sexual Orientation Straight 05/11/2020 11 :42 AM REGISTERED RESPIRATORY THERAPIST 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 Not on file Not on file Last Filed Vital Signs Vital Sign Reading Time Taken Comments Blood Pressure 120/72 04/14/2020 3:52 PM REGISTERED RESPIRATORY THERAPIST Pulse 50 04/14/2020 3:52 PM REGISTERED RESPIRATORY THERAPIST Temperature 36.7 C (98.1 F) 04/14/2020 3:52 PM REGISTERED RESPIRATORY THERAPIST Respiratory Rate 22 07/07/2013 5:15 PM CDT Oxygen Saturation 98% 04/08/2020 1:04 PM REGISTERED RESPIRATORY THERAPIST Inhaled Oxygen Concentration - - Weight 100 kg (220 lb 6.4 oz) 04/14/2020 3:52 PM REGISTERED RESPIRATORY THERAPIST Height 185.4 cm (6' 1 ) 04/08/2020 1:04 PM REGISTERED RESPIRATORY THERAPIST Body Mass Index 29.08 04/08/2020 1:04 PM REGISTERED RESPIRATORY THERAPIST Plan of Treatment Health Maintenance Due Date Last Done Comments COLON MONITORING 1950 CT COLONOGRAPHY - COLON CA SCREENING 1950 FIT - COLON CA SCREENING 1950 FLEX SIG - COLON CA SCREENING 1950 MEDICARE AWV 12 MONTHS 07/24/2019 07/23/2018, 10/05/2017 COLOGUARD (AGES 45-75) - COLON CA SCREENING 12/18/2020 12/18/2017 SCREENING FOR DIABETES 11/03/2022 0, 07/23/2018, 09/28/2017, Additional history exists COVID-19 VACCINE ( season) 2024 01/02/2024, 01/24/2022, 09/20/2021, Additional history exists DEPRESSION SCREENING 04/23/2024 COLONOSCOPY - COLON CA SCREENING 12/19/2027 12/18/2017 (Done Outside Per Report), 05/20/2005 (Previously completed) Colorectal Cancer Screening 12/19/2027 DTAP/TDAP/TD VACCINES (4 - Td or Tdap) 02/22/2030 02/23/2020, 04/23/2014, 04/23/2007 PNEUMOCOCCAL VACCINE 50+ Completed 016, 03/22/2015, 02/22/2015, Additional history exists HEPATITIS C SCREENING Completed 07/23/2018 , 07/23/2018, 01/31/2012, Additional history exists ZOSTER VACCINE Completed 06/23/2021, 06/2020, 06/01/2014, Additional history exists Respiratory Syncytial Virus (RSV) Vaccine Pt: or over 60 yrs Completed 02/15/2023 INFLUENZA VACCINE Completed 01/02/2024, , 02/15/2023, Additional history exists HEPATITIS B VACCINE Aged [...] 140/90 Blood Pressure 120/72( 020 3:52 PM REGISTERED RESPIRATORY THERAPIST) No Katelynn Guy MA Procedures Procedure Name Priority Date/Time Associated Diagnosis Comments COMPREHENSIVE METABOLIC PANEL Routine 11/04/2019 1:37 PM CDT Essential hypertension HEPATITIS C RNA QUANTITATIVE Routine 07/23/2018 9:32 AM CDT History of hepatitis C-treated with ribavarin and interferon 2000 COLOGUARD (EXTERNAL RESULT ENTRY) Routine 12/18/2017 from Last 3 Months or Most Recently Relevant to Health Maintenance Results * COMPREHENSIVE METABOLIC PANEL (11/04/2019 1:37 PM CDT) Glucose 93 70 - 105 mg/dL [facility] [...] Resulting Agency Comment Lab Testing performed at: [facility] [address] [place] [address] [phone] us Ana Luisa Lewis MD LAB - CHEMISTRY ORDERABLES Final Result [facility] ACCOUNT BILL [address] [place] [address] * HEPATITIS C RNA QUANTITATIVE (07/23/2018 9:32 [...] CDT 07/23/2018 Narrative Resulting Agency Comment [facility] [address] [phone] us Ana Luisa Lewis MD LAB - CHEMISTRY ORDERABLES Final Result [facility] INSURANCE BILL [address] [place] [address] * COLOGUARD (EXTERNAL RESULT ENTRY) (12/18/2017) Stool STOOL SPECIMEN / Unknown us Scanned Document LAB - CHEMISTRY ORDERABLES [facility] Result from Last 3 Months or Most Recently Relevant to Health Maintenance Insurance [facility] MEDICARE Advance Directives * DNR (Latest Code Status on File) Date Activated Date Inactivated Comments 02/23/2020 8:40 AM * Full Code Date Activated Date Inactivated Comments 06/23/2010 4:16 PM 06/24/2010 12:12 PM * Full Code Date Activated Date Inactivated Comments 06/13/2010 1:14 PM 06/14/2010 2:44 PM Care Teams Objects Conservator Relationship Specialty Start Date End Date Palu Wisdom MD [address] [address] Orthopedic Surgery 05/20/10 [place] [address] [place] [id number] Commercial Driver Cardiology 04/14/20
--- OUTSIDE RECORDS SUMMARY | 2024-09-03 16:56 | XMS_ITS | Encounter Summary ---
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 Date/Time Encounter Type Encounter Description Reason Provider Source Jul 09, 2024 02:30 PM OFFICE O/P EST MOD 30 MIN PSYCHOGERIATRIC - INDIVIDUAL ICD-10-CM F32.A Depression, unspecified KIM GUZMAN [place] Encounter Template Text not used by [facility] Assessments - Encounter Diagnoses This section includes the primary and secondary diagnoses documented for the Encounter. Date/Time Primary/Secondary Diagnosis Diagnosis Name Provider Source Jul 09, 2024 05:56 PM PRIMARY Depression, unspecified Lalita GUZMAN [facility] Plan of Treatment: Future Appointments (+ 6 months) and Future Tests (+/- 45 days) The Plan of Treatment section includes future care activities for the patient [facility] [place] [facility] This section includes future appointments and future orders which are active, pending or scheduled. Future Appointments This section includes appointments that were scheduled to occur 6 months from the date of the Encounter, up to a maximum of 20 appointments. The data comes from all [facility]. Appointment Date/Time Appointment Type Appointme nt Facility Name Jul 30, 2024 02:00 PM AMBULATORY - MEDICINE [facility] Aug 13, 2024 08:00 AM AMBULATORY - NONE [facility] Aug 13, 2024 11:00 AM AMBULATORY NONE [facility] August 21, 2024 10:00 AM AMBULATORY - MEDICINE [facility] Sep 24, 2024 01:00 PM AMBULATORY - PSYCHIATRY [facility] Oct 08, 2024 08:30 AM AMBULATORY - PSYCHIATRY [facility] Oct 10, 2024 03:30 PM AMBULATORY - NONE [facility] Nov 12, 2024 11:00 AM AMBULATORY - MEDICINE [facility] Dec 03, 2024 11:00 AM AMBULATORY - NONE [facility] Active, Pending, and Scheduled Orders This section includes a listing of several types of active, pending, and scheduled orders, including clinic medications orders, diagnostic test orders, procedure orders and consult orders; where the start date of the order is 45 days before the date of the Encounter or 45 days after the date of theEncounter. The data comes from all [facility]. Test Date/Time Test Type Test Details Facility Name Jul 09, 2024 12:00 AM Laboratory - Chemi stry Order B12 GOLD/RED SST SERUM SP [facility] Jul 09, 2024 12:00 AM Laboratory - Chemi stry Order TSH W/ REFLEX FT4 (STL) GREEN LI-HEP PLASMA SP [facility] Jul 09, 2024 12:00 AM Laboratory - Chemi stry Order FOLATE (STL-MA) GOLD/RED SST SERUM SP [facility] Jul 09, 2024 12:00 AM Laboratory - Chemi stry Order VITAMIN D, 25-HYDROXY GOLD/RED SST SERUM SP [facility] Jul 09, 2024 12:00 AM Laboratory - Chemi stry Order RAPID PLASMA REAGIN (RPR) GOLD/RED SST SERUM SP [facility] Jul 30, 2024 12:00 AM Laboratory - Chemi stry Order HEPATIC FUNTION PANEL (STL) GREEN LI/HEP BLD/PLAS PLASMA SP [facility] Jul 30, 2024 12:00 AM Laboratory - Chemi stry Order LIPID PANEL (STL) GREEN LI/HEP BLD/PLAS PLASMA SP ONCE [facility] Jul 30, 2024 12:00 AM Laboratory - Chemi stry Order BASIC METABOLIC PANEL GREEN LI/HEP BLD/PLAS PLASMA SP [facility] Jul 30, 2024 12:00 AM Laboratory - Chemi stry Order HGA1C BLOOD SP [facility] August 21, 2024 01:37 PM Consult Order POLYTRAUMA TBI NEUROPSYCHOL OUTPT STL Cons [address] Marker's Choice [facility] Vital Signs: All taken on the encounter date This section contains inpatient and outpatient Vital Signs collected on the date of the Encounter. Date/Time Temperature Pulse Blood Pressure Respiratory Rate SP02 Pain Height Weight Body Mass Index Source Jul 09, 2024 02:37 PM 98/60 [facility] Jul 09, 2024 02:34 PM 97.4 68 93/59 18 97 0 [facility] Social History: Smoking Status (Most current) and Tobacco Use (All prior to encounter date) This section includes the most current, and the historical, smoking and tobacco- related health factors from the [facility] where the Encounter took place. Current Smoking Status This section includes the most current smoking, or tobacco-related health factor, from the [place] facility where the Encounter took place. Date/Time Current Smoking Status Comment Facil ity May 21, 2024 10:00 AM VA-TOBACCO SCREEN FOLLOW-UP [facility] Tobacco Use History This section includes a history of the smoking, or tobacco-related health factors, that were collected on or before the date of the Encounter. The data comes from the [place] facility where the Encounter took place. 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 The data comes from all [place] treatment facilities. Date/Time Radiology Report Provider Source Jun 18, 2024 12:[address] HEAD W/O CONT: CRISTOPHER SCHAFER AMANUEL [id number] -[id number] M Exm Date: JUN 18, 2024@12:15 Req Phys: KIM GUZMAN Pat Loc: [facility] (Req'g Img Loc: [facility]-CT IMAGING [facility] Service: [address] [address] (Case [id number] COMPLETE) CT HEAD W/O CONT (CT Detailed) CPT:39762 Reason for Study: NCD Clinical History: Responsible Attending: Carmel Guzman Attending Contact Number: [id number] Resident Contact Number: [place] with h/o depression,mild NCD, past h/o polysubstance abuse. Allergies listed in CPRS chart: TRAMADOL Creatinine: CREATININE 1.32 H mg/dL 09/27/2023 09:35 /eGFR: STL EGFR (within one year). CREATININE 1.32 mg/dL H (09/27/23 09:35) Wt: 217.7 lb [98.75 kg] (03/31/2024 09:48) History of: Renal failure, chronic or acute renal disease: NO Report Status: Verified Date Reported: JUN 18, 2024 Date Verified: JUN 18, 2024 Christine E-Sig:/ES/TANNER WALTERS Report: CT HEAD W/O CONT [id number] DATE: 06/18/2024 4:09 PM HISTORY: NCD COMPARISON: None. TECHNIQUE: Helical multidetector axial slices through the brain without intravenous contrast according to center protocol. From the original axial data, sagittal and coronal reconstructions were performed. FINDINGS: No intracranial hemorrhage, mass, acute regional cortical infarction nor obstructive hydrocephalus are observed. The brain density remains appropriate for the patient's age. Predominant frontal central volume loss exists. The craniovertebral junction is normal. The bony calvarium is intact. The visualized paranasal sinuses and mastoid regions are clear. The orbits are unremarkable. Impression: Frontal-predominant cerebral volume loss. No visible acute intracranial pathology. Primary Interpreting Staff: TANNER WALTERS, Diagnostic Radiologist (Christine) /TANNER CHAUHAN [facility] Encounter Notes: All associated encounter notes This section contains the clinical notes associated to the Encounter. Date/Time Encounter Note(s) Provider Source Jul 09, 2024 05:34 PM PSYCHIATRY OUTPATI ENT NOTE: LOCAL TITLE: MENTAL HEALTH [facility]ING RESOURCES TEAM [facility] STANDARD TITLE: PSYCHIATRY OUTPATIENT NOTE DATE OF NOTE: JUL 09, 2024@17:34 ENTRY DATE: JUL 09, 2024@17:34:52 AUTHOR: CHADWICK GUZMAN EXP COSIGNER: URGENCY: STATUS: COMPLETED [facility] - MEDICATION MANAGEMENT Name..................CRISTOPHER LANCASTER Age...................74 Sex...................MALE SSN...................[id number] Today's Date..........JUL 09, 2024 Service Connection....Service Connected: Yes (70%) ALLERGIES: TRAMADOL OUTPATIENT MEDICATIONS: Active Outpatient Medications (excluding Supplies): Issue Date Status Last Fill Active Outpatient Medications Refills Expiration 1) ALBUTEROL 90MCG (CFC-F) 200D ORAL INHL Qty: ACTIVE Issue: 01/04/24 1 for 30 days Sig: INHALE 2 PUFFS BY ORAL Refills: 2 Last : 03/20/24 INHALATION FOUR TIMES A DAY NEEDED SHAKE Expr : 01/04/25 WELL. RINSE MOUTHPIECE FREQUENTLY TO PREVENT CLOGGING. Indication: FOR DYSPNEA 2) OLODATEROL 2.5MCG/ACTUAT 60D ORAL INHL Qty: ACTIVE Issue: 01/29/24 1 for 30 days Sig: INHALE 2 INHALATIONS BY Refills: 7 Last : 07/06/24 ORAL INHALATION ONCE A DAY (ADMINISTER AT Expr : 01/29/25 THE SAME TIME EVERY DAY) Indication: FOR COPD 3) VENLAFAXINE HCL 75MG 24HR SA CAP Qty: 270 ACTIVE (S) Issue: 07/09/24 for 90 days Sig: TAKE THREE CAPSULES BY Refills: 0 Last : 07/09/24 MOUTH ONCE A DAY WITH FOOD. DO NOT ABRUPTLY Expr : 10/07/24 DISCONTINUE MEDICATION. Indication: FOR DEPRESSION Start Date Active Non-VA Medications Status Stop Date 1) Non-VA ASPIRIN 81MG EC TAB SiMG BY ACTIVE MOUTH ONCE A DAY 2) Non-VA ATORVASTATIN CALCIUM 80MG TAB Sig: ACTIVE 40MG BY MOUTH EVERY EVENING 3) Non-VA BUPROPION HCL 150MG 12HR SA TAB Sig: ACTIVE 150MG BY MOUTH TWICE A DAY 4) Non-VA BUPROPION HCL 150MG 12HR SA TAB Sig: ACTIVE 150MG BY MOUTH TWICE A DAY 5) Non-VA CELECOXIB 200MG CAP SiMG BY ACTIVE MOUTH TWICE A DAY 6) Non-VA CHOLECALCIF 50MCG (D3-2,000UNIT) TAB ACTIVE SiUNIT BY MOUTH ONCE A DAY 7) Non-VA FAMOTIDINE 20MG TAB SiMG BY ACTIVE MOUTH TWICE A DAY 8) Non-VA FINASTERIDE 5MG TAB SiMG BY MOUTH ACTIVE ONCE A DAY 9) Non-VA HCTZ 12.5/LISINOPRIL 10MG TAB Si ACTIVE TABLET BY MOUTH EVERY MORNING 10) Non-VA MONTELUKAST NA (SINGULAIR) 10MG TAB ACTIVE SiMG BY MOUTH ONCE A DAY 11) Non-VA MULTIVITAMIN/MINERALS CAP/TAB Si ACTIVE CAP/TAB BY MOUTH ONCE A DAY 12) Non-VA OMEPRAZOLE 40MG EC CAP SiMG BY ACTIVE MOUTH EVERY MORNING BEFORE A MEAL 13) Non-VA TERAZOSIN HCL 10MG CAP SiMG BY ACTIVE MOUTH AT BEDTIME 14) Non-VA TIZANIDINE HCL 4MG TAB SiMG BY ACTIVE MOUTH THREE TIMES A DAY NEEDED 15) Non-VA VALACYCLOVIR HCL 500MG TAB SiMG ACTIVE BY MOUTH TWICE DAILY NEEDED 18 Total Medications PROBLEM LIST: 1) Essential hypertension 2) Mixed hyperlipidemia 3) Peripheral vascular disease 4) Benign prostatic hyperplasia 5) CAD - Coronary Artery Disease ([facility] [id number]) 6) Hepatitis C 7) Anxiety ([facility] [id number]) 8) Osteoarthritis of left knee joint 9) History of arthroplasty of right knee 10) History of arthroplasty of left knee 11) Chronic Post-Traumatic Stress Disorder ([facility] [id number]) 12) Exposure to potentially hazardous substance ([facility] [id number]) 13) Carotid Artery Stenosis ([facility] [id number]) 14) Aortic Stenosis, Non-Rheumatic ([facility] [id number]) 15) COPD - Chronic Obstructive Pulmonary Disease ([facility] [id number]) VITAL SIGNS: Pulse.................68 (07/09/2024 14:34) Temperature...........97.4 F [36.3 C] (07/09/2024 14:34) Blood Pressure........98/60 (07/09/2024 14:37) Pain..................0 (07/09/2024 14:34) Weight................217. 7 lb [98.75 kg] (03/31/2024 09:48) Patient Weight History - Last Four 1. 217.7 lbs. / 98.8 kg. on MAR 31, 2024@09:48:44 2. 215.2 lbs. / 97.6 kg. on JAN 29, 2024@07:39:53 3. 215.0 lbs. / 97.5 kg. on JAN 04, 2024@10:35:03 4. 213.5 lbs. / 96.8 kg. on DEC 19, 2023@10:16:44 LAB VALUES: CBC WBC 6.8 10*3/uL 09/27/2023 09:35 RBC 4.16 [...] PLT FRACTION 7.1 H % 09/27/2023 09:35 CHEM 7 SODIUM 137 mEq/L 09/27/2023 09:35 POTASSIUM 4.3 mEq/L 09/27/2023 09:35 CHLORIDE 104 mEq/L 09/27/2023 09:35 UREA NITROGEN 20.5 mg/dL 09/27/2023 09:35 CREATININE 1.32 H mg/dL 09/27/2023 09:35 CALCIUM 9.9 mg/dL 09/27/2023 09:35 CARBON DIOXIDE 26 mEq/L 09/27/2023 09:35 GLUCOSE 116 H mg/dL 09/27/2023 09:35 EGFR (CKD-EPI 2020) 56.6 09/27/2023 09:35 HEPATIC PANEL No data available TRIGLYCERIDES...48 mg/dL (09/27/23 09:35) CHOLESTEROL.....CHOLESTERO L 129 mg/dL 09/27/2023 09:35 TSH.............TSH 1.722 uIU/mL 09/27/2023 09:35 LITHIUM.........____ VALPROIC ACID...____ DIAGNOSIS BEING TREATED THIS VISIT: Depression/ptsd, ANY COMPLAINTS/PROBLEMS....... No 74yrs old white male with past h/o depression and polysubstance dependence including IVDA heroin and cocaine use with hepatitis C (treated) alcohol dependence with h/o 2 drug rehab, 1 dui and treatment for pTSD over the years. Denies any family h/o psychiatirc illness other than dementia in 1 sister. [place] has no past or present h/o aggression towards self or others. [place] is low suicide risk at present and appropriate for outpatient level of care. [place] seen for f/u today with and he reports that he had been under a lot of emotional stress with siter being sick and he had to visit her everyday. But she on Jun 10 and there is some relief of that stress. Reports that he is still feels his mood is not good. its up and down . Reports his mood is now 4-5/10 but used to be 7-8/10 before sister . sleeping 6-7hrs and eating fair. continues to smoke 15 ciga/day and is on bupropion, but does not want nicotine replacement as he is not ready to quit smoking. denies any other substance abuse. reports that the was under a lot of stress with his sister for past 6months. Sister was reportedly depressed and she did not want to live and did not want to see anyone but the . and had to visit her everyday at the assisted living and this had caused stress/depression for . She also reports that the has bursts of temper for silly things now and he sometime stutters or has difficulty verbalizing some words. She also reports that he is somewhat fidgety with his hands and fingers lately. no seizures [place] is on bupropion and venlafaxine and tolerating them without side effects. ANY MEDICATION SIDE EFFECT....No APPETITE.................. ....Good SLEEP..................... ....Good MENTAL STATUS: MOOD/AFFECT............... ..Normal mood- less depressed affect- congruent DELUSIONS/HALLUCINATIONS.. ..Absent denies SUICIDAL/AGGRESSIVE....... ..Absent denies ALERT & ORIENTED X3 WITH GOOD CONCENTRATION........Yes oriented x3. COMMENTS: None MEDICATION CHANGE.............No SUPPORTIVE PSYCHOTHERAPY......Yes GAF:No previous GAF entered. Current Gaf: na TREATMENT PLAN: COMMENTS: Depression/-discussed about increasing effexor to 225mg po daily and to call back if any side effects or new problems. Discussed with and about the Brain CT scan report Impression: Frontal-predominant cerebral volume loss. No visible acute intracranial pathology. will request neurology consult for their input. agrees to this. getting blood work done today. Support empathic listening and psychoeducation provided. f/u in 2months INSTRUCTIONS GIVEN TO PATIENT/FAMILY: Report medication side effects promptly No alcohol/illicit drug use with medication Needs to be cautious with driving/use of machinery Avoid night-time driving Follow up with Primary Care Provider If symptoms get worse, call clinic or Emergency Room as appropriate seen to total of 35min with 20min of supportive therapy. /ivy/ KIM GUZMAN MD Staff Physician, Psychiatry Signed: 07/09/2024 18:05 CHADWICK GUZMAN [facility] Jul 09, 2024 02:39 PM MENTAL HEALTH NOTE : LOCAL TITLE: [facility] CC NEEDS ASSESSMENT AND INTERVENTION PLAN STANDARD TITLE: MENTAL HEALTH NOTE DATE OF NOTE: JUL 09, 2024@14:39 ENTRY DATE: JUL 09, 2024@14:39:04 AUTHOR: TOMAS SINHA EXP COSIGNER: URGENCY: STATUS: COMPLETED Follow-up [facility] Care Coordination Intervention Plan Assessment and review of interventions in progress: SIGNIFICANT CHANGES TO CARE COORDINATION NEEDS: Current assessed care coordination needs: Follow-up as clinically indicated: 5 minutes /ivy/ TOMAS SINHA RN Registered Nurse Signed: 07/09/2024 14:41 TOMAS SINHA [facility]
--- OUTSIDE RECORDS SUMMARY | 2024-09-03 16:56 | XMS_ITS | Encounter Summary ---
Author Name [facility] Organization [facility] [place] Address [address] [place] [address] Care Team Providers Care Emergency Dept Tech Name Role Phone FLORENCE CLEMENTS Primary Care [...] Caban's Name Patient's Relationship to Policy Caban [facility] (WNR) MEDICARE ADVANTAGE [facility] (WNR) August 21, 2020 [id number] [phone] SCHAFER,KODI HARD PATIENT MEDICARE (WNR) MEDICARE (M) PART A Jan 21, 2014 PART A [id number] SCHAFER,KODI HARD PATIENT MEDICARE (WNR) MEDICARE (M) PART B Jan 21, 2014 PART B [id number] SCHAFER,KODI HARD PATIENT Selected Encounter This section includes the information on record at [place] for the Encounter. Date/Time Encounter Type Encounter Description Reason Provider Source Jan 29, 2024 09:00 AM OFF/OP CNSLTJ NEW/EST MOD 40 PULMONARY/CHEST ICD-10-CM Z12.2 Encntr screen for malignant neoplasm of respiratory organs KEN MANDUJANO [place] Encounter Template Text not used by [place] Assessments - Encounter Diagnoses This section includes the primary and secondary diagnoses documented for the Encounter. Date/Time Primary/Secondary Diagnosis Diagnosis Name Provider Source Jan 29, 2024 09:21 AM PRIMARY Encntr screen for malignant neoplasm of respiratory organs DELBERT,KEN N [facility] Jan 29, 2024 09:21 AM SECONDARY Chronic cough DELBERT,[facility] Jan 29, 2024 09:21 AM SECONDARY Nicotine dependence, cigarettes, uncomplicated DELBERT,[facility] Jan 29, 2024 09:21 AM SECONDARY Shortness of breath DELBERT,[facility] Plan of Treatment: Future Appointments (+ 6 months) and Future Tests (+/- 45 days) The Plan of Treatment section includes future care activities for the patient from all [place] treatmentfacilities. This section includes future appointments and future orders which are active, pending or scheduled. Future Appointments This section includes appointments that were scheduled to occur 6 months from the date of the Encounter, up to a maximum of 20 appointments. The data comes from all [place] treatment facilities. Appointment Date/Time Appointment Type Appointme nt Facility Name Feb 15, 2024 11:00 AM AMBULATORY - SURGERY [facility] Feb 20, 2024 11:00 AM AMBULATORY - MEDICINE [facility] Mar 05, 2024 09:30 AM AMBULATORY - NONE [facility] Mar 31, 2024 10:00 AM AMBULATORY - MEDICINE [facility] Apr 01, 2024 09:00 AM AMBULATORY - MEDICINE [facility] May 19, 2024 11:00 AM AMBULATORY - NONE [facility] May 21, 2024 10:00 AM AMBULATORY - PSYCHIATRY [facility] Jun 18, 2024 12:30 PM AMBULATORY - NONE [facility] Jul 09, 2024 02:30 PM AMBULATORY - PSYCHIATRY [facility] Active, Pending, and Scheduled Orders This section includes a listing of several types of active, pending, and scheduled orders, including clinic medications orders, diagnostic test orders, procedure orders and consult orders; where the start date of the order is 45 days before the date of the Encounter or 45 days after the date of theEncounter. The data comes from all [place] treatment facilities. Test Date/Time Test Type Test Details Facility Name Jan 14, 2024 12:00 AM Laboratory - Chemi shery Order OCCULT BLOOD FIT X1 SCREEN (MFP ONLY) STOOL FECES SP [facility] Vital Signs: All taken on the encounter date This section contains inpatient and outpatient Vital Signs collected on the date of the Encounter. Date/Time Temperature Pulse Blood Pressure Respiratory Rate SP02 Pain Height Weight Body Mass Index Source Jan 29, 2024 07:39 AM 98.4 66 100/58 16 98 0 215.2 28 [facility] Social History: Smoking Status (Most current) [...] took place. Date/Time Current Smoking Status Comment Torres ity Jun 23, 2022 07:12 PM VA-VAAES TOBACCO U SE CURRENT NRT DECLINE [facility] Tobacco Use History This section includes a history of the smoking, or tobacco-related health factors, that were collected on or before the date of the Encounter. The data comes from the [place] facility where the Encounter took place. Date/Time Smoking Status/Tobacco Use Comment F acility Mar 30, 2022 03:42 PM VA-TOBACCO DOESNT USE WI 30 MIN WAKEUP [facility] Mar 30, 2022 03:42 PM VA-TOBACCO USE 30 YEARS OR MORE [facility] Mar 30, 2022 03:42 PM VA-TOBACCO USE ADVICE [facility] Mar 30, 2022 03:42 PM VA-TOBACCO USE INPATIENT SERVICES RN NO [facility] Mar 30, 2022 03:42 PM VA-TOBACCO USE MED NO [facility] Mar 30, 2022 03:42 PM VA-TOBACCO USER EVERY DAY [facility] Mar 05, 2019 02:55 PM VA-TOBACCO USE 30 YEARS OR MORE [facility] Mar 05, 2019 02:55 PM VA-TOBACCO USE ADVICE [facility] Mar 05, 2019 02:55 PM VA-TOBACCO USE INPATIENT SERVICES RN NO [facility] Mar 05, 2019 02:55 PM VA-TOBACCO USE MED NO [facility] Mar 05, 2019 02:55 PM VA-TOBACCO USE WI 30 MIN OF WAKEUP [facility] Mar 05, 2019 02:55 PM VA-TOBACCO USER EVERY DAY [facility] Mar 26, 2015 11:28 AM CURRENT TOBACCO USER [facility] Mar 26, 2015 11:28 AM TOBACCO MEDS OFFER ED BUT DECLINED [facility] Encounter Notes: All associated encounter notes This section contains the clinical notes associated to the Encounter. Date/Time Encounter Note(s) Provider Source Feb 12, 2024 11:26 AM PHYSICIAN LETTERS: LOCAL TITLE: TEST RESULT GENERAL LETTER ST STANDARD TITLE: PHYSICIAN LETTERS DATE OF NOTE: FEB 12, 2024@11:26 ENTRY DATE: FEB 12, 2024@11:26:24 AUTHOR: FLORENCE CLEMENTS COSIGNER: URGENCY: STATUS: COMPLETED [facility] [address] [place] [address] FEB 12, 2024 CRISTOPHER SCHAFER [address] [place], [place] [address] Dear Cristopher Schafer, I would like to update you on your recent test results. PULMONARY FUNCTION TEST There is moderate obstructive abnormality that did not improve after inhaled bronchodilator. There is impairment of diffusing capacity but not oxygenation at rest. PLAN Please continue your treatment of COPD as we discussed during your visit. If you have any questions please call your pillowcase cutter.I strongly recommend that we start quitting smoking, pls call my clinic if you would like to try medications or nicotine replacement product to help you quit. I look forward to seeing you at your next clinic appointment. Thank you for choosing the [facility] for your healthcare. FUTURE APPOINTMENTS: 02/15/2024 11:00 SANGITA-ORTHO MD [facility] 02/20/2024 11:00 [facility] 03/05/2024 09:30 DENISA-CT FLASH AM 03/31/2024 10:00 DENISA-CARDIOLOGY F6 A 07/30/2024 14:00 DENISA-ST CLR PACT 6 PCP Sincerely, FLORENCE SCHAFER,FLORENCE [facility]ONTELONGO [facility] Jan 29, 2024 08:36 AM CONSULT: LOCAL TITLE: LUNG CANCER SCREENING CONSULT STL STANDARD TITLE: CONSULT DATE OF NOTE: JAN 29, 2024@08:36 ENTRY DATE: JAN 29, 2024@08:36:12 AUTHOR: KEN MANDUJANO EXP COSIGNER: URGENCY: STATUS: COMPLETED LUNG CANCER SCREENING CONSULT STL Has ADDENDA LUNG CANCER SCREENING OUTPATIENT CLINIC NOTE JAN 29, 2024 Reason for visit/CC: LCS Consult; LCS Shared Decision Making HPI: This is a 73 year old MALE with history of HTN, HLP, PVD, BPH, hx of hep C, anxiety, tobacco use. Veterans PCP placed Lung Cancer Screening consult to enroll him in program. No chest CT on file. being seen in clinic to discuss LCS program, shared decision making, tobacco status. Today, Mr. Schafer denies recent fever/illness, new/changing cough, hemoptysis, unintentional weight loss. He is prescribed albuterol inhaler which he reports he does not use often. He completed PFT today which demonstrates a mild obstructive abnormality; air trapping; significant improvement after inhaled bronchodilator; moderate reduction in diffusing capacity. He endorses a daily/chronic cough with no sputum production. He endorses low activity and SOB; he is able to completed housework/yardkwork with minimal difficulty; he does grocery shopping. He has 14 steps to the basement of his house and 14 steps to the second floor. He can go up each flight but has to stop and rest at the top. He endorses SOB with streneous activity such as going up his stairs. reports continued tobacco use, 0.5ppd. Afton states he is not interested in quitting at this time. I discussed with Afton that quitting smoking is one of the best ways to improve/maintain his health. We discussed 's smoking history including quit attempts in the past. He started smoking around age 15, 0.5-1ppd (57 years); approx 50 py hx. I educated on the different modalities of treatment to aide smoking cessation. Encouraged Afton to consider cutting back. Afton states he will think about it. I encouraged him to contact myself or their PCP with any questions related to smoking cessation and/or interest in smoking cessation. Afton is eligible and agrees to continue lung cancer screening after shared decision making discussion with Lung Cancer Screening Coordinator. Lung Cancer Screening Risk Calculator estimates his/her risk: 4.88% * Low dose CT Chest will be ordered. * Discussed potential benefits of lung cancer screening: - Reduce mortality from lung cancer - Screening looks for disease before you have symptoms. It can help find lung cancer in an earlier, more treatable stage. * Discussed potential harms of lung cancer screening: - Anxiety and stress from false-positive results - Complications from invasive procedures if an abnormality is found - The low-dose radiation from lung cancer screening increases your risk of developing cancer years later by a small amount. * Discussed possibility of overdiagnosis: - Potentially finding a lung cancer that would have never been a clinical problem * Discussed other issues: - Impact of comorbidities on screening: The benefit is reduced in patients in poor health - Patients' willingness and/or ability to undergo invasive diagnostic procedures/treatments should results warrant further follow-up. - Quitting smoking is the most important thing you can do to lower your chance of dying from a variety of disease, not just lung cancer. 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; worked at [employer] for 4 years; retired Past Medical History: 1) Essential hypertension 2) Mixed hyperlipidemia 3) Peripheral vascular disease 4) Benign prostatic hyperplasia 5) CAD - Coronary Artery Disease ([facility] [id number]) 6) Hepatitis C comment: treated in 1999, NEG since 7) Anxiety ([facility] [id number]) 8) Osteoarthritis of left knee joint 9) History of arthroplasty of right knee 10) History of arthroplasty of left knee 11) Chronic Post-Traumatic Stress Disorder ([facility] [id number]) 12) Exposure to potentially hazardous substance ([facility] [id number]) comment: Entered automatically through [facility] Problem List documentation prog 13) Carotid Artery Stenosis ([facility] [id number]) 14) Aortic Stenosis, Non-Rheumatic ([facility] [id number]) ALLERGY REVIEW: Allergy list reviewed and remains current. Current Medications: Active Outpatient Medications (including Supplies): ALBUTEROL 90MCG (CFC-F) 200D ORAL INHL INHALE 2 PUFFS BY ACTIVE ORAL INHALATION FOUR TIMES A DAY NEEDED SHAKE WELL. RINSE MOUTHPIECE FREQUENTLY TO PREVENT CLOGGING. NORTRIPTYLINE HCL 10MG CAP TAKE ONE CAPSULE BY MOUTH AT ACTIVE BEDTIME INSOMNIA Non-VA ASPIRIN 81MG EC TAB 81MG BY MOUTH ONCE A DAY ACTIVE Non-VA ATORVASTATIN CALCIUM 80MG TAB 40MG BY MOUTH EVERY ACTIVE EVENING Non-VA BUPROPION HCL 150MG 12HR SA TAB 150MG BY MOUTH ACTIVE TWICE A DAY Non-VA CELECOXIB 200MG CAP 200MG BY MOUTH TWICE A DAY ACTIVE Non-VA CHOLECALCIF 50MCG (D3-2,000UNIT) TAB 2000UNIT BY ACTIVE MOUTH ONCE A DAY Non-VA ESCITALOPRAM OXALATE 10MG TAB 5MG BY MOUTH ONCE A ACTIVE DAY Non-VA FAMOTIDINE 20MG TAB 20MG BY MOUTH TWICE A DAY ACTIVE Non-VA FINASTERIDE 5MG TAB 5MG BY MOUTH ONCE A DAY ACTIVE Non-VA HCTZ 12.5/LISINOPRIL 10MG TAB 1 TABLET BY MOUTH ACTIVE EVERY MORNING Non-VA ISOSORBIDE MONONITRATE 30MG SA TAB 30MG BY MOUTH ACTIVE ONCE A DAY Non-VA MONTELUKAST NA (SINGULAIR) 10MG TAB 10MG BY MOUTH ACTIVE ONCE A DAY Non-VA MULTIVITAMIN/MINERALS CAP/TAB 1 CAP/TAB BY MOUTH ACTIVE ONCE A DAY Non-VA OMEPRAZOLE 40MG EC CAP 40MG BY MOUTH EVERY MORNING ACTIVE BEFORE A MEAL Non-VA TERAZOSIN HCL 10MG CAP 10MG BY MOUTH AT BEDTIME ACTIVE Non-VA TIZANIDINE HCL 4MG TAB 2MG BY MOUTH THREE TIMES A ACTIVE DAY NEEDED Non-VA VALACYCLOVIR HCL 500MG TAB 500MG BY MOUTH TWICE ACTIVE DAILY NEEDED All meds were reviewed/reconciled with patient. Patient verbalizes taking medications as prescribed. Inhaler use per patient: albuterol MDI seldom use REVIEW OF SYSTEMS: Constitutional: Denies weight loss/weight gain; Denies fevers, night sweats HEENT: Denies frequent headaches; Denies blurred vision, diplopia; Denies difficulty hearing; Denies epistaxis, rhinorrhea, dysphagia Neuro: Denies seizures; Denies numbness/tingling in extremities; Denies decreased muscle strength/muscle tone Respiratory: +chronic cough; +dyspnea on exertion, +SOB CV: Denies chest pain, palpitations, dizziness ABD/GI: Denies constipation, diarrhea; Denies frequent nausea/vomiting; Denies blood in stool : Denies incontinence; Denies hematuria MSK: Denies pain; Denies trauma, injury; Gait: Ambulates without assistive device; Steady gait Physical Exam: Vitals: Temperature: 98.4 F [36.9 C] (01/29/2024 07:39) Pulse: 66 (01/29/2024 07:39) BP:100/58 (01/29/2024 07:39) Resp: 16 (01/29/2024 07:39) O2 Saturation: Measurement DT POx (L/MIN)(%) 01/29/2024 07:39 98 01/04/2024 10:35 98 12/19/2023 10:16 97 10/01/2023 08:08 98 Weight: Patient Weight History - Last Four 1. 215.2 lbs. / 97.6 kg. on JAN 29, 2024@07:39:53 2. 215.0 lbs. / 97.5 kg. on JAN 04, 2024@10:35:03 3. 213.5 lbs. / 96.8 kg. on DEC 19, 2023@10:16:44 4. 214.0 lbs. / 97.1 kg. on OCT 01, 2023@08:08:34 GENERAL APPEARANCE: Pleasant and cooperative, normal mood and affect. HEENT: Exam grossly normal, conjunctivae clear, oropharynx showed moist mucosa without cyanosis LUNGS: CTA bilaterally with no rales or wheezes. Good respiratory effort and excursion. CARDIOVASCULAR: S1, S2 without pathologic murmur, neck veins were not visibly elevated at 45 degrees. ABDOMEN: soft and nontender EXTREMITIES AND MUSCULOSKELETAL: no lower extremity edema NEUROLOGICAL: Alert and oriented x 3, non-focal Diagnostic data: Most recent PFT DATA: 01/29/24 --SPIROMETRY-- ACTUAL (%PRED) FVC (L) : 3.13 (65%) FEV1 (L): 2.10 (60%) FEV1/FVC: 67 (92%) --LUNG VOLUMES--(%PRED) RV(L) : 297% TLC(L): 147% DLCO: 43% Bronchodilator Response: +11% 6MW: NO DATA REPORTED Labs: No BRAIN NATRIURETIC PEPTIDE data found SODIUM 137 mEq/L 09/27/2023 09:35 POTASSIUM 4.3 [...] 09:35 EGFR (CKD-EPI 2020) 56.6 09/27/2023 09:35 WBC 6.8 10*3/uL 09/27/2023 09:35 RBC 4.16 [...] PLT FRACTION 7.1 H % 09/27/2023 09:35 PROST. SPECIFIC AG.(PB-STL) 0.195 ng/mL 09/27/2023 09:35 11.8 sec (06/08/22 11:24) No PTT EO data found INR VALUE 1.1 INR 06/08/2022 11:24 PROTIME 11.8 sec 06/08/2022 11:24 Imaging: CXR: Impression for CHEST X-RAY, 2 VIEWS, 09/27/23, case [id number] No active pulmonary disease. No data available for: LDCT LCS 1, 3 OR 6 MONTH FOLLOW UP ZZLDCT LUNG CANCER SCREENING LDCT LUNG CANCER SCREENING Assessment and Plan: #Lung Cancer Screening -SDM completed -CPY hx completed/up to date -Afton enrolled in LCS -Initial LDCT for LCS ordered #SOB #chronic cough -PFT demonstrates improvement (+11%) with inhaled bronchodilator -encouraged continued use of albuterol inhaler PRN -start olodaterol 2 puffs daily #Personal History of Tobacco Use, current smoker- - is not interested in quitting at this time -Informed that quitting smoking is one of the best things to improve and maintain health -Encouraged Afton to consider cutting back/quitting -Education provided regarding tobacco use, specifically multifactorial health risks, including but limited to Lung Cancer, Stroke, ID, Poor Wound Healing -Education provided on available smoking cessation treatments including OTC and/or prescription medications, and/or counseling -Self-referring resources provided to : *[facility] SMOKING CESSATION PROGRAM: [phone] *[id number] ( ) RTC: phone visit in 2 months then PRN All patients are counseled on the risks of smoking at every visit including patients with no history of smoking in order to dissuade them from starting the use of tobacco products; former smokers to minimize recidivism of nicotine dependence; and current smokers in an effort to help them cease the use of nicotine products. HEALTH PROMOTION/HEALTH MAINTENANCE & EDUCATION DISEASE: Discussed treatment options & counseled on exacerbating factors. DIAGNOSTIC TESTING AND LABORATORY DATA: Pertinent labs and diagnostic tests (both normal and abnormal) are included above and were reviewed and discussed with the patient within 7-days of the test and during this visit. DISEASE: Coordinated care; discussed treatment options, & counseled on exacerbating factors. - Encouraged participation in regular exercise program 3-5 days/week - Discussed at length about lifestyle modifications in regard to diet, exercise, and medication compliance. - Assessed smoking habits and whether actively using tobacco products or a past history of nicotine dependence, smoking cessation strategies were reinforced. The patient verbalized understanding of information regarding: labs, meds, and plans for care. Time Spent: 30 minutes Thank you for allowing me to participate in this patient's care. Please don't hesitate to call with any questions or concerns. Lung Cancer Screening Patient Management *INITIAL SCREENING* - Afton is eligible for lung cancer screening based on age, smoking history and the absence of signs or symptoms of lung cancer. - Afton informed of the interventions to reduce the risk of dying from lung cancer, including quitting smoking and annual lung cancer screening. - Afton informed of the potential harms of screening including: false positives and false negatives, follow-up diagnostic testing, over-diagnosis and radiation exposure. - counseled on the importance of adherence to annual lung cancer LDCT screening, impact of comorbidities and ability or willingness to undergo diagnosis and treatment. - After shared decision making discussion, Afton has agreed to lung cancer screening. Decision aid reviewed with patient. LCS patient educational materials mailed to patient. Patient currently uses cigarettes and does not want assistance with smoking cessation at this time. /sayra MANDUJANO DNP, APRN, [facility] NURSE PRACTITIONER-LUNG CANCER SCREENING Signed: 01/29/2024 09:23 01/29/2024 ADDENDUM STATUS: COMPLETED Time spent: 40 minutes /sayra MANDUJANO DNP, APRN, [facility] NURSE PRACTITIONER-LUNG CANCER SCREENING Signed: 01/29/2024 09:24 04/02/2024 ADDENDUM STATUS: COMPLETED attempted contact with to discuss inhaler optimization. Voicemail left requesting return call; contact information provided. /sayra MANDUJANO DNP, APRN, [facility] NURSE PRACTITIONER-LUNG CANCER SCREENING Signed: 04/02/2024 13:19 04/02/2024 ADDENDUM STATUS: COMPLETED called me back. Identified by full name, SSN, . He reports no significant change in SOB/respiratory symptoms. He states he uses albuterol occasionally. He does get winded walking far distances. I encouraged him to use albuterol inhaler prior to activity that he knows he will likely get SOB. Afton verbalized understanding. No further questions/concerns. Encouraged him to contact me with any needs in the future. Call was mutually ended. /ivy/ EKN MANDUJANO DNP, BE[employer] FORMING MACHINE SET UP OPERATOR, AGNP- NURSE PRACTITIONER-LUNG CANCER SCREENING Signed: 04/02/2024 13:46 KEN MANDUJANO [facility]
--- OUTSIDE RECORDS SUMMARY | 2024-09-03 16:56 | XMS_ITS | Encounter Summary ---
Author Organization [facility] Address [address] [place] [address] Care Team Providers Care Road Oiler Name Role Phone Paul Wisdom MD Unavailable [phone] Ana Luisa Lewis MD Primary Care Provider UnavailZay Ayon MD Unavailable [phone] Ana Luisa Lewis MD Unavailable Unavailable Scotty Tellez MD Unavailable [phone] Chelly Thompson HANDLE MACHINE OPERATOR-PETROLEUM PRODUCTION ENGINEER Unavailable [phone] Marcia Pace Unavailable Unavailable Marcia Pace Unavailable Unavailable Marcia Pace Unavailable Unavailable Encounter Details Date Type Department Care Team (Late st Contact Info) Description 02/12/2015 Therapy Visit EXTERNAL NON-SS DEPT Ana Luisa Lewis MD Need updated address Social History Tobacco Use Types Packs/Day Years Used Date Smoking Tobacco: Former Cigarettes Smokeless Tobacco: Never Alcohol Use Standard Drinks/Week Comments No 0 (1 standard drink = 0.6 oz pur e alcohol) Sex and Gender Information Value Date Recorded Sex Assigned at Male 05/11/2020 11:42 AM CAR DROPPER Legal Sex Male 6:12 AM CAR DROPPER Gender Identity Male 05/11/2020 11:42 AM CAR DROPPER Sexual Orientation Straight 05/11/2020 11 :42 AM CAR DROPPER Occupation Industry Job Start Date Job End Date [employer] Not on file Not on file Not on file documented as of this encounter Plan of Treatment Not on file documented as of this encounter Goals Goal Patient Goal Type Associated Problems Recent Progress Patient-Stated? Author Blood Pressure < 140/90 Blood Pressure 120/72( 020 3:52 PM CAR DROPPER) No Katelynn Guy MA documented as of this encounter Visit Diagnoses Not on filedocumented in this encounter Care Teams Road Oiler Relationship Specialty Start Date End Date Ana Luisa Lewis MD [address] [place] [id number] PCP - General Family Medicine 10/03/12 08/30/21 Ana Luisa Lewis MD Need updated address PCP - Attributed-MSSP 06/21/1804/22 Chelly Thompson, HANDLE MACHINE OPERATOR-PETROLEUM PRODUCTION ENGINEER [address] [place] [phone] PCP - Attributed-MSSP 04/23/20 01/09/21 Paul Wisdom MD [address] [place] [id number] Orthopedic Surgery 05/20/10 Zay Sarmiento MD [address] [place] [id number] Cardiology 02/24/14 02/22/20 Scotty Tellez MD [address] [place] [id number] Panel Builder Cardiology 04/14/20 Marcia Pace Care Coordination Specialist Care Management 08/21/24 08/21/24 Marcia Pace Care Coordination Specialist Care Management 08/25/24 08/25/24 Marcia Pace Care Coordination Specialist Care Management 08/26/24 08/26/24 documented as of this encounter
--- OUTSIDE RECORDS SUMMARY | 2024-09-03 16:56 | XMS_ITS | Continuity of Care Document ---
Author Name [facility] Organization [facility] Care Team Providers Care Taffy Candy Maker Name Role Phone [facility] Unavailable Unavailable Problems Combined list of problems from Department of Defense and [facility] Affairs facilities. It does not include entries that were removed or entered in error. Problem Status Onset Date Problem Type Date of Resolution Comments Source Anxiety ([facility] [id number]) Active Condition [facility] Aortic Stenosis, Non-Rheumatic ([facility] [id number]) Active Condition [facility] Benign prostatic hyperplasia Active Condition [facility] CAD - Coronary Artery Disease ([facility] 07053424) Active Condition [facility] Carotid Artery Stenosis ([facility] [id number]) Active Condition [facility] Chronic Post-Traumatic Stress Disorder ([facility] 792478609) Active Condition [facility] COPD - Chronic Obstructive Pulmonary Disease ([facility] 42208610) Active Condition [facility] Essential hypertension Active Condition [facility] Exposure to potentially hazardous substance ([facility] [id number]) Active Condition Aug 07 4 Entered By: BALTAZAR MADRID Comment: Entered automatically through [facility] Problem List documentation program [facility] Hepatitis C Active Condition August 29, 2020 Entered By: FLORENCE CLEMENTS Comment: treated in 2000, NEG since [facility] History of arthroplasty of left knee Active Condition [facility] History of arthroplasty of right knee Active Condition [facility] Mixed hyperlipidemia Active Condition [facility] Osteoarthritis of left knee joint Active Condition [facility] Peripheral vascular disease Active Condition [facility] Diagnosis: ICD-10-CM R90.89 Oth abnormal findings on diagnostic imaging of cnsl Active Diagnosis [facility] Diagnosis: ICD-10-CM E66.3 Overweight Active Diagnosis [facility] Diagnosis: ICD-10-CM F43.12 Post-traumatic stress disorder, chronic Active Diagnosis [facility] Diagnosis: ICD-10-CM F32.A Depression, unspecified Active Diagnosis [facility] Diagnosis: ICD-10-CM Z71.3 Dietary counseling and surveillance Active Diagnosis [facility] Diagnosis: ICD-10-CM I25.10 Athscl heart disease of [place] coronary artery w/o ang pctrs Active Diagnosis [facility] Diagnosis: ICD-10-CM Z12.2 Encntr screen for malignant neoplasm of respiratory organs Active Diagnosis [facility] Diagnosis: ICD-10-CM L57.0 Actinic keratosis Active Diagnosis [facility] Carla [facility] Diagnosis: ICD-10-CM Z96.652 Presence of left artificial knee joint Active Diagnosis [facility] Diagnosis: ICD-10-CM R06.00 Dyspnea, unspecified Active Diagnosis [facility] Diagnosis: ICD-10-CM Z77.29 Contact with and exposure to other hazardous substances Active Diagnosis [facility] Diagnosis: ICD-10-CM C44.320 Squamous cell carcinoma of skin of unspecified parts of face Active Diagnosis [facility] LYDIA [facility] Diagnosis: ICD-10-CM I35.0 Nonrheumatic aortic (valve) stenosis Active Diagnosis [facility] Diagnosis: ICD-10-CM Z55.9 Problems related to education and literacy, unspecified Active Diagnosis [facility] Diagnosis: ICD-10-CM D48.5 Neoplasm of uncertain behavior of skin Active Diagnosis [facility] Diagnosis: ICD-10-CM Z13.5 Encounter for screening for eye and ear disorders Active Diagnosis [facility] Diagnosis: ICD-10-CM Z71.9 Counseling, unspecified Active Diagnosis [facility] Medications Combined list of outpatient medications from Department of Defense and Veterans Affairs facilities.Medications provided include 1) outpatient medications from the last 15 months, and 2) patient-reported medications. Medication Details Route Status Patient Instructions Prescription Expires Prescription Number Last Dispense Date Ordering Provider Order Date Order Qty Source ALBUTEROL SO4 90MCG/ACTUA T (CFC-F) INHL,ORAL,8 .5GM INHALE 2 PUFFS BY ORAL INHALATI ON FOUR TIMES A DAY NEEDED SHAKE WELL. RINSE MOUTHPIE CE FREQUENT LY TO PREVENT CLOGGING . RESPIR ATORY (INHAL ATION) ACTIVE 01/04/2025 [id number] 4 CLEMENTS,A RMIDA A 2023 1 [facility] ASPIRIN 81MG TAB,EC TAKE ONE TABLET BY MOUTH ONCE A DAY ORAL ACTIVE SREE,MOH AMMAD T 2017 [facility] ATORVASTATI N CA 80MG TAB TAKE ONE-HALF TABLET BY MOUTH EVERY EVENING ORAL ACTIVE SREE,[facility] AMMAD T 2017 [facility] BUPROPION HCL 150MG 12HR TAB,SA TAKE ONE TABLET BY MOUTH TWICE A DAY ORAL ACTIVE CLEMENTS,A RMIDA A 2021 [facility] BUPROPION HCL 150MG 12HR TAB,SA TAKE ONE TABLET BY MOUTH TWICE A DAY ORAL ACTIVE CLEMENTS,A RMIDA A 2023 [facility] CELECOXIB 200MG CAP TAKE 1 CAPSULE BY MOUTH TWICE A DAY ORAL ACTIVE CLEMENTS,A RMIDA A 2020 [facility] CHOLECALCIF KARELY 50MCG (2,000UNIT) TAB TAKE ONE TABLET BY MOUTH ONCE A DAY ORAL ACTIVE SREE,MOH AMMAD T 2017 [facility] FAMOTIDINE 20MG TAB TAKE ONE TABLET BY MOUTH TWICE A DAY ORAL ACTIVE CLEMENTS,A RMIDA A 2020 [facility] FINASTERIDE 5MG TAB TAKE ONE TABLET BY MOUTH ONCE A DAY ORAL ACTIVE SREE,MOH AMMAD T 2019 [facility] FLUOROURACI L 5% CREAM,TOP APPLY THIN FILM TO AFFECTED AREA(S) TWICE A DAY *APPLY TO AREA OF PRIOR BIOPSY ON RIGHT CHEEK FOR 3-4 WEEKS TOLERATE D. AVOID SUN EXPOSURE . FOLLOW DIRECTIO NS CAREFULL Y FOR PROPER HANDLING /DISPOSA L. TOPICA L 08/04/2023 [id number] JASSIM,OM AR 2023 40 [facility] HYDROCHLORO THIAZIDE 12.5MG/SANA NOPRIL 10MG TAB TAKE ONE TABLET BY MOUTH EVERY MORNING ORAL ACTIVE CLEMENTS,A RMIDA A [facility]22 [facility] MONTELUKAST NA 10MG TAB TAKE ONE TABLET BY MOUTH ONCE A DAY ORAL ACTIVE ANIBAL BALBUENAMilton T 2017 [facility] MULTIVITAMI NS W/MINERALS CAP/TAB TAKE 1 CAP/TAB BY MOUTH ONCE A DAY ORAL ACTIVE SREEANIBAL CREWS AMBETZAIDAD T 2017 [facility] NICOTINE POLACRILEX 2MG TAB,CHEWG GUM CHEW 1 PIECE OF GUM BY MOUTH EVERY 4 HOURS NEEDED CHEW GUM UNTIL TINGLING SENSATIO N, THEN PARK THE GUM BETWEEN CHEEK AND GUM AREA. REPEAT (RE-CHEW ) WHEN TINGLING STOPS. ORAL 06/29/2024 [id number] Naila TOPETE K 2023 110 [facility] NORTRIPTYLI NE HCL 10MG CAP TAKE ONE CAPSULE BY MOUTH AT BEDTIME INSOMNIA ORAL DISCONT INUED BY PROVIDE R 01/01/2025 [id number] CLEMENTS,A RMIDA A 2023 90 [facility] NORTRIPTYLI NE HCL 10MG CAP TAKE ONE CAPSULE BY MOUTH AT BEDTIME INSOMNIA ORAL DISCONT INUED 01/03/2024 [id number] CLEMENTS,A RMIDA A 2023 90 [facility] OLODATEROL 2.5MCG/ACTU AT INHL,ORAL,6 0D,4GM INHALE 2 INHALATI ONS BY ORAL INHALATI ON ONCE A DAY FOR COPD (ADMINIS TER AT THE SAME TIME EVERY DAY) RESPIR ATORY (INHAL ATION) ACTIVE 01/29/2025 [id number] ORIANA MANDUJANO ILEE N 2023 1 [facility] OMEPRAZOLE 40MG CAP,EC TAKE 1 CAPSULE BY MOUTH EVERY MORNING BEFORE A MEAL ORAL ACTIVE SREEANIBAL Del RosarioD T 2019 [facility] TERAZOSIN HCL 10MG CAP TAKE 1 CAPSULE BY MOUTH AT BEDTIME ORAL ACTIVE SREEANIBAL Del Rosario AMMAD T 2017 [facility] TIZANIDINE HCL 4MG TAB TAKE ONE-HALF TABLET BY MOUTH THREE TIMES A DAY NEEDED ORAL ACTIVE Rafia CLEMENTS RMIDA A 2021 [facility] VALACYCLOVI R HCL 500MG TAB TAKE ONE TABLET BY MOUTH TWICE A DAY NEEDED ORAL ACTIVE SREEANIBAL Del RosarioD T 2017 [facility] VARENICLINE TAB STARTER PACK,53 TAKE 1 TABLET BY MOUTH DIRECTED START TAKING 1 WEEK BEFORE YOUR QUIT DATE. YOU MAY CONTACT [phone] FOR ADDITION AL SUPPORT. CALL YOUR PROVIDER 14 DAYS AFTER BEGINNIN G THERAPY TO REPORT PROGRESS AND TO REQUEST YOUR NEXT FILL. ORAL 08/29/2024 [id number] CLEMENTS,A RMIDA A 2024 1 [facility] VENLAFAXINE HCL 37.5MG 24HR CAP,SA TAKE FOUR CAPSULES BY MOUTH ONCE A DAY FOR DEPRESSI ON WITH FOOD. DO NOT ABRUPTLY DISCONTI NUE MEDICATI ON. ORAL DISCONT INUED (EDIT) 05/22/2025 [id number] 5 BARBARARUSITUNDEA ÁNGELA MONTERO BHA N 2024 120 [facility] VENLAFAXINE HCL 37.5MG 24HR CAP,SA TAKE ONE CAPSULE BY MOUTH ONCE A DAY FOR 7 DAYS, THEN TAKE TWO CAPSULES ONCE A DAY FOR 15 DAYS, THEN TAKE FOUR CAPSULES ONCE A DAY FOR DEPRESSI ON WITH FOOD. DO NOT ABRUPTLY DISCONTI NUE MEDICATI ON. ORAL DISCONT INUED 05/22/2025 [id number] 5 GURUSIDDA WINSTONPRATI BHA N 2024 69 [facility] VENLAFAXINE HCL 75MG 24HR CAP,SA TAKE THREE CAPSULES BY MOUTH ONCE A DAY FOR DEPRESSI ON WITH FOOD. DO NOT ABRUPTLY DISCONTI NUE MEDICATI ON. ORAL ACTIVE 10/07/2024 [id number] 5 ÁNGELA FRITZ N 2024 270 [facility] Allergies, Adverse Reactions, Alerts Combined list of allergies from Department of Defense and Veterans Affairs facilities. It does not include entries that were removed or entered in error. Substance Category Reaction Severity Reaction type Status Date Reported Comments Source TRAMADOL Propensity to adverse reactions to drug (finding) Itching active 02/02/2016 [facility] Immunizations Combined list of available immunizations from the Department of Defense and Veterans Affairs facilities. 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 N INFLUENZA, HIGH-DOSE, QUADRIVALENT, PF 2023 197 complet ed HISTORICA L INFORMATI ON - FROM OTHER PROVIDER, [facility] INFLUENZA, HIGH-DOSE, TRIVALENT, PF 1 2023 135 complet ed HISTORICA L INFORMATI ON - FROM OTHER REGISTRY, [facility] N INFLUENZA, HIGH-DOSE, QUADRIVALENT 2022 197 complet ed HISTORICA L INFORMATI ON - FROM OTHER REGISTRY, [facility] RSV, RECOMBINANT, PROTEIN SUBUNIT RSVPREF, ADJUVANT RECONSTITUTED , 0.5 ML, PF 1 2022 303 complet ed HISTORICA L INFORMATI ON - FROM OTHER REGISTRY, [facility] COVID-19 ([facility]), MRNA, LNP-S, PF, MICHAEL-SUCROSE, 30 MCG/0.3 ML (AGES 12+ YEARS) 1 2022 309 complet ed HISTORICA L INFORMATI ON - FROM PATIENT'S RECALL, Mfr: [employer] [facility] COVID-19, MRNA, LNP-S, BIVALENT BOOSTER, PF, 30 MCG/0.3 ML DOSE 1 2021 300 complet ed [facility] INFLUENZA, HIGH-DOSE, QUADRIVALENT 8 2021 197 complet ed HISTORICA L INFORMATI ON - FROM OTHER REGISTRY, [facility] INFLUENZA, UNSPECIFIED FORMULATION 2021 88 complet ed [facility] COVID-19 (P[employer]ZER), MRNA, LNP-S, PF, 30 MCG/0.3 ML DOSE, MICHAEL-SUCROSE (AGES 12+ YEARS) 4 2021 217 complet ed PFR; [id number]; 2 [facility] ZOSTER RECOMBINANT 2 2021 187 complet ed [facility] ZOSTER RECOMBINANT 1 2020 187 complet ed [facility] COVID-19 (PFIZER), MRNA, LNP-S, PF, 30 MCG/0.3 ML DOSE 3 2020 208 complet ed PFR; [id number]; 1 [facility] INFLUENZA, UNSPECIFIED FORMULATION 2020 88 complet ed [facility] INFLUENZA VACCINE, QUADRIVALENT, ADJUVANTED 7 2020 205 complet ed HISTORICA L INFORMATI ON - FROM OTHER REGISTRY, [facility] COVID-19 ([employer]), MRNA, LNP-S, PF, 30 MCG/0.3 ML DOSE 2 2020 208 complet ed HISTORICA L INFORMATI ON - FROM OTHER PROVIDER, [facility] COVID-19 ([employer]), MRNA, LNP-S, PF, 30 MCG/0.3 ML DOSE 1 2020 208 complet ed HISTORICA L INFORMATI ON - FROM OTHER PROVIDER, [facility] INFLUENZA, UNSPECIFIED FORMULATION 2019 88 complet ed [facility] INFLUENZA, RECOMBINANT, QUADRIVALENT, INJECTABLE, PRESERVATIVE FREE 6 2018 185 complet ed HISTORICA L INFORMATI ON - FROM OTHER REGISTRY, [facility], INJECTABLE, QUADRIVALENT, PRESERVATIVE FREE 2017 150 complet ed [facility] BCG 1 2017 19 complet ed HISTORICA L INFORMATI ON - FROM OTHER REGISTRY, [facility] INFLUENZA, UNSPECIFIED FORMULATION 5 2017 88 complet ed HISTORICA L INFORMATI ON - FROM OTHER REGISTRY, [facility] IN[facility], INJECTABLE, QUADRIVALENT, PRESERVATIVE FREE 2016 150 complet ed [facility] INFLUENZA, UNSPECIFIED FORMULATION 4 2016 88 complet ed HISTORICA L INFORMATI ON - FROM OTHER REGISTRY, [facility] N PNEUMOCOCCAL POLYSACCHARID E PPV23 4 2015 33 complet ed HISTORICA L INFORMATI ON - FROM OTHER REGISTRY, [facility] INFLUENZA, UNSPECIFIED FORMULATION 2015 88 complet ed [facility] INFLUENZA, UNSPECIFIED FORMULATION 3 2015 88 complet ed HISTORICA L INFORMATI ON - FROM OTHER REGISTRY, [facility] N PNEUMOCOCCAL CONJUGATE PCV 13 3 2014 133 complet ed HISTORICA L INFORMATI ON - FROM OTHER REGISTRY, [facility] PNEUMOCOCCAL POLYSACCHARID E PPV23 2 2014 33 complet ed HISTORICA L INFORMATI ON - FROM OTHER REGISTRY, [facility] INFLUENZA, INJECTABLE, QUADRIVALENT, PRESERVATIVE FREE 2 2014 150 complet ed HISTORICA L INFORMATI ON - FROM OTHER REGISTRY, [facility] N INFLUENZA, SEASONAL, INJECTABLE 1 2014 141 complet ed HISTORICA L INFORMATI ON - FROM OTHER REGISTRY, [facility] ZOSTER LIVE 1 2014 121 complet ed HISTORICA L INFORMATI ON - FROM OTHER REGISTRY, [facility] N TDAP 2014 115 complet ed [facility] PNEUMOCOCCAL POLYSACCHARID E PPV23 1 1997 33 complet ed HISTORICA L INFORMATI ON - FROM OTHER REGISTRY, [facility] Results Combined list of recent chemistry, hematology and other laboratory results from Department of Defense and Veterans Affairs, ranging from 15 months to all on record, depending upon the facility. Order Name Results Value Reference Range Date Interpretation Specimen Comments Source CBC LEUKOCYTES [#/VOLUME] IN BLOOD BY AUTOMATED COUNT 6.8 10*3/u L 3.6 - 11.2 09/26 Specimen Type: BLOOD Comment: Platelet count verified by repeat analysis, no clot found in specimen, platelet result consistent with previous result. Ordering Provider: RUPERT CLEMENTS Report Released Date/Time: September 10, 2023 04:14 PM Reporting Lab: [address] [address] Performing Lab: [address] CBC ERYTHROCYTE S [#/VOLUME] IN BLOOD BY AUTOMATED COUNT 4.16 10*6/u L 4.10 - 5.70 09/26 Specimen Type: BLOOD Comment: Platelet count verified by repeat analysis, no clot found in specimen, platelet result consistent with previous result. Ordering Provider: RUPERT CLEMENTS Report Released Date/Time: September 10, 2023 04:14 PM Reporting Lab: [address] [address] Performing Lab: [phone] [place] [id number] CBC HEMOGLOBIN [MASS/VOLUM E] IN BLOOD 13.7 g/dL 13.1 - 16.8 09/26 Specimen Type: BLOOD Comment: Platelet count verified by repeat analysis, no clot found in specimen, platelet result consistent with previous result. Ordering Provider: RUPERT CLEMENTS Report Released Date/Time: September 10, 2023 04:14 PM Reporting Lab: [address] [address] Performing Lab: [address] [place] [address] [facility] CBC HEMATOCRIT [VOLUME FRACTION] OF BLOOD 41.5 38.2 - 48.4 09/26 Specimen Type: BLOOD Comment: Platelet count verified by repeat analysis, no clot found in specimen, platelet result consistent with previous result. Ordering Provider: RUPERT CLEMENTS Report Released Date/Time: September 10, 2023 04:14 PM Reporting Lab: [address] [address] Performing Lab: [address] [phone] [place] [id number] CBC MCV [ENTITIC VOLUME] BY AUTOMATED COUNT 99.8 fL 80.0 - 100.0 09/26 Specimen Type: BLOOD Comment: Platelet count verified by repeat analysis, no clot found in specimen, platelet result consistent with previous result. Ordering Provider: RUPERT CLEMENTS Report Released Date/Time: September 10, 2023 04:14 PM Reporting Lab: [address] [address] Performing Lab: [address] [phone] [place] [id number] CBC MCH [ENTITIC MASS] BY AUTOMATED COUNT 32.9 pg 27.0 - 34.0 09/26 Specimen Type: BLOOD Comment: Platelet count verified by repeat analysis, no clot found in specimen, platelet result consistent with previous result. Ordering Provider: RUPERT CLEMENTS Report Released Date/Time: September 10, 2023 04:14 PM Reporting Lab: [address] [address] Performing Lab: [address] [phone] [place] [id number] CBC MCHC [MASS/VOLUM E] BY AUTOMATED COUNT 33.0 g/dL 33.0 - 36.0 09/26 Specimen Type: BLOOD Comment: Platelet count verified by repeat analysis, no clot found in specimen, platelet result consistent with previous result. Ordering Provider: RUPERT CLEMENTS Report Released Date/Time: September 10, 2023 04:14 PM Reporting Lab: [facility] [address] [place], [place] [phone] Performing Lab: [place] [phone] [place] [id number] CBC PLATELETS [#/VOLUME] IN BLOOD BY AUTOMATED COUNT 118 10*3/u L 150 - 400 09/26 L Specimen Type: BLOOD Comment: Platelet count verified by repeat analysis, no clot found in specimen, platelet result consistent with previous result. Ordering Provider: RUPERT CLEMENTS Report Released Date/Time: September 10, 2023 04:14 PM Reporting Lab: [place] [phone] Performing Lab: [address] CBC PLATELET MEAN VOLUME [ENTITIC VOLUME] IN BLOOD BY AUTOMATED COUNT 12.2 fL 7.5 - 11.2 09/26 H Specimen Type: BLOOD Comment: Platelet count verified by repeat analysis, no clot found in specimen, platelet result consistent with previous result. Ordering Provider: RUPERT CLEMENTS Report Released Date/Time: September 10, 2023 04:14 PM Reporting Lab: [address] [address] Performing Lab: [place] [phone] [place] [id number] CBC ERYTHROCYTE DISTRIBUTIO N WIDTH [RATIO] BY AUTOMATED COUNT 11.5 11.8 - 15.1 09/26 L Specimen Type: BLOOD Comment: Platelet count verified by repeat analysis, no clot found in specimen, platelet result consistent with previous result. Ordering Provider: RUPERT CLEMENTS Report Released Date/Time: September 10, 2023 04:14 PM Reporting Lab: [facility] [address] [place], [place] [phone] Performing Lab: [address] [place] [address] [facility] CBC LYMPHOCYTES /100 LEUKOCYTES IN BLOOD BY AUTOMATED COUNT 22 09/26 Specimen Type: BLOOD Comment: Platelet count verified by repeat analysis, no clot found in specimen, platelet result consistent with previous result. Ordering Provider: RUPERT CLEMENTS Report Released Date/Time: September 10, 2023 04:14 PM Reporting Lab: [facility] [address] [place] [address] Performing Lab: [facility] [address] [place] [phone] [facility] CBC MONOCYTES/1 00 LEUKOCYTES IN BLOOD BY AUTOMATED COUNT 8 09/26 Specimen Type: BLOOD Comment: Platelet count verified by repeat analysis, no clot found in specimen, platelet result consistent with previous result. Ordering Provider: RUPERT CLEMENTS Report Released Date/Time: September 10, 2023 04:14 PM Reporting Lab: [facility] [address] [place] [address] Performing Lab: [facility] [address] [place] [address] [facility] CBC NEUTROPHILS /100 LEUKOCYTES IN BLOOD BY AUTOMATED COUNT 67 09/26 Specimen Type: BLOOD Comment: Platelet count verified by repeat analysis, no clot found in specimen, platelet result consistent with previous result. Ordering Provider: RUPERT CLEMENTS Report Released Date/Time: September 10, 2023 04:14 PM Reporting Lab: [facility] [address] [place] [phone] Performing Lab: [facility] [address] [place] [phone] [facility] CBC EOSINOPHILS /100 LEUKOCYTES IN BLOOD BY AUTOMATED COUNT 3 09/26 Specimen Type: BLOOD Comment: Platelet count verified by repeat analysis, no clot found in specimen, platelet result consistent with previous result. Ordering Provider: RPUERT CLEMENTS Report Released Date/Time: September 10, 2023 04:14 PM Reporting Lab: [facility] [address] Performing Lab: [address] [phone] [place] [address] CBC BASOPHILS/1 00 LEUKOCYTES IN BLOOD BY AUTOMATED COUNT 0 09/26 Specimen Type: BLOOD Comment: Platelet count verified by repeat analysis, no clot found in specimen, platelet result consistent with previous result. Ordering Provider: RUPERT CLEMENTS Report Released Date/Time: September 10, 2023 04:14 PM Reporting Lab: [place] [phone] Performing Lab: [place] [phone] CBC LYMPHOCYTES [#/VOLUME] IN BLOOD BY AUTOMATED COUNT 1.47 10*3/u L 0.77 - 4.50 09/26 Specimen Type: BLOOD Comment: Platelet count verified by repeat analysis, no clot found in specimen, platelet result consistent with previous result. Ordering Provider: RUPERT CLEMENTS Report Released Date/Time: September 10, 2023 04:14 PM Reporting Lab: [place] [phone] Performing Lab: [place] [phone] CBC MONOCYTES [#/VOLUME] IN BLOOD BY AUTOMATED COUNT 0.53 10*3/u L 0.19 - 0.80 09/26 Specimen Type: BLOOD Comment: Platelet count verified by repeat analysis, no clot found in specimen, platelet result consistent with previous result. Ordering Provider: RUPERT CLEMENTS Report Released Date/Time: September 10, 2023 04:14 PM Reporting Lab: [address] [address] Performing Lab: [address] [phone] [place] [address] CBC NEUTROPHILS [#/VOLUME] IN BLOOD BY AUTOMATED COUNT 4.52 10*3/u L 2.10 - 8.00 09/26 Specimen Type: BLOOD Comment: Platelet count verified by repeat analysis, no clot found in specimen, platelet result consistent with previous result. Ordering Provider: RUPERT CLEMENTS Report Released Date/Time: September 10, 2023 04:14 PM Reporting Lab: [place] [address] [place] [address] Performing Lab: [address] CBC EOSINOPHILS [#/VOLUME] IN BLOOD BY AUTOMATED COUNT 0.20 10*3/u L 0.00 - 0.60 09/26 Specimen Type: BLOOD Comment: Platelet count verified by repeat analysis, no clot found in specimen, platelet result consistent with previous result. Ordering Provider: RUPERT CLEMENTS Report Released Date/Time: September 10, 2023 04:14 PM Reporting Lab: [place] [address] Performing Lab: [address] CBC BASOPHILS [#/VOLUME] IN BLOOD BY AUTOMATED COUNT 0.03 10*3/u L 0.00 - 0.20 09/26 Specimen Type: BLOOD Comment: Platelet count verified by repeat analysis, no clot found in specimen, platelet result consistent with previous result. Ordering Provider: RUPERT CLEMENTS Report Released Date/Time: September 10, 2023 04:14 PM Reporting Lab: [place] [address] Performing Lab: [address] CBC PLATELETS RETICULATED /100 PLATELETS IN BLOOD BY AUTOMATED COUNT 7.1 1.0 - 7.0 09/26 H Specimen Type: BLOOD Comment: Platelet count verified by repeat analysis, no clot found in specimen, platelet result consistent with previous result. Ordering Provider: RUPERT CLEMENTS Report Released Date/Time: September 10, 2023 04:14 PM Reporting Lab: [facility] [address] [facility] [address] Performing Lab: [facility] [address] [facility] [id number] [place] [address] COMPREHENS MEGHAN METABOLIC PANEL CREATININE [MASS/VOLUM E] IN SERUM OR PLASMA 1.32 mg/dL 0.7 - 1.3 09/26 H Specimen Type: PLASMA Comment: No hemolysis noted. Ordering Provider: RUPERT CLEMENTS Report Released Date/Time: September 10, 2023 04:14 PM Reporting Lab: [facility] [address] [place] [phone] Performing Lab: [phone] [place] [address] COMPREHENS MEGHAN METABOLIC PANEL UREA NITROGEN [MASS/VOLUM E] IN SERUM OR PLASMA 20.5 mg/dL 9.0 - 25.0 09/26 Specimen Type: PLASMA Comment: No hemolysis noted. Ordering Provider: RUPERT CLEMENTS Report Released Date/Time: September 10, 2023 04:14 PM Reporting Lab: [facility] [address] [place] [phone] Performing Lab: [address] [address] [facility] COMPREHENS MEGHAN METABOLIC PANEL GLUCOSE [MASS/VOLUM E] IN SERUM OR PLASMA 116 mg/dL 72 - 99 09/26 H Specimen Type: PLASMA Comment: No hemolysis noted. Ordering Provider: RUPERT CLEMENTS Report Released Date/Time: September 10, 2023 04:14 PM Reporting Lab: [facility] [phone] Performing Lab: [facility] [address] [place] [phone] [facility] COMPREHENS MEGHAN METABOLIC PANEL SODIUM [MOLES/VOLU ME] IN SERUM OR PLASMA 137 meq/L 136 - 145 09/26 Specimen Type: PLASMA Comment: No hemolysis noted. Ordering Provider: RUPERT CLEMENTS Report Released Date/Time: September 10, 2023 04:14 PM Reporting Lab: [facility] [address] [facility] [phone] Performing Lab: [facility] [address] [facility] [phone] [facility] COMPREHENS MEGHAN METABOLIC PANEL POTASSIUM [MOLES/VOLU ME] IN SERUM OR PLASMA 4.3 meq/L 3.5 - 5 09/26 Specimen Type: PLASMA Comment: No hemolysis noted. Ordering Provider: RUPERT CLEMENTS Report Released Date/Time: September 10, 2023 04:14 PM Reporting Lab: [facility] [address] [place] [phone] Performing Lab: [facility] [address] [place] [phone] [place] [address] COMPREHENS MEGHAN METABOLIC PANEL CHLORIDE [MOLES/VOLU ME] IN SERUM OR PLASMA 104 meq/L 98 - 107 09/26 Specimen Type: PLASMA Comment: No hemolysis noted. Ordering Provider: RUPERT CLEMENTS Report Released Date/Time: September 10, 2023 04:14 PM Reporting Lab: [facility] [address] [facility] [address] Performing Lab: [facility] [address] [place] [phone] [facility] COMPREHENS MEGHAN METABOLIC PANEL CARBON DIOXIDE, TOTAL [MOLES/VOLU ME] IN SERUM OR PLASMA 26 meq/L 22 - 31 09/26 Specimen Type: PLASMA Comment: No hemolysis noted. Ordering Provider: RUPERT CLEMENTS Report Released Date/Time: September 10, 2023 04:14 PM Reporting Lab: [facility] [address] [facility] [phone] Performing Lab: [facility] [address] [facility] [address] [facility] COMPREHENS MEGHAN METABOLIC PANEL CALCIUM [MASS/VOLUM E] IN SERUM OR PLASMA 9.9 mg/dL 8.4 - 10.4 09/26 Specimen Type: PLASMA Comment: No hemolysis noted. Ordering Provider: RUPERT CLEMENTS Report Released Date/Time: September 10, 2023 04:14 PM Reporting Lab: [facility] [phone] Performing Lab: [address] [phone] [facility] COMPREHENS MEGHAN METABOLIC PANEL PROTEIN [MASS/VOLUM E] IN SERUM OR PLASMA 7.1 g/dL 6 - 8.6 09/26 Specimen Type: PLASMA Comment: No hemolysis noted. Ordering Provider: RUPERT CLEMENTS Report Released Date/Time: September 10, 2023 04:14 PM Reporting Lab: [address] [address] Performing Lab: [address] [phone] [id number]|2024-09-03 16:56:00|2024-09-03 16:56:00|XMS_ITS|MAXINE RODRIGUEZ|External Medical Summaries|[id number]|" Clinical Care Summary Created on: September 03, 2024 David Castro : 1950 Sex: Male Author Name Blessing SHAH Ricardo Viv npal Address [id number] [place] [phone] Phone [phone] Organization [facility] Care Team Providers Care Taffy Candy Maker Name Role Phone Sophy Funk Unavailable [phone] Fortunato Anthony Unavailable [phone] Reason for Referral Not Available Allergies, adverse reactions, alerts Allergen Type Reaction Severity Status Onset Date Tramadol Allergy to substance (disorder) itch Unknown Active N/A History of medication use Medication Class Instructions Start Date End Date Atorvastatin Calcium 40 mg Tab TAKE 1 TABLET BY MOUTH EVERY DAY 2023-09-21 No Data Available buPROPion ER (SR) 150 mg Tab ER 12hr TAKE 1 TABLET BY MOUTH TWICE A DAY 2024-02-21 No Data Available Finasteride 5 mg Tab TAKE 1 TABLET BY MO UTH EVERY DAY 2024-04-07 No Data Available Isosorbide Mononitrate ER 30 mg Tab ER 24hr TAKE 1 TABLET BY MOUTH EVERY DAY 2023-12-17 No Data Available Lisinopril-hydroCHLOROthiazi de 02/01.5 mg Tab TAKE 1 TABLET BY MOUTH EVERY DAY 2024-02-21 No Data Available Montelukast Sodium 10 mg Tab TAKE 1 TABL ET BY MOUTH EVERY DAY 2023-09-21 No Data Available Terazosin 5 mg Cap TAKE 1 CAPSULE BY MO UTH EVERY DAY 2023-11-05 No Data Available Omeprazole 40 mg Cap delayed rel TAKE 1 CAPSULE BY MOUTH EVERY DAY 2023-09-21 No Data Available Aspirin EC 81 mg Tab delayed rel No Data Available 2024-08-01 No Data Available Daily Value Multivitamin Tab No Data Available 2024-07 No Data Available Problem List Problem Status Onset Date Resolved Date HLD (hyperlipidemia) Active 2024-07-31 N/A HTN (hypertension) Active 2024-07-31 N/A GERD (gastroesophageal reflux disease) Active 10 N/A Depression Active 2024-07-31 N/A BPH (benign prostatic hyperplasia) Active 4-10 N/A Tobacco dependence Active 2024-08-01 N/A Encounters Encounters Type Facility Date of Service Diagnosis/Co mplaint Home visit for evaluation and management of new patient requiring medically appropriate examination and low level of medical decision making. If using time, at least 30 minutes total time on encounter [facility] [place] 08/01/2024 Hyperlipidemia, unspecifiedEssential (primary) hypertensionGastro-esophageal reflux disease without esophagitisDepression, unspecifiedEnlarged prostate without lower urinary tract symptomsNicotine dependence, unspecified, uncomplicated Home visit for evaluation and management of new patient requiring medically appropriate examination and low level of medical decision making. If using time, at least 30 minutes total time on encounter [facility] [place] 08/01/2024 Essential (primary) hypertension Social History Sex Male History of Procedures Procedures Service Procedure code Service date Servicing provider Phone# Home visit for evaluation and management of new patient requiring medically appropriate examination and low level of medical decision making. If using time, at least 30 minutes total time on encounter [id number] 2024-08-01 No Data Available No Data Availa ble Advance care planning discussion documented in medical record [id number] 2024-08-01 No Data Available No Data Avai lable Functional Status Functional Category Effective Dates still drives 2024-08-01 lives at home with spouse 2024-08-01 Mental Status No Information Assessments Date of Service Assessments 2024-08-01 13:28:00 HLD (hyperlipidemia) HTN (hypertension)GERD (gastroesophageal reflux disease)DepressionBPH (benign prostatic hyperplasia)Tobacco dependence Plan of Care Date of Service Plans 2024-08-01 13:28:00 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 Bloodwork done twice a year.chronic; stablecontinue atorvastatin 40 mg once dailyheart healthy dietchroniccontinue lisinopril/Hctz 10/12.5mg once dailydiscussed caffeine intakemanaged by PCPchronic; stablecontinue omeprazole 40 mg once dailyavoid food triggerschronic; stablecontinue bupropion ER 150 mg BIDmanaged by PCPchronic; stablecontinue finasteride 5 mg once daily and terazosin 5 mg once dailymanaged by PCPchroniccontinue bupropion ER 150 BID for smoking cessation Health Concerns Date Concern 2024-08-01 This visit was provi ded through telemedicine including audio and visualPatient verbally provided informed consent for this visit to be conducted via telemedicineLocation of patient: [place] home in [facility] participating in telemedicine service and their role in the encounter: Sophy Funk PA-C; Dieter Will NP; 2024-08-01 Patient denies any i ssues or concerns at this time. "
--- OUTSIDE RECORDS SUMMARY | 2024-09-03 16:56 | XMS_ITS | Clinical Summary ---
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
--- OUTSIDE RECORDS SUMMARY | 2024-09-03 16:56 | XMS_ITS | Encounter Summary ---
Author Name [facility] [place] [facility] [place] [facility] [place] Address [address] [place] [address] Care Team Providers Care Accountant Tax Name Role Phone FLORENCE CLEMENTS Primary Care [...] Caban's Name Patient's Relationship to Policy Caban [id number] [facility] (WNR) MEDICARE ADVANTAGE [facility] (R) August 21, 2020 [id number] [phone] SCHAFER,KODI HARD PATIENT MEDICARE (WNR) MEDICARE (M) PART A Jan 21, 2014 PART A [id number] SCHAFER,KODI HARD PATIENT MEDICARE (WNR) MEDICARE (M) PART B Jan 21, 2014 PART B [id number] SCHAFER,KODI HARD PATIENT Selected Encounter This section includes the information on record at [place] for the Encounter. Date/Time Encounter Type Encounter Description Reason Provider Source Jan 04, 2024 10:30 AM OFFICE O/P EST MOD 30 MIN PRIMARY CARE/MEDICINE ICD-10-CM F43.12 Post-traumatic stress disorder, chronic ROLANDO RAMSEY [place] Encounter Template Text not used by [place] Assessments - Encounter Diagnoses This section includes the primary and secondary diagnoses documented for the Encounter. Date/Time Primary/Secondary Diagnosis Diagnosis Name Provider Source Jan 04, 2024 04:45 PM PRIMARY Post-traumatic stress disorder, chronic CLEMENTS,FLORENCE Morataya [facility] Jan 04, 2024 04:45 PM SECONDARY Athscl heart disease of [place] coronary artery w/o ang pctrs [facility] Jan 04, 2024 04:45 PM SECONDARY Benign prostatic hyperplasia without lower urinry tract symp CLEMENTS,FLORENCE Rafia [facility] Jan 04, 2024 04:45 PM SECONDARY Essential (primary) hypertension [facility] Jan 04, 2024 04:45 PM SECONDARY Mixed hyperlipidemia [facility] Jan 04, 2024 04:45 PM SECONDARY Occlusion and stenosis of unspecified carotid artery [facility] Jan 04, 2024 04:45 PM SECONDARY Peripheral vascular disease, unspecified CLEMENTS,[facility] Plan of Treatment: Future Appointments (+ 6 months) and Future Tests (+/- 45 days) The Plan of Treatment section includes future care activities for the patient [facility] [place] [facility] This section includes future appointments and future orders which are active, pending or scheduled. Future Appointments This section includes appointments that were scheduled to occur 6 months from the date of the Encounter, up to a maximum of 20 appointments. The data comes from all [place] treatment facilities. Appointment Date/Time Appointment Type Appointme nt Facility Name Jan 29, 2024 08:00 AM AMBULATORY [facility] Jan 29, 2024 09:00 AM AMBUL[facility]ORY - MEDICINE [facility] Feb 15, 2024 11:00 AM AMBULATORY - SURGERY [facility] Feb 20, 2024 11:00 AM AMBULATORY - MEDICINE [facility] Mar 05, 2024 09:30 AM AMBULATORY - NONE . [facility] Mar 31, 2024 10:00 AM AMBULATORY - MEDICINE [facility] Apr 01, 2024 09:00 AM AMBULATORY - MEDICINE [facility] May 19, 2024 11:00 AM AMBULATORY - NONE [facility] May 21, 2024 10:00 AM AMBULATORY - PSYCHIATRY [facility] Jun 18, 2024 12:30 PM AMBULATORY - NONE [facility] Aguirre [facility] Active, Pending, and Scheduled Orders This section includes a listing of several types of active, pending, and scheduled orders, including clinic medications orders, diagnostic test orders, procedure orders and consult orders; where the start date of the order is 45 days before the date of the Encounter or 45 days after the date of theEncounter. The data comes from all [place] treatment facilities. Test Date/Time Test Type Test Details Facility Name Jan 14, 2024 12:00 AM Laboratory - Chemi stry Order OCCULT BLOOD FIT X1 SCREEN (MFP ONLY) STOOL FECES SP [facility] Vital Signs: All taken on the encounter date This section contains inpatient and outpatient Vital Signs collected on the date of the Encounter. Date/Time Temperature Pulse Blood Pressure Respiratory Rate SP02 Pain Height Weight Body Mass Index Source Jan 04, 2024 10:35 AM 98.6 59 133/77 18 98 0 73 215 28 [facility] Social History: Smoking Status (Most current) and Tobacco Use (All prior to encounter date) This section includes the most current, and the historical, smoking and tobacco- related health factors from the [place] facility where the Encounter took place. Current Smoking Status This section includes the most current smoking, or tobacco-related health factor, from the [place] facility where the Encounter took place. Date/Time Current Smoking Status Comment Facil ity Apr 04, 2023 01:30 PM VA-TOBACCO USER SOME DAYS [facility] Tobacco Use History This section includes a history of the smoking, or tobacco-related health factors, that were collected on or before the date of the Encounter. The data comes from the [place] facility where the Encounter took place. 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 Date/Time Encounter Note(s) Provider Source Feb 11, 2024 04:34 PM PHARMACY OUTPATIEN T NOTE: LOCAL TITLE: OUTSIDE PRESCRIPTIONS ST STANDARD TITLE: PHARMACY OUTPATIENT NOTE DATE OF NOTE: FEB 11, 2024@16:34 ENTRY DATE: FEB 11, 2024@16:34:59 AUTHOR: FLORENCE CLEMENTS COSIGNER: URGENCY: STATUS: COMPLETED [facility] [address] [place] [address] ext [phone] MARY LOU #: [id number] Date: FEB 11, 2024 Patient: CRISTOPHER SCHAFER Address: [address] [place] [address] [place] ID: [id number] 's Date of : Jan BIN: [id number] Person Code: [id number] PCN: [id number] RX Group: [id number] For questions, please call the [facility] Help Desk at . *Hours of Operation: 24 Hours a Day / 7 Days a Week / 365 Days a Year Medication: Atorvastatin 40 mg Qty: 90 Sig: take 1 po daily Refills: 3 Medication: celecoxib 200 mg Qty: 180 Sig: take 1 po BID Refills: 3 Medication: escitalopram 5 mg Qty: 90 Sig: take 1 po daily Refills: 3 Medication: finasteride 5 mg Qty: 90 Sig: take 1 po daily Refills: 3 Medication: lisinopril 10 mg/hydrochlorothiazide 12.5 mg Qty: 90 Sig: take 1 po daily Refills: 3 Medication: montelukast 10 mg Qty: 90 Sig: take 1 po daily Refills: 3 Medication: omeprazole 40 mg Qty: 90 Sig: take 1 po daily Refills: 3 Medication: terazosin 5 mg Qty: 90 Sig: take 1 po daily Refills: 3 Medication : isosorbide mononitrate ER 24 hrs 30 mg Qty : 90 Sig: take 1 po daily Refills : 3 ___ Substitution Permitted Dispense As Written /es/ FLORENCE CLEMENTS MD Signed: 02/11/2024 16:40 FLORENCE CLEMENTS [facility] Jan 04, 2024 10:48 AM PRIMARY CARE NOTE: LOCAL TITLE: PRIMARY CARE PROVIDER ESTABLISHED VISIT ST STANDARD TITLE: PRIMARY CARE NOTE DATE OF NOTE: JAN 04, 2024@10:48 ENTRY DATE: JAN 04, 2024@10:48:24 AUTHOR: FLORENCE CLEMENTS EXP COSIGNER: URGENCY: STATUS: COMPLETED ESTABLISHED PATIENT CBGJ-ST-RDHI: REASON FOR VISIT/CHIEF COMPLAINT: f/u HTN, HLP, PVD, BPH, hx of hep C, anxiety, tobacco dependence, HPI:jail smoker , not ready to quit. reports increasing sob with exertion. occ wheezing. declines smoking cessation. agrees to PFT and LDCT. will RX albuterol inh prn for SOB. occassional cough with whitish mucous production. no fever nor chills. Left knee pain s/p TKR , better pain controlled after surgery. .He denies cp , sob, palpitations. Reports stable mood, denies SI/HI. NonVA Providers: NON [place] PCP- Dr Hetal Tavares SOURCE(S) OF HISTORY: Patient PAST MEDICAL HISTORY: 1) Essential hypertension 2) Mixed hyperlipidemia 3) Peripheral vascular disease 4) Benign prostatic hyperplasia 5) CAD - Coronary Artery Disease ([facility] [id number]) 6) Hepatitis C comment: treated in 1999, NEG since 7) Anxiety ([facility] [id number]) 8) Osteoarthritis of left knee joint 9) History of arthroplasty of right knee 10) History of arthroplasty of left knee 11) Chronic Post-Traumatic Stress Disorder ([facility] [id number]) 12) Exposure to potentially hazardous substance ([facility] [id number]) comment: Entered automatically through RAE Problem List documentation prog 13) Carotid Artery Stenosis ([facility] [id number]) 14) Aortic Stenosis, Non-Rheumatic ([facility] [id number]) FAMILY HISTORY: No new updates. SOCIAL HISTORY: NICOTINE: Nicotine User: Yes ILLICIT DRUGS: No ETOH: denies ALLERGIES: TRAMADOL ALLERGY REVIEW: Allergy list reviewed and remains current. MEDICATION RECONCILIATION: I have reviewed the patient's medication list with the patient and/or his/her care-industrial ecologist. Handwritten corrections, additions and/or deletions were made to the list. Corrected Outpatient Medication List was provided to the patient/caregiver. Active Outpatient Medications (including Supplies): Active Outpatient Medications Status 1) NORTRIPTYLINE HCL 10MG CAP TAKE ONE CAPSULE BY MOUTH ACTIVE AT BEDTIME INSOMNIA Active Non-VA Medications Status 1) Non-VA ASPIRIN [...] MOUTH ACTIVE ONCE A DAY 7) Non-VA FAMOTIDINE 20MG TAB 20MG BY MOUTH TWICE A DAY ACTIVE 8) Non-VA FINASTERIDE 5MG TAB 5MG BY MOUTH ONCE A DAY ACTIVE 9) Non-VA HCTZ 12.5/LISINOPRIL 10MG TAB 1 TABLET BY ACTIVE MOUTH EVERY MORNING 10) Non-VA ISOSORBIDE MONONITRATE 30MG SA TAB 30MG BY ACTIVE MOUTH ONCE A DAY 11) Non-VA MONTELUKAST NA (SINGULAIR) 10MG TAB [...] 500MG BY MOUTH ACTIVE TWICE DAILY NEEDED 17 Total Medications REVIEW OF SYSTEMS: General: Normal No Fevers, Chills, Weight Loss, Weight Gain, Recent Illness. Ears, Nose, Mouth, Throat: Normal No new loss of hearing or tinnitus, no Dental issue, Difficulty swallowing, Vertigo. Eye: Normal No Trauma, Cataracts, Glaucoma, Blurred vision Cardiovascular: Normal No Chest pain, Dizziness, Palpitations. PHYSICAL EXAMINATION: General appearance: VITALS (most recent, as listed in the electronic record): B/P: 133/77 (01/04/2024 10:35) Pulse: 59 (01/04/2024 10:35) Temperature: 98.6 F [37.0 C] (01/04/2024 10:35) Weight: 215 lb [97.52 kg] (01/04/2024 10:35) Height: 73 in [185.4 cm] (01/04/2024 10:35) BMI: 28.4 Pain: 0 (01/04/2024 10:35) (0-10 scale) General: pleasant, cooperative, well-developed, well-nourished, appropriately dressed and groomed [place]; in no acute distress. Ears, Nose, Mouth, Throat:NC/AT,MMM, no thyromegaly Eye:PERRL Cardiovascular:RRR, murmur Respiratory:Clear to auscultation bilaterally. No accessory muscle use. Respirations even and non-labored ABD/GI:soft, non-tender. BS + x 4. /METHODS SPECIALIST ENGINEER: Deferred Lymph: No lymphadenopathy Extremities:No pedal edema. Psych:Affect appropriate. Neuro: Oriented x3. Gait steady with normal stride. Hematology: Color good. No pallor. No ecchymosis or petechiae. Skin:intact ASSESSMENT/PLAN: # Dyspnea r/o copd. proceed with pft and LDCT . try eedn rescue inhaler. smoking cessation counseling.no quit date set. #HTN stable on current med ,cpm. #HLD, cont. 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 LFTS WNL. #PAD-left lower leg with hx of angioplasties, cont asa, advised smoking cessation, pt trying to wean off slowly #BPH on med, stable # left knee pain 2/2 DJD s/p TKR, pain imprived. orthgo f.u #. anxiety/PTSD - mood stable. denies SI/HI. monitor. cont counseling . # CAD stable. com. cardio recs. monitor RETURN TO CLINIC:9-12 mo Return to Clinic order placed SUMMARY STATEMENT: Plan of care has been discussed with including expected therapeutic benefits and potential side effects of prescribed medication and treatments. [place] verbalizes understanding and is in agreement with the plan of care. Patient was instructed to keep all scheduled appointments and contact deputy brand inspector for any additional problems. PREVENTION & SCREENING: ALCOHOL: Clinical Reminder not due now or within a month BLOOD PRESSURE: Clinical Reminder not due now or within a month HEMOGLOBIN A1C: Clinical Reminder not due now or within a month Initial Lung Cancer Screen (Provider): No clinical exclusions, patient is a current candidate for the lung cancer screening program. Patient agrees to lung cancer screening. Lung cancer screening information provided and low dose CT will be ordered. Patient currently uses cigarettes and does not want assistance with smoking cessation at this time. /es/ FLORENCE CLEMENTS MD Signed: 01/15/2024 23:19 [facility] Jan 04, 2024 10:36 AM NURSING NOTE: LOCAL TITLE: V15 PACT FACE TO FACE NOTE STL STANDARD TITLE: NURSING NOTE DATE OF NOTE: JAN 04, 2024@10:36 ENTRY DATE: JAN 04, 2024@10:36:33 AUTHOR: AD RAMSEY COSIGNER: URGENCY: STATUS: COMPLETED Nurse Visit: Patient Identifiers : Full Name Date of Reason for visit: routinue Mode of Arrival: Ambulatory Allergy Review: TRAMADOL Allergy list reviewed and remains current. Recent Vital Signs: Temperature: 98.6 F [37.0 C] (01/04/2024 10:35) Pulse: 59 (01/04/2024 10:35) Respiration: 18 (01/04/2024 10:35) B/P: 133/77 (01/04/2024 10:35) Pain: 0 (01/04/2024 10:35) Wt: 215 lb [97.52 kg] (01/04/2024 10:35) Ht: 73 in [185.4 cm] (01/04/2024 10:35) BMI: 28.4 POX: 98% (01/04/2024 10:35) Contact provided Primary Care phone number and encouraged to call if any questions or concerns. Review that after hours nurse line [phone] and emergency room are available 13/11 for patient use. Cigarette Pack Year History: The patient smokes cigarettes. How many years have you smoked cigarettes? # of years: 50 Average number of packs/day over the entire time patient smoked: Packs/day: 0.5 Td / Tdap Immunization: The patient may have been vaccinated in the past but written documentation of vaccination is not available today. Patient instructed to obtain a written record of the prior vaccine and bring it to the next appointment. Homelessness/Food Insecurity Screen: In the past 2 months, have you been living in stable housing that you own, rent, or stay in as part of a household? Yes - Living in stable housing. Are you worried or concerned that in the next 2 months you may NOT have stable housing that you own, rent, or stay in as part of a household? No - Not worried about housing near future The [place] reports the following: Within the past 12 months, you worried whether your food would run out before you got money to buy more. Never true Within the past 12 months, the food you bought just didn't last and you didn't have money to get more. Never true /es/ AD RAMSEY, RN, BSN Registered Nurse Signed: 01/04/2024 10:48 AD RAMSEY [facility]
--- OUTSIDE RECORDS SUMMARY | 2024-09-03 16:56 | XMS_ITS | Encounter Summary ---
Author Name [facility] Organization [facility] [place] Address [address] [place] [address] Care Team Providers Care Trimmer Sawyer Name Role Phone FLORENCE CLEMENTS Primary Care [...] Caban's Name Patient's Relationship to Policy Caban UsingMiles [facility] (WNR) MEDICARE ADVANTAGE [facility] ([facility]) August 21, 2020 [id number] [phone] SCHAFER,KODI HARD PATIENT MEDICARE (WNR) MEDICARE (M) PART A Jan 21, 2014 PART A [id number] [phone] SCHAFER,KODI HARD PATIENT MEDICARE (WNR) MEDICARE (M) PART B Jan 21, 2014 PART B [id number] SCHAFER,KODI HARD PATIENT Selected Encounter This section includes the information on record at [place] for the Encounter. Date/Time Encounter Type Encounter Description Reason Provider Source Mar 31, 2024 10:00 AM OFFICE O/P EST MOD 30 MIN CARDIOLOGY ICD-10-CM I25.10 [facility] [place] coronary artery w/o ang pctJAMARI Sorto [facility] Encounter Template Text not used by [facility] Assessments - Encounter Diagnoses This section includes the primary and secondary diagnoses documented for the Encounter. Date/Time Primary/Secondary Diagnosis Diagnosis Name Provider Source Apr 17, 2024 11:32 AM PRIMARY [facility] heart disease [place] coronary artery w/o ang pctrs YOSELYNDANIEL [facility] Apr 17, 2024 11:32 AM SECONDARY Chronic obstructive pulmonary disease, unspecified DANIEL TOPETE [facility] Apr 17, 2024 11:32 AM SECONDARY Essential (primary) hypertension DANIEL TOPETE [facility] Apr 17, 2024 11:32 AM SECONDARY Mixed hyperlipidemia DANIEL TOPETE [facility] Apr 17, 2024 11:32 AM SECONDARY Nonrheumatic aortic (valve) stenosis DANIEL TOPETE [facility] Plan of Treatment: Future Appointments (+ 6 months) and Future Tests (+/- 45 days) The Plan of Treatment section includes future care activities for the [facility] This section includes future appointments and future orders which are active, pending or scheduled. Future Appointments This section includes appointments that were scheduled to occur 6 months from the date of the Encounter, up to a maximum of 20 appointments. The data comes from all [place] treatment facilities. Appointment Date/Time Appointment Type Appointme nt Facility Name Apr 01, 2024 09:00 AM AMBULATORY - MEDICINE [facility] May 19, 2024 11:00 AM AMBULATORY - NONE [facility] May 21, 2024 10:00 AM AMBULATORY - PSYCHIATRY [facility] Jun 18, 2024 12:30 PM AMBULATORY - NONE [facility] Jul 09, 2024 02:30 PM AMBULATORY - PSYCHIATRY [facility] Jul 30, 2024 02:00 PM AMBULATORY - MEDICINE [facility] Aug 13, 2024 08:00 AM AMBULATORY - NONE . [facility] Aug 13, 2024 11:00 AM AMBULATORY - NONE . [facility] August 21, 2024 10:00 AM AMBULATORY - MEDICINE [facility] Sep 24, 2024 01:00 PM AMBULATORY - PSYCHIATRY [facility] Vital Signs: All taken on the encounter date This section contains inpatient and outpatient Vital Signs collected on the date of the Encounter. Date/Time Temperature Pulse Blood Pressure Respiratory Rate SP02 Pain Height Weight Body Mass Index Source Mar 31, 2024 09:48 AM 98.1 63 110/65 16 98 0 217.7 29 [facility] Social History: Smoking Status (Most current) and Tobacco Use (All prior to encounter date) This section includes the most current, and the historical, smoking and tobacco- related health factors from the [place] facility where the Encounter took place. Current Smoking Status This section includes the most current smoking, or tobacco-related health factor, from the [place] facility where the Encounter took place. Date/Time Current Smoking Status Comment Facil ity Jun 23, 2022 07:12 PM VA-VAAES TOBACCO U SE CURRENT NRT DECLINE [facility] Tobacco Use History This section includes a history of the smoking, or tobacco-related health factors, that were collected on or before the date of the Encounter. The data comes from the [place] facility where the Encounter took place. Date/Time Smoking Status/Tobacco Use Comment F acility Mar 30, 2022 03:42 PM VA-TOBACCO DOESNT USE WI 30 MIN WAKEUP [facility] Mar 30, 2022 03:42 PM VA-TOBACCO USE 30 YEARS OR MORE [facility] Mar 30, 2022 03:42 PM VA-TOBACCO USE ADVICE [facility] Mar 30, 2022 03:42 PM VA-TOBACCO USE AUTO DAMAGE INSURANCE APPRAISER NO [facility] Mar 30, 2022 03:42 PM VA-TOBACCO USE MED NO [facility] Mar 30, 2022 03:42 PM VA-TOBACCO USER EVERY DAY [facility] Mar 05, 2019 02:55 PM VA-TOBACCO USE 30 YEARS OR MORE [facility] Mar 05, 2019 02:55 PM VA-TOBACCO USE ADVICE [facility] Mar 05, 2019 02:55 PM VA-TOBACCO USE AUTO DAMAGE INSURANCE APPRAISER NO [facility] Mar 05, 2019 02:55 PM VA-TOBACCO USE MED NO [facility] Mar 05, 2019 02:55 PM VA-TOBACCO USE WI 30 MIN OF WAKEUP [facility] Mar 05, 2019 02:55 PM VA-TOBACCO USER EVERY DAY [facility] Mar 26, 2015 11:28 AM CURRENT TOBACCO USER [facility] Mar 26, 2015 11:28 AM TOBACCO MEDS OFFER ED BUT DECLINED [facility] Radiology Reports: +/- 30 days of the [...] the Encounter. The data comes from all [place] treatment facilities. Date/Time Radiology Report Provider Source Mar 05, 2024 09:02 AM LDCT LUNG CANCER SCREENING: CRISTOPHER SCHAFER [id number] -[id number] M Exm Date: MAR 05, 2024@09:02 Req Phys: KEN PEREZ Pat Loc: [facility] DELBERT HUSTON ([facility] L Img Loc: -CT IMAGING Service: [address] [address] (Case [id number] COMPLETE) LDCT LUNG CANCER SCREENING (CT Detailed) CPT:29901 Reason for Study: Initial LDCT for LCS Clinical History: Responsible Attending: Latasha Perez NP Attending Contact Number: [phone] Resident Contact Number: Lolo has another appt scheduled at 02/19. Please [...] 05, 2024 Date Verified: MAR 05, 2024 Radio Station Audio Engineer E-Sig:/ES/GERDA MCCLELLAN MD Report: EXAM: LDCT LUNG CANCER SCREENING COMPARISON: None PROTOCOL: Screening protocol, low dose, non-contrast CT chest was performed at the local [place] facility in accordance with Lung-Rads 2021. Additional [...] Primary Interpreting Staff: GERDA MCCLELLAN MD, Radiologist (Radio Station Audio Engineer) /GERDA MARCUM [facility] Encounter Notes: All associated encounter notes This section contains the clinical notes associated to the Encounter. Date/Time Encounter Note(s) Provider Source Mar 31, 2024 10:23 AM CARDIOLOGY OUTPATI ENT NOTE: LOCAL TITLE: CARDIOLOGY OUTPATIENT FOLLOW UP ST STANDARD TITLE: CARDIOLOGY OUTPATIENT NOTE DATE OF NOTE: MAR 31, 2024@10:23 ENTRY DATE: MAR 31, 2024@10:24:05 AUTHOR: JAMIE TOPETE EXP COSIGNER: JAMARI CABRERA URGENCY: STATUS: COMPLETED CARDIOLOGY OUTPATIENT FOLLOW UP ST[facility] Has ADDENDA Cardiology Follow-up Clinic Visit Note Reason for visit: Follow up Chart was reviewed and history obtained from the patient. History of present illness: This is 74 year old MALE with PMH HTN, HLD, PVD, BPH, hx of hep C, anxiety, tobacco dependence, COPD, presents for follow up. Reports he has continued shortness of breath which is overall stable. He reports occasional lightheadedness resulting from positional changes. Denies chest pain but takes isosorbide mononitrate 30mg daily. Does not know if chest pains occur when he does not take this medication. Stress test was canceled prior to TTE due to concern for . TTE showing mild aortic stenosis but overall reassuring. PFTs completed showing evidence of air trapping and moderate obstructive abnormality. Patient continues to smoke 5 cigarettes per day. CARD HX/EVAL EKG Sinus bradycardia with PVC Echo 10/19/2023 1. Normal biventricular systolic function. 2. Mild diastolic dysfunction (grade I) with normal left atrial filling pressure. 3. Normal chamber sizes. 4. The inferior vena cava is normal in size with normal inspiratory variation, which is consistent with estimated right atrial pressure of 3 mmHg. 5. Pulmonary pressures are within normal limits. 6. Mild aortic stenosis. 7. No other hemodynamically significant valvular abnormality MPI lexiscan stress test 04/2022 was non ischemic and EF is 66%. Family history: No premature coronary disease or sudden Social history: TOBACCO USE - 1/2 PPD ALCOHOL USE - No COCCAINE - No Other recreation drugs - No All patients are counseled on the risks of smoking at every visit including patients with no history of smoking in order to dissuade them from starting the use of tobacco products; former smokers to minimize recidivism of nicotine dependence; and current smokers in an effort to help them cease the use of nicotine products. Where relevant [age between 50-60 years and history of smoking], we and/or the PCP will obtain an abdominal ultrasound to screen for the possibility of an abdominal aortic aneurysm and ABIs to screen for occult PAD. When completed, the results will be found in [facility]. Past Medical History: 1) Essential hypertension 2) Mixed hyperlipidemia 3) Peripheral vascular disease 4) Benign prostatic hyperplasia 5) CAD - Coronary Artery Disease ([facility] [id number]) 6) Hepatitis C 7) Anxiety ([facility] [id number]) 8) Osteoarthritis of left knee joint 9) History of arthroplasty of right knee 10) History of arthroplasty of left knee 11) Chronic Post-Traumatic Stress Disorder ([facility] [id number]) 12) Exposure to potentially hazardous substance ([facility] [id number]) 13) Carotid Artery Stenosis ([facility] [id number]) 14) Aortic Stenosis, Non-Rheumatic ([facility] [id number]) 15) COPD - Chronic Obstructive Pulmonary Disease ([facility] [id number]) Current Medication: Active Outpatient Medications (including Supplies): Active Outpatient Medications Status 1) ALBUTEROL 90MCG (CFC-F) 200D ORAL INHL INHALE 2 PUFFS ACTIVE BY ORAL INHALATION FOUR TIMES A DAY NEEDED SHAKE WELL. RINSE MOUTHPIECE FREQUENTLY TO PREVENT CLOGGING. 2) NORTRIPTYLINE HCL 10MG CAP TAKE ONE CAPSULE BY MOUTH ACTIVE AT BEDTIME INSOMNIA 3) OLODATEROL 2.5MCG/ACTUAT 60D ORAL INHL INHALE 2 [...] 500MG BY MOUTH ACTIVE TWICE DAILY NEEDED 19 Total Medications All medications were reviewed with patient. # Medication Reconciliation: - All cardiac medications were reconciled during the visit. - All patients with an EF </= 40% are considered for Jonh inhibitors or ARBs except when contraindicated due to intolerance/allergy, hypotension, or renal disease. Documentation is found in the historical record if not repeated in this note. - All patients with an EF </= 40% are considered for beta blockers and aspirin unless contraindicated due to intolerance/allergy, hypotension, bradycardia, or bleeding risk. Documentation is found in the historical record if not repeated in this note. - Anticoagulation therapy was discussed with all patients in the setting of atrial flutter/fibrillation and held in cases where the complications of bleeding (e.g., fall risk) outweighs the risk of stroke. All patients on anticoagulation medications are counseled on bleeding risks and the warning signs of a stroke or TIA. - Except where mentioned or restricted, the PCP may renew the cardiac medications. - Other listed profile meds will continue as directed by the PCP (primary provider). Allergy: TRAMADOL Review of systems: per HPI Physical Exam: General: Well developed, well nourished, Patient is in no acute distress HEENT: No oral mucosa cyanosis, mucous membranes moist, anicteric, no erythema of conjunctivae, No xanthelasma, normocephalic Neck: No JVD Respiratory: Mild wheezing bilaterally Cardiovascular: RRR, loud systolic murmur Pulses: symmetric pulses bilat Abdomen: soft, no tender Extremities: warm, dry, No clubbing or cyanosis, no peripheral edema, no varicosities. Skin: No rash Neurological/Psychiatric: Alert and orient to time, place and person. Normal affect and mood, grossly moving all 4 extremities, no tremors, slow gait, walked in unassisted Diagnostic data: HGB A1C (last):HGA1C 5.6 % 06/08/2022 11:24 LDL(DIRECT):____ HDL: 50 mg/dL (09/27/23 09:35) CHOLESTEROL 129 mg/dL 09/27/2023 09:35 CALCULATED LDL 69 mg/dL 09/27/2023 09:35 Triglycerides:48 mg/dL (09/27/23 09:35) WBC:6.8 10*3/uL (09/27/23 09:35) RBC:4.16 10*6/uL (09/27/23 09:35) HGB 13.7 g/dL 09/27/2023 09:35 HCT:41.5 % (09/27/23 09:35) PLT 118 L 10*3/uL 09/27/2023 09:35 Chem 7 GLUCOSE 116 H mg/dL 09/27/2023 09:35 BUN: 20.5 mg/dL (09/27/23 09:35) CREATININE 1.32 H mg/dL 09/27/2023 09:35 SODIUM 137 mEq/L 09/27/2023 09:35 POTASSIUM 4.3 mEq/L 09/27/2023 09:35 CHLORIDE 104 mEq/L (09/27/23 09:35) CARBON DIOXIDE 26 mEq/L 09/27/2023 09:35 # DIAGNOSTIC TESTING AND LABORATORY DATA: Pertinent labs and diagnostic tests (both normal and abnormal) are included above and were reviewed and discussed with the patient within 7-days of the test and during this visit. A/P #Shortness of Breath #COPD #C/f coronary artery disease Patient has risk factors for CAD however TTE with minimal abnormality and normal lexiscan overall reassuring for non-cardiac origin of SOB. Patient has moderate obstructive defect on PFTs suggesting COPD as potential cause of symptoms. He denies history of chest pain but takes imdur 30 without interruption. He is having orthostatic symptoms -Stop isorsorbide mononitrate due to orthostasis. Advised patient to restart and call cardiology office if chest pain recurs -Continue hctz 12.5/lisinopril 10 combo pill, asa 81, atorva 80 (non-VA meds) -No further ischemic workup recommended at this time -Counseled about tobacco cessation and prescribed nicotine replacement gum All questions were answered, and the patient expressed understanding of information, labs, meds and agreement with the current plan of care. Thank you for allowing me to participate in this patient's care. Please feel free to contact me if you have any questions. RTC: 12 months Time expended on this encounter: 45 minutes # HEALTH PROMOTION/HEALTH MAINTENANCE & EDUCATION DISEASE: Discussed treatment options & counseled on exacerbating factors - DISEASE: Coordinated care; discussed treatment options, & counseled on exacerbating factors. - Encouraged participation in regular exercise program 3-5 days/week. - Maximize risk factor reduction & lifestyle modifications i.e. BP <130/80 and LDL goal <70. - Discussed at length about lifestyle modifications in regard to diet, exercise, and medication compliance. - Assessed smoking habits and whether actively using tobacco products or a past history of nicotine dependence, smoking cessation strategies were reinforced. - In patients with a history of CHF, JONH/ARB use is considered and held when contraindications such as allergies, renal function preclude use. If not mentioned in the above note, these assessments are detailed in prior cardiology notes. /ivy/ Jamie Topete MD/PhD Metal Numerical Tool Programmer Signed: 03/31/2024 14:51 /ivy/ Jamari Cabrera MD Staff Physician- Cardiology Cosigned: 03/31/2024 19:09 03/31/2024 ADDENDUM STATUS: COMPLETED I have seen and examined the patient with Dr. Topete; and read and agree with Dr. Topete's summary of the patient's history and the review and interpretation of the pertinent diagnostic studies. I have also read and agree with their assessment and recommendations which we developed together. I discussed the plan of care with the patient who understands and agrees. /ivy/ Jamari Cabrera MD Staff Physician- Cardiology Signed: 03/31/2024 19:09 JAMIE TOPETE [facility]
--- OUTSIDE RECORDS SUMMARY | 2024-09-03 16:56 | XMS_ITS | Encounter Summary ---
Author Name [facility] (MD[facility] Organization [facility] (MD) Address [address] [place] [address] Care Team Providers Care Category Analyst Name Role Phone GUNJAN CLEMENTSIDA Primary Care Provider Unavailabl e Insurance Providers: [...] Caban's Name Patient's Relationship to Policy Caban [facility] (WNR) MEDICARE ADVANTAGE [facility] (R) August 21, 2020 [id number] [phone] SCHAFER,KODI HARD PATIENT MEDICARE (WNR) MEDICARE (M) PART B Jan 21, 2014 PART B [id number] [phone] SCHAFER,KODI HARD PATIENT MEDICARE (WNR) MEDICARE (M) PART A Jan 21, 2014 PART A [id number] SCHAFER,KODI HARD PATIENT Selected Encounter This section includes the information on record at MD for the Encounter. Date/Time Encounter Type Encounter Description Reason Provider Source Jul 30, 2024 02:00 PM OFFICE O/P EST MOD 30 MIN PRIMARY CARE/MEDICINE ICD-10-CM F43.12 Post-traumatic stress disorder, chronic CLEMENTS,FLORENCE A IHE Encounter Template Text not used by MD Assessments - Encounter Diagnoses This section includes the primary and secondary diagnoses documented for the Encounter. Date/Time Primary/Secondary Diagnosis Diagnosis Name Provider Source Jul 30, 2024 02:56 PM PRIMARY Post-traumatic stress disorder, chronic CLEMENTS,FLORENCE A Ricardo [facility] Plan of Treatment: Future Appointments (+ 6 months) and Future Tests (+/- 45 days) The Plan of Treatment section includes future care activities for the patient from all MD treatmentfacilities. This section includes future appointments and future orders which are active, pending or scheduled. Future Appointments This section includes appointments that were scheduled to occur 6 months from the date of the Encounter, up to a maximum of 20 appointments. The data comes from all MD treatment [facility]. Appointment Date/Time Appointment Type Appointme nt Facility Name Aug 13, 2024 08:00 AM AMBULATORY - NONE [facility] Aug 13, 2024 11:00 AM AMBULATORY NONE [facility] August 21, 2024 10:00 AM AMBULATORY - MEDICINE [facility] Sep 24, 2024 01:00 PM AMBULATORY - PSYCHIATRY [facility] Oct 08, 2024 08:30 AM AMBULATORY - PSYCHIATRY [facility] Oct 10, 2024 03:30 PM AMBULATORY - NONE [facility] Nov 12, 2024 11:00 AM AMBULATORY - MEDICINE [facility] Dec 03, 2024 11:[address] [facility] Active, Pending, and Scheduled Orders This section includes a listing of several types of active, pending, and scheduled orders, including clinic medications orders, diagnostic test orders, procedure orders and consult orders; where the start date of the order is 45 days before the date of the Encounter or 45 days after the date of theEncounter. The data comes from all [facility]. Test Date/Time Test Type Test Details Facility Name Jul 09, 2024 12:00 AM Laboratory - Chemi stry Order TSH W/ REFLEX FT4 (STL) GREEN LI-HEP PLASMA SP [facility] Jul 09, 2024 12:00 AM Laboratory - Chemi stry Order FOLATE (STL-MA) GOLD/RED SST SERUM SP [facility] Jul 09, 2024 12:00 AM Laboratory - Chemi stry Order B12 GOLD/RED SST SERUM SP [facility] Jul 09, 2024 12:00 AM Laboratory - Chemi stry Order RAPID PLASMA REAGIN (RPR) GOLD/RED SST SERUM SP [facility] Jul 09, 2024 12:00 AM Laboratory - Chemi stry Order VITAMIN D, 25-HYDROXY GOLD/RED SST SERUM SP [facility] Jul 30, 2024 12:00 AM Laboratory - Chemi stry Order HEPATIC FUNTION PANEL (STL) GREEN LI/HEP BLD/PLAS PLASMA SP [facility] Jul 30, 2024 12:00 AM Laboratory - Chemi stry Order LIPID PANEL (STL) GREEN LI/HEP BLD/PLAS PLASMA SP ONCE [facility] Jul 30, 2024 12:00 AM Laboratory - Chemi stry Order HGA1C BLOOD SP [facility] Jul 30, 2024 12:00 AM Laboratory - Chemi stry Order BASIC METABOLIC PANEL GREEN LI/HEP BLD/PLAS PLASMA SP 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 Date/Time Temperature Pulse Blood Pressure Respiratory Rate SP02 Pain Height Weight Body Mass Index Source Jul 30, 2024 02:13 PM 134/76 [facility] Jul 30, 2024 02:09 PM 97.6 54 162/83 20 94 0 73 209 28 [facility] Social History: Smoking Status (Most current) and Tobacco Use (All prior to encounter date) This section includes the most current, and the historical, smoking and tobacco- related health factors from the MD facility where the Encounter took place. Current Smoking Status This section includes the most current smoking, or tobacco-related health factor, from the MD facility where the Encounter took place. Date/Time Current Smoking Status Comment Facil ity Apr 01, 2024 09:00 AM VA-TOBACCO USE LINDSAY E DAYS CIGARETTES [facility] Tobacco Use History This section includes a history of the smoking, or tobacco-related health factors, that were collected on or before the date of the Encounter. The data comes from the MD facility where the Encounter took place. Date/Time Smoking Status/Tobacco Use Comment F acility Apr 01, 2024 09:00 AM VA-TOBACCO USE LINDSAY E DAYS CIGARETTES [facility] Apr 04, 2023 01:30 PM VA-TOBACCO DOESNT USE WI 30 MIN WAKEUP [facility] Apr 04, 2023 01:30 PM VA-TOBACCO USE 5 TO 15 YEARS [facility] Apr 04, 2023 01:30 PM VA-TOBACCO USE ADVICE [facility] Apr 04, 2023 01:30 PM VA-TOBACCO USE PSS DELIVERY PROFESSIONAL NO [facility] Apr 04, 2023 01:30 PM VA-TOBACCO USE MED NO [facility] Apr 04, 2023 01:30 PM VA-TOBACCO USER SOME DAYS [facility] Feb 23, 2021 11:30 AM VA-TOBACCO USE 30 YEARS OR MORE [facility] Feb 23, 2021 11:30 AM VA-TOBACCO USE ADVICE [facility] Feb 23, 2021 11:30 AM VA-TOBACCO USE PSS DELIVERY PROFESSIONAL NO [facility] Feb 23, 2021 11:30 AM VA-TOBACCO USE MED NO [facility] Feb 23, 2021 11:30 AM VA-TOBACCO USE WI 30 MIN OF WAKEUP [facility] Feb 23, 2021 11:30 AM VA-TOBACCO USER EVERY DAY [facility] Radiology Reports: +/- 30 days [...] the Encounter. The data comes from all MD treatment facilities. Date/Time Radiology Report Provider Source Aug 13, 2024 07:49 AM US ABDOMEN LIMITED W/BLOOD FLOW DOPPLER: DAVID SCHAFER [id number] -[id number] M Exm Date: AUG 13, 2024@07:49 Req Phys: FLORENCE CLEMENTS Pat Loc: DENISA-ST CLR PACT 6 PCP (Manuel'franco Maog Loc: [facility]-ULTRASOUND Service: Unknown [facility], [address] [place] [address] (Case [id number] COMPLETE) US ABDOMEN LTD, SINGLE ORG OR ISIS(US Detailed) CPT:90766 Reason for Study: surveillance liver cirrhosis (Case [id number] COMPLETE) US BLOOD FLOW ABD/RENAL (LTD) (US Detailed) CPT:12492 Clinical History: Organ to Image: Liver Reason for exam: surveillance of liver cirrhosis. h/o Hep C SVR Report Status: Verified Date Reported: AUG 13, 2024 Date Verified: AUG 13, 2024 Promotions Assistant Sales Marketing E-Sig:/ES/RIVERA LU Report: Report number: [id number], [id number] EXAMINATION:US ABDOMEN LTD, SINGLE ORG OR QUADRANT, [...] lesions Dictated by KELSIE DUEÑAS M.D. I, Rivera Lu, have reviewed the images and report and concur with these findings. Primary Interpreting Staff: RIVERA LU, RADIOLOGIST (Promotions Assistant Sales Marketing) Primary Interpreting Resident: KELSIE DUEÑAS, Vascular & Interventional Pourer Crane Ladle /RIVERA [facility] Encounter Notes: All associated encounter notes This section contains the clinical notes associated to the Encounter. Date/Time Encounter Note(s) Provider Source September 02, 2024 04:05 PM ADMINISTRATIVE NOT E: LOCAL TITLE: ADMINISTRATIVE STL STANDARD TITLE: ADMINISTRATIVE NOTE DATE OF NOTE: SEPTEMBER 02, 2024@16:05 ENTRY DATE: SEPTEMBER 02, 2024@16:05:37 AUTHOR: FLORENCE CLEMENTS EXP COSIGNER: URGENCY: STATUS: COMPLETED RNCM pls inform pt of abd US findings 1. Hepatic cirrhosis with hepatomegaly. No suspicious hepatic observations. 2. Cholelithiasis without evidence of cholecystitis. would he like to be established in the LIVER clinic at ? if not, I can continue with yealy surveillance US of his liver cirrhosis. We will monitor your gallstones and if you develop any abdominal discomfort especially after meals, we will consult general surgery for elective removal of gallbladder. /es/ FLORENCE CLEMENTS MD Signed: 09/02/2024 16:07 Receipt Acknowledged By: * AWAITING SIGNATURE * ELICEO CHAUHAN ARMIDA A [facility] September 02, 2024 03:59 PM PHYSICIAN LETTERS: LOCAL TITLE: TEST RESULT GENERAL LETTER STL STANDARD TITLE: PHYSICIAN LETTERS DATE OF NOTE: SEPTEMBER 02, 2024@15:59 ENTRY DATE: SEPTEMBER 02, 2024@15:59:56 AUTHOR: FLORENCE CLEMENTS EXP COSIGNER: URGENCY: STATUS: COMPLETED [facility] [address] [place] [address] SEPTEMBER 02, 2024 DAVID SCHAFER [address] [place], [place] [address] Dear David Schafer, I would like to update you on your recent test results. EXAMINATION:US ABDOMEN LTD, SINGLE ORG OR QUADRANT, [...] observations. 2. Cholelithiasis without evidence of cholecystitis. PLAN Please continue your treatment as we discussed during your visit. I recommend we establish care with LIVER specialist at [facility] for continued surveillance of you liver cirrhosis. We will monitor your gallstones and if you develop any abdominal discomfort especially after meals, we will consult general surgery for elective removal of gallbladder. If you have any questions please call your correctional counselor/case manager. I look forward to seeing you at your next clinic appointment. Thank you for choosing the [facility] for your healthcare. FUTURE APPOINTMENTS: 09/24/2024 13:00 [facility]-BH PSO JOSEPH IND GURU 10/08/2024 08:30 [facility]-POLY IND NEUROPSY TRN 10/10/2024 15:30 DENISA-MRI1.5PM 11/12/2024 11:00 DENISA-NEUROLOGY RESIDENT A 12/03/2024 11:00 DENISA-ST CLR VVC PACT NUTR 02/11/2025 11:00 DENISA-ST CLR VVC PACT NUTR 05/06/2025 14:00 DENISA- CLR PACT 6 PCP Sincerely, FLORENCE SCHAFER,DAVID CLEMENTS,FLORENCE [facility] Jul 30, 2024 02:18 PM PRIMARY CARE NOTE: LOCAL TITLE: PRIMARY CARE PROVIDER ESTABLISHED VISIT ST STANDARD TITLE: PRIMARY CARE NOTE DATE OF NOTE: JUL 30, 2024@14:18 ENTRY DATE: JUL 30, 2024@14:18:09 AUTHOR: FLORENCE CLEMENTS COSIGNER: URGENCY: STATUS: COMPLETED ESTABLISHED PATIENT [id number]: REASON FOR VISIT/CHIEF COMPLAINT: f/u HTN, HLP, PVD, BPH, hx of hep C, anxiety, tobacco dependence, HPI:mcc smoker , not ready to quit. reports increasing sob with exertion. occ wheezing. declines smoking cessation. agrees to PFT and LDCT. will RX albuterol inh prn for SOB. occassional cough with whitish mucous production. no fever nor chills. Left knee pain s/p TKR , better pain controlled after surgery. .He denies cp , sob, palpitations. Reports stable mood, denies SI/HI. NonVA Providers: NON VA PCP- NON VA Cardio SOURCE(S) OF HISTORY: Patient PAST MEDICAL HISTORY: 1) Essential hypertension 2) Mixed hyperlipidemia 3) Peripheral vascular disease 4) Benign prostatic hyperplasia 5) CAD - Coronary Artery Disease ([facility] [id number]) 6) Hepatitis C comment: treated in 1999, NEG since 7) Anxiety ([facility] [id number]) 8) Osteoarthritis of left knee joint 9) History of arthroplasty of right knee 10) History of arthroplasty of left knee 11) Chronic Post-Traumatic Stress Disorder ([facility] [id number]) 12) Exposure to potentially hazardous substance ([facility] [id number]) comment: Entered automatically through RAE Problem List documentation prog 13) Carotid Artery Stenosis ([facility] [id number]) 14) Aortic Stenosis, Non-Rheumatic ([facility] [id number]) 15) COPD - Chronic Obstructive Pulmonary Disease ([facility] [id number]) FAMILY HISTORY: No new updates. SOCIAL HISTORY: NICOTINE: Nicotine User: Yes/No ILLICIT DRUGS: Yes/No ETOH: XX drinks XX/per week. ALLERGIES: TRAMADOL ALLERGY REVIEW: Allergy list reviewed and remains current. MEDICATION RECONCILIATION: I have reviewed the patient's medication list with the patient and/or his/her care-client success director. Handwritten corrections, additions and/or deletions were made [...] 3) VENLAFAXINE HCL 75MG 24HR SA CAP TAKE [...] 500MG BY MOUTH TWICE DAILY ACTIVE NEEDED 18 Total Medications REVIEW OF SYSTEMS: General: Normal No Fevers, Chills, Weight Loss, Weight Gain, Recent Illness. Ears, Nose, Mouth, Throat: Normal No new loss of hearing or tinnitus, no Dental issue, Difficulty swallowing, Vertigo. Eye: Normal No Trauma, Cataracts, Glaucoma, Blurred vision Cardiovascular: Normal No Chest pain, Dizziness, Palpitations. Respiratory: Normal No Cough, SOB, Hemoptysis, Epistaxis, Influenza symptoms, +PDD. ABD/GI: Normal No Acid reflux/heartburn, Nausea, Vomiting, Diarrhea, Constipation, Pain/discomfort. Musculoskeletal/Extremities: Normal No Weakness, Edema, new Pain, new Stiffness/reduced ROM, Trauma. /GENERAL OFFICE DISPATCHER: Normal No Frequency, Hesitancy, Nocturia, Dysuria, Discharge, Odor. Hematology & Lymph: Normal No Anemia, Bleeding tendencies, Fatigue, Malignancy, Swollen nodes. Endocrine: Normal No Excessive hunger, Excessive thirst, Excessive urination. Psych: Normal No Insomnia, Hypersomnia, Nightmares, Anxiety. Neuro: Normal No Headaches, Seizures, Concussion, LOC, Tremor, Neuropathy. Skin: Normal No Lacerations/skin tears, Rash, Insect bites, Pressure ulcers, Lesions, Hematomae/contusions/abrasio ns. PHYSICAL EXAMINATION: General appearance: VITALS (most recent, as listed in the electronic record): B/P: 134/76 (07/30/2024 14:13) Pulse: 54 (07/30/2024 14:09) Temperature: 97.6 F [36.4 C] (07/30/2024 14:09) Weight: 209 lb [94.80 kg] (07/30/2024 14:09) Height: 73 in [185.4 cm] (07/30/2024 14:09) BMI: 27.6 Pain: 0 (07/30/2024 14:09) (0-10 scale) General: pleasant, cooperative, well-developed, well-nourished, appropriately dressed and groomed [place]; in no acute distress. Ears, Nose, Mouth, Throat:NC/AT,MMM, no thyromegaly Eye:PERRL Cardiovascular:RRR, murmur Respiratory:Clear to auscultation bilaterally. No accessory muscle use. Respirations even and non-labored ABD/GI:soft, non-tender. BS + x 4. /GENERAL OFFICE DISPATCHER: Deferred Lymph: No lymphadenopathy Extremities:No pedal edema. Psych:Affect appropriate. Neuro: Oriented x3. Gait steady with normal stride. Hematology: Color good. No pallor. No ecchymosis or petechiae. Skin:intact ASSESSMENT/PLAN: # depression with stablemood, abnormal head ct findiings- frtontal lobe volume loss noted on CT,pending neuro recs # copd. LDCT UTD. cont LAMA/LABA, well tolerated, smoking cessation counseling. quit date set for next 2-3 weeks ,will try chantix. cont eden rescue inhaler prn . smoking cessation counseling.no quit date set. #HTN stable on current med ,cpm.monitor BP #HLD, cont. 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 LFTS WNL. liver uts ordered #PAD-left lower leg with hx of angioplasties, cont asa, advised smoking cessation, pt trying to wean off slowly #BPH on med, stable # left knee pain 2/2 DJD s/p TKR, pain improved. orthgo f.u #. anxiety/PTSD - mood stable. denies SI/HI. monitor. cont counseling . # CAD , cardiac murmur 2/2 aortic stenosis. stable.. pt reports lightheadedness with abrupt positional changes but does not seem to be orthoststic hypotension. cardio f/u .monitor RETURN TO CLINIC:9-12 mo Return to Clinic order placed SUMMARY STATEMENT: Plan of care has been discussed with including expected therapeutic benefits and potential side effects of prescribed medication and treatments. verbalizes understanding and is in agreement with the plan of care. Patient was instructed to keep all scheduled appointments and contact email campaign manager for any additional problems. PREVENTION & SCREENING: ALCOHOL: Clinical Reminder not due now or within a month BLOOD PRESSURE: Clinical Reminder not due now or within a month HEMOGLOBIN A1C: Clinical Reminder not due now or within a month /ivy/ FLORENCE CLEMENTS MD Signed: 07/30/2024 14:56 FLORENCE CLEMENTS [facility] Jul 30, 2024 02:11 PM NURSING NOTE: LOCAL TITLE: V15 PACT FACE TO FACE NOTE ST STANDARD TITLE: NURSING NOTE DATE OF NOTE: JUL 30, 2024@14:11 ENTRY DATE: JUL 30, 2024@14:11:42 AUTHOR: TERRENCE MONTAGUE COSIGNER: URGENCY: STATUS: COMPLETED Provider Visit: Patient Identifiers : Full Name Date of Reason for visit: Established Follow-Up Mode of Arrival: Ambulatory Allergy Review: TRAMADOL Allergy list reviewed and remains current. Recent Vital Signs: Temperature: 97.6 F [36.4 C] (07/30/2024 14:09) Pulse: 54 (07/30/2024 14:09) Respiration: 20 (07/30/2024 14:09) B/P: 162/83 (07/30/2024 14:09) Pain: 0 (07/30/2024 14:09) Wt: 209 lb [94.80 kg] (07/30/2024 14:09) Ht: 73 in [185.4 cm] (07/30/2024 14:09) BMI: 27.6 POX: 94% (07/30/2024 14:09) PERSONAL HEALTH INVENTORY Notes: No data available for PHI note titles PERSONAL HEALTH INVENTORY - MAP: No data available for PHI MAP What matters most to you in your life right now? - [place]'s Response: living Would you like to discuss any personal problem, family problem, alcohol use, drug use, or a mental or emotional illness? No My [facility] ([facility]), please select appointment type: Face to face: Yes- Done Contact provided Primary Care phone number and encouraged to call if any questions or concerns. Review that after hours nurse line [phone] and emergency room are available 13/11 for patient use. Contact verbalized good understanding. /ivy/ TERRENCE MONTAGUE LPN LICENSED PRACTICAL NURSE Signed: 07/30/2024 14:18 TERRENCE MONTAGUE [facility]
--- OUTSIDE RECORDS SUMMARY | 2024-09-03 16:56 | XMS_ITS | Encounter Summary ---
Author Name [facility] [place] [facility] Address [address] [place] [address] Care Team Providers Care Ultimate Hoops Trainer Name Role Phone FLORENCE SOUTH Primary Care Provider Unavailabl e Insurance Providers: [...] Caban's Name Patient's Relationship to Policy Caban [employer] [facility] (WNR) MEDICARE ADVANTAGE [facility] (WNR) August 21, 2020 [id number] [phone] SCHAFER,KODI HARD PATIENT MEDICARE (WNR) MEDICARE (M) PART B Jan 21, 2014 PART B [id number] SCHAFER,KODI HARD PATIENT MEDICARE (WNR) MEDICARE (M) PART A Jan 21, 2014 PART A [id number] SCHAFER,KODI HARD PATIENT Selected Encounter This section includes the information on record at [place] for the Encounter. Date/Time Encounter Type Encounter Description Reason Provider Source Oct 04, 2023 10:46 AM Outpatient Encounter ADMIN PAT ACTIVTIES (MASNONCT) ICD-10-CM Z55.9 Problems related to education and literacy, unspecified ROMINA GALINDO Encounter Template Text not used by [place] Assessments - Encounter Diagnoses This section includes the primary and secondary diagnoses documented for the Encounter. Date/Time Primary/Secondary Diagnosis Diagnosis Name Provider Source Oct 04, 2023 10:46 AM PRIMARY Problems related to education and literacy, unspecified GALINDO,BROD Y [facility] Plan of Treatment: Future Appointments (+ 6 months) and Future Tests (+/- 45 days) The Plan of Treatment section includes future care activities for the patient from all [place] treatmentfacilities. This section includes future appointments and future orders which are active, pending or scheduled. Future Appointments This section includes appointments that were scheduled to occur 6 months from the date of the Encounter, up to a maximum of 20 appointments. The data comes from all [place] treatment facilities. Appointment Date/Time Appointment Type Appointme nt Facility Name Oct 19, 2023 11:00 AM [facility]ORY - [facility]INE [facility] Nov 20, 2023 11:15 AM [facility]ORY - MEDICINE [facility] Dec 19, 2023 10:00 AM AM[facility] - MEDICINE [facility] Jan 04, 2024 10:30 AM AM[facility]ULATORY - MEDICINE [facility] Jan 29, 2024 08:00 AM AMBULATORY - MEDICINE [facility] Jan 29, 2024 09:00 AM [facility]BULATORY - MEDICINE [facility] Feb 15, 2024 11:00 AM AMBULATORY - SURGERY . [facility] Feb 20, 2024 11:00 AM AMBULATORY - MEDICINE [facility] Mar 05, 2024 09:30 AM AMBULATORY - NONE . [facility] Mar 31, 2024 10:00 AM AMBULATORY - MEDICINE [facility] Apr 01, 2024 09:00 AM AMBULATORY - MEDICINE [facility] Lab Results: +/- 30 days of the encounter This section includes the Chemistry and Hematology Lab Results on record with [place] for the patient. Radiology Reports and Pathology Reports are provided separately, in subsequent sections. Lab Results This section contains the Chemistry/Hematology Results that were resulted 30 days before or 30 daysafter the date of the Encounter. Date/Time Source Result Type Result - Unit Interpretation Reference Range Specimen Type Comment Sep 27, 2023 09:35 AM [facility] TSH W/ REFLEX FT4 (STL) PLASMA Specimen Type: PLASMA Comment: No hemolysis noted. Ordering Provider: FLORENCE SOUTH Report Released Date/Time: September 10, 2023 04:14 PM Reporting Lab: [facility] [address] [facility] [address] Performing Lab: [address] [address] TSH 1.722 u[IU]/mL 0.47-5 Sep 27, 2023 09:35 AM [facility] PROST. SPECIFIC AG.(PB-STL) SERUM Specimen Ty pe: SERUM Comment: The listed sex of this patient may not be a typical indication for this test. Therefore, reference ranges or interpretive criteria listed may not be valid. Clinical correlation suggested. Ordering Provider: FLORENCE SOUTH Report Released Date/Time: September 10, 2023 04:14 PM Reporting Lab: [facility] [address] [place] [phone] Performing Lab: [address] [address] PROST. SPECIFIC AG.(PB-STL) 0.195 ng/mL 0-4 Sep 27, 2023 09:35 AM [facility] LIPID PANEL (STL) PLASMA Specimen Type: PLASM A Comment: No hemolysis noted. Ordering Provider: FLORENCE SOUTH Report Released Date/Time: September 10, 2023 04:14 PM Reporting Lab: [facility] [address] [place] [phone] Performing Lab: [address] [address] CHOLESTEROL 129 mg/dL 0-200 TRIGLYCERIDE 48 mg/dL 0-150 CALCULATED LDL 69 mg/dL HDL(New) 50 mg/dL >40 Sep 27, 2023 09:35 AM [facility] COMPREHENSIVE METABOLIC PANEL PLASMA Specimen Type: PLASMA Comment: No hemolysis noted. Ordering Provider: FLORENCE SOUTH Report Released Date/Time: September 10, 2023 04:14 PM Reporting Lab: [facility] [address] Performing Lab: [address] [phone] CREATININE 1.32 mg/dL H 0.7-1.3 UREA NITROGEN 20.5 mg/dL 9.0-25.0 GLUCOSE 116 mg/dL H 72-99 SODIUM 137 meq/L 136-145 POTASSIUM 4.3 meq/L 3.5-5 CHLORIDE 104 meq/L 98-107 CARBON DIOXIDE 26 meq/L 22-31 CALCIUM 9.9 mg/dL 8.4-10.4 PROTEIN 7.1 g/dL 6-8.6 ALBUMIN 4.2 g/dL 3.4-5 TOTAL BILIRUBIN 0.9 mg/dL 0.2-1.2 ALKALINE PHOSPHATASE 72 U/L 40-150 AST/SGOT 21 U/L 5-34 ALT/SGPT 15 U/L 8-40 EGFR (CKD-EPI 2020) 56.6 >60 Sep 27, 2023 09:35 AM [facility] CBC BLOOD Specimen Type: BLOOD Comment: Platelet count verified by repeat analysis, no clot found in specimen, platelet result consistent with previous result. Ordering Provider: FLORENCE SOUTH Report Released Date/Time: September 10, 2023 04:14 PM Reporting Lab: [place] [phone] Performing Lab: [address] [address] WBC 6.8 10*3/uL 3.6-11.2 RBC 4.16 10*6/uL 4.10-5.70 HGB 13.7 g/dL 13.1-16.8 HCT 41.5 38.2-48.4 MCV 99.8 fL 80.0-100.0 MCH 32.9 pg 27.0-34.0 MCHC 33.0 g/dL 33.0-36.0 PLT 118 10*3/uL L 150-400 MPV 12.2 fL H 7.5-11.2 RDW 11.5 L 11.8-15.1 LYMPHOCYTES, AUTO % 22 MONOCYTES, AUTO % 8 NEUTROPHILS, AUTO % 67 EOSINOPHILS, AUTO % 3 BASOPHILS, AUTO % 0 LYMPHOCYTES, ABSOLUTE 1.47 10*3/uL 0.77- 4.50 MONOCYTES, ABSOLUTE 0.53 10*3/uL 0.19-0. 80 NEUTROPHILS, ABSOLUTE 4.52 10*3/uL 2.10- 8.00 EOSINOPHILS, ABSOLUTE 0.20 10*3/uL 0.00- 0.60 BASOPHILS, ABSOLUTE 0.03 10*3/uL 0.00-0. 20 IMMATURE PLT FRACTION 7.1 H 1.0-7.0 Radiology Reports: +/- 30 days of the [...] the Encounter. The data comes from all [place] treatment facilities. Date/Time Radiology Report Provider Source Sep 27, 2023 09:39 AM CHEST X-RAY, 2 VIE WS: CRISTOPHER SCHAFER [id number] -[id number] M Exm Date: SEP 27, 2023@09:39 Req Phys: FLORENCE SOUTH Pat Loc: [facility] PACT 6 PCP (Req' Img Loc: -MAIN RADIOLOGY SUITE Service: [facility], [facility] [address] [place] [address] (Case [id number] COMPLETE) CHEST X-RAY, 2 VIEWS (RAD Detailed) CPT:07387 Reason for Study: dyspnea Clinical History: hc of CAD COPD aortic stenosis Report Status: Verified Date Reported: SEP 27, 2023 Date Verified: SEP 27, 2023 Senior Budget Analyst E-Sig:/ES/BETHANY GRIMES MD Report: Case [id number] chest PA and lateral views Comparison: Chest PA and lateral views dated 04/26/2022. Findings: The cardiomediastinal silhouette is within normal limits. No consolidation or pulmonary vascular congestion. No pleural effusion is present. Mild osteophytic spurring of thoracic spine Impression: No active pulmonary disease. Primary Interpreting Staff: BETHANY GRIMES MD, STAFF RADIOLOGIST (Senior Budget Analyst) /[facility] Encounter Notes: All associated encounter notes This section contains the clinical notes associated to the Encounter. Date/Time Encounter Note(s) Provider Source Oct 04, 2023 10:46 AM [facility] DIALOG NOTE: LOCAL TITLE: [facility] AUTHENTICATION NOTE ST[facility] STANDARD TITLE: [facility] DIALOG NOTE DATE OF NOTE: OCT 04, 2023@10:46 ENTRY DATE: OCT 04, 2023@10:46:53 AUTHOR: MILA GALINDO EXP COSIGNER: URGENCY: STATUS: COMPLETED called clinic with issues sending secure messages on [facility]. stated that he was not able to reply to BROOKE Flanagan. [place] was instructed to continue to send messages directly to Dr. South team only due to BROOKE Flanagan not being associated to his care team. understood the process and agrees. /ivy/ MILA GALINDO [employer] Signed: 10/04/2023 10:51 MILA GALINDO [facility]
--- OUTSIDE RECORDS SUMMARY | 2024-09-03 16:56 | XMS_ITS | Referral Summary ---
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
--- OUTSIDE RECORDS SUMMARY | 2024-09-03 16:56 | XMS_ITS | Encounter Summary ---
Author Organization [facility] Address [facility] [place] [address] Care Team Providers Care Fashion Merchandiser Name Role Phone Ana Luisa Lewis MD Primary Care Provider Unavailabl e Encounter Details Date Type Department Care Team (Late st Contact Info) Description 11/12/2019 Prep for Procedure [facility] [address] [place], [place] [phone] Theo Del Angel MD [address] [facility] [address] [place] [address] Social History Tobacco Use Types Packs/Day Years Used Date Smoking Tobacco: Every Day Cigarettes Smokeless Tobacco: Never Alcohol Use Standard Drinks/Week Comments Not Currently 0 (1 standard drink = 0.6 oz pur e alcohol) Sex and Gender Information Value Date Recorded Sex Assigned at Not on file 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 Gender Identity Not on file Sexual Orientation Not on file documented as of this encounter Plan of Treatment Not on file documented as of this encounter Results * PRE-SURGICAL/PRE-PROCEDURE CORONAVIRUS (COVID 19) (11/14/2019 7:13 AM CDT) CORONAVIRUS SARS COV 2 PCR (RESP) NOT DETECTED NOT DETECTED 11/16/2019 5:48 AM CDT [facility] Comment: A Not Detected (negative) test result [...] providers and patients using the following websites: https://www.[employer].PLUMgrid/home/Covid-19/HCP/NAAT/fact-sheet2 https://www.[employer].PLUMgrid/home/Covid-19/Patients/NAAT/ fact-sheet2 This test has been authorized by the FDA under an Emergency Use Authorization (EUA) for use by authorized laboratories. Due to the current public health emergency, [employer] is receiving a high volume of samples [...] about COVID-19 can be found at the [employer] website: www.[employer]/Covid19. Test performed at [facility] [address] [place] [address] Director: ZAHRAA PEREA DO,MPH NASOPHARYNGEAL SWAB / Unknown 11/14/2019 7:13 AM CDT us Theo Del Angel MD MICROBIOLOGY - GENERAL ORDERA BLES Final Result [facility] [id number] [place] [id number] [place] [address] documented in this encounter Visit Diagnoses Diagnosis Preop testing- Primary Preoperative examination, unspecified documented in this encounter Additional Health Concerns Infection Onset Date Last Indicated Resolved Time COVID-19 Rule Out 11/14/2019 11/14/2019 11/16/2019 5:48 AM CDT documented as of this encounter Care Teams Fashion Merchandiser Relationship Specialty Start Date End Date Ana Luisa Lewis MD PCP - General FAMILY PRACTICE 08/09/18 documented as of this encounter
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
--- OUTSIDE RECORDS SUMMARY | 2024-09-03 16:56 | XMS_ITS | Encounter Summary ---
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 Comment: No hemolysis noted. URINE COLOR Yellow 06/08/2022 11:28 APPEARANCE Clear 06/08/2022 11:28 U.PH 6.5 06/08/2022 11:28 U.BILIRUBIN Negative 06/08/2022 11:28 U.NITRITE Negative mg/dL 06/08/2022 11:28 ======= Assessment/Plan for administrative exam for [employer] Registry 1. Diagnosis: ICD-10 code 1. ASCVD, unclear how long he has heart disease SC 30% (+ heart murmur, + left carotid bruit). I25.10 2. Tinnitus SC 10% started in 1970. H93.13 3. HTN started in 2014. well controlled I10 4. PTSD started in 1970 SC 50%. F43.12 5. - instructed to go to [facility]/Regional office loss control representative to file a claim for illnesses that are presumed due to Agent [employer] exposure. 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 C44.92 [ X ] poor dentition. wears upper dentures, has only 6 natural teeth lower jaw left. K08.9 [ ] [ ] [ ] 3.Lab, CXR, EKG [ ] None ordered [ ] All are normal [ X ] Abnormal findings: Platelet count; Cr; Blood sugar I advised that the contact their medical provider to arrange for follow up on the abnormal findings and for routine medical care/follow up on known conditions. [ ] Copies of lab results given to the (ELIJAH form signed). [ ] Copies of EKG results given to the (ELIJAH form signed). [ ] Copies of CXR results given to the (ELIJAH form signed). [ X ] ELIJAH form signed [ ] Consent form signed 4. Consults: 1= no work up, no consultation done 2= work up, unexplained illness. Has sxs/diagnosis undetermined 3= work up, diagnosis established 4= work up/consultation done. No symptoms/no illness evident. 5= work up in progress, results pending 6= work up scheduled, vet no show [ ] Allergy/Immunology 1 [ ] Audiology 3 [ ] Behavioral Health 3 [ ] Cardiology 3 [ ] Dentistry 3 [ ] Dermatology 3 [ ] ENT 1 [ ] Endocrinology 1 [ ] Gastroenterology 3 [ ] Hematology/Oncology 1 [ ] Infectious Disease 1 [ ] Neurology 1 [ ] Nephrology 1 [ ] Occupational medicine 1 [ ] Orthopedic 3 [ ] Pulmonary 1 [ ] Reproductive Health 1 [ ] Rheumatology 1 [ ] Urology 1 [ ] Other 0 [ X ] No consults were ordered as part of today's registry exam [ ] Hepatitis C negative [ X ] Hepatitis C positive treated in 1999 [ ] Hepatitis C Not done Biopsy: No Type: The [place] voiced understanding of instructions and agrees to follow up with his regular medical care provider for routine care and follow up on labs/test results. (An 'X' indicates the presence of the condition, unchecked indicates the absence of the condition.) (X) ELIJAH signed at start of appt. (X) reviewed labs from 09/27/2023, cxr from 09/27/2023 and ekg from 09/27/2023. (X) no new orders placed. /ivy/ LIAM GRIMM MSN LINSEED OIL TEMPERER ANP- Nurse Practitioner Primary Care Signed: 12/19/2023 11:47 Receipt Acknowledged By: 12/20/2023 11:27 /es/ KIMMIE WALTERS ADVANCED MEDICAL SUPPORT ASST 12/20/2023 08:39 /es/ CAROLYNN BLANCHARD ADVANCED MEDICAL RESEARCH ASSOCIATE LIAM GRIMM [facility]
--- OUTSIDE RECORDS SUMMARY | 2024-09-03 16:56 | XMS_ITS | Clinical Summary ---
Author Organization [facility] Address [address] [place] [id number] Care Team Providers Care Blanket Washer Name Role Phone Ana Luisa Lewis MD [...] mouth daily. 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 Gender Identity Not on file Sexual Orientation [...] C 1967 DTaP, Tdap and Td Vaccines ( 1 - Tdap) 02/17/1968 Annual Medicare Wellness Visit 2014 Zoster Vaccines (2 of 3) 07/26/2014 05/31/2014 COVID-19 Vaccine ( - 2023-2 5 season) 2023 RSV Immunization or 60+ Years (1 - 1-dose 75+ series) 02/17/2024 Pneumococcal Vaccine: 50+ Years Completed 04/20/2016, 03/22/2015, 04/23/1997 Meningococcal B Vaccine Aged Out No l onger eligible based on patient's age to complete this topic Meningococcal Vaccine Aged Out No rob latrice eligible based on patient's age to complete this topic RSV Immunizations Under 20 Months Aged Out No longer eligible b ased on patient's age to complete this topic Medical Devices Implanted Type Area Gemologist Device Identifier Shelf Expiration Date Model / Serial / Lot Knee Components Knee Components Iol [employer] - [id number] Implanted:Qty: 1 on 11/17/2019 by Theo Del Angel MD at [facility] Lens Left: Eye [employer] 11/27/2022 [id number] / [id number] / Insurance [facility] MEDICARE MEDICARE [facility] Care Teams Blanket Washer Relationship Specialty Start Date End Date Ana Luisa Lewis MD PCP - General FAMILY PRACTICE 08/09/18
--- OUTSIDE RECORDS SUMMARY | 2024-09-03 16:56 | XMS_ITS ---
[place] MEDICAL NUTRITION [place] [facility] Encounter Summary Created on: September 03, 2024 CRISTOPHER SCHAFER AMANUEL : 1950 Sex: Male Author Name [facility] [place] [facility] [place] Address [address] [place] [address] Care Team Providers Care Tip Mender Name Role Phone FLORENCE CLEMENTS Primary Care [...] Caban's Name Patient's Relationship to Policy Caban [employer] [facility] (WNR) MEDICARE ADVANTAGE [facility] ([facility]) August 21, 2020 [id number] [phone] SCHAFER,KODI HARD PATIENT MEDICARE (WNR) MEDICARE (M) PART B Jan 21, 2014 PART B [id number] SCHAFER,KODI HARD PATIENT MEDICARE (WNR) MEDICARE (M) PART A Jan 21, 2014 PART A [id number] SCHAFER,KODI HARD PATIENT Selected Encounter This section includes the information on record at [place] for the Encounter. Date/Time Encounter Type Encounter Description Reason Provider Source May 19, 2024 11:00 AM MEDICAL NUTRITION INDIV IN PRIMARY CARE/MEDICINE ICD-10-CM Z71.3 Dietary counseling and surveillance Traci AGUDELO Latasha Encounter Template Text not used by [place] Assessments - Encounter Diagnoses This section includes the primary and secondary diagnoses documented for the Encounter. Date/Time Primary/Secondary Diagnosis Diagnosis Name Provider Source May 19, 2024 11:53 AM PRIMARY Dietary counseling and surveillance KAY AGUDELO [facility] Plan of Treatment: Future Appointments (+ 6 months) and Future Tests (+/- 45 days) The Plan of Treatment section includes future care activities for the patient from all [place] [facility] This section includes future appointments and future orders which are active, pending or scheduled. Future Appointments This section includes appointments that were scheduled to occur 6 months from the date of the Encounter, up to a maximum of 20 appointments. The data comes from all [facility]. Appointment Date/Time Appointment Type Appointme nt Facility Name May 21, 2024 10:00 AM AMBULATORY - PSY[facility]IATRY [facility] Jun 18, 2024 12:30 PM AMBULATORY - NONE [facility] Jul 09, 2024 02:30 PM AMBULATORY - PSYCHIATRY [facility] Jul 30, 2024 02:00 PM AMBULATORY - MEDICINE [facility] Aug 13, 2024 08:00 AM AMBULATORY - NONE [facility] Aug 13, 2024 11:00 AM AMBULATORY - NONE [facility] August 21, 2024 10:00 AM AMBULATORY - MEDICINE [facility] Sep 24, 2024 01:00 PM AMBULATORY - PSYCHIATRY [facility] Oct 08, 2024 08:30 AM AMBULATORY - PSYCHIATRY [facility] Oct 10, 2024 03:30 PM AMBULATORY - NONE [facility] Nov 12, 2024 11:00 AM AMBULATORY - MEDICINE [facility] Radiology Reports: +/- 30 days of the [...] the Encounter. The data comes from all [facility]. Date/Time Radiology Report Provider Source Jun 18, 2024 12:[address] HEAD W/O CONT: CRISTOPHER SCHAFER [id number] -1950 M Exm Date: JUN 18, 2024@12:15 Req Phys: KIM GUZMAN Loc: [facility]SE[facility] RESHMA FARRIS (Req'g Img Loc: [facility] IMAGING [facility] Service: Unknown [facility] [address] [place] [address] (Case [id number] COMPLETE) CT HEAD W/O CONT (CT Detailed) CPT:00051 Reason for Study: NCD Clinical History: Responsible [...] 18, 2024 Date Verified: JUN 18, 2024 Hospital Chaplain E-Sig:/ES/TANNER WALTERS Report: CT HEAD W/O CONT [id number] DATE: 06/18/2024 4:09 PM HISTORY: NCD COMPARISON: [...] acute intracranial pathology. Primary Interpreting Staff: TANNER WALTERS Diagnostic Radiologist (Hospital Chaplain) /[facility] Encounter Notes: All associated encounter notes This section contains the clinical notes associated to the Encounter. Date/Time Encounter Note(s) Provider Source May 19, 2024 10:34 AM NUTRITION DIETETIC S OUTPATIENT INITIAL EVALUATION CONSULT: LOCAL TITLE: OUTPATIENT NUTRITION ASSESSMENT [facility] STANDARD TITLE: NUTRITION DIETETICS OUTPATIENT INITIAL EVALUATIO DATE OF NOTE: MAY 19, 2024@10:34 ENTRY DATE: MAY 19, 2024@10:34:45 AUTHOR: FAITH AGUDELO COSIGNER: URGENCY: STATUS: COMPLETED Modality of Care: VVC, name, and location verified goes by John NUTRITION ASSESSMENT Diagnosis: overweight Time spent with : 35 min BMI: 28.8 Last appointment date: na CLIENT HISTORY Patient Medical History: Essential hypertension Mixed hyperlipidemia Peripheral vascular disease CAD - Coronary Artery Disease COPD - Chronic Obstructive Pulmonary Disease FOOD AND NUTRITION RELATED HISTORY Diet experience: no special diet, notes he retired 4 years ago and started gaining wt then. Fluid/Beverage intake: -16 oz soda, coffee, milk Food intake: 7:30am Natures Vally granola bar with coffee 1-2pm sandwich meat/cheese, handful of chips and 8oz soda 9-10pm *notes he eats this late because he isn't hungry and he is out and does not get home until 8pm beef stew 1-2 cup, ham and beans, pot roast or cream of wheat later will snack on dessert: cookies, snack cakes, xl candy bars OUTPATIENT MEDICATIONS 2) Non-VA ATORVASTATIN CALCIUM 80MG TAB 40MG BY MOUTH EVERY ACTIVE 6) Non-VA CHOLECALCIF 50MCG (D3-2,000UNIT) TAB 2000UNIT BY ACTIVE ACTIVE 11) Non-VA HCTZ 12.5/LISINOPRIL 10MG TAB 1 TABLET BY MOUTH EVERY ACTIVE 13) Non-VA MULTIVITAMIN/MINERALS CAP/TAB 1 CAP/TAB BY MOUTH ONCE ACTIVE 14) Non-VA OMEPRAZOLE 40MG EC CAP 40MG BY MOUTH EVERY MORNING ACTIVE KNOWLEDGE BELIEFS ATTITUDES and BEHAVIOR -would like to get his wt down to 185, or 195lb. -notes that he started gaining wt after retiring 4 years ago, likely related to decreased activity. -is open to suggestions for wt loss, wants to know if wt loss meds would be right for him. PHYSICAL ACTIVITY AND FUNCTION Nutrition related ADLs: - shops - and cook -no food insecurity Physical activity: -has a [employer] membership, has not been in a while -used to lift weight and use the treadmill -does yard work -is open to working on this ANTHROPOMETRIC MEASUREMENTS Ht: 73 in Wt: 217.7 lb [98.75 kg] (03/31/2024) BMI 28.8 Weight History/Significant changes: Patient Weight History - Last Four 1. 217.7 lbs. / 98.8 kg. on MAR 31, 2024@09:48:44 2. 215.2 lbs. / 97.6 kg. on JAN 29, 2024@07:39:53 3. 215.0 lbs. / 97.5 kg. on JAN 04, 2024@10:35:03 4. 213.5 lbs. / 96.8 kg. on DEC 19, 2023@10:16:44 BIOCHEMICAL DATA/MEDICAL TESTS AND PROCEDURES HGA1C 5.6 % 06/08/2022 11:24 TRIGLYCERIDE 48 mg/dL 09/27/2023 09:35 CHOLESTEROL 129 mg/dL 09/27/2023 09:35 HDL(New) 50 mg/dL 09/27/2023 09:35 CALCULATED LDL 69 mg/dL 09/27/2023 09:35 NUTRITION FOCUSED PHYSICAL FINDINGS -vvc -appears to have adequate muscle/fat mass NUTRITION PRESCRIPTION Nutrition prescription specifics: -general healthy diet NUTRITION DIAGNOSIS Overweight related to limited physical activity and excessive energy intake (behavior) as evidenced by BMI and reports of consumption of energy-dense, nutrient-poor food or beverage and infrequent, low-duration physical activity. NUTRITION INTERVENTIONS Nutrition Education:Comprehensive Person being educated: Patient Barriers to Learning: No barriers to learning Nutrition education - Content Content related nutrition education Education on nutrition's influence on health Nutrition education - application Results interpretation Skill development Nutrition Counseling Strategies Motivational interviewing Goal setting Self-monitoring Problem solving Goals set: -have lunch around 12om -have dinner as soon has he gets home, closer to 8pm -have dessert as part of dinner and cut portion in 1/2 -start an exercise plan NUTRITION MONITORING AND EVALUATION --Body composition/growth/weight history Measured weight: decrease 0.5-2lb per week towards goal of 190lb --Behavior Goals: at follow up will report meeting at least 50% of his behavior goals. Return to clinic: vvc, when available. Dietitian contact information provided for any follow-up questions or needs. /ivy/ Faith Agudelo RD, ANGELES Clinical Dietitian Signed: 05/19/2024 11:55 FAITH AGUDELO [facility]
--- OUTSIDE RECORDS SUMMARY | 2024-09-03 16:56 | XMS_ITS ---
[place] MED NUTRITION INDIV SUBSEQ [facility] [place] [facility] Encounter Summary Created on: September 03, 2024 CRISTOPHER SCHAFER AMANUEL : 1950 Sex: Male Author Name [facility] [place] Organization [facility] [place] Address [address] [place] [address] Care Team Providers Care Dental Scheduling Coordinator Name Role Phone FLORENCE CLEMENTS Primary Care [...] Caban's Name Patient's Relationship to Policy Caban [employer] [facility] (WNR) MEDICARE ADVANTAGE [facility] (R) August 21, 2020 [id number] [phone] SCHAFER,KODI HARD PATIENT MEDICARE (WNR) MEDICARE (M) PART A Jan 21, 2014 PART A [id number] [phone] SCHAFER,KODI HARD PATIENT MEDICARE (WNR) MEDICARE (M) PART B Jan 21, 2014 PART B [id number] SCHAFER,KODI HARD PATIENT Selected Encounter This section includes the information on record at [place] for the Encounter. Date/Time Encounter Type Encounter Description Reason Provider Source Aug 13, 2024 11:00 AM MED NUTRITION INDIV SUBSEQ PRIMARY CARE/MEDICINE ICD-10-CM E66.3 JAMES Jiménez Encounter Template Text not used by [facility] Assessments - Encounter Diagnoses This section includes the primary and secondary diagnoses documented for the Encounter. Date/Time Primary/Secondary Diagnosis Diagnosis Name Provider Source Aug 13, 2024 12:40 PM PRIMARY Overweight SOFI EDWARDS Traci Ricardo [facility] Plan of Treatment: Future Appointments (+ 6 months) and Future Tests (+/- 45 days) The Plan of Treatment section includes future care activities for the patient from all [place] [facility]. This section includes future appointments and future orders which are active, pending or scheduled. Future Appointments This section includes appointments that were scheduled to occur 6 months from the date of the Encounter, up to a maximum of 20 appointments. The data comes from all [facility]. Appointment Date/Time Appointment Type Appointme nt Facility Name August 21, 2024 10:00 AM AMBULATORY - MEDICINE [facility] Sep 24, 2024 01:00 PM AMBULATORY - PSYCHIATRY [facility] Oct 08, 2024 08:30 AM AMBULATORY - PSYCHIATRY [facility] Oct 10, 2024 03:30 PM AMBULATORY - NONE [facility] Nov 12, 2024 11:00 AM AMBULATORY - MEDICINE [facility] Dec 03, 2024 11:00 AM [facility] Feb 11[facility] 2025 11:00 AM [facility] Active, Pending, and Scheduled Orders This section includes a listing of several types of active, pending, and scheduled orders, including clinic medications orders, diagnostic test orders, procedure orders and consult orders; where the start date of the order is 45 days before the date of the Encounter or 45 days after the date of theEncounter. The data comes from all [facility]. Test Date/Time Test Type Test Details Facility Name Jul 09, 2024 12:00 AM Laboratory - Chemi stry Order TSH W/ REFLEX FT4 (STL) GREEN LI-HEP PLASMA SP [facility] Jul 09, 2024 12:00 AM Laboratory - Chemi stry Order B12 GOLD/RED SST SERUM SP [facility] Jul 09, 2024 12:00 AM Laboratory - Chemi stry Order FOLATE (STL-MA) GOLD/RED SST SERUM SP [facility] Jul 09, 2024 12:00 AM Laboratory - Chemi stry Order RAPID PLASMA REAGIN (RPR) GOLD/RED SST SERUM SP [facility] Jul 09, 2024 12:00 AM Laboratory - Chemi stry Order VITAMIN D, 25-HYDROXY GOLD/RED SST SERUM SP [facility] Jul 30, 2024 12:00 AM Laboratory - Chemi stry Order HEPATIC FUNTION PANEL (STL) GREEN LI/HEP BLD/PLAS PLASMA SP [facility] Jul 30, 2024 12:00 AM Laboratory - Chemi stry Order LIPID PANEL (STL) GREEN LI/HEP BLD/PLAS PLASMA SP ONCE [facility] Jul 30, 2024 12:00 AM Laboratory - Chemi stry Order HGA1C BLOOD SP [facility] Jul 30, 2024 12:00 AM Laboratory - Chemi stry Order BASIC METABOLIC PANEL GREEN LI/HEP BLD/PLAS PLASMA SP [facility] August 21, 2024 01:37 PM Consult Order POLYTRAUMA TBI NEUROPSYCHOL OUTPT STL Cons Senior Game Designer's Choice [facility] Social History: Smoking Status (Most current) and Tobacco Use (All prior to encounter date) This section includes the most current, and the historical, smoking and tobacco- related health factors from the [place] facility where the Encounter took place. Current Smoking Status This section includes the most current smoking, or tobacco-related health factor, from the [place] facility where the Encounter took place. Date/Time Current Smoking Status Comment Facil ity Apr 01, 2024 09:00 AM VA-TOBACCO USE LINDSAY E DAYS CIGARETTES [facility] Tobacco Use History This section includes a history of the smoking, or tobacco-related health factors, that were collected on or before the date of the Encounter. The data comes from the [place] facility where the Encounter took place. Date/Time Smoking Status/Tobacco Use Comment F acility Apr 01, 2024 09:00 AM VA-TOBACCO USE LINDSAY E DAYS CIGARETTES [facility] Apr 04, 2023 01:30 PM VA-TOBACCO DOESNT USE WI 30 MIN WAKEUP [facility] Apr 04, 2023 01:30 PM VA-TOBACCO USE 5 TO 15 YEARS [facility] Apr 04, 2023 01:30 PM VA-TOBACCO USE ADVICE [facility] Apr 04, 2023 01:30 PM VA-TOBACCO USE BANQUET COOK NO [facility] Apr 04, 2023 01:30 PM VA-TOBACCO USE MED NO [facility] Apr 04, 2023 01:30 PM VA-TOBACCO USER SOME DAYS [facility] Feb 23, 2021 11:30 AM VA-TOBACCO USE 30 YEARS OR MORE [facility] Feb 23, 2021 11:30 AM VA-TOBACCO USE ADVICE [facility] Feb 23, 2021 11:30 AM VA-TOBACCO USE BANQUET COOK NO [facility] Feb 23, 2021 11:30 AM VA-TOBACCO USE MED NO [facility] Feb 23, 2021 11:30 AM VA-TOBACCO USE WI 30 MIN OF WAKEUP [facility] Feb 23, 2021 11:30 AM VA-TOBACCO USER EVERY DAY [facility] Radiology Reports: +/- 30 days [...] the Encounter. The data comes from all [place] treatment facilities. Date/Time Radiology Report Provider Source Aug 13, 2024 07:49 AM US ABDOMEN LIMITED W/BLOOD FLOW DOPPLER: CRISTOPHER SCHAFER [id number] -1950 M Ex Date: AUG 13, 2024@07:49 Req Phys: FLORENCE CLEMENTS Pat Loc: [facility] CLR PACT 6 PCP (Manuel'franco Cerrato Img Loc: [facility]ULTRASOUND Service: Unknown [facility] [address] [place] [address] (Case [id number] COMPLETE) US ABDOMEN LTD, SINGLE ORG OR ISIS(US Detailed) CPT:32876 Reason for Study: surveillance liver cirrhosis (Case [id number] COMPLETE) US BLOOD FLOW ABD/RENAL (LTD) (US Detailed) CPT:31367 Clinical History: Organ to Image: Liver Reason for exam: surveillance of liver cirrhosis. h/o Hep C SVR Report Status: Verified Date Reported: AUG 13, 2024 Date Verified: AUG 13, 2024 Range Ecologist E-Sig:/ES/LIA HERNANDEZ Report: Report number: [id number], [id number] EXAMINATION:US ABDOMEN LTD, SINGLE ORG OR QUADRANT, [...] findings. Primary Interpreting Staff: LIA HERNANDEZ, RADIOLOGIST (Range Ecologist) Primary Interpreting Resident: KELSIE DUEÑAS, Vascular & Interventional Chief Sales Officer /LIA COTTRELL [facility] Encounter Notes: All associated encounter notes This section contains the clinical notes associated to the Encounter. Date/Time Encounter Note(s) Provider Source Aug 13, 2024 11:01 AM NUTRITION DIETETIC S NOTE: LOCAL TITLE: NUTRITION FOLLOW UP ST STANDARD TITLE: NUTRITION DIETETICS NOTE DATE OF NOTE: AUG 13, 2024@11:01 ENTRY DATE: AUG 13, 2024@11:01:47 AUTHOR: ELIAS EDWARDS COSIGNER: URGENCY: STATUS: COMPLETED Modality of Care: VVC * last four and location confirmed at home in [place], [place] goes by John NUTRITION REASSESSMENT Diagnosis: overweight Time spent with Jolo: 40 minutes Last appointment date: 05/19/24 CLIENT HISTORY Patient Medical History: Essential hypertension Mixed hyperlipidemia Peripheral vascular disease CAD - Coronary Artery Disease COPD - Chronic Obstructive Pulmonary Disease 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 DO NOT ABRUPTLY DISCONTINUE MEDICATION. - potential for Wt. loss Indication: FOR DEPRESSION Active Non-VA Medications Status Non-VA ATORVASTATIN CALCIUM 80MG TAB 40MG BY MOUTH EVERY ACTIVE EVENING Non-VA BUPROPION HCL 150MG 12HR SA TAB 150MG BY MOUTH TWICE ACTIVE A DAY - potential for Wt. loss Non-VA CHOLECALCIF 50MCG (D3-2,000UNIT) TAB 2000UNIT BY ACTIVE MOUTH ONCE A DAY Non-VA FAMOTIDINE 20MG TAB 20MG BY MOUTH TWICE A DAY ACTIVE Non-VA HCTZ 12.5/LISINOPRIL 10MG TAB 1 TABLET BY MOUTH EVERY ACTIVE MORNING Non-VA MULTIVITAMIN/MINERALS CAP/TAB 1 CAP/TAB BY MOUTH ONCE ACTIVE A DAY Non-VA OMEPRAZOLE 40MG EC CAP 40MG BY MOUTH EVERY MORNING ACTIVE BEFORE A MEAL - Vet is taking FeSulf daily and Zn daily. BIOCHEMICAL DATA/MEDICAL TESTS AND PROCEDURES Reviewed ANTHROPOMETRIC MEASUREMENTS Ht.: 73 in [185.4 cm] (07/30/2024 14:09) Wt.: 209 lb. [94.80 kg] (07/30/2024 14:09) Home Wt.: 200 lbs./90.9 kg. (08/12/24) BMI: 26.4 based off home Wt. - normal for older age Goal Wt.: 185-195 lbs. Weight History/Significant changes: Wt. down 17.7 lbs.(8.1%) x 4 months intentionally. - Per RDN note 05/19/24: no special diet, notes he retired 4 years ago and started gaining Wt. then. Patient Weight History - Last Four 1. 209.0 lbs. / 94.8 kg. on JUL 30, 2024@14:09:11 2. 217.7 lbs. / 98.8 kg. on MAR 31, 2024@09:48:44 3. 215.2 lbs. / 97.6 kg. on JAN 29, 2024@07:39:53 4. 215.0 lbs. / 97.5 kg. on JAN 04, 2024@10:35:03 FOOD AND NUTRITION RELATED HISTORY Diet experience: Vet reported his appetite is funny . He reported he does not follow a scheduled meal routine. He typically eats later in the evening because he isn't hungry and he is out. Fluid/Beverage intake: coffee with light sugar, sweetened fizzy water, minimal plain water, small can of soda Food intake: consumes 3 meals/d and dessert Breakfast: skips 2-3x's/wk.; Nature Vally granola bar or 2 sl. whole wheat toast with butter Lunch: ham/cheese sandwich, handful of chips, 8oz Zohaib Araceli Dinner: twice/wk. has salad (includes cheese and egg); macaroni and cheese; sandwich; soup Dessert: cookies, snack cakes, candy bar 2x's/wk. KNOWLEDGE BELIEFS ATTITUDES and BEHAVIOR -notes that he started gaining Wt. after retiring 4 years ago, likely related to decreased activity. -is open to suggestions for Wt. loss, wants to know if Wt. loss meds would be right for him. PHYSICAL ACTIVITY AND FUNCTION Nutrition related ADLs: - shops - and cook -no food insecurity Physical activity: -has a [employer] membership, but is not using; used to go 2-3x's/wk. before he retired -yard work -has a 4-month old 50 lb. [place] puppy that keeps him busy NUTRITION FOCUSED PHYSICAL FINDINGS - denied problems chewing/swallowing/N/V/refl ux - BM's regular; goes 1-2x's/d; soft/formed stool - adequate PO intake - intentional Wt. loss - appears to have adequate muscle/fat mass - malnutrition not indicated at this time NUTRITION PRESCRIPTION Estimated calorie needs: [id number] kcals/d (18-22 kcals/kg) Nutrition prescription specifics: anti-inflammatory, calorically balanced, N[place]NALE NUTRITION DIAGNOSIS -ACTIVE- Overweight related to limited physical activity and excessive energy intake (behavior) as evidenced by BMI and reports of consumption of energy-dense, nutrient-poor food or beverage and infrequent, low-duration physical activity. NUTRITION INTERVENTIONS Nutrition counseling based on goal setting strategy: - Discussed intuitive eating practices and focus on consistent, nutritionally balanced meals throughout the day vs. exact time he is eating. - Discussed how other feelings affect intake such as thirst and sleepiness. - Reviewed vet's meal habits/food preferences and offered suggestions for modifications to help balance nutrient intake while reducing fat/Na/refined sugar, keeping energy in the estimated range, and increasing anti-inflammatory foods/fiber/complex CHO's/fruit/vegetables. - Discussed how to make zohaib araceli with actual zohaib root vs. artificial flavor. - Encouraged regular physical activity. Brainstormed ways to get motivated to get back into the gym which he used to enjoy. Discussed overall and intangible benefits of PA. - Discussed Wt. loss pharmacotherapy options as vet expressed interest. Informed vet that he does not meet criteria for WMM through the [facility] with current BMI <27. Reviewed tools effective for Wt. loss including lifestyle modifications, nutrition and PA. Informed vet those tools are consistent to promote Wt. management regardless of medication. Vet verbalized agreement and understanding. - Answered all nutrition related questions. Education material: verbal Barriers to learning: none at this time Comprehension: good; understanding verbalized Adherence: expect good D/T interest/motivation/underst anding Vet preferred goals: -have lunch around 12pm (UNMET) -have dinner as soon has he gets home, closer to 8pm (MET) -have dessert as part of dinner and cut portion in 1/2 (MET) -start an exercise plan (UNMET) NUTRITION MONITORING AND EVALUATION --Body composition/growth/weight history Measured weight: decrease 0.5-2lb per week towards goal of 190lb (ACHIEVED)- CONTINUE --Behavior Goals: at follow up will report meeting at least 50% of his behavior goals. (ACHIEVED)-DISCONTINUE - Vet will focus on consistent meal intake with intuitive eating practices by next visit (NEW) Physical Activity: - Vet will go [facility] [employer] twice/wk. for 30-45 minutes by next visit (NEW) Return to clinic: follow-up 4 months and then 2 months per vet's request; [facility] Dietitian contact information provided for any follow-up questions or needs. /ivy/ ELIAS EDWARDS Clinical Dietitian// Signed: 08/13/2024 12:38 ELIAS EDWARDS [facility]
--- OUTSIDE RECORDS SUMMARY | 2024-09-03 16:56 | XMS_ITS | Encounter Summary ---
Author Name [facility] Organization [facility] [place] Address [address] [place] [address] Care Team Providers Care Manufacturing Engineer Supervisor Name Role Phone FLORENCE SOUTH Primary Care [...] Caban's Name Patient's Relationship to Policy Caban [employer] [facility] (WNR) MEDICARE ADVANTAGE [facility] (WNR) August 21, 2020 [id number] [phone] GILMAR,KODI HARD PATIENT MEDICARE (WNR) MEDICARE (M) PART A Jan 21, 2014 PART A [id number] SCHAFER,KODI HARD PATIENT MEDICARE (WNR) MEDICARE (M) PART B Jan 21, 2014 PART B [id number] SCHAFER,KODI HARD PATIENT Selected Encounter This section includes the information on record at [place] for the Encounter. Date/Time Encounter Type Encounter Description Reason Pro vider Source Feb 08, 2024 08:06 AM Outpatient Encounter PCMMA INDIV IHE Encounter Template Text not used by [facility] Plan of Treatment: Future Appointments (+ 6 months) and Future Tests (+/- 45 days) The Plan of Treatment section includes future care activities for the patient from all [place] treatmentfacilities. This section includes future appointments and future orders which are active, pending or scheduled. Future Appointments This section includes appointments that were scheduled to occur 6 months from the date of the Encounter, up to a maximum of 20 appointments. The data comes from all [facility]. Appointment Date/Time Appointment Type Appointme nt Facility Name Feb 15, 2024 11:00 AM AMBULATORY - SURGERY [facility] Feb 20, 2024 11:00 AM AMBULATORY - MEDICINE [facility] Mar 05, 2024 09:30 AM AMBULATORY - NONE [facility] Mar 31, 2024 10:00 AM AMBULATORY - MEDICINE [facility] Apr 01, 2024 09:00 AM AMBULATORY - MEDICINE [facility] May 19, 2024 11:00 AM AMBULATORY - NONE [facility] May 21, 2024 10:00 AM AMBULATORY - PSYCHIATRY [facility] Jun 18, 2024 12:30 PM AMBULATORY - NONE [facility] Jul 09, 2024 02:30 PM AMBULATORY - PSYCHIATRY [facility] Jul 30, 2024 02:00 PM AMBULATORY - MEDICINE [facility] Active, Pending, and Scheduled Orders This section includes a listing of several types of active, pending, and scheduled orders, including clinic medications orders, diagnostic test orders, procedure orders and consult orders; where the start date of the order is 45 days before the date of the Encounter or 45 days after the date of theEncounter. The data comes from all [facility]. Test Date/Time Test Type Test Details Facility Name Jan 14, 2024 12:00 AM Laboratory - Chemi str Order OCCULT BLOOD FIT X1 SCREEN (MFP ONLY) STOOL FECES SP [facility] Social History: Smoking Status (Most current) and Tobacco Use (All prior to encounter date) This section includes the most current, and the historical, smoking and tobacco- related health factors from the [place] facility where the Encounter took place. Current Smoking Status This section includes the most current smoking, or tobacco-related health factor, from the [place] facility where the Encounter took place. Date/Time Current Smoking Status Comment Facil ity Apr 04, 2023 01:30 PM VA-TOBACCO USER SOME DAYS [facility] Tobacco Use History This section includes a history of the smoking, or tobacco-related health factors, that were collected on or before the date of the Encounter. The data comes from the [place] facility where the Encounter took place. Date/Time Smoking Status/Tobacco Use Comment F acility Apr 04, 2023 01:30 PM VA-TOBACCO USE 5 TO 15 YEARS [facility] Apr 04, 2023 01:30 PM VA-TOBACCO USE ADVICE [facility] Apr 04, 2023 01:30 PM VA-TOBACCO USE WET CLEANER MACHINE NO [facility] Apr 04, 2023 01:30 PM VA-TOBACCO USE MED NO [facility] Apr 04, 2023 01:30 PM VA-TOBACCO USER SOME DAYS [facility] Feb 23, 2021 11:30 AM VA-TOBACCO USE 30 YEARS OR MORE [facility] Feb 23, 2021 11:30 AM VA-TOBACCO USE ADVICE [facility] Feb 23, 2021 11:30 AM VA-TOBACCO USE WET CLEANER MACHINE NO [facility] Feb 23, 2021 11:30 AM VA-TOBACCO USE MED NO [facility] Feb 23, 2021 11:30 AM VA-TOBACCO USE WI 30 MIN OF WAKEUP [facility] Feb 23, 2021 11:30 AM VA-TOBACCO USER EVERY DAY [facility] Radiology Reports: +/- 30 days of [...] the Encounter. The data comes from all [place] treatment facilities. Date/Time Radiology Report Provider Source Mar 05, 2024 09:02 AM LDCT LUNG CANCER SCREENING: CRISTOPHER SCHAFER AMANUEL [id number] -1950 M Exm Date: MAR 05, 2024@09:02 Req Phys: KEN PEREZ Pat Loc: [facility] [employer] SAL[employer]OCIATE (Req'g L Img Loc: -CT IMAGING Service: Unknown [facility], [facility] [address] [place] [address] (Case [id number] COMPLETE) LDCT LUNG CANCER SCREENING (CT Detailed) CPT:40284 Reason for Study: Initial LDCT for LCS Clinical History: Responsible Attending: Latasha Perez NP Attending Contact Number: [phone] Resident Contact Number: has another appt scheduled [...] 05, 2024 Date Verified: MAR 05, 2024 Cutter Grinder Operator E-Sig:/ES/GERDA MCCLELLAN MD Report: EXAM: LDCT LUNG CANCER SCREENING COMPARISON: None PROTOCOL: Screening protocol, low dose, non-contrast CT chest was performed at the local [place] facility in accordance with Lung-Rads 2021. Additional [...] Primary Interpreting Staff: GERDA MCCLELLAN MD, Radiologist (Cutter Grinder Operator) /GERDA MARCUM [facility] Encounter Notes: All associated encounter notes This section contains the clinical notes associated to the Encounter. Date/Time Encounter Note(s) Provider Source Feb 08, 2024 08:09 AM ADMINISTRATIVE NOT E: LOCAL TITLE: ADMINISTRATIVE STL STANDARD TITLE: ADMINISTRATIVE NOTE DATE OF NOTE: FEB 08, 2024@08:09 ENTRY DATE: FEB 08, 2024@08:10:35 AUTHOR: AD RAMSEY EXP COSIGNER: URGENCY: STATUS: COMPLETED prepared fax for scanning and Dr South /ivy/ AD RAMSEY, RN, BSN Registered Nurse Signed: 02/08/2024 08:10 AD RAMSEY [facility]
--- OUTSIDE RECORDS SUMMARY | 2024-09-03 16:57 | XMS_ITS ---
Author Name Blessing SHAH, MRS. Nam npal Address [id number] [place] [address] [place] [address] Phone [phone] Organization [facility] ([facility]) Care Team Providers Care Film Booker Name Role Phone Sophy Funk Unavailable [phone] Fortunato Anthony Unavailable [phone] Reason for Referral Not Available Allergies, adverse [...] mg Tab TAKE 1 TABLET BY [place] [facility] EVERY DAY 2024-04-07 No Data Available Isosorbide Mononitrate ER 30 mg Tab ER 24hr TAKE 1 TABLET BY MOUTH EVERY DAY 2023-12-17 No Data Available Lisinopril-hydroCHLOROthiazi de 10/12.5 mg Tab TAKE 1 TABLET BY MOUTH EVERY DAY 2024-02-21 No Data Available Montelukast Sodium 10 mg Tab TAKE 1 TABL ET BY MOUTH EVERY DAY 2023-09-21 No Data Available Terazosin 5 mg Cap TAKE 1 CAPSULE BY [place] [facility] EVERY DAY 2023-11-05 No Data Available Omeprazole [...] 2024-07-31 N/A GERD (gastroesophageal reflux disease) Active 15-08-09 N/A Depression Active 2024-07-31 N/A BPH (benign prostatic hyperplasia) Active 4-10 N/A Tobacco dependence Active 2024-08-01 N/A Encounters Encounters Type Facility Date of Service Diagnosis/Co mplaint Home visit for evaluation and management of new patient requiring medically appropriate examination and low level of medical decision making. If using time, at least 30 minutes total time on encounter [facility] [place] 08/01/2024 Hyperlipidemia, unspecifiedEssential (primary) hypertensionGastro-esophageal reflux disease without esophagitisDepression, unspecifiedEnlarged prostate without lower urinary tract symptomsNicotine dependence, unspecified, uncomplicated Home visit for evaluation and management of new patient requiring medically appropriate examination and low level of medical decision making. If using time, at least 30 minutes total time on encounter [facility] 08/01/2024 Essential (primary) hypertension Social History Sex Male History of Procedures Procedures Service Procedure code Service date Servicing provider Phone# Home visit for evaluation and management of new patient requiring medically appropriate examination and low level of medical decision making. If using time, at least 30 minutes total time on encounter [id number] 2024-08-01 No Data Available No Data Availa [...] 13:28:00 PCP f/u twice a year with [facility]IP[facility]. Bloodwork done twice a year.chronic; stablecontinue atorvastatin [...] conducted via telemedicineLocation of patient[place] [facility] participating in telemedicine service and their role in the encounter: Sophy Funk PA-C; Dieter Will NP; 2024-08-01 Patient denies any i ssues or concerns at this time.
[2024-09-03 17:00] VITALS: BP 154/75; PULSE 66; RESP 16; TEMP 36.6; O2SAT 99
== END 2024-09-03 17:10 | disposition home or self-care (01) ==
PROVIDERS: Emergency Provider Nurse Practitioner
DX: L03.032 Cellulitis of left toe (principal); F17.210 Nicotine dependence, cigarettes, uncomplicated; I25.10 Atherosclerotic heart disease of native coronary artery without angina pectoris; I27.20 Pulmonary hypertension, unspecified; E78.5 Hyperlipidemia, unspecified; N40.1 Benign prostatic hyperplasia with lower urinary tract symptoms; K21.9 Gastro-esophageal reflux disease without esophagitis; I10 Essential (primary) hypertension; M16.12 Unilateral primary osteoarthritis, left hip; Z96.651 Presence of right artificial knee joint; Z86.16 Personal history of COVID-19; Z79.82 Long term (current) use of aspirin
CPT/HCPCS: 99213; G0463

== ENCOUNTER 2024-12-04 09:40 | Outpatient (CLI) | payer OTHER, SELFPAY ==
--- NOTE | ~2024-12-04 | CT_ITS ---
EXAMINATION: CT lung screening DATE: 12/04/2024 10:21 INDICATION: Z 87.891. Personal history of nicotine dependence TECHNIQUE: Computed tomography (CT) of the chest was performed without intravenous contrast. The dose -length product was 126.57 mGy-cm. COMPARISON: 01/31/2021 FINDINGS: No enlarged mediastinal or hilar lymph nodes. Thoracic aorta is not aneurysmal. Mild atherosclerotic disease in the thoracic aorta. Heart is unenlarged. There are coronary artery calcifications. There i s a 5 mm nonobstructing calcification in the left kidney. Tracheal bronchial tree is patent. No pneum othorax. No pleural effusion. No focal consolidation. No pulmonary mass. Mild biapical scarring, unch anged. Small subpleural reticular opacities scattered throughout both lungs similar to the prior stud y likely scarring. Bones appear osteopenic. Multilevel degenerative changes in the thoracic spine sim ilar to the prior study. There is a form of chronic calcific granuloma in the right middle lobe. IMPRESSION: 1. Lung Rads category 1: Negative. Continued annual screening noncontrast low-dose chest CT in 12 sun ths. Reviewed, dictated and finalized at location A. IMPRESSION: 1. Lung Rads category 1: Negative. Continued annual screening noncontrast low-d ose chest CT in 12 months.
--- OUTSIDE RECORDS SUMMARY | 2024-12-04 09:56 | XMS_ITS | Encounter Summary ---
Author Name [facility] [place] Organization [place] Address [address] [place] [address] Care Team Providers Care Air Conditioning Coil Assembler Name Role Phone FLORENCE CLEMENTS Primary Care [...] Caban's Name Patient's Relationship to Policy Caban Lumenergi [facility] (WNR) MEDICARE ADVANTAGE [facility] (WNR) August 21, 2020 [id number] [phone] SCHAFER,KODI HARD PATIENT MEDICARE (WNR) MEDICARE (M) PART A Jan 21, 2014 PART A [id number] SCHAFER,KODI HARD PATIENT MEDICARE (WNR) MEDICARE (M) PART B Jan 21, 2014 PART B [id number] SCHAFER,KODI HARD PATIENT Selected Encounter This section includes the information on record at [place] for the Encounter. Date/Time Encounter Type Encounter Description Reason Provider Source August 21, 2024 10:00 AM OFFICE O/P NEW [place] 60 MIN NEUROLOGY ICD-10-CM R90.89 Oth abnormal findings on diagnostic imaging of cnsl MIKKI SANDOVAL Encounter Template Text not used by [place] Assessments - Encounter Diagnoses This section includes the primary and secondary diagnoses documented for the Encounter. Date/Time Primary/Secondary Diagnosis Diagnosis Name Provider Source August 21, 2024 01:57 PM PRIMARY Oth abnormal findings on diagnostic imaging of cnsl MIKKI SANDOVAL [facility] August 21, 2024 01:57 PM SECONDARY Anxiety disorder, unspecified MIKKI SANDOVAL [facility] Plan of Treatment: Future Appointments (+ 6 months) and Future Tests (+/- 45 days) The Plan of Treatment section includes future care activities for the patient from all [place] [facility] This section includes future appointments and future orders which are active, pending or scheduled. Future Appointments This section includes appointments that were scheduled to occur 6 months from the date of the Encounter, up to a maximum of 20 appointments. The data comes from all [facility]. Appointment Date/Time Appointment Type Appointme nt Facility Name Sep 23, 2024 01:45 PM AMBULATORY - MEDICINE [facility] Sep 24, 2024 01:00 PM AMBULATORY - PSYCHIATRY [facility] Sep 29, 2024 08:30 AM AMBULATORY - PSYCHIATRY [facility] Oct 08, 2024 02:00 PM AMBULATORY - PSYCHIATRY [facility] Nov 12, 2024 11:00 AM AMBULATORY - MEDICINE [facility] Nov 26, 2024 12:30 PM AMBULATORY - NONE [facility] Nov 26, 2024 01:30 PM AMBULATORY - PSYCHIATRY [facility] Dec 01, 2024 11:00 AM AMBULATORY - NONE [facility] Feb 11, 2025 11:00 AM AMBULATORY - NONE . [facility] Active, Pending, and Scheduled Orders This [...] stry Order TSH W/ REFLEX FT4 (STL) LELAND CORMIER-HEP PLASMA SP [facility] Jul 09, 2024 12:00 AM Laboratory - Chemi stry Order B12 GOLD/RED SST SERUM SP [facility] Jul 09, 2024 12:00 AM Laboratory - Chemi stry Order FOLATE (STL-MA) GOLD/RED SST SERUM SP [facility] Jul 09, 2024 12:00 AM Laboratory - Chemi stry Order RAPID PLASMA REAGIN (RPR) GOLD/RED SST SERUM SP [facility] Jul 09, 2024 12:00 AM Laboratory - Chemi stry Order VITAMIN D, 25-HYDROXY GOLD/RED SST SERUM SP [facility] Jul 30, 2024 12:00 AM Laboratory - Chemi stry Order HEPATIC FUNTION PANEL (STL) GREEN LI/HEP BLD/PLAS PLASMA SP [facility] Jul 30, 2024 12:00 AM Laboratory - Chemi stry Order HGA1C BLOOD SP [facility] Jul 30, 2024 12:00 AM Laboratory - Chemi stry Order LIPID PANEL (STL) GREEN LI/HEP BLD/PLAS PLASMA SP ONCE [facility] Jul 30, 2024 12:00 AM Laboratory - Chemi stry Order BASIC METABOLIC PANEL GREEN LI/HEP BLD/PLAS PLASMA SP [facility] Social History: Smoking Status (Most current) and Tobacco Use (All prior to encounter date) This section includes the most current, and the historical, smoking and tobacco- related health factors from the [place] facility where the Encounter took place. Current Smoking Status This section includes the most current smoking, or tobacco-related health factor, from the [place] facility where the Encounter took place. Date/Time Current Smoking Status Comment Facil ity Jun 23, 2022 07:12 PM [place]-VAAES TOBACCO U SE CURRENT NRT DECLINE [facility] Tobacco Use History This section includes a history of the smoking, or tobacco-related health factors, that were collected on or before the date of the Encounter. The data comes from the [place] facility where the Encounter took place. Date/Time Smoking Status/Tobacco Use Comment F acility Mar 30, 2022 03:42 PM [place]-TOBACCO DOESNT USE WI 30 MIN WAKEUP [facility] Mar 30, 2022 03:42 PM [place]-TOBACCO USE 30 YEARS OR MORE [facility] Mar 30, 2022 03:42 PM VA-TOBACCO USE ADVICE [facility] Mar 30, 2022 03:42 PM VA-TOBACCO USE RANCH RIDER NO [facility] Mar 30, 2022 03:42 PM VA-TOBACCO USE MED NO [facility] Mar 30, 2022 03:42 PM VA-TOBACCO USER EVERY DAY [facility] Mar 05, 2019 02:55 PM VA-TOBACCO USE 30 YEARS OR MORE [facility] Mar 05, 2019 02:55 PM VA-TOBACCO USE ADVICE [facility] Mar 05, 2019 02:55 PM VA-TOBACCO USE RANCH RIDER NO [facility] Mar 05, 2019 02:55 PM VA-TOBACCO USE MED NO [facility] Mar 05, 2019 02:55 PM VA-TOBACCO USE WI 30 MIN OF WAKEUP [facility] Mar 05, 2019 02:55 PM VA-TOBACCO USER EVERY DAY [facility] Mar 26, 2015 11:28 AM CURRENT TOBACCO USER [facility] Mar 26, 2015 11:28 AM TOBACCO MEDS OFFER ED BUT DECLINED [facility] Radiology Reports: +/- 30 days of [...] the Encounter. The data comes from all [place] treatment facilities. Date/Time Radiology Report Provider Source Aug 13, 2024 07:49 AM US ABDOMEN LIMITED W/BLOOD FLOW DOPPLER: CRISTOPHER SCHAFER [id number] -[id number] M Exm Date: AUG 13, 2024@07:49 Req Phys: FLORENCE CLEMENTS Pat Loc: [facility] PACT 6 PCP (Req'rfanco Maog Loc: [facility] Service: Unknown [facility], [address] [place] [address] (Case [id number] COMPLETE) US ABDOMEN LTD, SINGLE ORG OR ISIS(US Detailed) CPT:65773 Reason for Study: surveillance liver cirrhosis (Case [id number] COMPLETE) US BLOOD FLOW ABD/RENAL (LTD) (US Detailed) CPT:31738 Clinical History: Organ to Image: Liver Reason for exam: surveillance of liver cirrhosis. h/o Hep C SVR Report Status: Verified Date Reported: AUG 13, 2024 Date Verified: AUG 13, 2024 Auto Job Estimator E-Sig:/ES/RIVERA HERNANDEZ Report: Report number: [id number], [id number] EXAMINATION:US ABDOMEN LTD, SINGLE ORG OR QUADRANT, [...] liver lesions Dictated by KELSIE DUEÑAS M.D. IRivera, have reviewed the images and report and concur with these findings. Primary Interpreting Staff: RIVERA HERNANDEZ, RADIOLOGIST (Auto Job Estimator) Primary Interpreting Resident: KELSIE DUEÑAS, Vascular & Interventional Sorter Packer /RIVERA COTTRELL [facility] Encounter Notes: All associated encounter notes This section contains the clinical notes associated to the Encounter. Date/Time Encounter Note(s) Provider Source Oct 14, 2024 11:50 AM ADDENDUM: LOCAL TITLE: Addendum STANDARD TITLE: ADDENDUM DATE OF NOTE: OCT 14, 2024@11:50:28 ENTRY DATE: OCT 14, 2024@11:50:29 AUTHOR: MIKKI SANDOVAL EXP COSIGNER: URGENCY: STATUS: COMPLETED Please let him know that as he has appointment for follow up with neurology on November 12, that day he can get the medication /es/ MIKKI SANDOVAL MD NEUROLOGY STAFF PHYSICIAN Signed: 10/14/2024 12:26 Receipt Acknowledged By: 10/15/2024 11:13 /ivy/ EVERARDO LACY RN REGISTERED NURSE --- Original Document --- 08/21/24 NEUROLOGY OUTPATIENT CONSULT STL: NEUROLOGY CLINIC NOTE: > (FIRST VISIT) > [...] caring for his sister who was in halfway. He was feeling guilty if he did [...] Memory intact, he does not forget important events/appointments/birthda ys. Mood is intact. No Autonomic dysfunction, no [...] 14:09) Height: 73 in [185.4 cm] (07/30/2024 14:) PHYSICAL EXAM: General: No acute distress HEENT: [...] Hip Abd/Add Quad TA Ham EHL RLE 08/25 08/25; 08/25 08/25 08/25 08/25 08/25 LLE 08/25 08/25; 08/25 08/25 08/25 08/25 08/25 DTR: Bi Tri BR Pat Ach Toes R 2 2 2 2 2 Down L 2 2 2 2 2 Down Sensory: Intact LT, PP, temperature, vibration, and proprioception Coordination: FNF, HKS, CAL intact bilaterally Gait/Balance: Romberg negative, normal gait, tandem walk stable MOCA: 25/30, scored 0 in [place] making test, Language test : was only able to mention 7 words starts with letter F. Intact delayed recall, short recall /, counting backward from seven 04/25. O INVESTIGATION: > RECENT LABS: No recent [...] this point. O PLAN: - MRI brain [facility]. - Neuropsychiatric evaluation. - No medications prescribed for the repetitive movements now, until further workup is made and considering it is not bothersome for the patient and no impact of ADLs. - Will cc PCP and referring physician for reference. - Follow up in clinic (please ensure he is returned to [facility] Micky Tse) if his follow up falls under different clinic. Patient seen and plan discussed with attending physician Dr. Delilah Tse MD. Neurology resident PGY2. [facility] /sayra Tse M.D. Neurology Resident U Signed: 08/21/2024 13:42 /ivy/ MIKKI SANDOVAL MD NEUROLOGY STAFF PHYSICIAN Cosigned: 08/21/2024 13:57 Receipt Acknowledged By: 08/21/2024 15:14 /ivy/ KIM GUZMAN MD Staff Physician, Psychiatry 09/30/2024 08:52 /ivy/ FLORENCE CLEMENTS MD 08/21/2024 ADDENDUM STATUS: COMPLETED Patient seen and [...] prescribed medication. Total time spent: 70 min /ivy/ MIKKI SANDOVAL MD NEUROLOGY STAFF PHYSICIAN Signed: 08/21/2024 14:01 10/14/2024 ADDENDUM STATUS: COMPLETED Received a VM on the Neurology line from Mr. Schafer wanting to speak to someone about his upcoming MRI 12/01/24. [facility] 08/21/24, MRI wo contrast ordered by Neuro. Returned call, pt is asking for oral medication for clautrophobia and anxiety prior to MRI scheduled 12/01/24 at . He would like the medication mailed to his home. Instructed pt, he will need to bring a dedicated intermodal truck driver with him, day of MRI is medication is prescribed. He is agreeable Alerting Dr. Azul to please place order for Benzodiazepine for mail if appropriate/day of MRI. Please let me know when and if placed and I will notify pt. Thank you /ivy/ EVERARDO LACY,RN REGISTERED NURSE Signed: 10/14/2024 10:54 Receipt Acknowledged By: 10/14/2024 11:49 /es/ MIKKI SANDOVAL MD NEUROLOGY STAFF PHYSICIAN * AWAITING SIGNATURE * MICKY TSE 10/15/2024 ADDENDUM STATUS: UNSIGNED You may not VIEW this UNSIGNED Addendum. MIKKI SANDOVAL [facility] Oct 14, 2024 10:49 AM ADDENDUM: LOCAL TITLE: Addendum STANDARD TITLE: ADDENDUM DATE OF NOTE: OCT 14, 2024@10:49:03 ENTRY DATE: OCT 14, 2024@10:49:04 AUTHOR: EVERARDO LACY COSIGNER: URGENCY: STATUS: COMPLETED Received a VM on the Neurology line from Mr. Schafer wanting to speak to someone about his upcoming MRI 12/01/24. [facility] 08/21/24, MRI wo contrast ordered by Neuro. Returned call, pt is asking for oral medication for clautrophobia and anxiety prior to MRI scheduled 12/01/24 at . He would like the medication mailed to his home. Instructed pt, he will need to bring a dedicated intermodal truck driver with him, day of MRI is medication is prescribed. He is agreeable Alerting Dr. Azul to please place order for Benzodiazepine for mail if appropriate/day of MRI. Please let me know when and if placed and I will notify pt. Thank you /ivy/ EVERARDO LACY RN REGISTERED NURSE Signed: 10/14/2024 10:54 Receipt Acknowledged By: 10/14/2024 11:49 /ivy/ MIKKI SANDOVAL MD NEUROLOGY STAFF PHYSICIAN 11/27/2024 11:58 /ivy/ Micky Tse M.D. Neurology Resident [facility] --- Original Document --- 08/21/24 NEUROLOGY OUTPATIENT CONSULT STL: NEUROLOGY CLINIC NOTE: > (FIRST VISIT) > [...] caring for his sister who was in halfway. He was feeling guilty if he did [...] Memory intact, he does not forget important events/appointments/birthda ys. Mood is intact. No Autonomic dysfunction, no [...] Delt Tri Bi FDS/FDP Interossei APB RUE 08/25 08/25 08/25 08/25 08/25 08/25 LUE 08/25 08/25 08/25 08/25 08/25 08/25 IP Hip Abd/Add Quad TA Ham EHL RLE 08/25 08/25; 08/25 08/25 08/25 08/25 08/25 LLE 08/25 08/25; 08/25 08/25 08/25 08/25 08/25 DTR: Bi Tri BR Pat Ach Toes R 2 2 2 2 2 Down L 2 2 2 2 2 Down Sensory: Intact LT, PP, temperature, vibration, and proprioception Coordination: FNF, HKS, CAL intact bilaterally Gait/Balance: Romberg negative, normal gait, tandem walk stable MOCA: 25/30, scored 0 in [place] making test, Language test : was only able to mention 7 words starts with letter F. Intact delayed recall, short recall 4/5, counting backward from seven /. O INVESTIGATION: > RECENT LABS: No recent [...] Dr. Delilah Tse MD. Neurology resident PGY2. [facility] /sayra sTe M.D. Neurology Resident [facility] Signed: 08/21/2024 13:42 /viy/ MIKKI SANDOVAL MD NEUROLOGY STAFF PHYSICIAN Cosigned: 08/21/2024 13:57 Receipt Acknowledged By: 08/21/2024 15:14 /ivy/ KIM GUZMAN MD Staff Physician, Psychiatry 09/30/2024 08:52 /ivy/ FLORENCE CLEMENTS MD 08/21/2024 ADDENDUM STATUS: COMPLETED Patient seen and [...] prescribed medication. Total time spent: 70 min /sayra SANDOVAL MD NEUROLOGY STAFF PHYSICIAN Signed: 08/21/2024 14:01 10/14/2024 ADDENDUM STATUS: COMPLETED Please let him know that as he has appointment for follow up with neurology on November 12, that day he can get the medication /sayra SANDOVAL MD NEUROLOGY STAFF PHYSICIAN Signed: 10/14/2024 12:26 Receipt Acknowledged By: 10/15/2024 11:13 /ivy/ EVERARDO LACY RN REGISTERED NURSE 10/15/2024 ADDENDUM STATUS: COMPLETED Alerted by Dr. Sandoval to inform Mr. Schafer he has an upcoming Neurology appt 11/12/24 at 1100 and he can waste picker the medication for his MRI after appt at the pharmacy. This abstract writer informed pt to remind his Neuro Physician he needs medication for his MRI. All quesitons answered, pt verbalized understanding of the above information. /ivy/ EVERARDO LACY RN REGISTERED NURSE Signed: 10/15/2024 11:16 EVERARDO LACY [facility] August 21, 2024 09:49 AM NEUROLOGY CONSULT: LOCAL TITLE: NEUROLOGY OUTPATIENT CONSULT ST STANDARD TITLE: NEUROLOGY CONSULT DATE OF NOTE: [...] caring for his sister who was in halfway. He was feeling guilty if he did [...] Memory intact, he does not forget important events/appointments/birthda ys. Mood is intact. No Autonomic dysfunction, no [...] 5/5 5/5 5/5 5/5 LLE 5/5 5/5; 5/ 5/5 5/5 5/5 5/5 DTR: Bi Tri BR Pat Ach Toes R 2 2 2 2 2 Down L 2 2 2 2 2 Down Sensory: Intact LT, PP, temperature, vibration, and proprioception Coordination: FNF, HKS, CAL intact bilaterally Gait/Balance: Romberg negative, normal gait, tandem walk stable MOCA: 25/30, scored 0 in [place] making test, Language test : was only [...] Dr. Delilah Tse MD. Neurology resident PGY2. [facility] /ivy/ Micky Tse M.D. Neurology Resident [facility] Signed: 08/21/2024 13:42 /ivy/ MIKKI SANDOVAL MD NEUROLOGY STAFF PHYSICIAN Cosigned: 08/21/2024 13:57 Receipt Acknowledged By: 08/21/2024 15:14 /ivy/ KIM GUZMAN MD Staff Physician, Psychiatry 09/30/2024 08:52 /ivy/ FLORENCE CLEMENTS MD 08/21/2024 ADDENDUM STATUS: COMPLETED Patient seen and [...] prescribed medication. Total time spent: 70 min /ivy/ MIKKI SANDOVAL MD NEUROLOGY STAFF PHYSICIAN Signed: 08/21/2024 14:01 10/14/2024 ADDENDUM STATUS: COMPLETED Received a VM on the Neurology line from Mr. Schafer wanting to speak to someone about his upcoming MRI 12/01/24. [facility] 08/21/24, MRI wo contrast ordered by Neuro. Returned call, pt is asking for oral medication for clautrophobia and anxiety prior to MRI scheduled 12/01/24 at . He would like the medication mailed to his home. Instructed pt, he will need to bring a dedicated intermodal truck driver with him, day of MRI is medication is prescribed. He is agreeable Alerting Dr. Azul to please place order for Benzodiazepine for mail if appropriate/day of MRI. Please let me know when and if placed and I will notify pt. Thank you /ivy/ EVERARDO LACY RN REGISTERED NURSE Signed: 10/14/2024 10:54 Receipt Acknowledged By: 10/14/2024 11:49 /ivy/ MIKKI SANDOVAL MD NEUROLOGY STAFF PHYSICIAN * AWAITING SIGNATURE * MICKY TSE 10/14/2024 ADDENDUM STATUS: COMPLETED Please let him know that as he has appointment for follow up with neurology on November 12, that day he can get the medication /ivy/ MIKKI SANDOVAL MD NEUROLOGY STAFF PHYSICIAN Signed: 10/14/2024 12:26 Receipt Acknowledged By: 10/15/2024 11:13 /ivy/ EVERARDO LACY RN REGISTERED NURSE 10/15/2024 ADDENDUM STATUS: COMPLETED Alerted by Dr. Sandoval to inform Mr. Schafer he has an upcoming Neurology appt 11/12/24 at 1100 and he can waste picker the medication for his MRI after appt at the pharmacy. This abstract writer informed pt to remind his Neuro Physician he needs medication for his MRI. All quesitons answered, pt verbalized understanding of the above information. /ivy/ EVERARDO LACY RN REGISTERED NURSE Signed: 10/15/2024 11:16 [facility]
--- OUTSIDE RECORDS SUMMARY | 2024-12-04 09:56 | XMS_ITS | Encounter Summary ---
Author Organization [facility] Address [address] [place] [address] Care Team Providers Care Litigation Claim Representative Name Role Phone Paul Wisdom MD Unavailable [phone] Ana Luisa Lewis MD Primary Care Provider UnavailZay Ayon MD Unavailable [phone] Ana Luisa Lewis MD Unavailable Unavailable Scotty Tellez MD Unavailable [phone] Chelly Thompson ATTORNEY LAWYER-ARTS AND CRAFTS INSTRUCTOR Unavailable Marcia Pace Unavailable Unavailable Marcia Pace Unavailable Unavailable Marcia Pace Unavailable Unavailable Encounter Details Date Type Department Care Team (Late st Contact Info) Description 02/05/2014 [facility]NAL [place] [address] [facility] [address] [place] [phone] Social History Tobacco Use Types Packs/Day Years Used Date Smoking Tobacco: Former Cigarettes Smokeless Tobacco: Never Alcohol Use Standard Drinks/Week Comments No 0 (1 standard drink = 0.6 oz pur e alcohol) Sex and Gender Information Value Date Recorded Sex Assigned at Male 05/11/2020 11:42 AM CASE MAKING MACHINE OPERATOR Legal Sex Male 6:12 AM CASE MAKING MACHINE OPERATOR Gender Identity Male 05/11/2020 11:42 AM CASE MAKING MACHINE OPERATOR Sexual Orientation Straight 05/11/2020 11 :42 AM CASE MAKING MACHINE OPERATOR 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 Author Blood Pressure < 140/90 Blood Pressure 120/72( 020 3:52 PM CASE MAKING MACHINE OPERATOR) No Katelynn Guy MA documented as of this encounter Visit Diagnoses Not on filedocumented in this encounter Care Teams Litigation Claim Representative Relationship Specialty Start Date End Date Ana Luisa Lewis MD [address] [place] [id number] PCP - General Family Medicine 10/03/12 08/30/21 Ana Luisa Lewis MD Need updated address PCP - Attributed-MSSP 06/21/1804/22 Chelly Thompson APRN-ARTS AND CRAFTS INSTRUCTOR [address] [facility] [place] [phone] PCP - Attributed-MSSP 04/23/20 01/09/21 Paul Wisdom MD [address] [place] [id number] Orthopedic Surgery 05/20/10 Zay Sarmiento MD [address] [place] [phone] Cardiology 02/24/14 02/22/20 Scotty Tellez MD [address] [facility] [address] [place] [address] Phlebotomy Specialist Cardiology 04/14/20 Marcia Pace Care Coordination Specialist Care Management 08/21/24 08/21/24 Marcia Pace Care Coordination Specialist Care Management 08/25/24 08/25/24 Marcia Pace Care Coordination Specialist Care Management 08/26/24 08/26/24 documented as of this encounter
--- OUTSIDE RECORDS SUMMARY | 2024-12-04 09:56 | XMS_ITS | Clinical Summary ---
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 Gender Identity Not on file Sexual Orientation [...] 10:16 AM CDT Height 185.4 cm (6' 1) 02/21/2022 10:16 AM CDT Body Mass Index 26.91 02/21/2022 10:16 AM CDT Plan of Treatment Health Maintenance Due Date Last Done Comments Colon Cancer Screening-Colonoscopy 1950 Depression Screening 1950 Fall Risk Assessment 1950 Hepatitis C Screening 1950 Hepatitis B Screening 1967 Abdominal Aortic Aneurysm (A AA) Screen 2014 Well Visit 65+ 2014 Zoster Vaccine (2 of 3) 07/26/2014 05/31/2014 Influenza Vaccine (#1) 2024 0, 01/28/2019, 02/04/2018, Additional history exists DTaP/Tdap/Td Vaccine (3 - Td or Tdap) 02/22/2030 02/23/2020, 04/23/2007 Pneumococcal vaccine 65+ Completed 016, 03/22/2015, 02/22/2015, Additional history exists Insurance [facility] Care Teams [employer]rop [place] Hand Relationship Specialty Start Date End Date Hetal Melgoza MD [address] [place] [address] PCP - General Family Medicine 10/19/20
--- OUTSIDE RECORDS SUMMARY | 2024-12-04 09:56 | XMS_ITS | Encounter Summary ---
Author Organization [facility] Address [address] [place] [address] Care Team Providers Care Cow Tester Name Role Phone Paul Wisdom MD Unavailable [phone] Ana Luisa Lewis MD Primary Care Provider UnavailZay Ayon MD Unavailable [phone] Ana Luisa Lewis MD Unavailable Unavailable Scotty Tellez MD Unavailable [phone] Chelly Thompson PATIENT CLERICAL ASSISTANT-CARPET CLEANING TECHNICIAN Unavailable [phone] Marcia Pace Unavailable Unavailable Marcia Pace Unavailable [...] Sex Assigned at Male 05/11/2020 11:42 AM CANVAS GOODS FABRICATOR Legal Sex Male 6:12 AM CANVAS GOODS FABRICATOR Gender Identity Male 05/11/2020 11:42 AM CANVAS GOODS FABRICATOR Sexual Orientation Straight 05/11/2020 11 :42 AM [employer] FABRICATOR 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 Author Blood Pressure < 140/90 Blood Pressure 120/72( 020 3:52 PM CANVAS GOODS FABRICATOR) No Katelynn Guy MA documented as of this encounter Visit Diagnoses Not on filedocumented in this encounter Care Teams Cow Tester Relationship Specialty Start Date End Date Ana Luisa Lewis MD [address] [place] [address] PCP - General Family Medicine 10/03/12 08/30/21 Ana Luisa Lewis MD Need updated address PCP - Attributed-MSSP 06/21/1804/22 Chelly Thompson, PATIENT CLERICAL ASSISTANT-CARPET CLEANING TECHNICIAN [address] [place] [id number] PCP - Attributed-MSSP 04/23/20 01/09/21 Paul Wisdom MD [address] [place] [address] Orthopedic Surgery 05/20/10 Zay Sarmiento MD [address] [place] [address] Cardiology 02/24/14 02/22/20 Scotty Tellez MD [address] [place] [address] Pipe Coremaker Cardiology 04/14/20 Marcia Pace Care Coordination Specialist Care Management 08/21/24 08/21/24 Marcia Pace Care Coordination Specialist Care Management 08/25/24 08/25/24 Marcia Pace Care Coordination Specialist Care Management 08/26/24 08/26/24 documented as of this encounter
--- OUTSIDE RECORDS SUMMARY | 2024-12-04 09:56 | XMS_ITS | Continuity of Care Document ---
Author Organization [facility] Address [address] [place] [address] Phone Care Team Providers Care Appellate Court Clerk Name Role Phone Lety Benito MD Unavailable Unavailable Procedures Procedure Date SKIN TEST; TUBERCULOSIS, INTRADERMAL Jun OFFICE O/P EST 5 MIN OFFICE/OUTPATIENT VISIT, EST SKIN TEST; TUBERCULOSIS, INTRADERMAL Feb OFFICE O/P EST 5 MIN OFFICE/OUTPATIENT VISIT, EST OFFICE O/P EST 5 MIN OFFICE/OUTPATIENT VISIT, EST SKIN TEST; TUBERCULOSIS, INTRADERMAL Feb OFFICE/OUTPATIENT VISIT, EST OFFICE O/P EST 5 MIN SKIN TEST; TUBERCULOSIS, INTRADERMAL Jan OFFICE O/P EST 5 MIN OFFICE OUTPT EST 10 MIN OFFICE O/P EST 5 MIN OFFICE O/P EST 5 MIN SKIN TEST; TUBERCULOSIS, INTRADERMAL Jan OFFICE OUTPT EST 10 MIN OFFICE CONSULT, 15 MIN, 3 KE Y COMPS: PROB FOCUS HX; PROB FOCUS EXAM; STRTFWD OFFICE CONSULT, 15 MIN, 3 KE Y COMPS: PROB FOCUS HX; PROB FOCUS EXAM; STRTFWD Advance Directives Directive Yes / No Effective Date File Name No Information Encounters Encounter Description Practice Location Reason(s) For Visit Diagnoses Date Provider Providers Copied on Encounter fitogram [facility] , [address], [place], [place], [id number], [place] tel:[phone] Longterm No Information [address] [facility], [place], [place], [address], [place]. tel:[phone] [facility] , [address], [place], [place], [address], [place] tel:[phone] Longterm No Information 0- 4 [facility]. [address], [place], [place], [address], [place]. tel:[phone] OFFICE O/P EST 5 MIN [facility] , [address], [place], [place], [address], [place] tel:[phone] [facility] Unspecified follow-up examination 1 No Information Consulting Provider: Alisson Mac, [address] [place] [address], [address]. tel:[phone] OFFICE/OUTPAT IENT VISIT, EST [facility] , [address], [place], [place], [address], [place] tel:[phone] [facility] TB Screening (chief complaint) Screening examination for pulmonary tuberculosis 1 No Information OFFICE O/P EST 5 MIN [facility] , [address], [place], [place], [address], [place] tel:[phone] [facility] PPD reading (chief complaint) Unspecified follow-up examination 0 No Information Consulting Provider: Alisson aMc, [address] [place] [address], [address]. tel:[phone] OFFICE/OUTPAT IENT VISIT, EST [facility] , [address], [place], [place], [address], [place] tel:[phone] [facility] TB Screening (chief complaint) No Information 0 No Information OFFICE O/P EST 5 MIN [facility] , [address], [place], [place], [address], [place] tel:[phone] [facility] PPD READING (chief complaint) Unspecified follow-up examination 0200 9 No Information OFFICE/OUTPAT IENT VISIT, EST [facility] , [address], [place], [place], [address], [place] tel:[phone] Brenna Haines PPD (chief complaint) No Information 9 No Information OFFICE/OUTPAT IENT VISIT, EST [facility] , [address], [place], [place], [address], [place] tel:[phone] Brenna Haines ROUTINE MEDICAL EXAM 8 No Information OFFICE O/P EST 5 MIN [facility] , [address], [place], [place], [address], [place] tel:[phone] Brenna Haines FOLLOW-UP EXAM NOS 8 No Information OFFICE O/P EST 5 MIN [facility] , [address], [place], [place], [address], [place] tel:[phone] Brenna Haines SCREENING-PUL MONARY TB 8 No Information OFFICE OUTPT EST 10 MIN [facility] , [address], [place], [place], [address], [place] tel:[phone] Brenna Haines ROUTINE MEDICAL EXAM 7 No Information OFFICE O/P EST 5 MIN [facility] , [address], [place], [place], [address], [place] tel:[phone] Brenna Haines FOLLOW-UP EXAM NOS 7 No Information OFFICE O/P EST 5 MIN [facility] , [address], [place], [place], [address], [place] tel:[phone] Brenna Haines SCREENING-PUL MONARY TB 7 No Information OFFICE OUTPT EST 10 MIN [facility] , [address], [place], [place], [address], [place] tel:[phone] Brenna Haines ROUTINE MEDICAL EXAM 6 No Information OFFICE CONSULT, 15 MIN, 3 DAVIS COMPS: PROB FOCUS HX; PROB FOCUS EXAM; STRTFWD [facility] , [address], [place], [place], [address], [place] tel:[phone] [facility] ECONOMIC PROBLEM 6 No Information OFFICE CONSULT, 15 MIN, 3 DAVIS COMPS: PROB FOCUS HX; PROB FOCUS EXAM; STRTFWD [facility] , [address], [place], [place], [address], [place] tel:[phone] [facility] [place] ECONOMIC PROBLEM 0-200 6 No Information Family History Family Member Type Diagnosis Age At Onset No Information Payers Payer name Insurance type Covered constitution party ID Authoriza tion(s) No Information Social History Type Description Quantity Date Captured Comments Sex Male Smoking Status No Information Chief Complaint And Reason For Visit No Information Reason For Referral Reason For Referral No Information History Of Present Illness Encounter Date Complaint History Of Prese nt Illness No Information Functional Status Date Functional Assessmen t No Information Instructions Date Instruction Additional Infor mation No Information Assessments Type Assessment Date No Information Patient Care Teams Name Effective Dates (start - stop) Status Members No Information
--- OUTSIDE RECORDS SUMMARY | 2024-12-04 09:56 | XMS_ITS | Encounter Summary ---
Author Name [facility] Address [address] [place] [address] Care Team Providers Care Jack Of All Trades Name Role Phone FLORENCE CLEMENTS Primary Care [...] Caban's Name Patient's Relationship to Policy Caban Terascala [facility] (WNR) MEDICARE ADVANTAGE [facility] (R) August 21, 2020 [id number] [phone] SCHAFER,KODI HARD PATIENT MEDICARE (WNR) MEDICARE (M) PART A Jan 21, 2014 PART A [id number] SCHAFER,KODI HARD PATIENT MEDICARE (WNR) MEDICARE (M) PART B Jan 21, 2014 PART B [id number] SCHAFER,KODI HARD PATIENT Selected Encounter This section includes the information on record at [place] for the Encounter. Date/Time Encounter Type Encounter Description Reason Provider Source Oct 08, 2024 02:00 PM NRPSY TST EVAL PHYS/QHP 1ST POLYTRAUMA/TBI IND ICD-10-CM G31.84 Mild cognitive impairment of uncertain or unknown etiology LO,GEOVANI N IHE Encounter Template Text not used by [place] Assessments - Encounter Diagnoses This section includes the primary and secondary diagnoses documented for the Encounter. Date/Time Primary/Secondary Diagnosis Diagnosis Name Provider Source Oct 08, 2024 03:17 PM PRIMARY Mild cognitive impairment of uncertain or unknown etiology HERMINIO MARINO [facility] Plan of Treatment: Future Appointments (+ 6 months) and Future Tests (+/- 45 days) The Plan of Treatment section includes future care activities for the patient from all [facility]. This section includes future appointments and future orders which are active, pending or scheduled. Future Appointments This section includes appointments that were scheduled to occur 6 months from the date of the Encounter, up to a maximum of 20 appointments. The data comes from all [place] treatment facilities. Appointment Date/Time Appointment Type Appointme nt Facility Name Nov 12, 2024 11:00 AM AMBULATORY - MEDICINE [facility] Nov 26, 2024 12:30 PM AMBULATORY - NONE [facility] Nov 26, 2024 01:30 PM AMBULATORY - PSYCHIATRY [facility] Dec 01, 2024 11:00 AM AMBULATORY - NONE [facility] Feb 11, 2025 11:00 AM AM[facility]ULATORY - NONE [facility] Feb 23, 2025 11:00 AM AMBULATORY - NONE [facility] Mar 26, 2025 01:45 PM AMBULATORY - MEDICINE [facility] Social History: Smoking Status (Most current) [...] place. Date/Time Current Smoking Status Comment Torres blanchard May 21, 2024 10:00 [facility] Tobacco Use History This section includes a history of the smoking, or tobacco-related health factors, that were collected on or before the date of the Encounter. The data comes from the [place] facility where the Encounter took place. 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 Date/Time Encounter Note(s) Provider Source Oct 08, 2024 03:07 PM PSYCHOLOGY NOTE: LOCAL TITLE: PSYCHOLOGY STL STANDARD TITLE: PSYCHOLOGY NOTE DATE OF NOTE: OCT 08, 2024@15:07 ENTRY DATE: OCT 08, 2024@15:07:41 AUTHOR: HERMINIO MARINO COSIGNER: GEOVANI BLANCHARD URGENCY: STATUS: COMPLETED PSYCHOLOGY ST Has ADDENDA NEUROPSYCHOLOGY FEEDBACK SESSION [facility] DATE OF SERVICE: OCT 08, 2024 MODALITY OF SERVICE: [facility] DIAGNOSIS: Mild neurocognitive disorder, unspecified was advised these services are being directly supervised by licensed psychologist, Dr. Geovani Blanchard, Ph.D., ABPP, and they were provided the drying room supervisor's written contact information. was directly advised of this law writer's status as a Psychology Resident and of their right to speak with the clinical drying room supervisor regarding the services being offered at any time. Korbel expressed understanding of this information and provided verbal consent to the involvement of this Psychology Resident in their clinical care. CRISTOPHER SCHAFER is a 74-year old who was evaluated on 09/29/2024 resulting in a DSM-5 TR diagnosis of mild neurocognitive disorder, unspecified. Please see report from that date for further details. During the initial neuropsychology appointment, the gave permission for his spouse, Iesha Schafer, to provide collateral data and to receive his protected health information including neuropsychological evaluation results. Feedback was provided to the Korbel and his spouse regarding his neuropsychological evaluation. Discussed how Korbel performed within expected limited on tests of attention/working memory, processing speed, and visuospatial skills. We discussed how his most notable difficulties were on tests of visual memory and executive functioning. We discussed how his testing reflects a decline from his baseline and how his current difficulties align with a mild neurocognitive disorder. We discussed how his pattern of executive functioning difficulties is consistent with what we expect provided his imaging of frontal lobe changes; however, it was noted that he did not meet criteria for frontaltemporal dementia at this time. We discussed how vascular disease can also contribute to cognitive changes. was recommended to receive a re-evaluation in 12-18 months. These providers and the Korbel engaged in shared decision making when discussing the results and recommendations as outlined in the report. The Korbel and his spouse expressed understanding and agreement with results and recommendations. RISK ASSESSMENT - No change in risk factors related to suicide or homicide: Korbel did not report any current suicidal/homicidal ideation, plan, or intent. Risk Assessment: -Ideation: [X] Korbel denied current suicidal or homicidal ideation, plan, or intent. -Review of Relevant Risk/Protective Factors: [X] Consistent with review of available records, he/she denied any history of suicide attempts. [X] Risk factors include: Age (>65), male gender, status, Mental health diagnosis, history of TBI [X] Protective factors include: positive social support, beliefs against suicide, future orientation, help seeking behaviors, access to health care, engagement in healthcare, absence of psychosis, and absence of SI/HI history. -Clinical Judgment and Disposition: [X] In consideration of relevant risk and protective factors, the Korbel did not appear to be at imminent risk for suicide or homicide at this time. Korbel remains sustainable at the current level of care. PLAN: We discussed that they may contact these providers if any future questions or concerns arise. We confirmed that they had these providers contact information. DURATION OF FEEDBACK SESSION: 53 minutes V15-[facility] Video Connect/Video to Home: [facility] Video Connect (VVC)/Video to home template v1.0 Appointment was conducted via [facility] Video Connect or Video to home VVC/Video to home appointment information: The following [...] and it is appropriate to conduct a CVT/VVC appointment. *Confirmed 's Non-VA location for this appointment: 's Home [address] [place], [place] [address] Address and phone number verified with . *Korbel was notified of right to decline Telehealth services and eligibility for other options. consented to be seen via CVT/VVC. EMERGENCY PLAN In the event of an emergency, the Korbel or family will call emergency services, if capable. Teleprovider will remain in the virtual medical room until emergency response arrives and handoff to emergency services is complete. If is unable to make emergency call, Teleprovider is to call the national E911 service at [phone] and ask to be connected to emergency services for the 's location. Crisis Hotline: 921.697.8077 [facility] [employer] Help Desk ([facility]): 919.425.6601 or [phone] Verified Providers' location and contact information for this appointment: [address] [address] [phone] /amaury/ HERMINIO MARION Psychology Resident Signed: 10/08/2024 16:38 /amaury/ GEOVANI BLANCHARD, PH.D., ABPP Psychologist - Board Cert in Clinical Neuropsych Cosigned: 10/08/2024 16:39 10/08/2024 ADDENDUM STATUS: COMPLETED I concur with assessment, interventions, and plan of action detailed in this record. The services provided by this Psychology Resident are reviewed during supervision and conducted with sufficient time to meet, or exceed, the amount of supervision required by A, licensure, and accreditation mandates. /amaury/ GEOVANI BLANCHARD, PH.D., ABPP Psychologist - Board Cert in Clinical Neuropsych Signed: 10/08/2024 16:40 HERMINIO MARINO [facility]
--- OUTSIDE RECORDS SUMMARY | 2024-12-04 09:56 | XMS_ITS | Clinical Summary ---
Author Organization [facility] Address [address] [place] [address] Care Team Providers Care Mental Health Consultant Name Role Phone Ana Luisa Lewis MD [...] mouth daily. 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 Gender Identity Not on file Sexual Orientation [...] 10:19 AM CDT Height 185.4 cm (6' 1) 11/12/2019 10:19 AM CDT Body Mass Index [...] this topic Medical Devices Implanted Type Area Newsroom Intern Device Identifier Shelf Expiration Date Model / Serial / Lot Knee Components Knee Components Iol [employer] - [id number] Implanted:Qty: 1 on 11/17/2019 by Theo Del Angel MD at [facility] Lens Left: Eye [employer] 11/27/2022 [id number] / [id number] / Insurance [facility] MEDICARE MEDICARE [facility] Care Teams Mental Health Consultant Relationship Specialty Start Date End Date Ana Luisa Lewis MD PCP - General FAMILY PRACTICE 08/09/18
--- OUTSIDE RECORDS SUMMARY | 2024-12-04 09:56 | XMS_ITS | Encounter Summary ---
Author Name [facility] Organization [facility] [place] Address [address] [place] [address] Care Team Providers Care Database Marketing Analyst Name Role Phone FLORENCE CLEMENTS Primary Care [...] Caban's Name Patient's Relationship to Policy Caban Loterity [facility] (WNR) MEDICARE ADVANTAGE [facility] (R) August 21, 2020 [id number] [phone] SCHAFER,KODI HARD PATIENT MEDICARE (WNR) MEDICARE (M) PART A Jan 21, 2014 PART A [id number] SCHAFER,KODI HARD PATIENT MEDICARE (WNR) MEDICARE (M) PART B Jan 21, 2014 PART B [id number] SCHAFER,KODI HARD PATIENT Selected Encounter This section includes the information on record at [place] for the Encounter. Date/Time Encounter Type Encounter Description Reason Pro vider Source Sep 24, 2024 01:00 PM OFFICE O/P EST MOD 30 MIN PSYCHOGERIATRIC - INDIVIDUAL ICD-10-CM F43.12 Post-traumati c stress disorder, chronic GURUSIDDAIYA,P RATIBHA N IHE Encounter Template Text not used by [place] Assessments - Encounter Diagnoses This section includes the primary and secondary diagnoses documented for the Encounter. 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 This section includes future appointments and future orders which are active, pending or scheduled. Future Appointments This section includes appointments that were scheduled to occur 6 months from the date of the Encounter, up to a maximum of 20 appointments. The data comes from all [place] treatment facilities. Appointment Date/Time Appointment Type Appointme nt Facility Name Sep 29, 2024 08:30 AM AMBULATORY - PSYCHIATRY [facility] Oct 08, 2024 02:00 PM AMBULATORY - PSYCHIATRY [facility] Nov 12, 2024 11:00 AM AMBULATORY - MEDICINE [facility] Nov 26, 2024 12:30 PM AMBULATORY - NONE [facility] Nov 26, 2024 01:30 PM AMBULATORY - PSYCHIATRY [facility] Dec 01, 2024 11:00 AM AMBULATORY - NONE [facility] Feb 11, 2025 11:00 AM AMBULATORY - NONE [facility] Feb 23, 2025 11:00 AM AMBULATORY - NONE [facility] Mar 26, 2025 01:45 PM AMBULATORY - MEDICINE [facility] Vital Signs: All taken on the encounter date This section contains inpatient and outpatient Vital Signs collected on the date of the Encounter. Date/Time Temperature Pulse Blood Pressure Respiratory Rate SP02 Pain Height Weight Body Mass Index Source Sep 24, 2024 01:03 PM 123/72 [facility] Sep 24, 2024 01:02 PM 97.1 57 155/65 18 97 0 [facility] Social History: Smoking Status (Most current) and Tobacco Use (All prior to encounter date) This section includes the most current, and the historical, smoking and tobacco- related health factors from the [place] facility where the Encounter took place. Current Smoking Status This section includes the most current smoking, or tobacco-related health factor, from the [place] facility where the Encounter took place. Date/Time Current Smoking Status Comment Torres ity May 21, 2024 10:00 AM PA-TOBACCO USE ADVICE [facility] Tobacco Use History This section includes a history of the smoking, or tobacco-related health factors, that were collected on or before the date of the Encounter. The data comes from the [place] facility where the Encounter took place. 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 Date/Time Encounter Note(s) Provider Source Sep 24, 2024 01:27 PM PSYCHIATRY OUTPATI ENT NOTE: LOCAL TITLE: MENTAL HEALTH AGING RESOURCES TEAM [facility] STANDARD TITLE: PSYCHIATRY OUTPATIENT NOTE DATE OF NOTE: SEP 24, 2024@13:27 ENTRY DATE: SEP 24, 2024@13:27:41 AUTHOR: CHADWICK GUZMAN COSIGNER: URGENCY: STATUS: COMPLETED [facility] - MEDICATION MANAGEMENT Name..................SUSY PaganCRISTOPHER AMANUEL Age...................74 Sex...................MALE SSN...................[id number] Today's Date..........SEP 24, 2024 Service Connection....Service Connected: Yes (70%) ALLERGIES: [...] hyperplasia 5) CAD - Coronary Artery Disease ([facility] [id number]) 6) Hepatitis C 7) Anxiety ([facility] [id number]) 8) Osteoarthritis of left knee joint 9) History of arthroplasty of right knee 10) History of arthroplasty of left knee 11) Chronic Post-Traumatic Stress Disorder ([facility] [id number]) 12) Exposure to potentially hazardous substance ([facility] [id number]) 13) Carotid Artery Stenosis ([facility] [id number]) 14) Aortic Stenosis, Non-Rheumatic ([facility] [id number]) 15) COPD - Chronic Obstructive Pulmonary Disease ([facility] [id number]) VITAL SIGNS: Pulse.................68 (07/09/2024 14:34) Temperature...........97.4 F [...] illness other than dementia in 1 sister. [place] has no past or present h/o aggression towards self or others. is low suicide risk at present and appropriate for outpatient level of care. [place] seen alone for f/u today and reports that he has been a little stressed about several deaths in recent past. His wifes cousin and 2 of his close friends and this made him think of his priorities. They were in his age group and it has made him think about his own mortality. He is compliant with effexor and it is helping, but he still has off and on deprssed mood lasting for few hour and its gone. Yesterday he saw dermatology and had several skin lesions cauterized. reports sleeping through the night and is trying to plan things like travel etc. He denies any dizzyness or falls. He has noticed some difficulty in parking correctly within the parking space. Denies any problem driving and does not get lost. continues to smoke 1/2ppd and reports that he now has meds for craving and plans to start taking it soon. denies any other substance abuse. ANY MEDICATION SIDE EFFECT....No APPETITE.................. ....Good SLEEP..................... ....Good MENTAL STATUS: MOOD/AFFECT............... ..Normal mood- okay. have short bouts of down periods. affect- congruent DELUSIONS/HALLUCINATIONS.. ..Absent denies SUICIDAL/AGGRESSIVE....... ..Absent denies ALERT & ORIENTED X3 WITH GOOD CONCENTRATION........Yes oriented x3. COMMENTS: None MEDICATION CHANGE.............No SUPPORTIVE PSYCHOTHERAPY......Yes GAF:No previous GAF entered. Current Gaf: na TREATMENT PLAN: COMMENTS: ptsd/Depression/-discussed about continuing effexor 225mg po daily NCD- Scheduled for brain MRI and neuropsych testing later this month and he plans to keep that. Support empathic listening and psychoeducation provided. f/u in 2-3months INSTRUCTIONS GIVEN TO PATIENT/FAMILY: Report medication side effects promptly No alcohol/illicit drug use with medication Needs to be cautious with driving/use of machinery Avoid night-time driving Follow up with Primary Care Provider If symptoms get worse, call clinic or Emergency Room as appropriate seen to total of 35min with 20min of supportive therapy. INSTRUCTIONS GIVEN TO PATIENT/FAMILY: Report medication side effects promptly No alcohol/illicit drug use with medication Needs to be cautious with driving/use of machinery Avoid night-time driving Follow up with Primary Care Provider If symptoms get worse, call clinic or Emergency Room as appropriate seen to total of 30min with 20min of supportive therapy. /amaury/ KIM GUZMAN MD Staff Physician, Psychiatry Signed: 09/24/2024 13:43 CHADWICK GUZMAN [facility]
--- OUTSIDE RECORDS SUMMARY | 2024-12-04 09:56 | XMS_ITS | Clinical Summary ---
Author Organization 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 Gender Identity Not on file Sexual Orientation [...] P M CDT Height 185.4 cm (6' 1) 08/07/2022 2:52 PM CDT Body Mass Index 25.67 08/07/2022 2:52 PM CDT Plan of Treatment Health Maintenance Due Date Last Done Comments COLORECTAL SCREENING 1994 Colorectal Cancer Screening 1994 FIT-DNA Q 3 years 1994 FIT/FOBT Q 1 year 1994 Flex Sig/CT Colonography Q 5 years 1994 ZOSTER VACCINE (2 of 3) 07/27/2014 06/01/2014 RSV VACCINE (60+ or ) (1 - 1-dose 75+ series) 02/17/2024 INFLUENZA VACCINE (#1) 2024 , 01/28/2019, 01/14/2015, Additional history exists DTAP/TDAP/TD VACCINES (2 - T d or Tdap) 02/22/2030 02/23/2020 PNEUMOCOCCAL VACCINE 50+ YEARS Completed 1 06/21/2015, 03/22/2015, 04/23/1997 [facility] Care Teams Weir Fisherman Relationship Specialty Start Date End Date Hetal Melgoza MD PCP - General Family Practice 08/07/22
--- OUTSIDE RECORDS SUMMARY | 2024-12-04 09:56 | XMS_ITS | Continuity of Care Document ---
Author Name [facility] Organization [facility] Care Team Providers Care Photographers' Model Name Role Phone [facility] Unavailable Unavailable Problems Combined list of problems from Department of Defense and [facility] Affairs facilities. It does not include entries that were removed or entered in error. Problem Status Onset Date Problem Type Date of Resolution Comments Source Anxiety ([facility] [id number]) Active Condition [facility] Aortic Stenosis, Non-Rheumatic ([facility] [id number]) Active Condition [facility] Benign prostatic hyperplasia Active Condition [facility] CAD - Coronary Artery Disease ([facility] [id number]) Active Condition [facility] Carotid Artery Stenosis ([facility] [id number]) Active Condition [facility] Chronic Post-Traumatic Stress Disorder ([facility] [id number]) Active Condition [facility] COPD - Chronic Obstructive Pulmonary Disease ([facility] [id number]) Active Condition [facility] Essential hypertension Active Condition [facility] Exposure to potentially hazardous substance ([facility] [id number]) Active Condition Aug 07 4 Entered By: BALTAZAR MADRID Comment: Entered automatically through [facility]AE Problem List documentation program [facility] Hepatitis C Active Condition August 29, 2020 Entered By: FLORENCE CLEMENTS Comment: treated in 2000, NEG since [facility] History of arthroplasty of left knee Active Condition [facility] History of arthroplasty of right knee Active Condition [facility] Mild cognitive impairment Active Condition [facility] Mixed hyperlipidemia Active Condition [facility] Osteoarthritis of left knee joint Active Condition [facility] Peripheral vascular disease Active Condition [facility] Diagnosis: ICD-10-CM Z13.5 Encounter for screening for eye and ear disorders Active Diagnosis [facility] Diagnosis: ICD-10-CM G31.84 Mild cognitive impairment of uncertain or unknown etiology Active Diagnosis [facility] Diagnosis: ICD-10-CM F43.12 Post-traumatic stress disorder, chronic Active Diagnosis [facility] Diagnosis: ICD-10-CM L82.1 Other seborrheic keratosis Active Diagnosis [facility] Diagnosis: ICD-10-CM R90.89 Oth abnormal findings on diagnostic imaging of cnsl Active Diagnosis [facility] Diagnosis: ICD-10-CM E66.3 Overweight Active Diagnosis [facility] Diagnosis: ICD-10-CM F32.A Depression, unspecified Active Diagnosis [facility] Diagnosis: ICD-10-CM Z71.3 Dietary counseling and surveillance Active Diagnosis [facility] Diagnosis: ICD-10-CM I25.10 Athscl heart disease of [place] coronary artery w/o ang pctrs Active Diagnosis [facility] Diagnosis: ICD-10-CM Z12.2 Encntr screen for malignant neoplasm of respiratory organs Active Diagnosis [facility] Diagnosis: ICD-10-CM L57.0 Actinic keratosis Active Diagnosis [facility] Diagnosis: ICD-10-CM Z96.652 Presence of left artificial knee joint Active Diagnosis [facility] Diagnosis: ICD-10-CM R06.00 Dyspnea, unspecified Active Diagnosis [facility] Diagnosis: ICD-10-CM Z77.29 Contact with and exposure to other hazardous substances Active Diagnosis [facility] Diagnosis: ICD-10-CM C44.320 Squamous cell carcinoma of skin of unspecified parts of face Active Diagnosis [facility] Diagnosis: ICD-10-CM I35.0 Nonrheumatic aortic (valve) stenosis Active Diagnosis [facility] Diagnosis: ICD-10-CM Z55.9 Problems related to education and literacy, unspecified Active Diagnosis [facility] Medications Combined list of outpatient medications from [...] . RESPIR ATORY (INHAL ATION) ACTIVE 01/04/2025 [id number] CLEMENTS,A RMIDA A 2023 1 [facility] ASPIRIN 81MG TAB,EC TAKE ONE TABLET BY MOUTH ONCE A DAY ORAL ACTIVE SREE,ANIBAL AMMAD T 2017 [facility] ATORVASTATI N CA 80MG TAB TAKE ONE-HALF TABLET BY MOUTH EVERY EVENING ORAL ACTIVE SREE,MOH AMMAD T 2017 [facility] BUPROPION HCL 150MG 12HR TAB,SA TAKE ONE TABLET BY MOUTH TWICE A DAY ORAL ACTIVE CLEMENTS,A RMIDA A 2023 [facility] BUPROPION HCL 150MG 12HR TAB,SA TAKE ONE TABLET BY MOUTH TWICE A DAY ORAL ACTIVE CLEMENTS,A RMIDA A 2021 [facility] CELECOXIB 200MG CAP TAKE 1 CAPSULE BY MOUTH TWICE A DAY ORAL ACTIVE CLEMENTS,A RMIDA A 2020 [facility] CHOLECALCIF KARELY 50MCG (2,000UNIT) TAB TAKE ONE TABLET BY MOUTH ONCE A DAY ORAL ACTIVE SREEANIBAL AMMAD T 2017 [facility] FAMOTIDINE 20MG TAB TAKE ONE TABLET BY MOUTH TWICE A DAY ORAL ACTIVE CLEMENTS,A RMIDA A 2020 [facility] FINASTERIDE 5MG TAB TAKE ONE TABLET BY MOUTH ONCE A DAY ORAL ACTIVE SREE,ANIBAL AMMAD T 2019 [facility] HYDROCHLORO THIAZIDE 12.5MG/SANA NOPRIL 10MG TAB TAKE ONE TABLET BY MOUTH EVERY MORNING ORAL ACTIVE CLEMENTS,A RMIDA A 2022 [facility] LORAZEPAM 0.5MG TAB TAKE ONE-HALF TABLET BY MOUTH ONCE FOR ANXIETY TAKE PRIOR TO BRAIN MRI ON 12/01/24* * ORAL ACTIVE 12/12/2024 [id number] MICKY LAGOS 2024 1 [facility] MONTELUKAST NA 10MG TAB TAKE ONE TABLET BY MOUTH ONCE A DAY ORAL ACTIVE ANIBAL BALBUENA T 2017 [facility] MULTIVITAMI NS W/MINERALS CAP/TAB TAKE 1 CAP/TAB BY MOUTH ONCE A DAY ORAL ACTIVE SREEANIBAL CREWS AMBETZAIDAD T 2017 [facility] NICOTINE POLACRILEX 2MG TAB,CHEWG GUM CHEW 1 PIECE OF GUM BY MOUTH EVERY 4 HOURS NEEDED CHEW GUM UNTIL TINGLING SENSATIO N, THEN PARK THE GUM BETWEEN CHEEK AND GUM AREA. REPEAT (RE-CHEW ) WHEN TINGLING STOPS. ORAL 06/29/2024 [id number] Naila TOPETE K 2023 110 [facility] NORTRIPTYLI NE HCL 10MG CAP TAKE ONE CAPSULE BY MOUTH AT BEDTIME INSOMNIA ORAL DISCONT INUED BY PROVIDE R 01/01/2025 [id number] CLEMENTS,A RMIDA A 2023 90 [facility] NORTRIPTYLI NE HCL 10MG CAP TAKE ONE CAPSULE BY MOUTH AT BEDTIME INSOMNIA ORAL DISCONT INUED 01/03/2024 [id number] 4 CLEMENTS,A RMIDA A 2023 90 [facility] OLODATEROL 2.5MCG/ACTU AT IN[facility],ORAL,6 0D,4GM INHALE 2 INHALATI ONS BY ORAL INHALATI ON ONCE A DAY FOR COPD (ADMINIS TER AT THE SAME TIME EVERY DAY) RESPIR ATORY (INHAL ATION) ACTIVE 01/29/2025 [id number] ORIANA MANDUJANO N 2023 1 [facility] OMEPRAZOLE 40MG CAP,EC TAKE 1 CAPSULE BY MOUTH EVERY MORNING BEFORE A MEAL ORAL ACTIVE ANIBAL BALBUENA T 2019 [facility] TERAZOSIN HCL 10MG CAP TAKE 1 CAPSULE BY MOUTH AT BEDTIME ORAL ACTIVE ANIBAL BALBUENA T 2017 [facility] TIZANIDINE HCL 4MG TAB TAKE ONE-HALF TABLET BY MOUTH THREE TIMES A DAY NEEDED ORAL ACTIVE Rafia CLEMENTS RMIDA A 2021 [facility] VALACYCLOVI R HCL 500MG TAB TAKE ONE TABLET BY MOUTH TWICE A DAY NEEDED ORAL ACTIVE ANIBAL BALBUENA T 2017 [facility] VARENICLINE TAB STARTER PACK,53 TAKE 1 TABLET BY MOUTH DIRECTED START TAKING 1 WEEK BEFORE YOUR QUIT DATE. YOU MAY CONTACT [phone] FOR ADDITION AL SUPPORT. CALL YOUR PROVIDER 14 DAYS AFTER BEGINNIN G THERAPY TO REPORT PROGRESS AND TO REQUEST YOUR NEXT FILL. ORAL 08/29/2024 [id number] 5 Rafia CLEMENTS RMIDA A 2024 1 [facility] VENLAFAXINE HCL 150MG 24HR CAP,SA TAKE ONE CAPSULE BY MOUTH ONCE A DAY WITH FOOD. DO NOT ABRUPTLY DISCONTI NUE MEDICATI ON. ORAL ACTIVE 11/27/2025 [id number] 5 GURUSIDDA WINSTONPRATI BHA N 2024 90 [facility] VENLAFAXINE HCL 37.5MG 24HR CAP,SA TAKE FOUR CAPSULES BY MOUTH ONCE A DAY FOR DEPRESSI ON WITH FOOD. DO NOT ABRUPTLY DISCONTI NUE MEDICATI ON. ORAL DISCONT INUED (EDIT) 05/22/2025 [id number] 5 GURUSIDDA WINSTONPRATI BHA N 2024 120 [facility] VENLAFAXINE HCL 37.5MG 24HR CAP,SA TAKE ONE CAPSULE BY MOUTH ONCE A DAY FOR 7 DAYS, THEN TAKE TWO CAPSULES ONCE A DAY FOR 15 DAYS, THEN TAKE FOUR CAPSULES ONCE A DAY FOR DEPRESSI ON WITH FOOD. DO NOT ABRUPTLY DISCONTI NUE MEDICATI ON. ORAL DISCONT INUED 05/22/2025 [id number] 5 GURUSIDDA WISNTON,PRATI BHA N 2024 69 [facility] VENLAFAXINE HCL 75MG 24HR CAP,SA TAKE THREE CAPSULES BY MOUTH ONCE A DAY FOR DEPRESSI ON WITH FOOD. DO NOT ABRUPTLY DISCONTI NUE MEDICATI ON. ORAL DISCONT INUED (EDIT) 12/07/2024 [id number] 5 GURUSIDDA WINSTON,PRATI BHA N 2024 270 [facility] VENLAFAXINE HCL 75MG 24HR CAP,SA TAKE THREE CAPSULES BY MOUTH ONCE A DAY FOR DEPRESSI ON WITH FOOD. DO NOT ABRUPTLY DISCONTI NUE MEDICATI ON. ORAL DISCONT INUED 10/07/2024 [id number] 5 GURUSIDDA WINSTON,PRATI BHA N 2024 270 [facility] Allergies, Adverse Reactions, Alerts Combined list of allergies from Department of Defense and Veterans Affairs facilities. It does not include entries that were removed or entered in error. Substance Category Reaction Severity Reaction type Status Date Reported Comments Source TRAMADOL Propensity to adverse reactions to drug (finding) Itching active 02/02/2016 [facility] Immunizations Combined list of available immunizations from the Department of Defense and Veterans Affairs facilities. Immunization Series Date Given Administered By Site Reaction Lot Number CVX Code Drug Lens Blocker Status Comments Source COVID-19 (Preen.Me), MRNA, LNP-S, BIVALENT, PF, 30 MCG/0.3 ML DOSE 2023 300 complet ed HISTORICA L INFORMATI ON - FROM OTHER PROVIDER, [facility] COVID-19 (PFIZER), MRNA, LNP-S, PF, MICHAEL-SUCROSE, 30 MCG/0.3 ML (AGES 12+ YEARS) 3 2023 309 complet ed HISTORICA L INFORMATI ON - FROM OTHER REGISTRY, [facility] TAVIA Serrano INFLUENZA, HIGH-DOSE, QUADRIVALENT, PF 2023 197 complet ed HISTORICA L INFORMATI ON - FROM OTHER PROVIDER, [facility] INFLU[facility], HIGH-DOSE, TRIVALENT, PF 1 2023 135 complet ed HISTORICA L INFORMATI ON - FROM OTHER REGISTRY, [facility] N INFLUENZA, HIGH-DOSE, QUADRIVALENT 2022 197 complet ed HISTORICA L INFORMATI ON - FROM OTHER REGISTRY, [facility] RSV, RECOMBINANT, PROTEIN SUBUNIT RSVPREF, ADJUVANT RECONSTITUTED , 0.5 ML, PF 1 2022 303 complet ed HISTORICA L INFORMATI ON - FROM OTHER REGISTRY, [facility] COVID-19 (Preen.Me), MRNA, LNP-S, PF, MICHAEL-SUCROSE, 30 MCG/0.3 ML (AGES 12+ YEARS) 1 2022 309 complet ed HISTORICA L INFORMATI ON - FROM PATIENT'S RECALL, Mfr: [employer]reen[employer]Me, INC [facility] COVID-19, MRNA, LNP-S, BIVALENT BOOSTER, PF, 30 MCG/0.3 ML DOSE 1 2021 300 complet ed [facility] INFLUENZA, HIGH-DOSE, QUADRIVALENT 8 2021 197 complet ed HISTORICA L INFORMATI ON - FROM OTHER REGISTRY, [facility] INFLUENZA, UNSPECIFIED FORMULATION 2021 88 complet ed [facility] COVID-19 (PFIZER), MRNA, LNP-S, PF, 30 MCG/0.3 ML DOSE, MICHAEL-SUCROSE (AGES 12+ YEARS) 4 2021 217 complet ed PFR; [id number]; 2 [facility] ZOSTER RECOMBINANT 2 2021 187 complet ed [facility] ZOSTER RECOMBINANT 1 2020 187 complet ed [facility] COVID-19 (PFIZER), MRNA, LNP-S, PF, 30 MCG/0.3 ML DOSE 3 2020 208 complet ed PFR; [id number]; 1 [facility] INFLUENZA, UNSPECIFIED FORMULATION 2020 88 complet ed [facility] INFLUENZA VACCINE, QUADRIVALENT, ADJUVANTED 7 2020 205 complet ed HISTORICA L INFORMATI ON - FROM OTHER REGISTRY, [facility] N COVID-19 (Preen.Me), MRNA, LNP-S, PF, 30 MCG/0.3 ML DOSE 2 2020 208 complet ed HISTORICA L INFORMATI ON - FROM OTHER PROVIDER, [facility] COVID-19 (PFIZER), MRNA, LNP-S, PF, 30 MCG/0.3 ML DOSE 1 2020 208 complet ed HISTORICA L INFORMATI ON - FROM OTHER PROVIDER, [facility] INFLUENZA, UNSPECIFIED FORMULATION 2019 88 complet ed [facility] INFLUENZA, RECOMBINANT, QUADRIVALENT, INJECTABLE, PRESERVATIVE FREE 6 2018 185 complet ed HISTORICA L INFORMATI ON - FROM OTHER REGISTRY, [facility] N INFLUENZA, INJECTABLE, QUADRIVALENT, PRESERVATIVE FREE 2017 150 complet ed [facility] BCG 1 2017 19 complet ed HISTORICA L INFORMATI ON - FROM OTHER REGISTRY, [facility] N INFLUENZA, UNSPECIFIED FORMULATION 5 2017 88 complet ed HISTORICA L INFORMATI ON - FROM OTHER REGISTRY, [facility] N INFLUENZA, INJECTABLE, QUADRIVALENT, PRESERVATIVE FREE 2016 150 complet ed [facility] INFLUENZA, UNSPECIFIED FORMULATION 4 2016 88 complet ed HISTORICA L INFORMATI ON - FROM OTHER REGISTRY, [facility] N PNEUMOCOCCAL POLYSACCHARID E PPV23 4 2015 33 complet ed HISTORICA L INFORMATI ON - FROM OTHER REGISTRY, [facility] INFLUENZA, UNSPECIFIED FORMULATION 2015 88 complet ed [facility] INFLUENZA, UNSPECIFIED FORMULATION 3 2015 88 complet ed HISTORICA L INFORMATI ON - FROM OTHER REGISTRY, [facility] N PNEUMOCOCCAL CONJUGATE PCV 13 3 2014 133 complet ed HISTORICA L INFORMATI ON - FROM OTHER REGISTRY, [facility] PNEUMOCOCCAL POLYSACCHARID E PPV23 2 2014 33 complet ed HISTORICA L INFORMATI ON - FROM OTHER REGISTRY, [facility] INFLUENZA, INJECTABLE, QUADRIVALENT, PRESERVATIVE FREE 2 2014 150 complet ed HISTORICA L INFORMATI ON - FROM OTHER REGISTRY, [facility] INFLUENZA, SEASONAL, INJECTABLE 1 2014 141 complet ed HISTORICA L INFORMATI ON - FROM OTHER REGISTRY, [facility] ZOSTER LIVE 1 2014 121 complet ed HISTORICA L INFORMATI ON - FROM OTHER REGISTRY, [facility] TDAP 2014 115 complet ed [facility] PNEUMOCOCCAL POLYSACCHARID E PPV23 1 1997 33 complet ed HISTORICA L INFORMATI ON - FROM OTHER REGISTRY, [facility] Results Combined list of recent chemistry, hematology and other laboratory results from Department of Defense and Veterans Affairs, ranging from 15 months to all on record, depending upon the facility. Order Name Results Value Reference Range Date Interpretation Specimen Comments Source TSH W/ REFLEX FT4 (STL) THYROTROPIN [UNITS/VOLU ME] IN SERUM OR PLASMA 1.722 u[IU]/ mL 0.47 - 5 09/26 Specimen Type: PLASMA Comment: No hemolysis noted. Ordering Provider: RUPERT CLEMENTS Report Released Date/Time: September 10, 2023 04:14 PM Reporting Lab: [facility] [address] [place] [phone] Performing Lab: [facility] [address] [place] [phone] [facility] PROST. SPECIFIC AG.(PB-STL ) PROSTATE SPECIFIC AG [MASS/VOLUM E] IN SERUM OR PLASMA 0.195 ng/mL 0 - 4 09/26 Specimen Type: SERUM Comment: The listed sex of this patient may not be a typical indication for this test. Therefore, reference ranges or interpretive criteria listed may not be valid. Clinical correlation suggested. Ordering Provider: CLEMENTS,RUPERT DA A Report Released Date/Time: September 10, 2023 04:14 PM Reporting Lab: [facility] [address] [facility] [phone] Performing Lab: [facility] [address] [place] [phone] [facility] LIPID PANEL (STL) CHOLESTEROL [MASS/VOLUM E] IN SERUM OR PLASMA 129 mg/dL 0 - 200 09/26 Specimen Type: PLASMA Comment: No hemolysis noted. Ordering Provider: RUPERT CLEMENTS Report Released Date/Time: September 10, 2023 04:14 PM Reporting Lab: [facility] [address] [place] [phone] Performing Lab: [address] [phone] [facility] LIPID PANEL (L) TRIGLYCERID E [MASS/VOLUM E] IN SERUM OR PLASMA 48 mg/dL 0 - 150 09/26 Specimen Type: PLASMA Comment: No hemolysis noted. Ordering Provider: RUPERT CLEMENTS Report Released Date/Time: September 10, 2023 04:14 PM Reporting Lab: [facility] [address] [place] [phone] Performing Lab: [address] [address] [facility] LIPID PANEL (L) CHOLESTEROL IN LDL [MASS/VOLUM E] IN SERUM OR PLASMA BY CALCULATION 69 mg/dL 09/26 Specimen Type: PLASMA Comment: No hemolysis noted. Ordering Provider: RUPERT CLEMENTS Report Released Date/Time: September 10, 2023 04:14 PM Reporting Lab: [facility] [address] [place] [phone] Performing Lab: [facility] [address] [place] [phone] [facility] LIPID PANEL (STL) CHOLESTEROL IN HDL [MASS/VOLUM E] IN SERUM OR PLASMA 50 mg/dL 40 09/26 Specimen Type: PLASMA Comment: No hemolysis noted. Ordering Provider: RUPERT CLEMENTS Report Released Date/Time: September 10, 2023 04:14 PM Reporting Lab: [facility] [address] [facility] [phone] Performing Lab: [facility] [address] [place] [phone] [place] [address] COMPREHENS MEGHAN METABOLIC PANEL CREATININE [MASS/VOLUM E] IN SERUM OR PLASMA 1.32 mg/dL 0.7 - 1.3 09/26 H Specimen Type: PLASMA Comment: No hemolysis noted. Ordering Provider: RUPERT CLEMENTS Report Released Date/Time: September 10, 2023 04:14 PM Reporting Lab: [facility] [address] [place] [phone] Performing Lab: [facility] [address] [place] [phone] [place] [address] COMPREHENS MEGHAN METABOLIC PANEL UREA NITROGEN [MASS/VOLUM E] IN SERUM OR PLASMA 20.5 mg/dL 9.0 - 25.0 09/26 Specimen Type: PLASMA Comment: No hemolysis noted. Ordering Provider: RUPERT CLEMENTS Report Released Date/Time: September 10, 2023 04:14 PM Reporting Lab: [facility] [address] [facility] [phone] Performing Lab: [facility] [address] [place] [phone] [place] [address] COMPREHENS MEGHAN METABOLIC PANEL GLUCOSE [MASS/VOLUM E] IN SERUM OR PLASMA 116 mg/dL 72 - 99 09/26 H Specimen Type: PLASMA Comment: No hemolysis noted. Ordering Provider: RUPERT CLEMENTS Report Released Date/Time: September 10, 2023 04:14 PM Reporting Lab: [facility] [address] [facility] [phone] Performing Lab: [facility] [address] [facility] [phone] [facility] COMPREHENS MEGHAN METABOLIC PANEL SODIUM [MOLES/VOLU ME] IN SERUM OR PLASMA 137 meq/L 136 - 145 09/26 Specimen Type: PLASMA Comment: No hemolysis noted. Ordering Provider: RUPERT CLEMENTS Report Released Date/Time: September 10, 2023 04:14 PM Reporting Lab: [facility] [address] [facility] [address] Performing Lab: [facility] [address] [facility] [place] [address] [facility] COMPREHENS MEGHAN METABOLIC PANEL POTASSIUM [MOLES/VOLU ME] IN SERUM OR PLASMA 4.3 meq/L 3.5 - 5 09/26 Specimen Type: PLASMA Comment: No hemolysis noted. Ordering Provider: RUPERT CLEMENTS Report Released Date/Time: September 10, 2023 04:14 PM Reporting Lab: [facility] [address] [place] [address] Performing Lab: [facility] [address] [place] [address] [facility] COMPREHENS MEGHAN METABOLIC PANEL CHLORIDE [MOLES/VOLU ME] IN SERUM OR PLASMA 104 meq/L 98 - 107 09/26 Specimen Type: PLASMA Comment: No hemolysis noted. Ordering Provider: RUPERT CLEMENTS Report Released Date/Time: September 10, 2023 04:14 PM Reporting Lab: [facility] [address] [place] [address] Performing Lab: [facility] [address] [place] [address] [facility] COMPREHENS MEGHAN METABOLIC PANEL CARBON DIOXIDE, TOTAL [MOLES/VOLU ME] IN SERUM OR PLASMA 26 meq/L 22 - 31 09/26 Specimen Type: PLASMA Comment: No hemolysis noted. Ordering Provider: RUPERT CLEMENTS Report Released Date/Time: September 10, 2023 04:14 PM Reporting Lab: [facility] [address] [facility] [place] [address] Performing Lab: [facility] [address] [facility] [place] [address] [facility] COMPREHENS MEGHAN METABOLIC PANEL CALCIUM [MASS/VOLUM E] IN SERUM OR PLASMA 9.9 mg/dL 8.4 - 10.4 09/26 Specimen Type: PLASMA Comment: No hemolysis noted. Ordering Provider: RUPERT CLEMENTS Report Released Date/Time: September 10, 2023 04:14 PM Reporting Lab: [facility] [address] [facility] [place] [address] Performing Lab: [facility] [address] [facility] [place] [phone] [place] [address] COMPREHENS MEGHAN METABOLIC PANEL PROTEIN [MASS/VOLUM E] IN SERUM OR PLASMA 7.1 g/dL 6 - 8.6 09/26 Specimen Type: PLASMA Comment: No hemolysis noted. Ordering Provider: RUPERT CLEMENTS Report Released Date/Time: September 10, 2023 04:14 PM Reporting Lab: [facility] [address] [place] [address] Performing Lab: [facility] [address] [facility] [place] [phone] [place] [address] COMPREHENS MEGHAN METABOLIC PANEL ALBUMIN [MASS/VOLUM E] IN SERUM OR PLASMA 4.2 g/dL 3.4 - 5 09/26 Specimen Type: PLASMA Comment: No hemolysis noted. Ordering Provider: RUPERT CLEMENTS Report Released Date/Time: September 10, 2023 04:14 PM Reporting Lab: [facility] [address] [place] [address] Performing Lab: [facility] [address] [place] [phone] COMPREHENS MEGHAN METABOLIC PANEL BILIRUBIN.T OTAL [MASS/VOLUM E] IN SERUM OR PLASMA 0.9 mg/dL 0.2 - 1.2 09/26 Specimen Type: PLASMA Comment: No hemolysis noted. Ordering Provider: RUPERT CLEMENTS Report Released Date/Time: September 10, 2023 04:14 PM Reporting Lab: [facility] [address] [place] [place] [address] Performing Lab: [facility] [address] [place] [address] [facility] COMPREHENS MEGHAN METABOLIC PANEL ALKALINE PHOSPHATASE [ENZYMATIC ACTIVITY/VO LUME] IN SERUM OR PLASMA 72 U/L 40 - 150 09/26 Specimen Type: PLASMA Comment: No hemolysis noted. Ordering Provider: RUPERT CLEMENTS Report Released Date/Time: September 10, 2023 04:14 PM Reporting Lab: [facility] [address] [place] [address] Performing Lab: [address] [phone] [place] [address] COMPREHENS MEGHAN METABOLIC PANEL ASPARTATE AMINOTRANSF ERASE [ENZYMATIC ACTIVITY/VO LUME] IN SERUM OR PLASMA 21 U/L 5 - 34 09/26 Specimen Type: PLASMA Comment: No hemolysis noted. Ordering Provider: RUPERT CLEMENTS Report Released Date/Time: September 10, 2023 04:14 PM Reporting Lab: [facility] [address] [place] [id number] Performing Lab: [facility] [address] [place] [id number] [facility] COMPREHENS MEGHAN METABOLIC PANEL ALANINE AMINOTRANSF ERASE [ENZYMATIC ACTIVITY/VO LUME] IN SERUM OR PLASMA 15 U/L 8 - 40 09/26 Specimen Type: PLASMA Comment: No hemolysis noted. Ordering Provider: RUPERT CLEMENTS Report Released Date/Time: September 10, 2023 04:14 PM Reporting Lab: [facility] [address] [place] [phone] Performing Lab: [facility] [address] [place] [phone] [facility] COMPREHENS MEGHAN METABOLIC PANEL GLOMERULAR FILTRATION RATE/1.73 SQ M.PREDICTED [VOLUME RATE/AREA] IN SERUM, PLASMA OR BLOOD BY CREATININE- BASED FORMULA (CKD-EPI 2020) 56.6 60 09/26 Specimen Type: PLASMA Comment: No hemolysis noted. Ordering Provider: RUPERT CLEMENTS Report Released Date/Time: September 10, 2023 04:14 PM Reporting Lab: [place] [address] Performing Lab: [address] CBC LEUKOCYTES [#/VOLUME] IN BLOOD BY AUTOMATED COUNT 6.8 10*3/u L 3.6 - 11.2 09/26 Specimen Type: BLOOD Comment: Platelet count verified by repeat analysis, no clot found in specimen, platelet result consistent with previous result. Ordering Provider: RUPERT CLEMENTS Report Released Date/Time: September 10, 2023 04:14 PM Reporting Lab: [place] [address] Performing Lab: [address] CBC ERYTHROCYTE S [#/VOLUME] IN BLOOD BY AUTOMATED COUNT 4.16 10*6/u L 4.10 - 5.70 09/26 Specimen Type: BLOOD Comment: Platelet count verified by repeat analysis, no clot found in specimen, platelet result consistent with previous result. Ordering Provider: RUPERT CLEMENTS Report Released Date/Time: September 10, 2023 04:14 PM Reporting Lab: [place] [address] Performing Lab: [address] CBC HEMOGLOBIN [MASS/VOLUM E] IN BLOOD 13.7 g/dL 13.1 - 16.8 09/26 Specimen Type: BLOOD Comment: Platelet count verified by repeat analysis, no clot found in specimen, platelet result consistent with previous result. Ordering Provider: RUPERT CLEMENTS Report Released Date/Time: September 10, 2023 04:14 PM Reporting Lab: [place] [address] Performing Lab: [facility] [address] [facility] [place] [phone] [place] [address] CBC HEMATOCRIT [VOLUME FRACTION] OF BLOOD 41.5 38.2 - 48.4 09/26 Specimen Type: BLOOD Comment: Platelet count verified by repeat analysis, no clot found in specimen, platelet result consistent with previous result. Ordering Provider: RUPERT CLEMENTS Report Released Date/Time: September 10, 2023 04:14 PM Reporting Lab: [place] [address] [facility] [place] [address] Performing Lab: [address] [phone] [place] [address] CBC MCV [ENTITIC VOLUME] BY AUTOMATED COUNT 99.8 fL 80.0 - 100.0 09/26 Specimen Type: BLOOD Comment: Platelet count verified by repeat analysis, no clot found in specimen, platelet result consistent with previous result. Ordering Provider: RUPERT CLEMENTS Report Released Date/Time: September 10, 2023 04:14 PM Reporting Lab: [address] [phone] Performing Lab: [address] [phone] [place] [address] CBC MCH [ENTITIC MASS] BY AUTOMATED COUNT 32.9 pg 27.0 - 34.0 09/26 Specimen Type: BLOOD Comment: Platelet count verified by repeat analysis, no clot found in specimen, platelet result consistent with previous result. Ordering Provider: RUPERT CLEMENTS Report Released Date/Time: September 10, 2023 04:14 PM Reporting Lab: [address] [address] Performing Lab: [address] [address] [facility] CBC MCHC [MASS/VOLUM E] BY AUTOMATED COUNT 33.0 g/dL 33.0 - 36.0 09/26 Specimen Type: BLOOD Comment: Platelet count verified by repeat analysis, no clot found in specimen, platelet result consistent with previous result. Ordering Provider: RUPERT CLEMENTS Report Released Date/Time: September 10, 2023 04:14 PM Reporting Lab: [place] [address] [facility] [place] [address] Performing Lab: [place] [address] [place] [id number] CBC PLATELETS [#/VOLUME] IN BLOOD BY AUTOMATED COUNT 118 10*3/u L 150 - 400 09/26 L Specimen Type: BLOOD Comment: Platelet count verified by repeat analysis, no clot found in specimen, platelet result consistent with previous result. Ordering Provider: RUPERT CLEMENTS Report Released Date/Time: September 10, 2023 04:14 PM Reporting Lab: [place] [address] [facility] [place] [address] Performing Lab: [place] [address] CBC PLATELET MEAN VOLUME [ENTITIC VOLUME] IN BLOOD BY AUTOMATED COUNT 12.2 fL 7.5 - 11.2 09/26 H Specimen Type: BLOOD Comment: Platelet count verified by repeat analysis, no clot found in specimen, platelet result consistent with previous result. Ordering Provider: RUPERT CLEMENTS Report Released Date/Time: September 10, 2023 04:14 PM Reporting Lab: [place] [address] [facility] [place] [address] Performing Lab: [place] [address] [facility] [place] [phone] [place] [address] CBC ERYTHROCYTE DISTRIBUTIO N WIDTH [RATIO] BY AUTOMATED COUNT 11.5 11.8 - 15.1 09/26 L Specimen Type: BLOOD Comment: Platelet count verified by repeat analysis, no clot found in specimen, platelet result consistent with previous result. Ordering Provider: RUPERT CLEMENTS Report Released Date/Time: September 10, 2023 04:14 PM Reporting Lab: [place] [address] [facility] [place] [address] Performing Lab: [facility] [address] [facility] [place] [address] [facility] CBC LYMPHOCYTES /100 LEUKOCYTES IN BLOOD BY AUTOMATED COUNT 22 09/26 Specimen Type: BLOOD Comment: Platelet count verified by repeat analysis, no clot found in specimen, platelet result consistent with previous result. Ordering Provider: RUPERT CLEMENTS Report Released Date/Time: September 10, 2023 04:14 PM Reporting Lab: [facility] [address] [facility] [place] [address] Performing Lab: [facility] [place] [address] [facility] CBC MONOCYTES/1 00 LEUKOCYTES IN BLOOD BY AUTOMATED COUNT 8 09/26 Specimen Type: BLOOD Comment: Platelet count verified by repeat analysis, no clot found in specimen, platelet result consistent with previous result. Ordering Provider: RUPERT CLEMENTS Report Released Date/Time: September 10, 2023 04:14 PM Reporting Lab: [facility] [place] [address] Performing Lab: [facility] [place] [address] [facility] CBC NEUTROPHILS /100 LEUKOCYTES IN BLOOD BY AUTOMATED COUNT 67 09/26 Specimen Type: BLOOD Comment: Platelet count verified by repeat analysis, no clot found in specimen, platelet result consistent with previous result. Ordering Provider: RUPERT CLEMENTS Report Released Date/Time: September 10, 2023 04:14 PM Reporting Lab: [facility] [address] [facility] [place] [address] Performing Lab: [facility] [place] [address] [facility] CBC EOSINOPHILS /100 LEUKOCYTES IN BLOOD BY AUTOMATED COUNT 3 09/26 Specimen Type: BLOOD Comment: Platelet count verified by repeat analysis, no clot found in specimen, platelet result consistent with previous result. Ordering Provider: RUPERT CLEMENTS Report Released Date/Time: September 10, 2023 04:14 PM Reporting Lab: [facility] [address] [facility] [place] [address] Performing Lab: [place] [address] [facility] [place] [phone] [place] [address] CBC BASOPHILS/1 00 LEUKOCYTES IN BLOOD BY AUTOMATED COUNT 0 09/26 Specimen Type: BLOOD Comment: Platelet count verified by repeat analysis, no clot found in specimen, platelet result consistent with previous result. Ordering Provider: RUPERT CLEMENTS Report Released Date/Time: September 10, 2023 04:14 PM Reporting Lab: [place] [address] [facility] [place] [address] Performing Lab: [place] [id number] CBC LYMPHOCYTES [#/VOLUME] IN BLOOD BY AUTOMATED COUNT 1.47 10*3/u L 0.77 - 4.50 09/26 Specimen Type: BLOOD Comment: Platelet count verified by repeat analysis, no clot found in specimen, platelet result consistent with previous result. Ordering Provider: RUPERT CLEMENTS Report Released Date/Time: September 10, 2023 04:14 PM Reporting Lab: [address] [address] Performing Lab: [address] [phone] [place] [address] CBC MONOCYTES [#/VOLUME] IN BLOOD BY AUTOMATED COUNT 0.53 10*3/u L 0.19 - 0.80 09/26 Specimen Type: BLOOD Comment: Platelet count verified by repeat analysis, no clot found in specimen, platelet result consistent with previous result. Ordering Provider: RUPERT CLEMENTS Report Released Date/Time: September 10, 2023 04:14 PM Reporting Lab: [facility] [address] [place] [phone] Performing Lab: [address] [phone] [place] [address] CBC NEUTROPHILS [#/VOLUME] IN BLOOD BY AUTOMATED COUNT 4.52 10*3/u L 2.10 - 8.00 09/26 Specimen Type: BLOOD Comment: Platelet count verified by repeat analysis, no clot found in specimen, platelet result consistent with previous result. Ordering Provider: RUPERT CLEMENTS Report Released Date/Time: September 10, 2023 04:14 PM Reporting Lab: [place] [address] Performing Lab: [address] CBC EOSINOPHILS [#/VOLUME] IN BLOOD BY AUTOMATED COUNT 0.20 10*3/u L 0.00 - 0.60 09/26 Specimen Type: BLOOD Comment: Platelet count verified by repeat analysis, no clot found in specimen, platelet result consistent with previous result. Ordering Provider: RUPERT CLEMENTS Report Released Date/Time: September 10, 2023 04:14 PM Reporting Lab: [place] [address] Performing Lab: [address] CBC BASOPHILS [#/VOLUME] IN BLOOD BY AUTOMATED COUNT 0.03 10*3/u L 0.00 - 0.20 09/26 Specimen Type: BLOOD Comment: Platelet count verified by repeat analysis, no clot found in specimen, platelet result consistent with previous result. Ordering Provider: RUPERT CLEMENTS Report Released Date/Time: September 10, 2023 04:14 PM Reporting Lab: [place] [address] Performing Lab: [address] CBC PLATELETS RETICULATED /100 PLATELETS IN BLOOD BY AUTOMATED COUNT 7.1 1.0 - 7.0 09/26 H Specimen Type: BLOOD Comment: Platelet count verified by repeat analysis, no clot found in specimen, platelet result consistent with previous result. Ordering Provider: RUPERT CLEMENTS Report Released Date/Time: September 10, 2023 04:14 PM Reporting Lab: [facility] [address] [place] [address] Performing Lab: [facility] [address] [facility] [place] [address] [facility] Vital Signs Combined list of inpatient and outpatient Vital Signs from Department of Defense and Veterans Affairs, ranging from 12 months to all on record, depending upon the facility. Vital Sign Value Date Comments Source SYSTOLIC BLOOD PRESSURE 135 11/26/2024 13:48:47 [facility] DIASTOLIC BLOOD PRESSURE 91 11/26/2024 13:48:47 [facility] PULSE OXIMETRY 96 % 11/26/2024 13:48:47 [facility] PAIN 0 11/26/2024 13:48:47 [facility] TEMPERATURE 97.3 11/26/2024 13:48:47 [facility] PULSE 58 11/26/2024 13:48:47 [facility] RESPIRATION 18 11/26/2024 13:48:47 [facility] SYSTOLIC BLOOD PRESSURE 155 09/24/2024 13:02:03 [facility] DIASTOLIC BLOOD PRESSURE 65 09/24/2024 13:02:03 [facility] PULSE OXIMETRY 97 09/24/2024 13:02:03 [facility] PAIN 0 09/24/2024 13:02:03 [facility] TEMPERATURE 97.1 09/24/2024 13:02:03 [facility] PULSE 57 09/24/2024 13:02:03 [facility] RESPIRATION 18 09/24/2024 13:02:03 [facility] SYSTOLIC BLOOD PRESSURE 162 07/30/2024 14:09:11 [facility] DIASTOLIC BLOOD PRESSURE 83 07/30/2024 14:09:11 [facility] PULSE OXIMETRY 94 07/30/2024 14:09:11 Carla LAL [facility] WEIGHT 209 07/30/2024 14:09:11 STRicardo Aviles [facility] BMI 28 kg/m2 07/30/2024 14:09:11 ST[facility] Traci [facility] PAIN 0 07/30/2024 14:09:11 [facility] Aviles [facility] HEIGHT 73 07/30/2024 14:09:11 [facility] Traci [facility] TEMPERATURE 97.6 07/30/2024 14:09:11 Ricardo LUKASZ [facility] PULSE 54 07/30/2024 14:09:11 [facility] Traci [facility] RESPIRATION 20 07/30/2024 14:09:11 [facility] SYSTOLIC BLOOD PRESSURE 93 07/09/2024 14:34:17 [facility] DIASTOLIC BLOOD PRESSURE 59 07/09/2024 14:34:17 [facility] PULSE OXIMETRY 97 07/09/2024 14:34:17 [facility] PAIN 0 07/09/2024 14:34:17 [facility] TEMPERATURE 97.4 07/09/2024 14:34:17 [facility] PULSE 68 07/09/2024 14:34:17 [facility] RESPIRATION 18 07/09/2024 14:34:17 [facility] SYSTOLIC BLOOD PRESSURE 134 05/21/2024 10:03:25 [facility] DIASTOLIC BLOOD PRESSURE 75 05/21/2024 10:03:25 [facility] PULSE OXIMETRY 98 05/21/2024 10:03:25 [facility] PAIN 0 05/21/2024 10:03:25 [facility] TEMPERATURE 98.1 05/21/2024 10:03:25 [facility] PULSE 64 05/21/2024 10:03:25 [facility] RESPIRATION 19 05/21/2024 10:03:25 [facility] Encounters Combined list of: 1) Encounters from Department of Veterans Affairs facilities going backup to the last 18 months, not all VA inpatient encounters are included; 2) Encounters from the Department of Defense facilities going backup to 280 months. Location Location Details Encounter Type Encounter Number Reason For Visit Attending Provider ADM Date DC Date Status Disposition Source [facility] OFFICE O/P EST LOW 20 MIN [id number] Diagnos is: ICD-10- CM C44.320 Squamou s cell carcino ma of skin of unspeci fied parts of face REEMA WAITE 07/04 [facility] Outpatient Encounter [id number] 07/16 [facility] Outpatient Encounter [id number] LIANG ALLEN 08/24 [facility] Encounter [id number] 09/06 [facility] Outpatient Encounter [id number] 09/09 [facility] Outpatient Encounter [id number] LIANG ALLEN 09[facility]12 [facility] En[facility] [id number] DANICA BALLARD 09/24 [facility] Outpatient Encounter [id number] DANICA BALLARD 09/27 [facility] Outpatient Encounter [id number] 09/27 [facility] OFFICE O/P NEW MOD 45 MIN [id number] Diagnos is: ICD-10- CM I25.10 Athscl heart disease of [place] coronar y artery w/o ang pctrs GRICELOLIVE 09/30 [facility] Outpatient Encounter [id number] LIAM HUNG 09/30 [facility] Outpatient Encounter [id number] DANICA BALLARD 09/30 [facility] Outpatient Encounter [id number] 10/02 [facility] Outpatient Encounter [id number] Diagnos is: ICD-10- CM Z55.9 Problem s related to educati on and literac y, unspeci fied MILA GALINDO 10/03 [facility] Outpatient Encounter [id number] DANICA BALLARD 10/03 [facility] Outpatient Encounter [id number] DANICA BALLARD 10/08 [facility] Outpatient Encounter [id number] DANICA BALLARD J 10/08 [facility] 3D RENDER W/INTRP POSTPROCES [id number] Diagnos is: ICD-10- CM I35.0 Nonrheu matic aortic (valve) stenosi s URIEL VILLAGOMEZ 10/18 [facility] Outpatient Encounter [id number] DANICA BALLARD 10/22 [facility] Outpatient Encounter [id number] DANICA BALLARD [place] 10/25 [facility] OFFICE O/P EST LOW 20 MIN [id number] Diagnos is: ICD-10- CM C44.320 Squamou s cell carcino ma of skin of unspeci fied parts of face AB CLARI BY NILO 11/19 [facility] OFFICE O/P NEW HI 60 MIN [id number] Diagnos is: ICD-10- CM Z77.29 Contact with and exposur e to other hazardo us substan kinsey SURY GRIMM 12/18 [facility] Outpatient Encounter [id number] DANICA BALLARD 12/27 [facility] Outpatient Encounter [id number] 01/01 [facility] Outpatient Encounter [id number] 01/01 [facility] OFFICE O/P EST MOD 30 MIN [id number] Diagnos is: ICD-10- CM F43.12 Post-tr aumatic stress disorde r, chronic MAYDEN,CHR ISTINE M 01/03 [facility] HC PRO PHONE CALL 5-10 MIN [id number] Diagnos is: ICD-10- CM R06.00 Dyspnea , unspeci fied Traci ROMERO YNTHIA A 01/07 [facility] PROGRAM INTAKE ASSESSMENT [id number] Diagnos is: ICD-10- CM R06.00 Dyspnea , unspeci fied WATT,TRACY OLE A 01/28 [facility] OFF/OP CNSLTJ NEW/EST MOD 40 [id number] Diagnos is: ICD-10- CM Z12.2 Encntr screen for maligna nt neoplas m of respira tory organs EULALIA MANDUJANO N 01/28 [facility] Outpatient Encounter [id number] COCHRAN,TIFF ANY N 02/05 [facility] Outpatient Encounter [id number] 02/05 [facility] Outpatient Encounter [id number] 02/07 [facility] OFFICE O/P EST LOW 20 MIN [id number] Diagnos is: ICD-10- CM Z96.652 Presenc e of left artific ial knee joint ELY MCCRACKEN 02/14 [facility] OFFICE O/P EST LOW 20 MIN [id number] Diagnos is: ICD-10- CM L57.0 Actinic keratos is AB CLARI BY RR 02/19 [facility] Outpatient Encounter [id number] 02/24 [facility] Outpatient Encounter [id number] 03/05 [facility] Outpatient Encounter [id number] Diagnos is: ICD-10- CM Z12.2 Encntr screen for maligna nt neoplas m of respira tory organs DELBERT,EULALIAVeena CHIANG N 03/06 [facility] Outpatient Encounter [id number] [place], [place] ORINDA K 03/19 [facility] Outpatient Encounter [id number] [place] ORINDA K 03/21 [facility] OFFICE O/P EST MOD 30 MIN [id number] Diagnos is: ICD-10- CM I25.10 Athscl heart disease of [place] coronar y artery w/o ang pctrs DEBORAH,SELMA RAMILA 03/31 [facility] OFFICE O/P EST MOD 30 MIN [id number] Diagnos is: ICD-10- CM F43.12 Post-tr aumatic stress disorde r, chronic CLEMENTS,AR MIDA A 04/01 [facility] [place] [id number] Diagnos is: ICD-10- CM 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 OFFICE O/P EST MOD 30 MIN [id number] Diagnos is: ICD-10- CM F43.12 Post-tr aumatic stress disorde r, chronic CLEMENTS,AR MIDA A 07/30 [facility] N[facility]ITION [facility]DIV SUBSEQ [id number] Diagnos is: ICD-10- CM E66.3 ELIAS Edgar 08/13 [facility] OFFICE O/P [place] 60 MIN [id number] Diagnos is: ICD-10- CM R90.89 Oth abnorma l finding s on diagnos tic imaging of cnsl [place] SANDOVAL UAN 08/21 [facility] Outpatient Encounter [id number] DANIEL CHAUHAN 09/05 [facility] OFFICE O/P EST LOW 20 MIN [id number] Diagnos is: ICD-10- CM L82.1 Other seborrh eic keratos is AUSTYN PLATATELLO 09/23 [facility] OFFICE O/P EST MOD 30 MIN [id number] Diagnos is: ICD-10- CM F43.12 Post-tr aumatic stress disorde r, chronic GURUSIDDAI YA,PRATIBH A N 09/24 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 SONYA BLANCHARD N 10/08 [facility] N [facility] Outpatient Encounter [id number] 10/13 [facility] Outpatient Encounter [id number] DANIEL CHAUHAN 10/13 [facility] OFF/OP EST MAY X REQ PHY/QHP [id number] Diagnos is: ICD-10- CM G31.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 Outpatient Encounter [id number] 11/25 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 Social History Type Response Date Comment Sourc e Tobacco smoking status NHIS [facility] SCREEN FOLLOW-UP 05/21/2024 [facility] History of tobacco use VA-TOBACCO USE ADVICE 05/21/2024 [facility] History of tobacco use VA-TOBACCO USE SOME DAYS CIGARETTES [facility]2024 [facility] History of tobacco use VA-TOBACCO USER SOME DAYS 04/04/2023 [facility] History of tobacco use VA-VAAE TOBACCO USE CURRENT NRT DECLINE 06/23/2022 [facility] History of tobacco use VA-TOBACCO USER EVERY DAY 03/30/2022 [facility] History of tobacco use VA-TOBACCO USE WI 30 MIN OF WAKEUP 02/23/2021 [facility] History of tobacco use VA-TOBACCO USER EVERY DAY 03/23/2020 [facility] History of tobacco use VA-TOBACCO USE MINING DETAIL DRAFTSPERSON NO 03/05/2019 [facility] History of tobacco use VA-TOBACCO USER EVERY DAY 03/12/2018 [facility] History of tobacco use TOBACCO USER OFFERED MEDS 03/12/2017 [facility] History of tobacco use TOBACCO MEDS OFFERED BUT DECLINED 03/26/2015 [facility] Plan of Care List of future care activities from Department of Veterans Affairs facilities. Additional future care activities may be listed in the Assessment and Plan section. Date/Time Care Activity Care Activity Detail Facili ty 02/11/2025 AMBULATORY - NONE AMBULATORY - NONE [facility]
--- OUTSIDE RECORDS SUMMARY | 2024-12-04 09:56 | XMS_ITS | Encounter Summary ---
Author Organization [facility] Address Critical access [address] [place] [address] Care Team Providers Care Echocardiologist Name Role Phone Ana Luisa Lewis MD Primary Care Provider Unavailabl e Encounter Details Date Type Department Care Team (Late st Contact Info) Description 11/12/2019 Prep for Procedure [facility] [address] [place], [place] [id number] Theo Del Angel MD [address] [facility] [address] [place] [address] Social History Tobacco Use Types Packs/Day Years Used Date Smoking Tobacco: Every Day Cigarettes Smokeless Tobacco: Never Alcohol Use Standard Drinks/Week Comments Not Currently 0 (1 standard drink = 0.6 oz pur e alcohol) Sex and Gender Information Value Date Recorded Sex Assigned at Not on file 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 Gender Identity Not on file Sexual Orientation Not on file documented as of this encounter Plan of Treatment Not on file documented as of this encounter Results * PRE-SURGICAL/PRE-PROCEDURE CORONAVIRUS (COVID 19) (11/14/2019 7:13 AM CDT) CORONAVIRUS SARS COV 2 PCR (RESP) NOT DETECTED NOT DETECTED 11/16/2019 5:48 AM CDT [facility] Comment: A Not Detected (negative) test result [...] providers and patients using the following websites: https://www.[employer].ALTILIA/home/Covid-19/HCP/NAAT/fact-sheet2 https://www.[employer].ALTILIA/home/Covid-19/Patients/NAAT/ fact-sheet2 This test has been authorized by the FDA under an Emergency Use Authorization (EUA) for use by authorized laboratories. Due to the current public health emergency, [facility] is receiving a high volume of samples [...] about COVID-19 can be found at the [facility] website: www.[employer]In/Covid19. Test performed at [facility] [place] [address] [place] [address] Director: ZAHRAA PEREA DO,MPH NASOPHARYNGEAL SWAB / Unknown 11/14/2019 7:13 AM CDT us Theo Del Angel MD MICROBIOLOGY - GENERAL ORDERA BLES Final Result [facility] [id number] [place] [id number] [place] [address] documented in this encounter Visit Diagnoses Diagnosis Preop testing- Primary Preoperative examination, unspecified documented in this encounter Additional Health Concerns Infection Onset Date Last Indicated Resolved Time COVID-19 Rule Out 11/14/2019 11/14/2019 11/16/2019 5:48 AM CDT documented as of this encounter Care Teams Echocardiologist Relationship Specialty Start Date End Date Ana Luisa Lewis MD PCP - General FAMILY PRACTICE 08/09/18 documented as of this encounter
--- OUTSIDE RECORDS SUMMARY | 2024-12-04 09:57 | XMS_ITS | Clinical Summary ---
Author Organization [facility] Address [address] [place] [address] Care Team Providers Care Vision Care Associate Name Role Phone Paul Wisdom MD Unavailable [phone] Scotty Tellez MD Unavailable [phone] Source Comments [facility],non-owned Affiliates and Associated Physician Practices is amultiple site organization consisting of ambulatory clinics and hospital sitesin [place], [place], [place] and [place]. This disclosure is being madepursuant to the Care Everywhere program and may not contain all information available regarding this patient. Last updated 18.[facility] Allergies Active Allergy Reactions Criticality Noted Date [...] GERD (gastroesophageal reflux disease) 05/27/2008 02/05/2014 Immunizations Immunization Administration Dates Next Due INFLUENZA VACCINE, TRIV. (AF LURIA, FLUZONE TRIVALENT; 6MO+) (IIV3) 11/23/2014 BCG VACCINE RETIREMENT 02/04/2018 COVID - 19, HISTORIC VACCINE 01/02/2024,02/09/20 23 COVID PFIZER BIVALENT 12Y+ 30mcg/0.3ML 01/02/2024,01/24/2022 Covid Pfizer primary Monoval ent 12+ yr 0.3ml 09/20/2021 Covid Pfizer primary monoval ent 12+ yr 0.3mL Purple cap 02/05/2021,05/22/2020,05/13/2020,2019 DT 04/23/2007 INFLUENZA VACCINE 01/02/2024, 3,01/24/2022,2020,02/02/2020,02/04/2018,01/23/2017,1 04/23/2015,01/22/2016 INFLUENZA VACCINE, CELL CULT URE, QUADR. [...] Date Smoking Tobacco: Every Day Cigarettes 0.5 62.6 Started: 04/23/1963 Smokeless Tobacco: Never Tobacco Cessation:Ready to Q uit: No; Counseling Given: Yes Alcohol Use Standard Drinks/Week Comments No 0 (1 standard drink = 0.6 oz pur e alcohol) Sex and Gender Information Value Date Recorded Sex Assigned at Male 05/11/2020 11:42 AM [employer] Legal Sex Male 6:12 AM [employer] Gender Identity Male 05/11/2020 11:42 AM [employer] Sexual Orientation Straight 05/11/2020 11 :42 AM [employer] Occupation Industry 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4 cm (6' 1) 04/08/2020 1:04 PM [employer] Body Mass Index 29.08 04/08/2020 1:04 PM [employer] Plan of Treatment Health Maintenance Due Date [...] 09/20/2021, Additional history exists DEPRESSION SCREENING 04/23/2024 INFLUENZA VACCINE (#1) 2024 4, 01/02/2024, 02/15/2023, Additional history exists COLONOSCOPY - COLON CA SCREENING 12/19/2027 12/18/2017 [...] Pt: or over 60 yrs Completed 02/15/2023 HEPATITIS B VACCINE Aged Out No longe [...] 140/90 Blood Pressure 120/72( 020 3:52 PM [employer]) No Katelynn Guy MA Procedures Procedure Name [...] Resulting Agency Comment Lab Testing performed at: [address] [phone] us Ana Luisa Lewis MD LAB - CHEMISTRY ORDERABLES Final Result [facility] ACCOUNT BILL [address] [place] [address] * HEPATITIS C RNA QUANTITATIVE (07/23/2018 9:32 [...] CDT 07/23/2018 Narrative Resulting Agency Comment [facility] [address] [phone] us Ana Luisa Lewis MD LAB - CHEMISTRY ORDERABLES Final Result [facility] INSURANCE BILL [address] [place] [address] * COLOGUARD (EXTERNAL RESULT ENTRY) (12/18/2017) Stool STOOL SPECIMEN / Unknown us Scanned Document LAB - CHEMISTRY ORDERABLES [facility] Result from Last 3 Months or Most Recently Relevant to Health Maintenance Insurance [facility] MEDICARE Advance Directives * DNR (Latest Code Status on File) Date Activated Date Inactivated Comments 02/23/2020 8:40 AM * Full Code Date Activated Date Inactivated Comments 06/23/2010 4:16 PM 06/24/2010 12:12 PM * Full Code Date Activated Date Inactivated Comments 06/13/2010 1:14 PM 06/14/2010 2:44 PM Care Teams Vision Care Associate Relationship Specialty Start Date End Date Paul Wisdom MD [address] [place] [address] Orthopedic Surgery 05/20/10 Scotty Tellez MD [address] [place] [address] [facility] 04/14/20
--- OUTSIDE RECORDS SUMMARY | 2024-12-04 09:57 | XMS_ITS ---
Author Name Blessing SHAH, MRS. Nam npal Address [address] [place] [address] [place] [address] Phone [phone] Organization [facility] ([facility]) Care Team Providers Care Pheresis Nurse Name Role Phone Blessing Sophy Unavailable [phone] Fortunato Anthony Unavailable [phone] Reason for Referral Not Available Allergies, adverse [...] mg Tab TAKE 1 TABLET BY MO [facility] EVERY DAY 2024-04-07 No Data Available Isosorbide [...] mg Cap TAKE 1 CAPSULE BY MO [facility] EVERY DAY 2023-11-05 No Data Available Omeprazole 40 mg Cap delayed rel TAKE 1 CAPSULE BY MOUTH EVERY DAY 2023-09-21 No Data Available Aspirin EC 81 mg Tab delayed rel No Data Available 2024-08-01 No Data Available Daily Value Multivitamin Tab No Data Available 2024-07 No Data Available Problem List Problem Status Onset Date Resolved Date Synopsis HLD (hyperlipidemia) Active 2024-07-31 N/A N/A HTN (hypertension) Active 2024-07-31 N/A N/A GERD (gastroesophageal reflux disease) Active N/A N/A Depression Active 2024-07-31 N/A N/A BPH (benign prostatic hyperplasia) Active 2024-07-31 N /A N/A Tobacco dependence Active 2024-08-01 N/A N/A Encounters Encounters Type Facility Date of Service Diagnosis/Co mplaint Outpatient visit for evaluation and management of new patient, including medically appropriate examination and straightforward medical decision making, total time 15-29 minutes [facility] [place] 08/01/2024 Hyperlipidemia, unspecifiedEssential (primary) hypertensionGastro-esophagea l reflux disease without esophagitisDepression, unspecifiedEnlarged prostate without lower urinary tract symptomsNicotine dependence, unspecified, uncomplicated Outpatient visit for evaluation and management of new patient, including medically appropriate examination and straightforward medical decision making, total time 15-29 minutes [facility] [place] 08/01/2024 Essential (primary) hypertension Social History Sex Male History of Procedures Procedures Service Procedure code Service date Servicing provider Phone# Outpatient visit for evaluation and management of new patient, including medically appropriate examination and straightforward medical decision making, total time 15-29 minutes [id number] 2024-08-01 No Data Available No Data Ericka ilable Advance care planning discussion documented in medical [...] 13:28:00 PCP f/u twice a year with [facility]. Bloodwork done twice a year.chronic; stablecontinue atorvastatin [...] conducted via telemedicineLocation of [place] in [facility] participating in telemedicine service and their role in the encounter: Sophy Funk PA-C; Dieter Will NP; 2024-08-01 Patient denies any i ssues or concerns at this time.
--- OUTSIDE RECORDS SUMMARY | 2024-12-04 09:57 | XMS_ITS | Encounter Summary ---
Author Name [facility] [place] Organization [facility] [place] Address [address] [place] [address] Care Team Providers Care Work Measurement Engineer Name Role Phone FLORENCE CLEMENTS Primary [...] Caban's Name Patient's Relationship to Policy [employer] [facility] (WNR) MEDICARE ADVANTAGE [facility] (R) August 21, 2020 [id number] [phone] SCHAFER,KODI HARD PATIENT MEDICARE (WNR) MEDICARE (M) PART A Jan 21, 2014 PART A [id number] SCHAFER,KODI HARD PATIENT MEDICARE (WNR) MEDICARE (M) PART B Jan 21, 2014 PART B [id number] SCHAFER,KODI HARD PATIENT Selected Encounter This section includes the information on record at CT for the Encounter. Date/Time Encounter Type Encounter Description Reason Provider Source Sep 23, 2024 01:45 PM OFFICE O/P EST LOW 20 MIN DERMATOLOGY ICD-10-CM L82.1 Other seborrheic keratosis CARLEY PLATA Latasha Encounter Template Text not used by CT Assessments - Encounter Diagnoses This section includes the primary and secondary diagnoses documented for the Encounter. Date/Time Primary/Secondary Diagnosis Diagnosis Name Provider Source Sep 23, 2024 02:18 PM PRIMARY Other seborrheic keratosis CARLEY PLATACARY [facility] Sep 23, 2024 02:18 PM SECONDARY Actinic keratosis NATALIA MCKINNEY [facility] Sep 23, 2024 02:18 PM SECONDARY Melanocytic nevi of trunk [facility] Sep 23, 2024 02:18 PM SECONDARY Personal history of other malignant neoplasm of skin [facility] Plan of Treatment: Future Appointments (+ 6 months) and Future Tests (+/- 45 days) The Plan of Treatment section includes future care activities for the patient from all CT treatmentfacilities. This section includes future appointments and future orders which are active, pending or scheduled. Future Appointments This section includes appointments that were scheduled to occur 6 months from the date of the Encounter, up to a maximum of 20 appointments. The data comes from all CT treatment facilities. Appointment Date/Time Appointment Type Appointme nt Facility Name Sep 24, 2024 01:00 PM AMBULATORY - PSYCHIATRY [facility] Sep 29, 2024 08:30 AM AMBULATORY - PSYCHIATRY [facility] Oct 08, 2024 02:00 PM AMBULATORY - PSYCHIATRY [facility] Nov 12, 2024 11:00 AM AMBULATORY - MEDICINE [facility] Nov 26, 2024 12:30 PM AMBULATORY - NONE [facility] Nov 26, 2024 01:30 PM AMBULATORY - PSYCHIATRY [facility] Dec 01, 2024 11:00 AM AMBULATORY - NONE [facility] Feb 11, 2025 11:00 AM AMBULATORY - NONE . [facility] Feb 23, 2025 11:00 AM AMBULATORY - NONE [facility] Social History: Smoking Status (Most current) and Tobacco Use (All prior to encounter date) This section includes the most current, and the historical, smoking and tobacco- related health factors from the CT facility where the Encounter took place. Current Smoking Status This section includes the most current smoking, or tobacco-related health factor, from the CT facility where the Encounter took place. Date/Time Current Smoking Status Comment [facility] santo Jun 23, 2022 07:12 PM VA-VAAES TOBACCO U SE CURRENT NRT DECLINE [facility] Tobacco Use History This section includes a history of the smoking, or tobacco-related health factors, that were collected on or before the date of the Encounter. The data comes from the CT facility where the Encounter took place. Date/Time Smoking Status/Tobacco Use Comment F acility Mar 30, 2022 03:42 PM VA-TOBACCO DOESNT USE WI 30 MIN WAKEUP [facility] Mar 30, 2022 03:42 PM VA-TOBACCO USE 30 YEARS OR MORE [facility] Mar 30, 2022 03:42 PM VA-TOBACCO USE ADVICE [facility] Mar 30, 2022 03:42 PM VA-TOBACCO USE PLANNER NO [facility] Mar 30, 2022 03:42 PM VA-TOBACCO USE MED NO [facility] Mar 30, 2022 03:42 PM VA-TOBACCO USER EVERY DAY [facility] Mar 05, 2019 02:55 PM VA-TOBACCO USE 30 YEARS OR MORE [facility] Mar 05, 2019 02:55 PM VA-TOBACCO USE ADVICE [facility] Mar 05, 2019 02:55 PM VA-TOBACCO USE PLANNER NO [facility] Mar 05, 2019 02:55 PM VA-TOBACCO USE MED NO [facility] Mar 05, 2019 02:55 PM VA-TOBACCO USE WI 30 MIN OF WAKEUP [facility] Mar 05, 2019 02:55 PM VA-TOBACCO USER EVERY DAY [facility] Mar 26, 2015 11:28 AM CURRENT TOBACCO USER [facility] Mar 26, 2015 11:28 AM TOBACCO MEDS OFFER ED BUT DECLINED [facility] Encounter Notes: All associated encounter notes This section contains the clinical notes associated to the Encounter. Date/Time Encounter Note(s) Provider Source Sep 23, 2024 02:10 PM DERMATOLOGY NOTE: LOCAL TITLE: DERMATOLOGY NOTE STANDARD TITLE: DERMATOLOGY NOTE DATE OF NOTE: SEP 23, 2024@14:10 ENTRY DATE: SEP 23, 2024@14:11:26 AUTHOR: JAY MCKINNEY EXP COSIGNER: CARLEY PLATA URGENCY: STATUS: COMPLETED DERMATOLOGY NOTE Has ADDENDA CRISTOPHER SCHAFER is a 74 year old WHITE MALE w/ h/o SCC R cheek s/p Efudex x 6 weeks, presenting for TBSE Today: No new or concerning spots. Denies any new or changing lesions today on the skin Allergies: TRAMADOL ROS: per hpi PE: [place] rough scaly papules on right cheek and forehead Stuck on appearing brown papules on trunk [...] With verbal informed consent, 4 lesion(s) on forehead and right cheek treated with LN2 x6-8 seconds today; blister [...] Patient reassured. Photoprotection was reviewed. Recommend monthly self- skin checks and regular MD skin checks. RTC 6 months /ivy/ JAY MCKINNEY MD DERMATOLOGY RESIDENT Signed: 09/23/2024 14:18 /ivy/ Carley Plata MD TEST RIDER Cosigned: 09/23/2024 14:37 09/23/2024 ADDENDUM STATUS: COMPLETED Discussed case with resident. Agree with history, physical examination, assessment, and plan. /ivy/ Carley Plata MD TEST RIDER Signed: 09/23/2024 14:37 JAY MCKINNEY [facility]
--- OUTSIDE RECORDS SUMMARY | 2024-12-04 09:57 | XMS_ITS | Encounter Summary ---
Author Name [facility] [place] Organization [place] Address [address] [place] [address] Care Team Providers Care Ball Points Inspector Name Role Phone FLORENCE CLEMENTS Primary Care [...] Caban's Name Patient's Relationship to Policy Caban DailyTicket [facility] (WNR) MEDICARE ADVANTAGE [facility] (R) August 21, 2020 [id number] [phone] SCHAFER,KODI HARD PATIENT MEDICARE (WNR) MEDICARE (M) PART A Jan 21, 2014 PART A [id number] SCHAFER,KODI HARD PATIENT MEDICARE (WNR) MEDICARE (M) PART B Jan 21, 2014 PART B [id number] SCHAFER,KODI HARD PATIENT Selected Encounter This section includes the information on record at [place] for the Encounter. Date/Time Encounter Type Encounter Description Reason Provider Source Nov 26, 2024 01:30 PM OFFICE O/P EST MOD 30 MIN PSYCHOGERIATRIC - INDIVIDUAL ICD-10-CM G31.84 Mild cognitive impairment of uncertain or unknown etiology KIM GUZMAN Encounter Template Text not used by [facility] Assessments - Encounter Diagnoses This section includes the primary and secondary diagnoses documented for the Encounter. Date/Time Primary/Secondary Diagnosis Diagnosis Name Provider Source Nov 26, 2024 02:30 PM PRIMARY Mild cognitive impairment of uncertain or unknown etiology Lalita GUZMAN [facility] Nov 26, 2024 02:30 PM SECONDARY Post-traumatic stress disorder, chronic Lalita GUZMAN [facility] Plan of Treatment: Future Appointments (+ 6 months) and Future Tests (+/- 45 days) The Plan of Treatment section includes future care activities for the patient from all [place] [facility] [place]. This section includes future appointments and future orders which are active, pending or scheduled. Future Appointments This section includes appointments that were scheduled to occur 6 months from the date of the Encounter, up to a maximum of 20 appointments. The data comes from all [place] treatment facilities. Appointment Date/Time Appointment Type Appointme nt Facility Name Dec 01, 2024 11:00 AM AMBULATORY - NONE [facility] Feb 11, 2025 11:00 AM AMBULATORY - NONE [facility] Feb 23, 2025 11:00 AM AMBULATORY - NONE [facility] Mar 26, 2025 01:45 PM AMBULATORY - MEDICINE [facility] May 06, 2025 02:00 PM AMBULATORY - MEDICINE [facility] Vital Signs: All taken on the encounter date This section contains inpatient and outpatient Vital Signs collected on the date of the Encounter. Date/Time Temperature Pulse Blood Pressure Respiratory Rate SP02 Pain Height Weight Body Mass Index Source Nov 26, 2024 02:32 PM 97.3 F 55 /min 148/86 mm[Hg] 18 /min 96 % 10 [facility] Nov 26, 2024 01:48 PM 97.3 F 58 /min 135/91 mm[Hg] 18 /min 96 % 0 [facility] Social History: Smoking Status (Most current) and [...] Facil ity May 21, 2024 10:00 AM PA-TOBACCO SCREEN FOLLOW-UP [facility] Tobacco Use History This section includes a history of the smoking, or tobacco-related health factors, that were collected on or before the date of the Encounter. The data comes from the [place] facility where the Encounter took place. Date/Time Smoking Status/Tobacco Use Comment F acility May 21, 2024 10:00 AM VA-TOBACCO USE ADVICE [facility] May 21, 2024 10:00 AM VA-TOBACCO USE CURED MEATS SUPERVISOR NO [facility] May 21, 2024 10:00 AM PA-TOBACCO USE MED NO [facility] Radiology Reports: +/- 30 days of [...] the Encounter. The data comes from all [place] treatment facilities. Date/Time Radiology Report Provider Source Dec 01, 2024 10:25 AM MRI BRAIN W/O CONT : CRISTOPHER SCHAFER [id number] -1950 M Exm Date: DEC 01, 2024@10:25 Req Phys: MICKY LAGOS Loc: [facility]-NEUROLOGY RESIDENT A (Req'g Img Loc: [facility] Service: Unknown [address] [address] (Case [id number] COMPLETE) MRI BRAIN W/O CONT (MRI Detailed) CPT:13304 Reason for Study: Dementia, FTD concern Clinical History: Responsible Attending: Jorge Alberto Silva Attending Contact Number: 000 Resident Contact Number: Micky [phone] Does your patient have an implanted device or hardware? (Any prosthesis, implant, shrapnel or bullet fragments) No Does your patient have any of the following (Please check all that apply) [ ] Pacemaker [ ] AICD [ ] Neuro-stimulator [ ] Bone Growth Stimulator [ ] Pain Pump [ ] Insulin Pump [ ] Cochlear Implant [ ] Ocular Implant [ ] Aneurysm Clip [ ] Vascular Clip Any other type of implant, please explain Does your patient have a Coronary Stent: No Does your patient have a an artificial Heart Valve: No Were any of the following intravascular implanted devices inserted less than 6 weeks ago: Stent No IVC Filter No Embolization Coils No Is your patient's weight >350lbs or abdominal and shoulder width >60cm? No Does your patient have Renal Failure, Chronic or Acute Renal Disease? No If ordering a contrasted enhanced MRI, you will be required to complete the order for creatine eGFR which is located at the bottom of the MRI ordering screen. If your patient is 60 years or older, the patient will need a recent eGFR within 30 days prior to the exam. NOTE: Incorrectly answering these questions may result in a delay in the procedure. A patient with a device or implant does not automatically mean the patient cannot receive an MRI. If your patient will have difficulty with a confined space, the provider will be responsible for ordering a sedation prior to the procedure, or to order an alternative procedure. In the event this patient needs referred to Community Care: Does this patient have mobility issues that will require additional assistance at the imaging center? No If yes, please provide specifics: None Does this patient require an open bore MRI due to claustrophobia? No Has a close bore MRI with oral sedation been tried? No This order requests: Without Contrast Report Status: Verified Date Reported: DEC 01, 2024 Date Verified: DEC 01, 2024 Power Sewing Machine Operator E-Sig:/ES/MOUNA VASQUES Report: INDICATION: Dementia, FTD concern COMPARISON: CT 06/18/2024 TECHNIQUE: MRI brain without intravenous contrast. FINDINGS: There is supratentorial and infratentorial atrophy. There is generalized cerebral atrophy.. Abnormal T2 hyperintensities in the supratentorial white matter nonspecific. Statistically they are most likely related to small vessel ischemia. Patient motion artifact limits overall evaluation. Prominence of the retrocerebellar CSF space may be secondary to judy cisterna magna or arachnoid cyst formation. No acute infarction. No abnormal intracranial blood products. Normal flow voids in the vertebral, basilar, and internal carotid arteries. No abnormal extra-axial fluid collection. No mass effect or midline shift. No hydrocephalus. No abnormal signal in the superior sagittal sinus. Impression: Generalized cerebral atrophy. Small vessel ischemia. Primary Interpreting Staff: MOUNA VASQUES, RADIOLOGIST (Power Sewing Machine Operator) /M[facility]NA [facility] Encounter Notes: All associated encounter notes This section contains the clinical notes associated to the Encounter. Date/Time Encounter Note(s) Provider Source Nov 26, 2024 01:54 PM MENTAL HEALTH NOTE : LOCAL TITLE: [facility] CC NEEDS ASSESSMENT AND INTERVENTION PLAN STANDARD TITLE: MENTAL HEALTH NOTE DATE OF NOTE: NOV 26, 2024@13:54 ENTRY DATE: NOV 26, 2024@13:54:39 AUTHOR: TOMAS SINHA COSIGNER: URGENCY: STATUS: COMPLETED Visit Modality: In-person What really matters to CRISTOPHER SCHAFER. [place], Aspiration, Purpose (MAP). == really? staying retired Future Appointments : 12/01/2024 11:00 [facility]-MRI1.5AM 12/03/2024 11:00 [facility] PACT NUTR 02/11/2025 11[facility] 03/26/2025 13:45 [facility] MD 05/06/2025 14:00 [facility] PACT 6 PCP 10/14/2025 11:00 [facility]-NEUROLOGY RESIDENT A Follow-up [facility] Care Coordination Intervention Plan Assessment and review of interventions in progress: SIGNIFICANT CHANGES TO CARE COORDINATION NEEDS: Current assessed care coordination needs (full documentation is elsewhere in the medical record): Follow-up as clinically indicated: 02/23/2025 @ 1100 vitals and reminders Time spent: 10 minutes /ivy/ TOMAS SINHA RN Registered Nurse Signed: 11/26/2024 14:48 TOMAS SINHA [facility] Nov 26, 2024 01:50 PM PSYCHIATRY OUTPATI ENT NOTE: LOCAL TITLE: MENTAL HEALTH AGING RESOURCES TEAM [facility] STANDARD TITLE: PSYCHIATRY OUTPATIENT NOTE DATE OF NOTE: NOV 26, 2024@13:50 ENTRY DATE: NOV 26, 2024@13:50:35 AUTHOR: CHADWICK GUZMAN COSIGNER: URGENCY: STATUS: COMPLETED [facility] - [facility]ICATION [facility]NAGEMENT Name..................SUSY Pagan,CRISTOPHER VITAL Age...................74 Sex...................MALE SSN...................[id number] Today's Date..........NOV 26, 2024 Service Connection....Service Connected: Yes (70%) ALLERGIES: [...] hyperplasia 5) CAD - Coronary Artery Disease ([facility] [id number]) 6) Hepatitis C 7) Anxiety ([facility] [id number]) 8) Osteoarthritis of left knee joint 9) History of arthroplasty of right knee 10) History of arthroplasty of left knee 11) Chronic Post-Traumatic Stress Disorder ([facility] [id number]) 12) Exposure to potentially hazardous substance ([facility] [id number]) 13) Carotid Artery Stenosis ([facility] [id number]) 14) Aortic Stenosis, Non-Rheumatic ([facility] [id number]) 15) COPD - Chronic Obstructive Pulmonary Disease ([facility] [id number]) VITAL SIGNS: Pulse.................68 (07/09/2024 14:34) Temperature...........97.4 F [...] illness other than dementia in 1 sister. Paul Smiths has no past or present h/o aggression towards self or others. Paul Smiths is low suicide risk at present and appropriate for outpatient level of care. seen for f/u alone and he reports that he had been doing okay. Has a little stressful time taking care of a 10yrs old special needs kid for 6weeks. He talked about this great niece that usually lived with father in [place] for 3yrs was to go back to live with mother who is veterans niece . She came from [facility] to pickle processor the kid after 6weeks .this child would cry at the drop of hat when she did not get her way. He tried to get her into some regular music and other classes to help her through this time . Overall he and were stressed out taking care of the child. He is sleeping fr 6-7hrs and his mood is okay. Had severe dry mouth and so he cut back on effexor to 150mg/day. He is also on bupropion for nicotine and is now going to get chantix from pcp so he plans to taper off bupropion. He is due to have brain \MRI soon and has seen neurology. He reports taking tizanidine for the pain/spasms in his back . He is getting from outside [place] physician and understands the risks of prison use. denies any alcohol or other substance use. ANY MEDICATION SIDE EFFECT....No APPETITE.................. ....Good SLEEP..................... ....Good MENTAL STATUS: MOOD/AFFECT............... ..Normal mood- okay affect- congruent DELUSIONS/HALLUCINATIONS.. ..Absent denies SUICIDAL/AGGRESSIVE....... ..Absent denies ALERT & ORIENTED X3 WITH GOOD CONCENTRATION........Yes oriented x3. COMMENTS: None MEDICATION CHANGE.............No SUPPORTIVE PSYCHOTHERAPY......Yes GAF:No previous GAF entered. Current Gaf: na TREATMENT PLAN: COMMENTS: Depression/-discussed about decrease effexor to 150mg po daily and to call back if any side effects or new problems. Discussed with and about the Brain CT scan report MCI- Frontal-predominant cerebral volume loss.PROTOCOL MANAGER testing-mild MCI . will continue to monitor. MRI brain pending. Support empathic listening and psychoeducation provided. f/u in 3months INSTRUCTIONS GIVEN TO PATIENT/FAMILY: Report medication side effects promptly No alcohol/illicit drug use with medication Needs to be cautious with driving/use of machinery Avoid night-time driving Follow up with Primary Care Provider If symptoms get worse, call clinic or Emergency Room as appropriate seen to total of 35min with 20min of supportive therapy. /ivy/ KIM GUZMAN MD Staff Physician, Psychiatry Signed: 11/26/2024 14:32 CHADWICK GUZMAN [facility]
--- OUTSIDE RECORDS SUMMARY | 2024-12-04 09:57 | XMS_ITS ---
Author Name [facility] of [facility] ([place]) Organization [place] Address [address] [place] [address] Care Team Providers Care Speech Therapy Teacher Name Role Phone FLORENCE CLEMENTS Primary [...] Caban's Name Patient's Relationship to Policy Caban bookletmobile [facility] (WNR) MEDICARE ADVANTAGE [facility] (WNR) August 21, 2020 [id number] [phone] SCHAFER,KODI HARD PATIENT MEDICARE (WNR) MEDICARE (M) PART A Jan 21, 2014 PART A [id number] [phone] SCHAFER,KODI HARD PATIENT MEDICARE (WNR) MEDICARE (M) PART B Jan 21, 2014 PART B [id number] SCHAFER,KODI HARD PATIENT Selected Encounter This section includes the information on record at [place] for the Encounter. Date/Time Encounter Type Encounter Description Reason Provider Source Nov 12, 2024 11:00 AM OFFICE O/P EST HI 40 MIN NEUROLOGY ICD-10-CM G31.84 Mild cognitive impairment of uncertain or unknown etiology PANFILO ART III [place] Encounter Template Text not used by [facility] Assessments - Encounter Diagnoses This section includes the primary and secondary diagnoses documented for the Encounter. Date/Time Primary/Secondary Diagnosis Diagnosis Name Provider Source Nov 14, 2024 11:27 AM PRIMARY Mild cognitive impairment of uncertain or unknown etiology PANFILO ART III [facility] Plan of Treatment: Future Appointments (+ 6 months) and Future Tests (+/- 45 days) The Plan of Treatment section includes future care activities for the patient from all [facility]. This section includes future appointments and future orders which are active, pending or scheduled. Future Appointments This section includes appointments that were scheduled to occur 6 months from the date of the Encounter, up to a maximum of 20 appointments. The data comes from all [place] treatment facilities. Appointment Date/Time Appointment Type Appointme nt Facility Name Nov 26, 2024 12:30 PM AMBULATORY - NONE [facility] Nov 26, 2024 01:30 PM AMBULATORY - PSYCHIATRY [facility] Dec 01, 2024 11:00 AM AMBULATORY - NONE [facility] Feb 11, 2025 11:00 AM AMBULATORY - NONE [facility] Feb 23, 2025 11:00 AM AMBULATORY - NONE [facility] Mar 26, 2025 01:45 PM AMBULATORY - MEDICINE [facility] May 06, 2025 02:00 PM AMBULATORY - MEDICINE [facility] Social History: Smoking Status (Most current) [...] Torres ity Jun 23, 2022 07:12 PM MD-VAAES TOBACCO U SE CURRENT NRT DECLINE [facility] Tobacco Use History This section includes a history of the smoking, or tobacco-related health factors, that were collected on or before the date of the Encounter. The data comes from the [place] facility where the Encounter took place. Date/Time Smoking Status/Tobacco Use Comment F acility Mar 30, 2022 03:42 PM VA-TOBACCO DOESNT USE WI 30 MIN WAKEUP [facility] Mar 30, 2022 03:42 PM VA-TOBACCO USE 30 YEARS OR MORE [facility] Mar 30, 2022 03:42 PM VA-TOBACCO USE ADVICE [facility] Mar 30, 2022 03:42 PM VA-TOBACCO USE LEGAL SUPPORT ANALYST NO [facility] Mar 30, 2022 03:42 PM VA-TOBACCO USE MED NO [facility] Mar 30, 2022 03:42 PM VA-TOBACCO USER EVERY DAY [facility] Mar 05, 2019 02:55 PM VA-TOBACCO USE 30 YEARS OR MORE [facility] Mar 05, 2019 02:55 PM VA-TOBACCO USE ADVICE [facility] Mar 05, 2019 02:55 PM VA-TOBACCO USE LEGAL SUPPORT ANALYST NO [facility] Mar 05, 2019 02:55 PM VA-TOBACCO USE MED NO [facility] Mar 05, 2019 02:55 PM VA-TOBACCO USE WI 30 MIN OF WAKEUP [facility] Mar 05, 2019 02:55 PM VA-TOBACCO USER EVERY DAY [facility] Mar 26, 2015 11:28 AM CURRENT TOBACCO USER [facility] Mar 26, 2015 11:28 AM TOBACCO MEDS OFFER ED BUT DECLINED [facility] Radiology Reports: +/- 30 days [...] the Encounter. The data comes from all [facility] facilities. Date/Time Radiology Report Provider Source Dec 01, 2024 10:25 AM MRI BRAIN W/O CONT : CRISTOPHER SCHAFER [id number] -1950 M Exm Date: DEC 01, 2024@10:25 Req Phys: MICKY TSE Loc: [facility]-NEUROLOGY RESIDENT A (Req'g Img Loc: [facility] Service: Unknown [facility] [address] [place] [address] (Case 483 COMPLETE) MRI BRAIN W/O CONT (MRI Detailed) CPT:13344 Reason for Study: Dementia, FTD concern Clinical History: Responsible Attending: Jorge Alberto Silva Attending Contact Number: 000 Resident Contact Number: Micky [phone] Does your patient have an implanted device [...] 01, 2024 Date Verified: DEC 01, 2024 Comic Book Designer E-Sig:/IVY/MOUNA VASQUES Report: INDICATION: Dementia, FTD concern COMPARISON: [...] ischemia. Primary Interpreting Staff: MOUNA VASQUES, RADIOLOGIST (Comic Book Designer) /MOUNA CRAVEN [facility] Encounter Notes: All associated encounter notes This section contains the clinical notes associated to the Encounter. Date/Time Encounter Note(s) Provider Source Nov 12, 2024 01:54 PM ACCOUNTING OF DISCLOSURES NOTE: LOCAL TITLE: STATE PRESCRIPTION DRUG MONITORING PROGRAM STANDARD TITLE: ACCOUNTING OF DISCLOSURES NOTE DATE OF NOTE: NOV 12, 2024@13:54:25 ENTRY DATE: NOV 12, 2024@13:54:25 AUTHOR: PANFILO ART III EXP COSIGNER: URGENCY: STATUS: COMPLETED This PDMP query was submitted by Paniflo Art III, MD. The clinical justification for this PDMP query is to review controlled substances prescribed outside of the [facility], and any additional information that may become available, as an important component of standard clinical care, and in accordance with [facility] policy. Patient information was shared with the PDMP [place]. No prescription(s) for controlled substances outside the [facility] were found in the last 90 days. getting tizanidine 2 mg #270 q90d from Medicare provider /ivy/ PANFILO ART III CHIEF OF NEUROLOGY, . PHD. Signed: 11/12/2024 13:55 Receipt Acknowledged By: 11/25/2024 15:24 /ivy/ KIM GUZMAN MD Staff Physician, Psychiatry PANFILO ART III [facility] Nov 12, 2024 11:33 AM NEUROLOGY OUTPATIENT NOTE: LOCAL TITLE: NEUROLOGY OUTPATIENT FOLLOW UP [facility] STANDARD TITLE: NEUROLOGY OUTPATIENT NOTE DATE OF NOTE: NOV 12, 2024@11:33 ENTRY DATE: NOV 12, 2024@11:33:31 AUTHOR: MICKY TSE COSIGNER: PANFILO ART III URGENCY: STATUS: COMPLETED NEUROLOGY OUTPATIENT FOLLOW UP [facility] NOTE: > (FOLLOW UP) > For: Memory impairment > LAST SEEN: 08/21/24 > BRIEF BACKGROUND HISTORY: (For full hx referred to note from 08/21/24) Mr. Schafer is a 74 year old gentleman who has medical history of HTN who is presenting to the neurology clinic as referral due to abnormal CT head findings of frontal lobes atrophy. Patient also was having Stuttering speech and anormal repetitive movements (blinking and hand movements), he was referred to Neuropsych evaluation and MRI brain woc. > INTERVAL HISTORY: - Neuropsychic evaluation revealed MCI. - MRI not done yet. - remain independent in ADLs. - Blinking movement still there but he has dry eyes, psychiatrist went down on Venlafaxine dose on 11/11 to see if this will relief side effects. Active Outpatient Medications (including Supplies): Active Outpatient [...] TWICE DAILY ACTIVE NEEDED 18 Total Medications O Objectives: Vitals: Pulse: 57 (09/24/2024 13:02) BP: 123/72 (09/24/2024 13:03) RESP: 18 (09/24/2024 13:02) TEMP: 97.1 F [36.2 C] (09/24/2024 13:02) SaO2: 97% (09/24/2024 13:02) Weight: 209 lb [94.80 kg] (07/30/2024 14:09) [...] shoulder shrug intact bilaterally Motor: Abnormal movements: repetitive blinking movements. Tone: normal Bulk: normal Power: Delt Tri [...] Romberg negative, normal gait, tandem walk stable O INVESTIGATION: > RECENT LABS: No recent [...] frontal lobes atrophy. Patient is having repetitive movements characterized as blinking, hand movements since 1 year. No reported memory impairment, no impact of ADLs. Neuropsych evaluation completed in 09/29/24 revealed impairment on testing is consistent with the frontal volume loss observed on his neuroimaging, he does not currently meet full criteria for a diagnosis of frontotemporal dementia at this time. It possible that the observed changes could be related to an alternative pathology, such as an atypical frontal variant of Alzheimer's disease in which behavioral disinhibition is not as prominent, or vascular disease O PLAN: - MRI brain woc scheduled, he was prescribed benzo to be taken prior to imaging, will proceed with the test to look for other differentials. - To consider Neuropsych evaluation every 12-18 months. - Patient educated about alarming features and when to seek medical attention sooner such as rapid deterioration in memory, impact on ADLs. - Offered Cognitive resources offered by GROUND SYSTEMS ENGINEER team at the MD, he opted to not use it for now. - RTC in 10/15 in resident A clinic. Patient seen and plan discussed with attending physician Dr. Art. Micky Tse MD. Neurology resident PGY3. [facility] /sayra Tse M.D. Neurology Resident [facility] Signed: 11/12/2024 11:42 /ivy/ PANFILO GOULD NEUROLOGYMD. PHD. Cosigned: 11/14/2024 11:27 11/12/2024 ADDENDUM STATUS: COMPLETED Patient requests sedaiting medication before MRI for anxiety. Ativan one dose prescribed to be taken prior to MRI scheduled on 12/01/24. /ivy/ Micky Tse M.D. Neurology Resident [facility] Signed: 11/12/2024 12:50 /ivy/ PANFILO MATHEW OF NEUROLOGY, . PHD. Cosigned: 11/14/2024 11:27 11/14/2024 ADDENDUM STATUS: COMPLETED Patient discussed with resident physician Dr. Tse and chart reviewed. I agree with the assessment and recommendations as documented. Summary: Briefly, patient is a 74 year old MALE with cognitive concerns. Npsych testing 09/29/24 with findings compatible with MCI, primarily executive function and visuospatial deficits. MRI brain scheduled, and he will need anxiolytic for the study. Clinical Impression: mild cognitive impairment Etiology perhaps related to normal aging on top of his existing frontal volume loss, perhapsrelated to his remote TBI history. This is not frontotemporal dementia, but might be early signs of possible other neurodegenerative disease. Treatment plan per Dr. Tse's note. Follow-up: 48 weeks The patient was instructed to call if any questions arise, new symptoms occur, or if side effects to prescribed medication develop. /ivy/ PANFILO ART III CHIEF OF NEUROLOGY, . PHD. Signed: 11/14/2024 11:36 MICKY TSE [facility]
== END 2024-12-04 09:41 | disposition home or self-care (01) ==
PROVIDERS: PCP Family Medicine; Visit Provider Student in an Organized Health Care Education/Training Program
DX: Z12.2 Encounter for screening for malignant neoplasm of respiratory organs (principal); Z87.891 Personal history of nicotine dependence
CPT/HCPCS: 71271

== ENCOUNTER 2025-02-12 17:31 | Emergency (ER) | payer OTHER, SELFPAY ==
--- OUTSIDE RECORDS SUMMARY | 2025-02-12 17:33 | XMS_ITS | Clinical Summary ---
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
--- OUTSIDE RECORDS SUMMARY | 2025-02-12 17:33 | XMS_ITS | Encounter Summary ---
Author Organization [facility] Address [address] [place] [address] Care Team Providers Care Churn Operator Margarine Name Role Phone Paul Wisdom MD Unavailable [phone] Ana Luisa Lewis MD Primary Care Provider UnavailZay Ayon MD Unavailable [phone] Ana Luisa Lewis MD Unavailable Unavailable Scotty Tellez MD Unavailable [phone] Chelly Thompson BEEF BREAKER-ASSISTANT TERMINAL MANAGER Unavailable [phone] Marcia Pace Unavailable Unavailable Marcia Pace Unavailable [...] Sex Assigned at Male 05/11/2020 11:42 AM VP OF DIGITAL MARKETING Legal Sex Male 6:12 AM VP OF DIGITAL MARKETING Gender Identity Male 05/11/2020 11:42 AM VP OF DIGITAL MARKETING Sexual Orientation Straight 05/11/2020 11 :42 AM VP OF DIGITAL MARKETING 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 Author Blood Pressure < 140/90 Blood Pressure 120/72( 020 3:52 PM VP OF DIGITAL MARKETING) No Katelynn Guy MA documented as of this encounter Visit Diagnoses Not on filedocumented in this encounter Care Teams Churn Operator Margarine Relationship Specialty Start Date End Date Ana Luisa Lewis MD [address] [place] [address] PCP - General Family Medicine 10/03/12 08/30/21 Ana Luisa Lewis MD Need updated address PCP - Attributed-MSSP 06/21/1804/22 Chelly Thompson, BEEF BREAKER-ASSISTANT TERMINAL MANAGER [address] [facility] [place] [place] [id number] PCP - Attributed-MSSP 04/23/20 01/09/21 Paul Wisdom MD [address] [place] [address] Orthopedic Surgery 05/20/10 Zay Sarmiento MD [address] [place] [address] Cardiology 02/24/14 02/22/20 Scotty Tellez MD [address] [place] [address] Cutter Apprentice Hand Cardiology 04/14/20 Marcia Pace Care Coordination Specialist Care Management 08/21/24 08/21/24 Marcia Pace Care Coordination Specialist Care Management 08/25/24 08/25/24 Marcia Pace Care Coordination Specialist Care Management 08/26/24 08/26/24 documented as of this encounter
--- OUTSIDE RECORDS SUMMARY | 2025-02-12 17:33 | XMS_ITS | Encounter Summary ---
Author Organization [facility] Address [facility] [place] [address] Care Team Providers Care Hyster Driver Name Role Phone Ana Luisa Lewis MD Primary Care Provider Unavailabl e Encounter Details Date Type Department Care Team (Late st Contact Info) Description 11/12/2019 Prep for Procedure [facility] [address] [place], [place] [id number] Theo Del Angel MD [address] [facility] [address] [address] [place] [address] Social History Tobacco Use Types Packs/Day Years Used Date Smoking Tobacco: Every Day Cigarettes Smokeless Tobacco: Never Alcohol Use Standard Drinks/Week Comments Not Currently 0 (1 standard drink = 0.6 oz pur e alcohol) Sex and Gender Information Value Date Recorded Sex Assigned at Not on file 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 Gender Identity Not on file Sexual Orientation Not on file documented as of this encounter Plan of Treatment Not on file documented as of this encounter Results * PRE-SURGICAL/PRE-PROCEDURE CORONAVIRUS (COVID 19) (11/14/2019 7:13 AM CDT) CORONAVIRUS SARS COV 2 PCR (RESP) NOT DETECTED NOT DETECTED 11/16/2019 5:48 AM CDT [facility] Comment: A Not Detected (negative) [...] providers and patients using the following websites: https://www.[employer].JamOrigin/home/Covid-19/HCP/NAAT/fact-sheet2 https://www.[employer].JamOrigin/home/Covid-19/Patients/NAAT/ fact-sheet2 This test has been authorized by the FDA under an Emergency Use Authorization (EUA) for use by authorized laboratories. Due to the current public health emergency, [facility] is receiving a high volume of samples [...] about COVID-19 can be found at the [facility] website: www.RocketHub/Covid19. Test performed at [facility] [place] [address] [place] [address] Director: ZAHRAA PEREA DO,MPH NASOPHARYNGEAL SWAB / Unknown 11/14/2019 7:13 AM CDT us Theo Del Angel MD MICROBIOLOGY - GENERAL ORDERA BLES Final Result [facility] [id number] [place] [id number] [place] [address] documented in this encounter Visit Diagnoses Diagnosis Preop testing- Primary Preoperative examination, unspecified documented in this encounter Additional Health Concerns Infection Onset Date Last Indicated Resolved Time COVID-19 Rule Out 11/14/2019 11/14/2019 11/16/2019 5:48 AM CDT documented as of this encounter Care Teams Hyster Driver Relationship Specialty Start Date End Date Ana Luisa Lewis MD PCP - General FAMILY PRACTICE 08/09/18 documented as of this encounter
--- OUTSIDE RECORDS SUMMARY | 2025-02-12 17:33 | XMS_ITS ---
Author Name Blessing SHAH, MRS. Nam npal Address [id number] [place] [address] [place] [address] Phone [phone] Organization [facility] ([facility]) Care Team Providers Care Retail Pharmacy Technician Name Role Phone Blessing Sophy Unavailable [phone] Fortunato Anthony Unavailable [phone] Reason for Referral Not Available Allergies, adverse [...] mg Tab TAKE 1 TABLET BY [place] [facility] EVERY DAY 2024-04-07 No Data Available [...] mg Cap TAKE 1 CAPSULE BY [facility] EVERY DAY 2023-11-05 No Data Available Omeprazole [...] medical decision making, total time 15-29 minutes [id number] 2024-08-01 No Data Available No Data Ericka [...] 13:28:00 PCP f/u twice a year with AIRPORT TOWER CONTROLLER. Bloodwork done twice a year.chronic; stablecontinue atorvastatin [...] conducted via telemedicineLocation of patient[place] in [facility] participating in telemedicine service and their role in the encounter: Sophy Funk PA-C; Dieter Will NP; 2024-08-01 Patient denies any i ssues or concerns at this time.
--- OUTSIDE RECORDS SUMMARY | 2025-02-12 17:33 | XMS_ITS | Clinical Summary ---
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
--- OUTSIDE RECORDS SUMMARY | 2025-02-12 17:33 | XMS_ITS | Encounter Summary ---
Author Organization [facility] Health Address [address] [facility] [place] [address] Care Team Providers Care Cloth Cutting Inspector Name Role Phone Paul Wisdom MD Unavailable [phone] Ana Luisa Lewis MD Primary Care Provider UnavailZay Ayon MD Unavailable [phone] Ana Luisa Lewis MD Unavailable Unavailable Scotty Tellez MD Unavailable [phone] Chelly Thompson INTELLIGENCE CONSULTANT-GRIPS Unavailable [phone] Marcia Pace Unavailable Unavailable Marcia Pace Unavailable Unavailable Marcia Pace Unavailable Unavailable Encounter Details Date Type Department Care Team (Late st Contact Info) Description 02/05/2014 [facility] [place] [address] [facility] [address] [place] [phone] Social History Tobacco Use Types Packs/Day Years Used Date Smoking Tobacco: Former Cigarettes Smokeless Tobacco: Never Alcohol Use Standard Drinks/Week Comments No 0 (1 standard drink = 0.6 oz pur e alcohol) Sex and Gender Information Value Date Recorded Sex Assigned at Male 05/11/2020 11:42 AM WORKERS COMPENSATION CLAIMS ASSISTANT Legal Sex Male 6:12 AM WORKERS COMPENSATION CLAIMS ASSISTANT Gender Identity Male 05/11/2020 11:42 AM WORKERS COMPENSATION CLAIMS ASSISTANT Sexual Orientation Straight 05/11/2020 11 :42 AM WORKERS COMPENSATION CLAIMS ASSISTANT 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 Author Blood Pressure < 140/90 Blood Pressure 120/72( 020 3:52 PM WORKERS COMPENSATION CLAIMS ASSISTANT) No Katelynn Guy MA documented as of this encounter Visit Diagnoses Not on filedocumented in this encounter Care Teams Cloth Cutting Inspector Relationship Specialty Start Date End Date Ana Luisa Lewis MD [address] [place] [address] PCP - General Family Medicine 10/03/12 08/30/21 Ana Luisa Lewis MD Need updated address PCP - Attributed-MSSP 06/21/1804/22 Chelly Thompson APRN-GRIPS [address] [facility] [place] [phone] PCP - Attributed-MSSP 04/23/20 01/09/21 Paul Wisdom MD [address] [place] [address] Orthopedic Surgery 05/20/10 Zay Sarmiento MD [address] [place] [address] Cardiology 02/24/14 02/22/20 Scotty Tellez MD [address] [facility] [address] [place] [address] Group Fitness Department Head Cardiology 04/14/20 Marcia Pace Care Coordination Specialist Care Management 08/21/24 08/21/24 Marcia Pace Care Coordination Specialist Care Management 08/25/24 08/25/24 Marcia Pace Care Coordination Specialist Care Management 08/26/24 08/26/24 documented as of this encounter
--- OUTSIDE RECORDS SUMMARY | 2025-02-12 17:33 | XMS_ITS | Clinical Summary ---
Author Organization [facility] Address [address] [place] [address] Care Team Providers Care Adoption Counselor Name Role Phone Paul Wisdom MD Unavailable [phone] Scotty Tellez MD Unavailable [phone] Source Comments [facility],non-owned Affiliates and Associated Physician Practices is amultiple site organization consisting of ambulatory clinics and hospital sitesin [place], [place], [place] and [place]. This disclosure is being madepursuant to the Care Everywhere program and may not contain all information available regarding this patient. Last updated 18.[facility] Allergies Active Allergy Reactions Criticality Noted Date [...] FLUZONE TRIVALENT; 6MO+) (IIV3) 11/23/2014 BCG VACCINE PENITENTIARY 02/04/2018 COVID - 19, HISTORIC VACCINE 01/02/2024,02/09/20 [...] Date Smoking Tobacco: Every Day Cigarettes 0.5 62.8 Started: 04/23/1963 Smokeless Tobacco: Never Tobacco Cessation:Ready to Q uit: No; Counseling Given: Yes Alcohol Use Standard Drinks/Week Comments No 0 (1 standard drink = 0.6 oz pur e alcohol) Sex and Gender Information Value Date Recorded Sex Assigned at Male 05/11/2020 11:42 AM PROFILER HAND Legal Sex Male 6:12 AM PROFILER HAND Gender Identity Male 05/11/2020 11:42 AM PROFILER HAND Sexual Orientation Straight 05/11/2020 11 :42 AM PROFILER HAND 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 on file Not on file Not on file Last Filed Vital Signs Vital Sign Reading Time Taken Comments Blood Pressure 120/72 04/14/2020 3:52 PM PROFILER HAND Pulse 50 04/14/2020 3:52 PM PROFILER HAND Temperature 36.7 C (98.1 F) 04/14/2020 3:52 PM PROFILER HAND Respiratory Rate 22 07/07/2013 5:15 PM CDT Oxygen Saturation 98% 04/08/2020 1:04 PM PROFILER HAND Inhaled Oxygen Concentration - - Weight 100 kg (220 lb 6.4 oz) 04/14/2020 3:52 PM PROFILER HAND Height 185.4 cm (6' 1) 04/08/2020 1:04 PM PROFILER HAND Body Mass Index 29.08 04/08/2020 1:04 PM PROFILER HAND Plan of Treatment Health Maintenance Due Date Last Done Comments COLON MONITORING 1949 CT COLONOGRAPHY - COLON CA SCREENING 1949 FIT - COLON CA SCREENING 1949 FLEX SIG - COLON CA SCREENING 1950 MEDICARE AWV 12 MONTHS 07/24/2019 07/23/2018, 10/05/2017 COLOGUARD (AGES 45-75) - COLON CA SCREENING 12/18/2020 12/18/2017 SCREENING FOR DIABETES 11/03/2022 0, 07/23/2018, 09/28/2017, Additional history exists DEPRESSION SCREENING 04/23/2024 COVID-19 VACCINE ( season) 2024 01/02/2024, 01/24/2022, 09/20/2021, Additional history exists INFLUENZA VACCINE (#1) 2024 4, 01/02/2024, 02/15/2023, [...] 140/90 Blood Pressure 120/72( 020 3:52 PM PROFILER HAND) No Katelynn Guy MA Procedures Procedure Name [...] Resulting Agency Comment Lab Testing performed at: [address] [phone] us Ana Luisa Lewis MD LAB - CHEMISTRY ORDERABLES Final Result [facility] ACCOUNT BILL [address] [place] [address] * HEPATITIS C RNA QUANTITATIVE (07/23/2018 9:32 [...] CDT 07/23/2018 Narrative Resulting Agency Comment [facility] [address] [phone] us Ana Luisa Lewis MD LAB - CHEMISTRY ORDERABLES Final Result [facility] INSURANCE BILL [address] [place] [address] * COLOGUARD (EXTERNAL RESULT ENTRY) (12/18/2017) Stool STOOL SPECIMEN / Unknown us Scanned Document LAB - CHEMISTRY ORDERABLES [facility] Result from Last 3 Months or Most Recently Relevant to Health Maintenance Insurance [facility] Address: [address] [address] Advance Directives * DNR (Latest Code Status on File) Date Activated Date Inactivated Comments 02/23/2020 8:40 AM * Full Code Date Activated Date Inactivated Comments 06/23/2010 4:16 PM 06/24/2010 12:12 PM * Full Code Date Activated Date Inactivated Comments 06/13/2010 1:14 PM 06/14/2010 2:44 PM Care Teams Adoption Counselor Relationship Specialty Start Date End Date Paul Wisdom MD [address] [place] [address] Orthopedic Surgery 05/20/10 Scotty Tellez MD [address] [place] [address] Automation Sales Manager Cardiology 04/14/20
--- OUTSIDE RECORDS SUMMARY | 2025-02-12 17:33 | XMS_ITS | Clinical Summary ---
Author Organization [facility] Address [address] [place] [address] Care Team Providers Care Fruit And Vegetable Classer Name Role Phone Ana Luisa Lewis MD [...] mouth daily. 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 Gender Identity Not on file Sexual Orientation [...] Zoster Vaccines (2 of 3) 07/26/2014 05/31/2014 RSV Immunization or 60+ Years (1 - 1-dose 75+ series) 02/17/2024 COVID-19 Vaccine (1 - season) 2024 Influenza Adult (#1) 2025 01/28/2019, 02/04/2018, 01/23/2017, Additional history exists Pneumococcal Vaccine: 50+ Years Completed 04/20/2016, 03/22/2015, 04/23/1997 Hepatitis A Vaccines Aged Out No long er eligible based on patient's age to complete this topic Meningococcal B Vaccine Aged Out No l onger eligible based on patient's age to complete this topic Meningococcal Vaccine Aged Out No rob latrice eligible based on patient's age to complete this topic RSV Immunizations Under 20 Months Aged Out No longer eligible based on patient's age to complete this topic Medical Devices Implanted Type Area Health Information Systems Technician Device Identifier Shelf Expiration Date Model / Serial / Lot Knee Components Knee Components Iol [employer] - [id number] Implanted:Qty: 1 on 11/17/2019 by Theo Del Angel MD at [facility] Lens Left: Eye [employer] 11/27/2022 [id number] / [id number] / Insurance [facility] MEDICARE MEDICARE Care Teams Fruit And Vegetable Classer Relationship Specialty Start Date End Date Ana Luisa Lewis MD PCP - General FAMILY PRACTICE 08/09/18
[2025-02-12 17:36] VITALS: BP 149/67; PULSE 65; RESP 20; TEMP 36.6; O2SAT 100
--- OUTSIDE RECORDS SUMMARY | 2025-02-12 17:36 | XMS_ITS ---
Author Name Blessing SHAH, MRS. Nam npal Address [address] [place] [address] [place] [address] Phone [phone] Organization [facility] ([facility]) Care Team Providers Care Systems Technologist Name Role Phone Blessing Sophy Unavailable [phone] Fortunato Anthony Unavailable [phone] Reason for Referral Not Available Allergies, adverse [...] mg Tab TAKE 1 TABLET BY [place] [facility] EVERY DAY 2024-04-07 No Data Available Isosorbide [...] mg Cap TAKE 1 CAPSULE BY [place] [facility] EVERY DAY 2023-11-05 No Data Available Omeprazole [...] medical decision making, total time 15-29 minutes [id number] 2024-08-01 No Data Available No Data Ericka [...] 13:28:00 PCP f/u twice a year with CRIB PAD MAKER. Bloodwork done twice a year.chronic; stablecontinue atorvastatin [...] conducted via telemedicineLocation of patient: [place] in [facility] participating in telemedicine service and their role in the encounter: Sophy Funk PA-C; Dieter Will NP; 2024-08-01 Patient denies any i ssues or concerns at this time.
--- NOTE | 2025-02-12 19:03 | ED_ITS ---
HPI - Back Pain/Injury General Chief Complaint: Back Pain/Injury Stated Complaint: Back pain Time Seen by Provider: 02/12/25 18:04 Source: patient, family () and RN notes reviewed Mode of arrival: ambulatory Limitations: no limitations History of Present Illness HPI Narrative: 74-year-old male patient presents today complaining of midline low back pain x5 days. Patient has driven total of 28 hours rountri to [place] and stayed in a hotel with a soft mattress, which has made his back hurt. Denies radiation of the pain. Denies numbness or tingling in the extremities or genitalia. Denies loss of bowel or bladder control. Denies chest pain or shortness of breath. He has tried heat, Tylenol, ibuprofen, [id number]-[id number] lidocaine patches. He also takes tizanidine for muscle spasms in his back of a chronic nature. None of these interventions have been helpful. Related Data Home Medications ?Medication ?Instructions ?Recorded ?Confirmed ?Last Taken ?Type zinc 50 mg tablet 50 mg PO DAILY 08/24/2010/2312/19/21 History aspirin 81 mg tablet,delayed 81 mg PO DAILY 12/21/23 0 11/19/24 Unknown History release venlafaxine 75 mg capsule,extended 75 mg PO DAILY 09/1411/19/24 Unknown History release 24 hr Allergies Allergy/AdvReac Type Severity Reaction Status Date / Time tramadol Allergy Mild ITCHING Verified 02/12/25 17:33 [facility] Past Medical History Medical History (Reviewed 02/12/25 @ 19:05 by Savanah Nuñez, [employer], PHARMACY INTAKE TECHNICIAN) COVID-19 Carotid artery disease Second degree burn of finger of right hand Burn of finger of right hand, second degree Left knee pain Hepatitis Emphysema of lung Swelling of knee joint, left Colon cancer screening Pulmonary HTN Coronary atherosclerosis due to calcified coronary lesion of [place] artery Lesion of nose Degenerative joint disease of left hip Chronic pain Cervical spondylosis with radiculopathy Brachial (cervical) neuritis Abnormality of gait Trochanteric bursitis Shoulder tendinitis Hx of hepatitis C Hyperlipidemia CAD (coronary artery disease) Tinnitus JUAN DAVID (generalized anxiety disorder) Tobacco abuse BPH loc w urin obs/LUTS Hx of transfusion of packed red blood cells Drug abuse in remission Hepatitis C Herniated lumbar intervertebral disc GERD (gastroesophageal reflux disease) Hyperlipidemia Hypertension Surgical History Surgical History History of carpal tunnel release Previous back surgery x2 History of total right knee replacement Family History Family History Sibling Tuberculosis Hypertension Cancer Father Tuberculosis Cancer Mother Hypertension Cerebrovascular accident Other Throat cancer Social History Social History Social History: Smoking packs per day: 0.5 Smoking cigarettes per day: 10.0 Years smoked: 50 Smoking pack-years: 25.00 Smoking status: Current every day smoker Tobacco type: cigarettes Second hand tobacco smoke exposure: Yes Alcohol intake: never Substance use: former Substance use type: does not use Do You Feel Safe in your Home?: Yes Lack of Transportation: No Lack of Food: Never True Current Housing: I Have Housing Concerned About Future Housing: No Difficulty Paying Gas/Electric Bills: No Difficulty Paying for Meds: No Currently Unemployed: No Education: Master's Degree or Higher Difficulty w/ Childcare or Family Care: No Living arrangements: with family Occupation/Education: retired Gender identity (if verbalized by the patient): Male Sexual Orientation (if Verbalized by the Patient): Straight or Heterosexual Spiritual care concerns: No Comments At time of signature, I have reviewed and agree with nursing past medical, s urgical, social and family history unless otherwise noted. Please see nursing chart for further information. There is no relevant family history pertinent to the presenting complaint Exam Narrative: GENERAL: Well-appearing, well-nourished, and in no acute distress. HEAD: Normocephalic, atraumatic. EYES: EOMI. No redness or drainage. Conjunctivae normal. ENT: Mucous membranes pink and moist. NECK: Normal AROM. CHEST: No respiratory distress. Clear to auscultation. HEART: Regular rate and rhythm. No murmur appreciated. Normal peripheral pulses. MUSCULOSKELETAL: No bony tenderness of the spine. Lower lumbar surgical scars noted. Tenderness noted to the midline low back. Distal sensation intact. Saddle sensation intact. 5/5 strength in BLE. Pain with range of motion of the lumbar spine. Guards when going from sitting to standing to position. EXTREMITIES: Normal range of motion. No edema. SKIN: Warm, dry, no rash. Capillary refill normal. Normal skin turgor. NEURO: No focal deficits. Alert and oriented x3. Gait steady. PSYCH: Normal affect. No signs of depression or anxiety. Course Course Level of Care: Express Care Visit Vital Signs Vital signs: Vital Signs Temperature 97.8 F 02/12/25 17:36 Pulse Rate 65 02/12/25 17:36 Respiratory Rate 20 02/12/25 17:36 Blood Pressure 149/67 H 02/12/25 17:36 Pulse Oximetry 100 02/12/25 17:36 Oxygen Delivery Room Air 02/12/25 17:36 Temperature 97.8 F 02/12/25 17:36 Pulse Rate 65 02/12/25 17:36 Respiratory Rate 20 02/12/25 17:36 Blood Pressure 149/67 H 02/12/25 17:36 Pulse Oximetry 100 02/12/25 17:36 Oxygen Delivery Room Air 02/12/25 17:36 Reviewed MDM - Back Pain/Injury MDM Narrative Medical decision making narrative: 74-year-old male patient presents today complaining of midline low back pain x5 days. Patient has driven total of 28 hours [place]ountrip to [place] and stayed in a hotel with a soft mattress, which has made his back hurt. He has been using multiple istu-pal-njpidgf medications as well as prescribed muscle relaxer and Celebrex without improvement of symptoms. Upon exam, patient has lower lumbar midline tenderness. Neurovascularly intact. A prescription for prednisone sent to pharmacy. Recommend PCP follow-up if symptoms persist. Patient agrees with plan. Vital signs stable. Differential Diagnosis Differential diagnosis: Likely strain of lumbar region and other (Osteoarthritis) Discharge Plan Discharge Clinical Impression: Low back pain Qualifiers: Chronicity: acute Back pain laterality: midline Sciatica presence: without sciatica Qualified Code(s): M54.50 - Low back pain, unspecified Patient Disposition: Home Condition: Stable Instructions: Acute Low Back Pain (ED) Additional Instructions: Please take the prednisone as directed. Continue the lidocaine patches, heating pad, Tylenol, tizanidine. Follow-up with your PCP in 1 week if symptoms are not improving. Patient Language: Telugu Prescriptions: New prednisone 20 mg tablet 40 mg PO DAILY 5 Days Qty: 10 0RF No Action zinc 50 mg tablet 50 mg PO DAILY aspirin 81 mg tablet,delayed release (DR/EC) 81 mg PO DAILY lisinopril-hydrochlorothiazide 10-12.5 mg tablet See Rx Instructions .ROUTE .COMPLEX Qty: 90 2RF Dose Instruction: TAKE 1 TABLET BY MOUTH EVERY DAY Rx Instructions: TAKE 1 TABLET BY MOUTH EVERY DAY venlafaxine 75 mg capsule,extended release 24hr 75 mg PO DAILY fluticasone propionate 50 mcg/actuation spray,suspension See Rx Instructions .ROUTE .COMPLEX Qty: 16 0RF Dose Instruction: USE 1 SPRAY INTRANASALLY DAILY ADMINISTER INTO EACH NOSTRIL Rx Instructions: USE 1 SPRAY INTRANASALLY DAILY ADMINISTER INTO EACH NOSTRIL azelastine 137 mcg (0.1 %) aerosol,spray See Rx Instructions .ROUTE .COMPLEX Qty: 30 0RF Dose Instruction: SPARY ONCE INTRANASALLY EVERY 12 HOURS ADMINISTER INTO EACH NOSTRIL Rx Instructions: SPARY ONCE INTRANASALLY EVERY 12 HOURS ADMINISTER INTO EACH NOSTRIL terazosin 5 mg capsule See Rx Instructions .ROUTE .COMPLEX Qty: 90 2RF Dose Instruction: TAKE 1 CAPSULE BY MOUTH EVERY DAY Rx Instructions: TAKE 1 CAPSULE BY MOUTH EVERY DAY montelukast 10 mg tablet See Rx Instructions .ROUTE .COMPLEX Qty: 90 3RF Dose Instruction: TAKE 1 TABLET BY MOUTH EVERY DAY Rx Instructions: TAKE 1 TABLET BY MOUTH EVERY DAY finasteride 5 mg tablet See Rx Instructions .ROUTE .COMPLEX Qty: 90 2RF Dose Instruction: TAKE 1 TABLET BY MOUTH EVERY DAY Rx Instructions: TAKE 1 TABLET BY MOUTH EVERY DAY isosorbide mononitrate 30 mg tablet extended release 24 hr See Rx Instructions .ROUTE .COMPLEX Qty: 90 1RF Dose Instruction: TAKE 1 TABLET BY MOUTH EVERY DAY Rx Instructions: TAKE 1 TABLET BY MOUTH EVERY DAY bupropion HCl 150 mg tablet sustained-release 12 hr See Rx Instructions .ROUTE .COMPLEX Qty: 180 1RF Dose Instruction: TAKE 1 TABLET BY MOUTH TWICE A DAY Rx Instructions: TAKE 1 TABLET BY MOUTH TWICE A DAY celecoxib 200 mg capsule See Rx Instructions .ROUTE .COMPLEX Qty: 60 5RF Dose Instruction: TAKE 1 CAPSULE TWICE A DAY NEEDED FOR PAIN Rx Instructions: TAKE 1 CAPSULE TWICE A DAY NEEDED FOR PAIN tizanidine 2 mg tablet See Rx Instructions .ROUTE .COMPLEX Qty: 270 0RF Dose Instruction: TAKE 1 TABLET BY MOUTH THREE TIMES A DAY NEEDED FOR MUSCLE SPASTICITY Rx Instructions: TAKE 1 TABLET BY MOUTH THREE TIMES A DAY NEEDED FOR MUSCLE SPASTICITY atorvastatin 40 mg tablet See Rx Instructions .ROUTE .COMPLEX Qty: 90 2RF Dose Instruction: TAKE 1 TABLET BY MOUTH EVERY DAY Rx Instructions: TAKE 1 TABLET BY MOUTH EVERY DAY omeprazole 40 mg capsule,delayed release(DR/EC) See Rx Instructions .ROUTE .COMPLEX Qty: 90 2RF Dose Instruction: TAKE 1 CAPSULE BY MOUTH EVERY DAY Rx Instructions: TAKE 1 CAPSULE BY MOUTH EVERY DAY Follow-up/Referrals: Hetal Melgoza MD [Primary Care Provider, Family Practice] Time of Disposition: 18:20
== END 2025-02-12 18:26 | disposition home or self-care (01) ==
PROVIDERS: Emergency Provider Nurse Practitioner; PCP Family Medicine
DX: M54.50 Low back pain, unspecified (principal); I25.10 Atherosclerotic heart disease of native coronary artery without angina pectoris; I27.20 Pulmonary hypertension, unspecified; E78.5 Hyperlipidemia, unspecified; N40.1 Benign prostatic hyperplasia with lower urinary tract symptoms; I10 Essential (primary) hypertension; K21.9 Gastro-esophageal reflux disease without esophagitis; J43.9 Emphysema, unspecified; Z86.16 Personal history of COVID-19; Z79.82 Long term (current) use of aspirin
CPT/HCPCS: 99211; G0463